=== PATIENT | female | born 1970 | race Caucasian/White ===

== ENCOUNTER 2017-02-26 02:21 | Inpatient (IN) | payer OTHER ==
[~2017-02-26] VITALS: Ht 152.4 cm; Wt 74.1 kg
[2017-02-26] VITALS (9 sets, daily range): BP systolic 117–164; BP diastolic 68–80; PULSE 64–96; RESP 18–20; TEMP 97.8; Ht 152.4 cm; Wt 74.1 kg
[2017-02-26] MEDS: HYDROmorphONE 1 MG/ML SYG IV PRN ×3 (03:37→19:27)
[2017-02-26] MEDS: ONDANSETRON 4 MG INJ IV PRN ×2 (03:37→08:51)
[2017-02-26] MEDS: GUAIFENESIN/DM 5ML CUP PO PRN ×2 (03:50→08:53)
--- NOTE | 2017-02-26 05:25 | ERA ---
ER Documentation Chief Complaint Date/Time DATE: 02/26/17 TIME: 05:24 Chief Complaint Direct admit to tele from Mehul Hernandez, boarding in ED,SOB,Hx lung CA w/ mets HPI This is a very pleasant 38-year-old female that is capitated to [facility]. She comes in with shortness of breath. No fevers or chills. No nausea no vomiting. No other current complaints ROS All systems reviewed and are negative except as per history of present illness. Allergies Allergies: Coded Allergies: No Known Allergy (Unverified , 02/26/17) PMhx/Soc History of Surgery: Yes (C SECTION, HYSTERECTOMY) Anesthesia Reaction: No Hx Neurological Disorder: Yes (MIGRAINE) Hx Respiratory Disorders: Yes (ASTHMA, LUNG CA) Hx Cardiac Disorders: Yes (HTN ) Hx Psychiatric Problems: Yes (ANXIETY, BIPOLAR, SCHIZOPHRENIA) Hx Miscellaneous Medical Probl: Yes (RA, UTERINE CA, DM, FIBROMYALGIA) Hx Alcohol Use: No Hx Substance Use: No Hx Tobacco Use: No Smoking Status: Former smoker Physical Exam Vitals Vital Signs Date Time Temp Pulse Resp B/P Pulse Ox O2 Delivery O2 Flow Rate FiO2 02/26/17 05:01 81 21 128/75 95 Nasal Cannula 2.0 02/26/17 03:30 96 Nasal Cannula 2.0 02/26/17 03:30 Nasal Cannula 2.0 02/26/17 03:25 98.8 95 29 151/81 90 Room Air 02/26/17 02:26 98.3 96 18 122/70 95 Physical Exam Const: [] Head: Atraumatic Eyes: Normal Conjunctiva ENT: Normal External Ears, Nose and Mouth. Neck: Full range of motion..~ No meningismus. Resp: Clear to auscultation bilaterally Cardio: Regular rate and rhythm, no murmurs Abd: Soft, non tender, non distended. Normal bowel sounds Skin: No petechiae or rashes Back: No midline or flank tenderness Ext: No cyanosis, or edema Neur: Awake and alert Psych: Normal Mood and Affect Results 24 hrs Current Medications Medications (Trade) Dose Ordered Sig/Hernan Route PRN Reason Start Time Stop Time Status Last Admin Dose Admin Guaifenesin/ Dextromethorphan (Robitussin Dm Liquid Cup) 10 ml Q4H PRN PO COUGH 02/26/17 03:30 02/26/17 03:50 Hydromorphone HCl (Dilaudid) 1 mg Q4H PRN IV PAIN 02/26/17 03:30 02/26/17 03:37 Albuterol/ Ipratropium (Duoneb) 3 ml Q4H RESP THERAPY PRN HHN SHORTNESS OF BREATH 02/26/17 03:30 Ondansetron HCl (Zofran Inj) 4 mg Q4H PRN IV NAUSEA AND/OR VOMITING 02/26/17 03:30 02/26/17 03:37 Procedures/MDM Medical decision-makin-year-old female shortness of breath likely secondary to metastatic lung cancer. At this point clinically stable. Patient will be admitted to hospitalist. Departure Diagnosis: Primary Impression: Shortness of breath Condition: Stable VARSHA SERRANO Feb 26, 2017 05:25
[2017-02-26] MEDS ORDERED: NACL 0.9% 3 ML SYG IV SCH (06:00)
[2017-02-26] MEDS ORDERED: LEVOFLOXACIN 750MG/D5W (PMX) 150 ML IVPB SCH (06:00)
[2017-02-26] MEDS ORDERED: ONDANSETRON 4 MG INJ IV PRN (06:00)
[2017-02-26 06:25] LABS: ADD SCAN DIFF NO
[2017-02-26 06:31] LABS: BASOPHILS % 0.4 % (0.0-2.0); EOSINOPHILS # 0.4 10^3/ul (0.0-0.5); EOSINOPHILS % 4.2 % (0.0-7.0); HEMATOCRIT 39.8 % (37.0-47.0); HEMOGLOBIN 12.9 g/dl (12.0-16.0); LYMPHOCYTES # 1.9 10^3/ul (0.8-2.9); LYMPHOCYTES % 19.1 % (15.0-51.0); MEAN CORPUSCULAR HEMOGLOBIN 29.5 pg (29.0-33.0); MEAN CORPUSCULAR HGB CONC 32.4 g/dl (32.0-37.0); MEAN CORPUSCULAR VOLUME 90.9 fl (82.0-101.0); MEAN PLATELET VOLUME 10.3 fl (7.4-10.4); MONOCYTE # 0.8 10^3/ul (0.3-0.9); MONOCYTES % 7.5 % (0.0-11.0); NEUTROPHIL # 6.8 10^3/ul (1.6-7.5); NEUTROPHILS % 68.4 % (39.0-77.0); PLATELET COUNT 299 10^3/UL (140-415); RED BLOOD COUNT 4.38 10^6/ul (4.20-5.40)
[2017-02-26 07:05] LABS: ALBUMIN 4.1 g/dl (3.3-4.9); ALBUMIN/GLOBULIN RATIO 1.41; BILIRUBIN,INDIRECT 0.3 mg/dl (0-1.1); BILIRUBIN,TOTAL 0.3 mg/dl (0.2-1.3); CALCIUM 9.3 mg/dl (8.4-10.2); CREATININE 0.67 mg/dl (0.44-1.00); POTASSIUM 4.1 mmol/L (3.5-5.1)
[2017-02-26] MEDS: PANTOPRAZOLE (EC) 40 MG TAB PO SCH (07:32)
--- NOTE | 2017-02-26 07:32 | HP ---
Date/Time of Note Date/Time of Note DATE: 02/26/17 TIME: 07:13 Assessment/Plan VTE Prophylaxis VTE Prophylaxis Intervention: LMWH Assessment/Plan Chief Complaint/Hosp Course This is a 38-year-old female being admitted to the telemetry floor for: #1 respiratory distress: Infectious versus neoplastic. Patient's chest x-ray does show likely neoplastic process. However patient also has been coughing and producing productive sputum and had an elevated white blood cell count today of 12.5 which also could possibly suggest an underlying pneumonia. Patient was 88% on room air as well as tachycardic at [facility]. At the current time will order a CT of the chest to evaluate for any pulmonary embolism as well as to get a better picture of the pulmonary masses. Will put continue patient on Levaquin 750 mg every 24 hours. Patient apparently had studies done at [facility]. We will try to obtain imaging studies of possible. DuoNeb's every 4 hours as needed. #2 lung mass: Likely neoplastic in etiology. Please see #1 #3 abnormal mammogram: Patient states that she had an abnormal mammogram. Will try to obtain outpatient records #4 Mental health: Patient has history of anxiety and schizophrenia as well as bipolar. Currently she is not on any medications, consult telemetry psych if indicated. #5 history of uterine cancer: Patient is status post total abdominal hysterectomy. Patient was having a difficult time scheduling the patient with a conveyor maintenance mechanic/onc she is requesting if she can see him during this visit. Will consult conveyor maintenance mechanic/onc #6 hypertension: Continue to monitor patient currently not on any medications. #7 rheumatoid arthritis: Continue to monitor currently not on medications #8 DVT and GI prophylaxis: Lovenox, Protonix Further treatment strategy will be implemented as per the clinical course Of note we do need to obtain outpatient records as well as imaging study records Patient did not have all her information at this time, we will need to confirm with her where he can obtain her records. Problems: HPI/ROS Admit Date/Time Admit Date/Time Hx of Present Illness This is a 38-year-old female who presented to the [facility] for evaluation of cough productive of green sputum for the past several weeks associated with subjective fever and diffuse pain. She was subsequently transferred from [facility]. She also is complaining of shortness of breath. She was told that she may have metastatic disease to her lung. She was not receiving any chemotherapy. She had a history of uterine cancer in the past and did have a total abdominal hysterectomy. She has not received any radiation therapy. On my examination patient did appear in mild distress from pain. She also stated that she was short of breath. She was satting 88% on room air. Allergies: NKDA Medications: See SUNNY GARCIA Const: As per HPI Eyes : No pain discharge or redness or change in visual acuity ENT: No pain, sore throat, congestion, congestion, dysphagia or discharge Respiratory: As patient Cardiovascular: No chest pain, palpitation, PND, or edema GI : no change in appetite, abdominal pain, nausea, vomiting, diarrhea, constipation, or change in the color his stool Genitourinary: No dysuria, hematuria, flank pain , discharge or CVA tenderness Musculoskeletal: No joint pain, back pain, neck pain, restricted range of motion in neck or joints Skin: No rash, bruising or hives Neuro: No headache, dizziness, syncope, seizure, focal weakness Endocrine: No polyuria, polydipsia, temperature intolerance Psych: No hallucination, depression, anxiety or suicidal ideation PMH/Family/Social Past Medical History Anxiety, arthritis, rheumatoid, asthma, bipolar disorder, history of uterine cancer with possible metastases, diabetes mellitus, fibromyalgia, hypertension, migraine, schizophrenia Past Surgical History section 1, total abdominal hysterectomy with bilateral salpingo- oophorectomy Family History Significant Family History: no pertinent family hx Social History Alcohol Use: none Smoking Status: Former smoker (Quarter pack a day 20 years) Drug Use: none Exam/Review of Systems Vital Signs Vitals Vital Signs Date Time Temp Pulse Resp B/P Pulse Ox O2 Delivery O2 Flow Rate FiO2 02/26/17 05:01 81 21 128/75 95 Nasal Cannula 2.0 02/26/17 03:25 98.8 Exam Exam General: Patient appears tachypneic, in mild distress from pain. HEENT: Atraumatic, normocephalic. The pupils are equal, round and reactive. Extraocular motor are intact Neck: Supple with full range of motion. No rigidity or meningismus Chest: Nontender Lungs: Clear to auscultation bilaterally, patient is tachypneic, mild respiratory distress Heart: Normal S1-S2, Regular rhythm and rate. No murmur, S3, or S4 Abdomen: Soft , nontender, nondistended , bowel sounds are present. No guarding no rebound tenderness , No masses or organomegaly. Extremities: Normal to inspection, no edema no cyanosis Neurologic: Normal mental status, speech normal, cranial nerves II through XII are intact, motor and sensory are intact, no focal weakness Additional Comments Abnormal lab results from [facility]: White blood cells count of 12.5 EKG: Sinus tachycardia at a rate of [address] or T-wave abnormalities. Chest x-ray: Progression of diffuse pulmonary metastasis with the largest mass in the right low lobe measuring 7 cm please refer to transfer documentation for further reports. Labs Result Diagram: 02/26/17 0600 Medications Medications Current Medications Guaifenesin/ Dextromethorphan (Robitussin Dm Liquid Cup) 10 ml Q4H PRN PO COUGH Last administered on 02/26/17 03:50; Admin Dose 10 ML; Start 02/26/17 at 03:30 Hydromorphone HCl (Dilaudid) 1 mg Q4H PRN IV PAIN Last administered on 03:37; Admin Dose 1 MG; Start 02/26/17 at 03:30 Ondansetron HCl (Zofran Inj) 4 mg Q4H PRN IV NAUSEA AND/OR VOMITING Last administered on 02/26/17 03:37; Admin Dose 4 MG; Start 02/26/17 at 03:30 Ondansetron HCl (Zofran Inj) 4 mg Q6H PRN IV NAUSEA AND/OR VOMITING; Start at 06:00 Pantoprazole (Protonix Tab) 40 mg DAILY@06 PO ; Start 02/26/17 at 06:00 Enoxaparin Sodium 40 mg 40 mg DAILY SC ; Start 02/26/17 at 09:00 Levofloxacin/ Dextrose (Levaquin 750 Mg/ D5W 150 ml (Pmx)) 150 ml @ 100 mls/hr Q24H IVPB ; Start 02/26/17 at 06:00 FRANCISCO MUHAMMAD Feb 26, 2017 07:23
[2017-02-26] MEDS: LEVOFLOXACIN 750MG/D5W (PMX) 150 ML IVPB SCH (07:33)
[2017-02-26] MEDS ORDERED: IODIXANOL LOCM 100 ML BTL ONE (08:07)
[2017-02-26] MEDS ORDERED: SOD CHLORIDE 0.9% 100 ML ONE (08:07)
--- NOTE | 2017-02-26 08:47 | RADRPT ---
PROCEDURE: CTA Chest CLINICAL INDICATION: Dyspnea, history of cancer TECHNIQUE: CTA of the chest was performed following the uncomplicated IV administration of 95 cc V isipaque 320. Coronal and sagittal images were reconstructed from the axial data set. 3-D volumetr ic rendered post processing was performed as well. One or more of the following dose reduction tech niques were used: automated exposure control, adjustment of the mA and/or kV according to patient si ze, use of iterative reconstruction technique. CTDI = 16.9 mGy. DLP = 617.45 mGy-cm. COMPARISON: None available. FINDINGS: No filling defect is present to suggest pulmonary embolism. There is no evidence for pulmonary skye rial hypertension. Innumerable bilateral pulmonary nodules/masses are identified, consistent with diffuse metastatic di sease. There are mild bilateral pleural effusions. Focal consolidation is identified in the tablet making machine operator olateral left lower lobe, possibly atelectasis and/or pneumonia. No pneumothorax or pulmonary edema is identified. The central tracheobronchial tree is clear. The heart size is normal without significant pericardial fluid. There is no thoracic aortic aneurys m or dissection. There is nonspecific prominence of mediastinal and hilar lymph nodes, concerning f or additional metastatic disease. No axillary or supraclavicular lymphadenopathy is identified. Visualized portions of the upper abdomen demonstrate no acute abnormality. The osseous structures a re unremarkable. No osteolytic or osteoblastic lesion is seen. IMPRESSION: 1. Diffuse bilateral pulmonary metastatic disease is identified, as above. Prominent mediastinal an d hilar lymph nodes are seen as well, further concerning for metastatic disease. 2. Focal pulmonary consolidation is seen in the left lower lobe, possibly atelectasis and/or pneumo yaneth. There are mild bilateral pleural effusions. 3. No pulmonary embolism is identified. RPTAT: HH .Omega Gaytan MD, Date Time Electronically viewed and signed by .Omega Gaytan MD, MD on 02/26/2017 08:46 .R/
[2017-02-26] MEDS: ENOXAPARIN 40 MG/0.4 ML SYG SC SCH (08:57)
[2017-02-26] MEDS: ALPRAZOLAM 0.25 MG TAB PO SCH (20:06)
[2017-02-27] VITALS (11 sets, daily range): BP systolic 117–145; BP diastolic 68–81; PULSE 60–97; RESP 18–20
[2017-02-27] MEDS: PANTOPRAZOLE (EC) 40 MG TAB PO SCH (06:41)
[2017-02-27 07:09] LABS: ADD SCAN DIFF NO
[2017-02-27 07:17] LABS: BASOPHIL # 0.1 10^3/ul (0.0-0.1); BASOPHILS % 0.5 % (0.0-2.0); EOSINOPHILS # 0.5 10^3/ul (0.0-0.5); EOSINOPHILS % 4.3 % (0.0-7.0); HEMATOCRIT 42.6 % (37.0-47.0); HEMOGLOBIN 13.9 g/dl (12.0-16.0); LYMPHOCYTES # 1.8 10^3/ul (0.8-2.9); LYMPHOCYTES % 16.7 % (15.0-51.0); MEAN CORPUSCULAR HEMOGLOBIN 29.6 pg (29.0-33.0); MEAN CORPUSCULAR HGB CONC 32.6 g/dl (32.0-37.0); MEAN CORPUSCULAR VOLUME 90.6 fl (82.0-101.0); MEAN PLATELET VOLUME 10.5 fl (7.4-10.4); MONOCYTE # 0.7 10^3/ul (0.3-0.9); NEUTROPHIL # 7.5 10^3/ul (1.6-7.5); NEUTROPHILS % 71.2 % (39.0-77.0); PLATELET COUNT 317 10^3/UL (140-415); RED CELL DISTRIBUTION WIDTH 13.9 % (11.5-14.5); WHITE BLOOD COUNT 10.6 10^3/ul (4.8-10.8)
[2017-02-27 07:56] LABS: CALCIUM 9.5 mg/dl (8.4-10.2); CREATININE 0.65 mg/dl (0.44-1.00); POTASSIUM 4.3 mmol/L (3.5-5.1)
[2017-02-27] MEDS: ALPRAZOLAM 0.25 MG TAB PO SCH ×2 (09:32→21:30)
[2017-02-27] MEDS: ENOXAPARIN 40 MG/0.4 ML SYG SC SCH (09:33)
[2017-02-27] MEDS: LEVOFLOXACIN 750MG/D5W (PMX) 150 ML IVPB SCH (10:37)
--- NOTE | 2017-02-27 16:05 | PN ---
Date/Time of Note Date/Time of Note DATE: 02/27/17 TIME: 16:02 Assessment/Plan Lines/Catheters IV [facility]from [facility] Saline Lock Urinary Cath still in place: No Assessment/Plan Chief Complaint/Hosp Course Assessment and plan 1. Respiratory distress suspect secondary to neoplastic process versus infectious process. Portfolio Management Marketing was consulted. Await recommendations. Bronchodilators as needed. Continue on antibiotics for now. CT of the chest negative for any kind of pulmonary embolism. Suspect possible pneumonia. Continue on antibiotics. 2. Lung mass. Patient did have CT scan of the chest that showed diffuse bilateral pulmonary metastatic disease process. Await pulmonology recommendations. 3. History of uterine cancer. Patient was seen by obgyn specialist/onc 4. History of bipolar/schizophrenia. No active issue noted at this time. Continue to monitor for now. Disposition plan: Continue with antibiotic. With intelligence support officer and obgyn specialist/onc input. Discussed plan of care with Problems: Subjective 24 Hr Interval Summary Free Text/Dictation reports better breathing at this time Exam/Review of Systems Vital Signs Vitals Vital Signs Date Time Temp Pulse Resp B/P Pulse Ox O2 Delivery O2 Flow Rate FiO2 02/27/17 12:41 80 02/27/17 11:48 98.0 19 118/75 93 02/26/17 10:00 Nasal Cannula 2.0 Exam Constitutional: alert, oriented Psych: nl mood/affect Neck: supple Respiratory: normal air movement Cardiovascular: regular rate and rhythm Gastrointestinal: non-tender, soft Musculoskeletal: nl extremities to inspection Extremities: normal pulses Neurological: FORKLIFT PICKER II-XII intact, nl mental status, nl speech Results Result Diagram: 02/27/17 0633 02/27/17 0633 Results 24 hrs Laboratory Tests Test 02/27/17 06:33 White Blood Count 10.6 Red Blood Count 4.70 Hemoglobin 13.9 Hematocrit 42.6 Mean Corpuscular Volume 90.6 Mean Corpuscular Hemoglobin 29.6 Mean Corpuscular Hemoglobin Concent 32.6 Red Cell Distribution Width 13.9 Platelet Count 317 Mean Platelet Volume 10.5 H Neutrophils % 71.2 Lymphocytes % 16.7 Monocytes % 7.0 Eosinophils % 4.3 Basophils % 0.5 Nucleated Red Blood Cells % 0.0 Neutrophils # 7.5 Lymphocytes # 1.8 Monocytes # 0.7 Eosinophils # 0.5 Basophils # 0.1 Nucleated Red Blood Cells # 0.0 Sodium Level 141 Potassium Level 4.3 Chloride Level 103 Carbon Dioxide Level 30 Anion Gap 12 Blood Urea Nitrogen 8 Creatinine 0.65 Glucose Level 92 Calcium Level 9.5 Medications Medications Current Medications Guaifenesin/ Dextromethorphan (Robitussin Dm Liquid Cup) 10 ml Q4H PRN PO COUGH Last administered on 02/26/17 08:53; Admin Dose 10 ML; Start 02/26/17 at 03:30 Hydromorphone HCl (Dilaudid) 1 mg Q4H PRN IV PAIN Last administered on 19:27; Admin Dose 1 MG; Start 02/26/17 at 03:30 Ondansetron HCl (Zofran Inj) 4 mg Q4H PRN IV NAUSEA AND/OR VOMITING Last administered on 02/26/17 08:51; Admin Dose 4 MG; Start 02/26/17 at 03:30 Ondansetron HCl (Zofran Inj) 4 mg Q6H PRN IV NAUSEA AND/OR VOMITING; Start at 06:00 Pantoprazole (Protonix Tab) 40 mg DAILY@06 PO Last administered on 02/27/17 06 :41; Admin Dose 40 MG; Start 02/26/17 at 06:00 Enoxaparin Sodium 40 mg 40 mg DAILY SC Last administered on 02/27/17 09:33; Admin Dose 40 MG; Start 02/26/17 at 09:00 Levofloxacin/ Dextrose (Levaquin 750 Mg/ D5W 150 ml (Pmx)) 150 ml @ 100 mls/hr Q24H IVPB Last administered on 02/27/17 10:37; Admin Dose 100 MLS/HR; Start at 07:30 Alprazolam (Xanax) 0.25 mg BID PO Last administered on 02/27/17 09:32; Admin Dose 0.25 MG; Start 02/26/17 at 20:00 ANGELA MCNEIL Feb 27, 2017 16:05
[2017-02-27] MEDS: HYDROmorphONE 1 MG/ML SYG IV PRN (18:10)
[2017-02-28] VITALS (13 sets, daily range): BP systolic 115–162; BP diastolic 59–92; PULSE 65–120; RESP 18–20
[2017-02-28] MEDS: PANTOPRAZOLE (EC) 40 MG TAB PO SCH (05:29)
[2017-02-28] MEDS: HYDROmorphONE 1 MG/ML SYG IV PRN ×3 (05:29→20:09)
[2017-02-28 07:28] LABS: ADD SCAN DIFF NO
[2017-02-28 07:43] LABS: BASOPHIL # 0.1 10^3/ul (0.0-0.1); BASOPHILS % 0.6 % (0.0-2.0); EOSINOPHILS # 0.3 10^3/ul (0.0-0.5); EOSINOPHILS % 3.6 % (0.0-7.0); HEMATOCRIT 38.6 % (37.0-47.0); HEMOGLOBIN 12.6 g/dl (12.0-16.0); LYMPHOCYTES # 1.8 10^3/ul (0.8-2.9); MEAN CORPUSCULAR HEMOGLOBIN 29.4 pg (29.0-33.0); MEAN CORPUSCULAR HGB CONC 32.6 g/dl (32.0-37.0); MEAN PLATELET VOLUME 10.5 fl (7.4-10.4); MONOCYTE # 0.6 10^3/ul (0.3-0.9); MONOCYTES % 6.7 % (0.0-11.0); NEUTROPHIL # 6.7 10^3/ul (1.6-7.5); NEUTROPHILS % 69.7 % (39.0-77.0); PLATELET COUNT 315 10^3/UL (140-415); RED BLOOD COUNT 4.29 10^6/ul (4.20-5.40); WHITE BLOOD COUNT 9.6 10^3/ul (4.8-10.8)
[2017-02-28 08:04] LABS: CALCIUM 9.3 mg/dl (8.4-10.2); CREATININE 0.58 mg/dl (0.44-1.00); POTASSIUM 3.9 mmol/L (3.5-5.1)
[2017-02-28] MEDS: ALPRAZOLAM 0.25 MG TAB PO SCH ×2 (08:35→20:09)
[2017-02-28] MEDS: LEVOFLOXACIN 750MG/D5W (PMX) 150 ML IVPB SCH (08:35)
[2017-02-28] MEDS: ENOXAPARIN 40 MG/0.4 ML SYG SC SCH (08:37)
--- NOTE | 2017-02-28 13:16 | CONS ---
Date/Time of Note Date/Time of Note DATE: 02/28/17 TIME: 13:12 Assessment/Plan Assessment/Plan Additional Assessment/Plan CT chest was reviewed from yesterday which is showing bilateral multiple masses/ nodules. Findings are almost pathognomonic of widely metastatic malignancy. Possibly uterine in etiology. Assessment recommendations; 1. P patient admitted with shortness of breath with multiple nodules/lung masses likely metastatic cancer. We will schedule CT-guided biopsy. Continue current supportive measures. Consultation Date/Type/Reason Admit Date/Time Date of Consultation: Feb 28, 2017 Type of Consultation: Pulmonary Reason for Consultation Pulmonary consultation requested for evaluation of multiple bilateral pulmonary nodules/masses. History of presenting any; patient is a pleasant 46-year-old lady who came into the emergency room sent over from [facility] after she presented there with complaint of shortness of breath. Patient had a chest x- ray done which showed multiple lung nodules patient subsequently was transferred to this hospital for possible biopsy. Patient has been complaining of shortness of breath for the last several months also complain of scant cough without any sputum production. Denies any chest pain wheezing. Denies any hemoptysis. Patient has lost 30 pounds over the last couple months. According to her she was diagnosed with uterine cancer in May of last year underwent hysterectomy at that time she had a PET scan done which showed one spot in the lung patient however could not have any follow-up done. According to her she has been to various hospitals and an x-ray done in either November or December showed multiple lung nodules however no further workup was done at that time either. Past medical history; next 1. Patient with history of uterine cancer in May last year status post hysterectomy. No other medical history. Medications; reviewed. Allergies; none. Social history; patient just recently quit smoking. No swelling or drug abuse. Family history; patient has 3 children. No show any malignancy in the family. 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 Review of systems; denies any headache, seizures. Any chest pain, angina, wheezing. Any vomitus. Complains of shortness of breath. Denies any abdominal pain, nausea vomiting. Any edema. Any abdominal distention. Complains of mild orthopnea. Has lost 30 pounds in the last few months. Denies any skin changes. Lesia; middle-aged woman, awake alert currently in no distress. Psychological: nl mood/affect Social History Alcohol Use: none Smoking Status: Former smoker Drug Use: none Exam/Review of Systems Vital Signs Vitals Vital Signs Date Time Temp Pulse Resp B/P Pulse Ox O2 Delivery O2 Flow Rate FiO2 02/28/17 12:31 120 02/28/17 12:10 98.0 20 120/73 96 02/27/17 08:20 Nasal Cannula 2.0 Intake and Output 02/27/17 02/27/17 02/28/17 15:00 23:00 07:00 Intake Total 550 ml 720 ml Balance 550 ml 720 ml Exam HEENT exam is; supple neck, no JVD. No lymphadenopathy. Midline trachea. No thyromegaly. Pharynx clear. Patient has fair dentition. Pupils are midsize and reactive to light. Chest examined; diminished but clear vessel. S1-S2 audible, no murmurs. Regular rhythm. Abdomen examination; soft, no organomegaly. Bowel sounds audible. Nontender. Extremity examination; no peripheral edema. Pulses 1+ bilaterally. No clubbing. MAILING SPECIALIST examination; no focal deficit. Results Result Diagram: 02/28/17 0640 02/28/17 0620 Results 24 hrs Laboratory Tests Test 02/28/17 06:20 02/28/17 06:40 Sodium Level 141 Potassium Level 3.9 Chloride Level 106 Carbon Dioxide Level 28 Anion Gap 11 Blood Urea Nitrogen 10 Creatinine 0.58 Glucose Level 100 Calcium Level 9.3 White Blood Count 9.6 Red Blood Count 4.29 Hemoglobin 12.6 Hematocrit 38.6 Mean Corpuscular Volume 90.0 Mean Corpuscular Hemoglobin 29.4 Mean Corpuscular Hemoglobin Concent 32.6 Red Cell Distribution Width 14.0 Platelet Count 315 Mean Platelet Volume 10.5 H Neutrophils % 69.7 Lymphocytes % 19.0 Monocytes % 6.7 Eosinophils % 3.6 Basophils % 0.6 Nucleated Red Blood Cells % 0.0 Neutrophils # 6.7 Lymphocytes # 1.8 Monocytes # 0.6 Eosinophils # 0.3 Basophils # 0.1 Nucleated Red Blood Cells # 0.0 Medications Medications Current Medications Guaifenesin/ Dextromethorphan (Robitussin Dm Liquid Cup) 10 ml Q4H PRN PO COUGH Last administered on 02/26/17t 08:53; Admin Dose 10 ML; Start 02/26/17 at 03:30 Hydromorphone HCl (Dilaudid) 1 mg Q4H PRN IV PAIN Last administered on 05:29; Admin Dose 1 MG; Start 02/26/17 at 03:30 Ondansetron HCl (Zofran Inj) 4 mg Q4H PRN IV NAUSEA AND/OR VOMITING Last administered on 02/26/17 08:51; Admin Dose 4 MG; Start 02/26/17 at 03:30 Ondansetron HCl (Zofran Inj) 4 mg Q6H PRN IV NAUSEA AND/OR VOMITING; Start at 06:00 Pantoprazole (Protonix Tab) 40 mg DAILY@06 PO Last administered on 02/28/17 05 :29; Admin Dose 40 MG; Start 02/26/17 at 06:00 Enoxaparin Sodium 40 mg 40 mg DAILY SC Last administered on 02/28/17 08:37; Admin Dose 40 MG; Start 02/26/17 at 09:00 Levofloxacin/ Dextrose (Levaquin 750 Mg/ D5W 150 ml (Pmx)) 150 ml @ 100 mls/hr Q24H IVPB Last administered on 02/28/17 08:35; Admin Dose 100 MLS/HR; Start at 07:30 Alprazolam (Xanax) 0.25 mg BID PO Last administered on 02/28/17 08:35; Admin Dose 0.25 MG; Start 02/26/17 at 20:00 SANGITA CAMPOS 21, 2017 13:16
--- NOTE | 2017-02-28 16:18 | PN ---
Date/Time of Note Date/Time of Note DATE: 02/28/17 TIME: 16:16 Assessment/Plan VTE Prophylaxis VTE Prophylaxis Intervention: LMWH Lines/Catheters IV [facility] Saline Lock Urinary Cath still in place: No Assessment/Plan Chief Complaint/Hosp Course Assessment and plan 1. Respiratory distress suspect secondary to neoplastic process versus infectious process. Banking Attorney was consulted. Plan for CT-guided lung biopsy Continue on antibiotics for now. CT of the chest negative for any kind of pulmonary embolism. Empirically on antibiotic for possible pneumonia 2. Lung mass. Patient did have CT scan of the chest that showed diffuse bilateral pulmonary metastatic disease process. Plan for CT guided biopsy of lung 3. History of uterine cancer. Patient to be seen by manager alliance/onc 4. History of bipolar/schizophrenia. No active issue noted at this time. Continue to monitor for now. Disposition plan: Plan for CT lung guided biopsy. Medical oncologist consulted Discussed plan of care with Problems: Subjective 24 Hr Interval Summary Free Text/Dictation Resting at this time. Reports having shortness of breath Exam/Review of Systems Vital Signs Vitals Vital Signs Date Time Temp Pulse Resp B/P Pulse Ox O2 Delivery O2 Flow Rate FiO2 02/28/17 15:53 97.8 86 20 115/59 98 02/27/17 08:20 Nasal Cannula 2.0 Intake and Output 02/27/17 02/27/17 02/28/17 15:00 23:00 07:00 Intake Total 550 ml 720 ml Balance 550 ml 720 ml Exam Constitutional: alert Head: normocephalic Eyes: nl conjunctiva Neck: supple Respiratory: clear to auscultation, normal air movement Cardiovascular: regular rate and rhythm Gastrointestinal: non-tender, soft Extremities: normal pulses Neurological: CHILD AND ADOLESCENT PSYCHIATRIST II-XII intact, nl mental status, nl speech Results Result Diagram: 02/28/17 0640 02/28/17 0620 Results 24 hrs Laboratory Tests Test 02/28/17 06:20 02/28/17 06:40 Sodium Level 141 Potassium Level 3.9 Chloride Level 106 Carbon Dioxide Level 28 Anion Gap 11 Blood Urea Nitrogen 10 Creatinine 0.58 Glucose Level 100 Calcium Level 9.3 White Blood Count 9.6 Red Blood Count 4.29 Hemoglobin 12.6 Hematocrit 38.6 Mean Corpuscular Volume 90.0 Mean Corpuscular Hemoglobin 29.4 Mean Corpuscular Hemoglobin Concent 32.6 Red Cell Distribution Width 14.0 Platelet Count 315 Mean Platelet Volume 10.5 H Neutrophils % 69.7 Lymphocytes % 19.0 Monocytes % 6.7 Eosinophils % 3.6 Basophils % 0.6 Nucleated Red Blood Cells % 0.0 Neutrophils # 6.7 Lymphocytes # 1.8 Monocytes # 0.6 Eosinophils # 0.3 Basophils # 0.1 Nucleated Red Blood Cells # 0.0 Medications Medications Current Medications Guaifenesin/ Dextromethorphan (Robitussin Dm Liquid Cup) 10 ml Q4H PRN PO COUGH Last administered on 02/26/17 08:53; Admin Dose 10 ML; Start 02/26/17 at 03:30 Hydromorphone HCl (Dilaudid) 1 mg Q4H PRN IV PAIN Last administered on 14:01; Admin Dose 1 MG; Start 02/26/17 at 03:30 Ondansetron HCl (Zofran Inj) 4 mg Q4H PRN IV NAUSEA AND/OR VOMITING Last administered on 02/26/17 08:51; Admin Dose 4 MG; Start 02/26/17 at 03:30 Ondansetron HCl (Zofran Inj) 4 mg Q6H PRN IV NAUSEA AND/OR VOMITING; Start at 06:00 Pantoprazole (Protonix Tab) 40 mg DAILY@06 PO Last administered on 02/28/17 05 :29; Admin Dose 40 MG; Start 02/26/17 at 06:00 Enoxaparin Sodium (Lovenox) 40 mg DAILY SC Last administered on 02/28/17 08:37 ; Admin Dose 40 MG; Start 02/26/17 at 09:00 Alprazolam (Xanax) 0.25 mg BID PO Last administered on 02/28/17 08:35; Admin Dose 0.25 MG; Start 02/26/17 at 20:00 Levofloxacin (Levaquin) 750 mg DAILY@06 PO ; Start 03/01/17 at 06:00 ANGELA MCNEIL Feb 28, 2017 16:18
--- NOTE | 2017-02-28 19:34 | CONS ---
Date/Time of Note Date/Time of Note DATE: 02/27/17 TIME: 19:16 VK LE Assessment/Plan Assessment/Plan Chief Complaint/Hosp Course History of uterine cancer. Patient to be seen by electrician supervisor airplane/onc PT UNDERWENT KIERAN FOR UTERINE LEIOMYOSARCOMA IN MAY 2016 AT [facility] SHE SAW DR LOZA 3 TIMES OUTPT PT SAW DR VILLAREAL , WITH PLAN FOR CHEMOTHERAPY, BUT NO AUTH HAS BEEN OBTAINED Diffuse bilateral pulmonary metastatic disease , WITH Prominent mediastinal and hilar lymph nodes are seen as well, further concerning for metastatic disease. Respiratory distress suspect secondary to neoplastic process Socket Puller EVAL CT-guided lung biopsy History of bipolar/schizophrenia. No active issue noted at this time. Continue to monitor for now. Problems: Consultation Date/Type/Reason Admit Date/Time Date of Consultation: Feb 27, 2017 Type of Consultation: HEMEONC Reason for Consultation LUNG METS UTERINE MASS Referring Provider: ANGELA MCNEIL of Present Illness patient is a pleasant 46-year-old lady who came into the emergency room sent over from [facility] after she presented there with complaint of shortness of breath. Patient had a chest x-ray done which showed multiple lung nodules patient subsequently was transferred to this hospital for possible biopsy. Patient has been complaining of shortness of breath for the last several months also complain of scant cough without any sputum production. Denies any chest pain wheezing. Denies any hemoptysis. Patient has lost 30 pounds over the last couple months. According to her she was diagnosed with uterine cancer in May of last year underwent hysterectomy at that time she had a PET scan done which showed one spot in the lung patient however could not have any follow-up done. According to her she has been to various hospitals and an x-ray done in either November or December showed multiple lung nodules however no further workup was done at that time either. PER DAUGHTER- PT UNDERWENT KIERAN FOR UTERINE LEIOMYOSARCOMA IN MAY 2016 AT [facility] SHE SAW DR LOZA 3 TIMES OUTPT PT SAW DR VILLAREAL , WITH PLAN FOR CHEMOTHERAPY, BUT NO AUTH HAS BEEN OBTAINED Past medical history 1. Patient with history of uterine cancer in May last year status post hysterectomy. No other medical history. Medications; reviewed. Allergies; none. Social history; patient just recently quit smoking. No swelling or drug abuse. Family history; patient has 3 children. No show any malignancy in the family. 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 Review of systems; denies any headache, seizures. Any chest pain, angina, wheezing. Any vomitus. Complains of shortness of breath. Denies any abdominal pain, nausea vomiting. Any edema. Any abdominal distention. Complains of mild orthopnea. Has lost 30 pounds in the last few months. Denies any skin changes. Lesia; middle-aged woman, awake alert currently in no distress. Psychological: nl mood/affect Social History Alcohol Use: none Smoking Status: Former smoker Drug Use: none Psychological: nl mood/affect Social History Alcohol Use: none Smoking Status: Former smoker Drug Use: none Exam/Review of Systems Vital Signs Vitals Vital Signs Date Time Temp Pulse Resp B/P Pulse Ox O2 Delivery O2 Flow Rate FiO2 02/27/17 12:41 80 02/27/17 11:48 98.0 19 118/75 93 02/26/17 10:00 Nasal Cannula 2.0 Exam Constitutional: alert Head: normocephalic Eyes: nl conjunctiva Neck: supple Respiratory: clear to auscultation, normal air movement Cardiovascular: regular rate and rhythm Gastrointestinal: tender, soft Extremities: normal pulses Neurological: CHANGE MANAGEMENT SPECIALIST II-XII intact, nl mental status, nl speech Results Result Diagram: 02/28/17 0640 02/28/17 0620 Results 24 hrs Laboratory Tests Test 02/28/17 06:20 02/28/17 06:40 Sodium Level 141 Potassium Level 3.9 Chloride Level 106 Carbon Dioxide Level 28 Anion Gap 11 Blood Urea Nitrogen 10 Creatinine 0.58 Glucose Level 100 Calcium Level 9.3 White Blood Count 9.6 Red Blood Count 4.29 Hemoglobin 12.6 Hematocrit 38.6 Mean Corpuscular Volume 90.0 Mean Corpuscular Hemoglobin 29.4 Mean Corpuscular Hemoglobin Concent 32.6 Red Cell Distribution Width 14.0 Platelet Count 315 Mean Platelet Volume 10.5 H Neutrophils % 69.7 Lymphocytes % 19.0 Monocytes % 6.7 Eosinophils % 3.6 Basophils % 0.6 Nucleated Red Blood Cells % 0.0 Neutrophils # 6.7 Lymphocytes # 1.8 Monocytes # 0.6 Eosinophils # 0.3 Basophils # 0.1 Nucleated Red Blood Cells # 0.0 Medications Medications Current Medications Guaifenesin/ Dextromethorphan (Robitussin Dm Liquid Cup) 10 ml Q4H PRN PO COUGH Last administered on 02/26/17 08:53; Admin Dose 10 ML; Start 02/26/17 at 03:30 Hydromorphone HCl (Dilaudid) 1 mg Q4H PRN IV PAIN Last administered on 14:01; Admin Dose 1 MG; Start 02/26/17 at 03:30 Ondansetron HCl (Zofran Inj) 4 mg Q4H PRN IV NAUSEA AND/OR VOMITING Last administered on 02/26/17 08:51; Admin Dose 4 MG; Start 02/26/17 at 03:30 Ondansetron HCl (Zofran Inj) 4 mg Q6H PRN IV NAUSEA AND/OR VOMITING; Start at 06:00 Pantoprazole (Protonix Tab) 40 mg DAILY@06 PO Last administered on 02/28/17 05 :29; Admin Dose 40 MG; Start 02/26/17 at 06:00 Enoxaparin Sodium (Lovenox) 40 mg DAILY SC Last administered on 02/28/17 08:37 ; Admin Dose 40 MG; Start 02/26/17 at 09:00 Alprazolam (Xanax) 0.25 mg BID PO Last administered on 02/28/17 08:35; Admin Dose 0.25 MG; Start 02/26/17 at 20:00 Levofloxacin (Levaquin) 750 mg DAILY@06 PO ; Start 03/01/17 at 06:00 Procedures Procedures [place] [id number] Radiology Main Line: [phone] DIAGNOSTIC IMAGING REPORT Patient: SANJEEV BROWN : 1970 Age: 46 Sex: F MR #: [id number] DOS: 02/26/17 0000 Ordering MD: FRANCISCO MUHAMMAD MD Location: [facility] Room/Bed: PROCEDURE: CTA Chest CLINICAL INDICATION: Dyspnea, history of cancer TECHNIQUE: CTA of the chest was performed following the uncomplicated IV administration of 95 cc Visipaque 320. Coronal and sagittal images were reconstructed from the axial data set. 3-D volumetric rendered post processing was performed as well. One or more of the following dose reduction techniques were used: automated exposure control, adjustment of the mA and/or kV according to patient size, use of iterative reconstruction technique. CTDI = 16.9 mGy. DLP = 617.45 mGy-cm. COMPARISON: None available. FINDINGS: No filling defect is present to suggest pulmonary embolism. There is no evidence for pulmonary arterial hypertension. Innumerable bilateral pulmonary nodules/masses are identified, consistent with diffuse metastatic disease. There are mild bilateral pleural effusions. Focal consolidation is identified in the posterolateral left lower lobe, possibly atelectasis and/or pneumonia. No pneumothorax or pulmonary edema is identified. The central tracheobronchial tree is clear. The heart size is normal without significant pericardial fluid. There is no thoracic aortic aneurysm or dissection. There is nonspecific prominence of mediastinal and hilar lymph nodes, concerning for additional metastatic disease. No axillary or supraclavicular lymphadenopathy is identified. Visualized portions of the upper abdomen demonstrate no acute abnormality. The osseous structures are unremarkable. No osteolytic or osteoblastic lesion is seen. IMPRESSION: 1. Diffuse bilateral pulmonary metastatic disease is identified, as above. Prominent mediastinal and hilar lymph nodes are seen as well, further concerning for metastatic disease. 2. Focal pulmonary consolidation is seen in the left lower lobe, possibly atelectasis and/or pneumonia. There are mild bilateral pleural effusions. 3. No pulmonary embolism is identified. RPTAT: HH .Omega Gaytan MD, MD Date Time Electronically viewed and signed by .Omega Gaytan MD, on 02/26/2017 08: 46 .R/ CC: FRANCISCO MUHAMMAD VERA M MD Feb 28, 2017 19:29
--- NOTE | 2017-02-28 19:36 | CONS ---
Date/Time of Note Date/Time of Note DATE: 02/28/17 TIME: 19:35 Assessment/Plan Assessment/Plan Chief Complaint/Hosp Course History of uterine cancer. Patient to be seen by corner cutter/onc PT UNDERWENT KIERAN FOR UTERINE LEIOMYOSARCOMA IN MAY 2016 AT [facility] SHE SAW DR LOZA 3 TIMES OUTPT PT SAW DR VILLAREAL , WITH PLAN FOR CHEMOTHERAPY, BUT NO AUTH HAS BEEN OBTAINED CT ABD TUMOR MARKERS OBTAIN RECORD Diffuse bilateral pulmonary metastatic disease , WITH Prominent mediastinal and hilar lymph nodes are seen as well, further concerning for metastatic disease. Respiratory distress suspect secondary to neoplastic process Ergonomist F-UP CT-guided lung biopsy History of bipolar/schizophrenia. No active issue noted at this time. Continue to monitor for now. Problems: Consultation Date/Type/Reason Admit Date/Time Feb 26, 2017 at 03:22 Initial Consult Date 02/27/17 Type of Consultation: HEMEON Referring Provider: ANGELA MCNEIL 24 HR Interval Summary Free Text/Dictation + ABD PAIN DR LOZA CALLED Exam/Review of Systems Vital Signs Vitals Vital Signs Date Time Temp Pulse Resp B/P Pulse Ox O2 Delivery O2 Flow Rate FiO2 02/28/17 16:22 85 02/28/17 15:53 97.8 20 115/59 98 02/27/17 08:20 Nasal Cannula 2.0 Intake and Output 02/27/17 02/27/17 02/28/17 15:00 23:00 07:00 Intake Total 550 ml 720 ml Balance 550 ml 720 ml Exam Constitutional: alert Head: normocephalic Eyes: nl conjunctiva Neck: supple Respiratory: clear to auscultation, normal air movement Cardiovascular: regular rate and rhythm Gastrointestinal: tender, soft Extremities: normal pulses Neurological: BUILDING SURVEYOR II-XII intact, nl mental status, nl speech Results Result Diagram: 02/28/17 0640 02/28/17 0620 Results 24 hrs Laboratory Tests Test 02/28/17 06:20 02/28/17 06:40 Sodium Level 141 Potassium Level 3.9 Chloride Level 106 Carbon Dioxide Level 28 Anion Gap 11 Blood Urea Nitrogen 10 Creatinine 0.58 Glucose Level 100 Calcium Level 9.3 White Blood Count 9.6 Red Blood Count 4.29 Hemoglobin 12.6 Hematocrit 38.6 Mean Corpuscular Volume 90.0 Mean Corpuscular Hemoglobin 29.4 Mean Corpuscular Hemoglobin Concent 32.6 Red Cell Distribution Width 14.0 Platelet Count 315 Mean Platelet Volume 10.5 H Neutrophils % 69.7 Lymphocytes % 19.0 Monocytes % 6.7 Eosinophils % 3.6 Basophils % 0.6 Nucleated Red Blood Cells % 0.0 Neutrophils # 6.7 Lymphocytes # 1.8 Monocytes # 0.6 Eosinophils # 0.3 Basophils # 0.1 Nucleated Red Blood Cells # 0.0 Medications Medications Current Medications Guaifenesin/ Dextromethorphan (Robitussin Dm Liquid Cup) 10 ml Q4H PRN PO COUGH Last administered on 02/26/17 08:53; Admin Dose 10 ML; Start 02/26/17 at 03:30 Hydromorphone HCl (Dilaudid) 1 mg Q4H PRN IV PAIN Last administered on 14:01; Admin Dose 1 MG; Start 02/26/17 at 03:30 Ondansetron HCl (Zofran Inj) 4 mg Q4H PRN IV NAUSEA AND/OR VOMITING Last administered on 02/26/17 08:51; Admin Dose 4 MG; Start 02/26/17 at 03:30 Ondansetron HCl (Zofran Inj) 4 mg Q6H PRN IV NAUSEA AND/OR VOMITING; Start at 06:00 Pantoprazole (Protonix Tab) 40 mg DAILY@06 PO Last administered on 02/28/17 05 :29; Admin Dose 40 MG; Start 02/26/17 at 06:00 Enoxaparin Sodium (Lovenox) 40 mg DAILY SC Last administered on 02/28/17 08:37 ; Admin Dose 40 MG; Start 02/26/17 at 09:00 Alprazolam (Xanax) 0.25 mg BID PO Last administered on 02/28/17 08:35; Admin Dose 0.25 MG; Start 02/26/17 at 20:00 Levofloxacin (Levaquin) 750 mg DAILY@06 PO ; Start 03/01/17 at 06:00 JUSTINA AGUIRRE MD Feb 28, 2017 19:36
[2017-02-28] MEDS ORDERED: BARIUM SULF 2% 450 ML BTL (BERRY SMOOTHIE) PO ONE (20:00)
[2017-02-28 20:32] LABS: CARCINOEMBRYONIC ANTIGEN 0.7 ng/ml (0.0-5.0)
[2017-02-28] MEDS ORDERED: IOHEXOL 300MG/ML 150 ML BTL ONE (20:35)
[2017-03-01] VITALS (12 sets, daily range): BP systolic 126–152; BP diastolic 71–94; PULSE 86–155; RESP 16–18
--- NOTE | 2017-03-01 01:13 | RADRPT ---
PROCEDURE: CT abdomen and pelvis with and without contrast. CLINICAL INDICATION: Abdominal pain. TECHNIQUE: Pre and postcontrast CT examination of the abdomen and pelvis, with axial, sagittal and c oronal reformatted images. 100 cc Omnipaque-300 nonionic IV contrast were employed. CTDI: 38.52 mGy and DLP: 1592.64 mGy-cm. COMPARISON: CT angiography of the chest dated 02/26/2017. FINDINGS: CT abdomen: No significant change in diffuse metastatic deposits in bilateral lung bases, with substantially sta ble small bilateral pleural effusions. Heart size is within normal limits. The liver is normal in size and density without focal mass or intrahepatic biliary dilatation. The spleen is normal in size and homogeneous in density. The stomach is partially collapsed, but is vernon ssly unremarkable. The pancreas as visualized is normal. The gallbladder and biliary tree are unre markable and there is no evidence for biliary dilatation. The adrenal glands are symmetric and norm al. 13 mm right renal cyst. Otherwise, the kidneys are symmetrically unremarkable as well. No venice l calculus or obstructive uropathy or mass lesion is seen. The aorta is of normal caliber. Aortic vascular calcifications are mild. There is no retroperitone al lymphadenopathy. The russell hepatis region is clear. The bowel and mesentery, as visualized, are equally unremarkable. CT pelvis: Complex mass in the right purvi pelvis measures 62 x 61 x 58 mm and represents metastatic neoplasm un til proven otherwise. The small bowel loops situated within the pelvis are unremarkable. The pelvic organs are normal. T he pelvic sidewalls and inguinal regions are clear. The sigmoid colon and rectum are all unremarkab le. No mass, lymphadenopathy, or free fluid is seen. No acute inflammation is seen. The appendix is unremarkable. The surrounding osseous structures are remarkable for mild degenerative spondylosis of the spine. N o osteolytic or osteoblastic lesion is detected. IMPRESSION: 1. 62 mm mass in the right purvi pelvis represents metastatic neoplasm until proven otherwise. 2. Otherwise, no acute process in the abdomen or pelvis. 3. Numerous large metastatic deposits again seen bilateral lung bases, with small pleural effusions . RPTAT: [facility] Earlene Hinson, Physician Date Time Electronically viewed and signed by Earlene Hinson Physician on 03/01/2017 01:13 RS/
[2017-03-01] MEDS: LEVOFLOXACIN 750 MG TABLET PO SCH (05:47)
[2017-03-01] MEDS: PANTOPRAZOLE (EC) 40 MG TAB PO SCH (05:47)
[2017-03-01] MEDS: ONDANSETRON 4 MG INJ IV PRN ×2 (07:51→16:35)
[2017-03-01] MEDS: HYDROmorphONE 1 MG/ML SYG IV PRN ×3 (07:51→23:20)
[2017-03-01 08:00] LABS: ADD SCAN DIFF NO
[2017-03-01 08:22] LABS: BASOPHIL # 0.1 10^3/ul (0.0-0.1); BASOPHILS % 0.5 % (0.0-2.0); EOSINOPHILS # 0.3 10^3/ul (0.0-0.5); EOSINOPHILS % 2.7 % (0.0-7.0); HEMATOCRIT 40.9 % (37.0-47.0); HEMOGLOBIN 13.5 g/dl (12.0-16.0); LYMPHOCYTES # 1.7 10^3/ul (0.8-2.9); LYMPHOCYTES % 18.7 % (15.0-51.0); MEAN CORPUSCULAR HEMOGLOBIN 29.6 pg (29.0-33.0); MEAN CORPUSCULAR VOLUME 89.7 fl (82.0-101.0); MEAN PLATELET VOLUME 10.7 fl (7.4-10.4); MONOCYTE # 0.6 10^3/ul (0.3-0.9); MONOCYTES % 6.8 % (0.0-11.0); NEUTROPHIL # 6.5 10^3/ul (1.6-7.5); PLATELET COUNT 333 10^3/UL (140-415); RED BLOOD COUNT 4.56 10^6/ul (4.20-5.40); RED CELL DISTRIBUTION WIDTH 13.9 % (11.5-14.5); WHITE BLOOD COUNT 9.2 10^3/ul (4.8-10.8)
[2017-03-01 08:29] LABS: CALCIUM 9.5 mg/dl (8.4-10.2); CREATININE 0.58 mg/dl (0.44-1.00)
[2017-03-01] MEDS: ALPRAZOLAM 0.25 MG TAB PO SCH ×2 (09:53→20:42)
[2017-03-01] MEDS: ENOXAPARIN 40 MG/0.4 ML SYG SC SCH (10:07)
--- NOTE | 2017-03-01 13:30 | CONS ---
Date/Time of Note Date/Time of Note DATE: 03/01/17 TIME: 13:26 Assessment/Plan Assessment/Plan Additional Assessment/Plan Assessment recommendations; 1. Patient admitted with multiple bilateral pulmonary nodules/masses with a history of uterine cancer, the findings are consistent with widely metastatic uterine cancer to the lungs. Continue current treatment. Awaiting records from [facility]. Apparently patient has not had any biopsy done of these masses. And may require a CT biopsy of the lung. Consultation Date/Type/Reason Admit Date/Time Feb 26, 2017 at 03:22 Initial Consult Date 02/27/17 Type of Consultation: Pulmonary Referring Provider: ANGELA MCNEIL 24 HR Interval Summary Free Text/Dictation Patient condition stable. Denies any shortness of breath. Chest pain. Coughing or wheezing. Denies any abdominal pain or distention. General exam; young female, awake alert currently in no distress. Exam/Review of Systems Vital Signs Vitals Vital Signs Date Time Temp Pulse Resp B/P Pulse Ox O2 Delivery O2 Flow Rate FiO2 03/01/17 12:10 95 03/01/17 11:34 98.1 16 130/73 95 02/27/17 08:20 Nasal Cannula 2.0 Intake and Output 02/28/17 02/28/17 03/01/17 15:00 23:00 07:00 Intake Total 720 ml 500 ml Balance 720 ml 500 ml Exam HEENT examination; supple neck, no JVD. No lymphadenopathy. Midline trachea. No thyromegaly. Patient has fair dentition. Chest examination; diminished but clear breath sound. S1-S2 audible, no murmurs. Regular rhythm. Abdomen examination; soft, no distention, nontender. No organomegaly. Bowel sounds audible. Extremity examination; no peripheral edema. No clubbing. CAMPUS DEAN examination; no focal deficit. Results Result Diagram: 03/01/17 0635 03/01/17 0635 Results 24 hrs Laboratory Tests Test 03/01/17 06:35 White Blood Count 9.2 Red Blood Count 4.56 Hemoglobin 13.5 Hematocrit 40.9 Mean Corpuscular Volume 89.7 Mean Corpuscular Hemoglobin 29.6 Mean Corpuscular Hemoglobin Concent 33.0 Red Cell Distribution Width 13.9 Platelet Count 333 Mean Platelet Volume 10.7 H Neutrophils % 71.0 Lymphocytes % 18.7 Monocytes % 6.8 Eosinophils % 2.7 Basophils % 0.5 Nucleated Red Blood Cells % 0.0 Neutrophils # 6.5 Lymphocytes # 1.7 Monocytes # 0.6 Eosinophils # 0.3 Basophils # 0.1 Nucleated Red Blood Cells # 0.0 Sodium Level 139 Potassium Level 4.0 Chloride Level 103 Carbon Dioxide Level 27 Anion Gap 13 Blood Urea Nitrogen 10 Creatinine 0.58 Glucose Level 89 Calcium Level 9.5 Medications Medications Current Medications Guaifenesin/ Dextromethorphan (Robitussin Dm Liquid Cup) 10 ml Q4H PRN PO COUGH Last administered on 02/26/17 08:53; Admin Dose 10 ML; Start 02/26/17 at 03:30 Hydromorphone HCl (Dilaudid) 1 mg Q4H PRN IV PAIN Last administered on 07:51; Admin Dose 1 MG; Start 02/26/17 at 03:30 Ondansetron HCl (Zofran Inj) 4 mg Q4H PRN IV NAUSEA AND/OR VOMITING Last administered on 03/01/17 07:51; Admin Dose 4 MG; Start 02/26/17 at 03:30 Ondansetron HCl (Zofran Inj) 4 mg Q6H PRN IV NAUSEA AND/OR VOMITING; Start at 06:00 Pantoprazole (Protonix Tab) 40 mg DAILY@06 PO Last administered on 03/01/17 05 :47; Admin Dose 40 MG; Start 02/26/17 at 06:00 Enoxaparin Sodium (Lovenox) 40 mg DAILY SC Last administered on 03/01/17 10:07 ; Admin Dose 40 MG; Start 02/26/17 at 09:00 Alprazolam (Xanax) 0.25 mg BID PO Last administered on 03/01/17 09:53; Admin Dose 0.25 MG; Start 02/26/17 at 20:00 Levofloxacin (Levaquin) 750 mg DAILY@06 PO Last administered on 03/01/17 05:47 ; Admin Dose 750 MG; Start 03/01/17 at 06:00 SANGITA CAMPOS Mar 01, 2017 13:30
--- NOTE | 2017-03-01 15:38 | PN ---
Date/Time of Note Date/Time of Note DATE: 03/01/17 TIME: 15:36 Assessment/Plan VTE Prophylaxis VTE Prophylaxis Intervention: SCD's Lines/Catheters IV [facility]from [facility] Urinary Cath still in place: No Assessment/Plan Chief Complaint/Hosp Course Assessment and plan 1. Respiratory distress suspect secondary to neoplastic process versus infectious process. Small Parts Assembler was consulted. Plan for CT-guided lung biopsy Continue on antibiotics for now. 2. Lung mass. Patient did have CT scan of the chest that showed diffuse bilateral pulmonary metastatic disease process. Plan for CT guided biopsy of lung. Follow-up on outpatient records 3. History of uterine cancer. Await catcher helper/onc input . Of note CT scan of the abdomen and pelvis that showed a 62 mm mass in the right hemipelvis likely healthcare sales representative of metastatic neoplasm. There is also seen numerous large metastatic deposits in the bilateral lung bases. 4. History of bipolar/schizophrenia. No active issue noted at this time. Continue to monitor for now. Disposition plan: Plan for CT lung guided biopsy. Awaiting records from outpatient. Follow-up with oncologist recommendations. Continue inpatient monitoring. Awaiting catcher helper/onc input Discussed plan of care with Problems: Subjective 24 Hr Interval Summary Free Text/Dictation Still with reported some shortness of breath. Exam/Review of Systems Vital Signs Vitals Vital Signs Date Time Temp Pulse Resp B/P Pulse Ox O2 Delivery O2 Flow Rate FiO2 03/01/17 15:25 98.2 70 16 126/71 92 02/27/17 08:20 Nasal Cannula 2.0 Intake and Output 02/28/17 02/28/17 03/01/17 15:00 23:00 07:00 Intake Total 720 ml 500 ml Balance 720 ml 500 ml Exam Constitutional: alert, oriented Psych: nl mood/affect Head: normocephalic Eyes: nl conjunctiva Neck: non-tender, supple Respiratory: clear to auscultation, normal air movement Cardiovascular: regular rate and rhythm Musculoskeletal: nl extremities to inspection Extremities: normal pulses Neurological: BATCH DUMPER II-XII intact, nl mental status, nl speech Skin: nl turgor Results Result Diagram: 03/01/17 0635 03/01/17 0635 Results 24 hrs Laboratory Tests Test 03/01/17 06:35 White Blood Count 9.2 Red Blood Count 4.56 Hemoglobin 13.5 Hematocrit 40.9 Mean Corpuscular Volume 89.7 Mean Corpuscular Hemoglobin 29.6 Mean Corpuscular Hemoglobin Concent 33.0 Red Cell Distribution Width 13.9 Platelet Count 333 Mean Platelet Volume 10.7 H Neutrophils % 71.0 Lymphocytes % 18.7 Monocytes % 6.8 Eosinophils % 2.7 Basophils % 0.5 Nucleated Red Blood Cells % 0.0 Neutrophils # 6.5 Lymphocytes # 1.7 Monocytes # 0.6 Eosinophils # 0.3 Basophils # 0.1 Nucleated Red Blood Cells # 0.0 Sodium Level 139 Potassium Level 4.0 Chloride Level 103 Carbon Dioxide Level 27 Anion Gap 13 Blood Urea Nitrogen 10 Creatinine 0.58 Glucose Level 89 Calcium Level 9.5 Medications Medications Current Medications Guaifenesin/ Dextromethorphan (Robitussin Dm Liquid Cup) 10 ml Q4H PRN PO COUGH Last administered on 02/26/17 08:53; Admin Dose 10 ML; Start 02/26/17 at 03:30 Hydromorphone HCl (Dilaudid) 1 mg Q4H PRN IV PAIN Last administered on 07:51; Admin Dose 1 MG; Start 02/26/17 at 03:30 Ondansetron HCl (Zofran Inj) 4 mg Q4H PRN IV NAUSEA AND/OR VOMITING Last administered on 03/01/17 07:51; Admin Dose 4 MG; Start 02/26/17 at 03:30 Ondansetron HCl (Zofran Inj) 4 mg Q6H PRN IV NAUSEA AND/OR VOMITING; Start at 06:00 Pantoprazole (Protonix Tab) 40 mg DAILY@06 PO Last administered on 03/01/17 05 :47; Admin Dose 40 MG; Start 02/26/17 at 06:00 Enoxaparin Sodium (Lovenox) 40 mg DAILY SC Last administered on 03/01/17 10:07 ; Admin Dose 40 MG; Start 02/26/17 at 09:00 Alprazolam (Xanax) 0.25 mg BID PO Last administered on 03/01/17 09:53; Admin Dose 0.25 MG; Start 02/26/17 at 20:00 Levofloxacin (Levaquin) 750 mg DAILY@06 PO Last administered on 03/01/17 05:47 ; Admin Dose 750 MG; Start 03/01/17 at 06:00 ANGELA MCNEIL Mar 01, 2017 15:38
--- NOTE | 2017-03-01 23:20 | CONS ---
Date/Time of Note Date/Time of Note DATE: 03/01/17 TIME: 23:16 Assessment/Plan Assessment/Plan Chief Complaint/Hosp Course History of uterine cancer. 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 Numerous large metastatic deposits again seen bilateral lung bases, with small pleural effusions. TUMOR MARKERS- CA 125 - 170, ELEVATED RECORD- P LUNG BX - ORDERED PLAN CHEMO AFTER PATH REVIEWED Diffuse bilateral pulmonary metastatic disease , WITH Prominent mediastinal and hilar lymph nodes are seen as well, further concerning for metastatic disease. Respiratory distress suspect secondary to neoplastic process Wellness Guide F-UP CT-guided lung biopsy History of bipolar/schizophrenia. No active issue noted at this time. Continue to monitor for now. Problems: Consultation Date/Type/Reason Admit Date/Time Feb 26, 2017 at 03:22 Initial Consult Date 02/27/17 Type of Consultation: [facility] Referring Provider: ANGELA MCNEIL 24 HR Interval Summary Free Text/Dictation ALL NOTED FOR CT guided biopsy of lung. Follow-up on outpatient records NO NEW EVENTS Exam/Review of Systems Vital Signs Vitals Vital Signs Date Time Temp Pulse Resp B/P Pulse Ox O2 Delivery O2 Flow Rate FiO2 03/01/17 20:51 98.6 94 18 132/78 95 02/27/17 08:20 Nasal Cannula 2.0 Intake and Output 02/28/17 02/28/17 03/01/17 15:00 23:00 07:00 Intake Total 720 ml 500 ml Balance 720 ml 500 ml Exam Constitutional: alert Head: normocephalic Eyes: nl conjunctiva Neck: supple Respiratory: clear to auscultation, normal air movement Cardiovascular: regular rate and rhythm Gastrointestinal: tender, soft Extremities: normal pulses Neurological: TYRE BUILDER II-XII intact, nl mental status, nl speech Results Result Diagram: 03/01/17 0635 03/01/17 0635 Results 24 hrs Laboratory Tests Test 03/01/17 06:35 White Blood Count 9.2 Red Blood Count 4.56 Hemoglobin 13.5 Hematocrit 40.9 Mean Corpuscular Volume 89.7 Mean Corpuscular Hemoglobin 29.6 Mean Corpuscular Hemoglobin Concent 33.0 Red Cell Distribution Width 13.9 Platelet Count 333 Mean Platelet Volume 10.7 H Neutrophils % 71.0 Lymphocytes % 18.7 Monocytes % 6.8 Eosinophils % 2.7 Basophils % 0.5 Nucleated Red Blood Cells % 0.0 Neutrophils # 6.5 Lymphocytes # 1.7 Monocytes # 0.6 Eosinophils # 0.3 Basophils # 0.1 Nucleated Red Blood Cells # 0.0 Sodium Level 139 Potassium Level 4.0 Chloride Level 103 Carbon Dioxide Level 27 Anion Gap 13 Blood Urea Nitrogen 10 Creatinine 0.58 Glucose Level 89 Calcium Level 9.5 Medications Medications Current Medications Guaifenesin/ Dextromethorphan (Robitussin Dm Liquid Cup) 10 ml Q4H PRN PO COUGH Last administered on 02/26/17 08:53; Admin Dose 10 ML; Start 02/26/17 at 03:30 Hydromorphone HCl (Dilaudid) 1 mg Q4H PRN IV PAIN Last administered on 16:35; Admin Dose 1 MG; Start 02/26/17 at 03:30 Ondansetron HCl (Zofran Inj) 4 mg Q4H PRN IV NAUSEA AND/OR VOMITING Last administered on 03/01/17 16:35; Admin Dose 4 MG; Start 02/26/17 at 03:30 Ondansetron HCl (Zofran Inj) 4 mg Q6H PRN IV NAUSEA AND/OR VOMITING; Start at 06:00 Pantoprazole (Protonix Tab) 40 mg DAILY@06 PO Last administered on 03/01/17 05 :47; Admin Dose 40 MG; Start 02/26/17 at 06:00 Enoxaparin Sodium (Lovenox) 40 mg DAILY SC Last administered on 03/01/17 10:07 ; Admin Dose 40 MG; Start 02/26/17 at 09:00 Alprazolam (Xanax) 0.25 mg BID PO Last administered on 03/01/17 20:42; Admin Dose 0.25 MG; Start 02/26/17 at 20:00 Levofloxacin (Levaquin) 750 mg DAILY@06 PO Last administered on 03/01/17 05:47 ; Admin Dose 750 MG; Start 03/01/17 at 06:00 Procedures Procedures [place] [address] Radiology Main Line: [phone] DIAGNOSTIC IMAGING REPORT Patient: SANJEEV BROWN : 1970 Age: 46 Sex: F MR #: [id number] [facility] #: [id number] DOS: 02/28/17 193 Ordering MD: JUSTINA AGUIRRE [place] [facility] [place] [facility] PROCEDURE: CT abdomen and pelvis with and without contrast. CLINICAL INDICATION: Abdominal pain. TECHNIQUE: Pre and postcontrast CT examination of the abdomen and pelvis, with axial, sagittal and coronal reformatted images. 100 cc Omnipaque-300 nonionic IV contrast were employed. CTDI: 38.52 mGy and DLP: 1592.64 mGy-cm. COMPARISON: CT angiography of the chest dated 02/26/2017. FINDINGS: CT abdomen: No significant change in diffuse metastatic deposits in bilateral lung bases, with substantially stable small bilateral pleural effusions. Heart size is within normal limits. The liver is normal in size and density without focal mass or intrahepatic biliary dilatation. The spleen is normal in size and homogeneous in density. The stomach is partially collapsed, but is grossly unremarkable. The pancreas as visualized is normal. The gallbladder and biliary tree are unremarkable and there is no evidence for biliary dilatation. The adrenal glands are symmetric and normal. 13 mm right renal cyst. Otherwise, the kidneys are symmetrically unremarkable as well. No renal calculus or obstructive uropathy or mass lesion is seen. The aorta is of normal caliber. Aortic vascular calcifications are mild. There is no retroperitoneal lymphadenopathy. The russell hepatis region is clear. The bowel and mesentery, as visualized, are equally unremarkable. CT pelvis: Complex mass in the right purvi pelvis measures 62 x 61 x 58 mm and represents metastatic neoplasm until proven otherwise. The small bowel loops situated within the pelvis are unremarkable. The pelvic organs are normal. The pelvic sidewalls and inguinal regions are clear. The sigmoid colon and rectum are all unremarkable. No mass, lymphadenopathy, or free fluid is seen. No acute inflammation is seen. The appendix is unremarkable. The surrounding osseous structures are remarkable for mild degenerative spondylosis of the spine. No osteolytic or osteoblastic lesion is detected. IMPRESSION: 1. 62 mm mass in the right purvi pelvis represents metastatic neoplasm until proven otherwise. 2. Otherwise, no acute process in the abdomen or pelvis. 3. Numerous large metastatic deposits again seen bilateral lung bases, with small pleural effusions. RPTAT: UU Physician Arley Date Time Electronically viewed and signed by Earlene Hinson Physician on 03/01/2017 01:13 RS/ CC: JUSTINA AGUIRRE MD, VERA M MD Mar 01, 2017 23:20
[2017-03-02] VITALS (11 sets, daily range): BP systolic 112–137; BP diastolic 58–86; PULSE 72–102; RESP 14–18
[2017-03-02] MEDS: LEVOFLOXACIN 750 MG TABLET PO SCH (05:46)
[2017-03-02] MEDS: PANTOPRAZOLE (EC) 40 MG TAB PO SCH (05:46)
[2017-03-02] MEDS: HYDROmorphONE 1 MG/ML SYG IV PRN ×3 (06:48→21:02)
[2017-03-02 06:52] LABS: ADD SCAN DIFF NO
[2017-03-02 07:05] LABS: BASOPHIL # 0.1 10^3/ul (0.0-0.1); BASOPHILS % 0.5 % (0.0-2.0); EOSINOPHILS # 0.3 10^3/ul (0.0-0.5); EOSINOPHILS % 3.2 % (0.0-7.0); HEMATOCRIT 39.3 % (37.0-47.0); HEMOGLOBIN 12.7 g/dl (12.0-16.0); LYMPHOCYTES # 1.9 10^3/ul (0.8-2.9); LYMPHOCYTES % 20.9 % (15.0-51.0); MEAN CORPUSCULAR HEMOGLOBIN 29.3 pg (29.0-33.0); MEAN CORPUSCULAR HGB CONC 32.3 g/dl (32.0-37.0); MEAN CORPUSCULAR VOLUME 90.6 fl (82.0-101.0); MEAN PLATELET VOLUME 10.3 fl (7.4-10.4); MONOCYTE # 0.6 10^3/ul (0.3-0.9); MONOCYTES % 6.9 % (0.0-11.0); NEUTROPHIL # 6.3 10^3/ul (1.6-7.5); NEUTROPHILS % 68.2 % (39.0-77.0); PLATELET COUNT 324 10^3/UL (140-415); RED BLOOD COUNT 4.34 10^6/ul (4.20-5.40); WHITE BLOOD COUNT 9.3 10^3/ul (4.8-10.8)
[2017-03-02 07:49] LABS: CALCIUM 9.3 mg/dl (8.4-10.2); CREATININE 0.66 mg/dl (0.44-1.00); POTASSIUM 3.8 mmol/L (3.5-5.1)
[2017-03-02] MEDS: ENOXAPARIN 40 MG/0.4 ML SYG SC SCH (08:48)
[2017-03-02] MEDS: ALPRAZOLAM 0.25 MG TAB PO SCH ×2 (08:50→21:01)
--- NOTE | 2017-03-02 11:20 | CONS ---
Date/Time of Note Date/Time of Note DATE: 03/02/17 TIME: 11:16 Assessment/Plan Assessment/Plan Additional Assessment/Plan Assessment recommendations; next 1. P patient admitted with shortness of her discovered to have multiple pulmonary nodules/masses which are highly suggestive of widely metastatic uterine cancer. 2. History of uterine cancer several months ago status post hysterectomy. Patient however has not had any follow-up done or any chemotherapy given. Continue current treatment. Patient scheduled for CT lung biopsy today. Prognosis appears poor. Consultation Date/Type/Reason Admit Date/Time Feb 26, 2017 at 03:22 Initial Consult Date 02/27/17 Type of Consultation: Pulmonary Referring Provider: ANGELA MCNEIL 24 HR Interval Summary Free Text/Dictation Patient condition is slightly improved. She reports decreased shortness of breath. Denies any coughing wheezing chest pain. Denies any abdominal pain nausea vomiting. General exam; middle-aged woman, awake alert currently in no distress. Exam/Review of Systems Vital Signs Vitals Vital Signs Date Time Temp Pulse Resp B/P Pulse Ox O2 Delivery O2 Flow Rate FiO2 03/02/17 08:40 84 03/02/17 07:44 97.9 14 120/72 91 02/27/17 08:20 Nasal Cannula 2.0 Intake and Output 03/01/17 03/01/17 03/02/17 15:00 23:00 07:00 Intake Total 880 ml 480 ml Balance 880 ml 480 ml Exam HEENT examination; supple neck, no JVD. No lymphadenopathy. Midline trachea. No thyromegaly. Patient has fair dentition. Chest examination; diminished but clear vessel. S1-S2 audible, no murmurs. Regular rhythm. Abdomen examination; soft, nontender. No organomegaly. Nondistended. Bowel sounds audible. Extremity examination; no peripheral edema. No clubbing. Pulses 1+ bilaterally. TEASEL SETTER examination; no focal deficit. Results Result Diagram: 03/02/17 0625 03/02/17 0625 Results 24 hrs Laboratory Tests Test 03/02/17 06:25 White Blood Count 9.3 Red Blood Count 4.34 Hemoglobin 12.7 Hematocrit 39.3 Mean Corpuscular Volume 90.6 Mean Corpuscular Hemoglobin 29.3 Mean Corpuscular Hemoglobin Concent 32.3 Red Cell Distribution Width 14.0 Platelet Count 324 Mean Platelet Volume 10.3 Neutrophils % 68.2 Lymphocytes % 20.9 Monocytes % 6.9 Eosinophils % 3.2 Basophils % 0.5 Nucleated Red Blood Cells % 0.0 Neutrophils # 6.3 Lymphocytes # 1.9 Monocytes # 0.6 Eosinophils # 0.3 Basophils # 0.1 Nucleated Red Blood Cells # 0.0 Sodium Level 137 Potassium Level 3.8 Chloride Level 102 Carbon Dioxide Level 27 Anion Gap 12 Blood Urea Nitrogen 11 Creatinine 0.66 Glucose Level 110 Calcium Level 9.3 Medications Medications Current Medications Guaifenesin/ Dextromethorphan (Robitussin Dm Liquid Cup) 10 ml Q4H PRN PO COUGH Last administered on 02/26/17 08:53; Admin Dose 10 ML; Start 02/26/17 at 03:30 Hydromorphone HCl (Dilaudid) 1 mg Q4H PRN IV PAIN Last administered on 10:14; Admin Dose 1 MG; Start 02/26/17 at 03:30 Ondansetron HCl (Zofran Inj) 4 mg Q4H PRN IV NAUSEA AND/OR VOMITING Last administered on 03/01/17 16:35; Admin Dose 4 MG; Start 02/26/17 at 03:30 Ondansetron HCl (Zofran Inj) 4 mg Q6H PRN IV NAUSEA AND/OR VOMITING; Start at 06:00 Pantoprazole (Protonix Tab) 40 mg DAILY@06 PO Last administered on 03/02/17 05 :46; Admin Dose 40 MG; Start 02/26/17 at 06:00 Enoxaparin Sodium (Lovenox) 40 mg DAILY SC Last administered on 03/01/17 10:07 ; Admin Dose 40 MG; Start 02/26/17 at 09:00 Alprazolam (Xanax) 0.25 mg BID PO Last administered on 03/02/17 08:50; Admin Dose 0.25 MG; Start 02/26/17 at 20:00 Levofloxacin (Levaquin) 750 mg DAILY@06 PO Last administered on 03/02/17 05:46 ; Admin Dose 750 MG; Start 03/01/17 at 06:00 SANGITA CAMPOS Mar 02, 2017 11:20
[2017-03-02 12:23] LABS: INR 0.96; PROTIME 12.8 Sec (12.2-14.2)
[2017-03-02 12:24] LABS: PARTIAL THROMBOPLASTIN TIME 22.5 Sec (25.0-35.0)
--- NOTE | 2017-03-02 15:11 | PN ---
Date/Time of Note Date/Time of Note DATE: 03/02/17 TIME: 15:08 Assessment/Plan VTE Prophylaxis VTE Prophylaxis Intervention: LMWH Lines/Catheters IV [facility]ter [facility]from [facility] Saline Lock Urinary Cath still in place: No Assessment/Plan Chief Complaint/Hosp Course Assessment and plan 1. Respiratory distress suspect secondary to neoplastic process versus infectious process. Professional Golf Tournament Player was consulted. Plan for CT-guided lung biopsy. follow up result Continue on antibiotics for now. 2. Lung mass. Patient did have CT scan of the chest that showed diffuse bilateral pulmonary metastatic disease process. Plan for CT guided biopsy of lung. Follow-up on outpatient records 3. History of uterine cancer. . Of note CT scan of the abdomen and pelvis that showed a 62 mm mass in the right hemipelvis likely hostess party sales representative of metastatic neoplasm. There is also seen numerous large metastatic deposits in the bilateral lung bases.continue with oncologist recs 4. History of bipolar/schizophrenia. No active issue noted at this time. Continue to monitor for now. Disposition plan: Plan for CT lung guided biopsy. follow up result. d/c when medically stable and cleared by consultants Discussed plan of care with Problems: Subjective 24 Hr Interval Summary Free Text/Dictation no dyspnea. stable at present Exam/Review of Systems Vital Signs Vitals Vital Signs Date Time Temp Pulse Resp B/P Pulse Ox O2 Delivery O2 Flow Rate FiO2 03/02/17 12:27 78 03/02/17 11:53 98.3 16 137/86 95 02/27/17 08:20 Nasal Cannula 2.0 Intake and Output 03/01/17 03/01/17 03/02/17 15:00 23:00 07:00 Intake Total 880 ml 480 ml Balance 880 ml 480 ml Exam Constitutional: alert, oriented Psych: no complaints Head: normocephalic Eyes: nl conjunctiva Neck: supple, No jvd Respiratory: clear to auscultation Cardiovascular: regular rate and rhythm Gastrointestinal: non-tender, soft Musculoskeletal: nl extremities to inspection Extremities: normal pulses Neurological: DESULFURIZER OPERATOR II-XII intact, nl mental status, nl speech Results Result Diagram: 03/02/17 0625 03/02/17 0625 Results 24 hrs Laboratory Tests Test 03/02/17 06:25 03/02/17 11:36 White Blood Count 9.3 Red Blood Count 4.34 Hemoglobin 12.7 Hematocrit 39.3 Mean Corpuscular Volume 90.6 Mean Corpuscular Hemoglobin 29.3 Mean Corpuscular Hemoglobin Concent 32.3 Red Cell Distribution Width 14.0 Platelet Count 324 Mean Platelet Volume 10.3 Neutrophils % 68.2 Lymphocytes % 20.9 Monocytes % 6.9 Eosinophils % 3.2 Basophils % 0.5 Nucleated Red Blood Cells % 0.0 Neutrophils # 6.3 Lymphocytes # 1.9 Monocytes # 0.6 Eosinophils # 0.3 Basophils # 0.1 Nucleated Red Blood Cells # 0.0 Sodium Level 137 Potassium Level 3.8 Chloride Level 102 Carbon Dioxide Level 27 Anion Gap 12 Blood Urea Nitrogen 11 Creatinine 0.66 Glucose Level 110 Calcium Level 9.3 Prothrombin Time 12.8 Prothrombin Time Ratio 1.0 INR International Normalized Ratio 0.96 Activated Partial Thromboplast Time 22.5 L Medications Medications Current Medications Guaifenesin/ Dextromethorphan (Robitussin Dm Liquid Cup) 10 ml Q4H PRN PO COUGH Last administered on 02/26/17 08:53; Admin Dose 10 ML; Start 02/26/17 at 03:30 Hydromorphone HCl (Dilaudid) 1 mg Q4H PRN IV PAIN Last administered on 10:14; Admin Dose 1 MG; Start 02/26/17 at 03:30 Ondansetron HCl (Zofran Inj) 4 mg Q4H PRN IV NAUSEA AND/OR VOMITING Last administered on 03/01/17 16:35; Admin Dose 4 MG; Start 02/26/17 at 03:30 Ondansetron HCl (Zofran Inj) 4 mg Q6H PRN IV NAUSEA AND/OR VOMITING; Start at 06:00 Pantoprazole (Protonix Tab) 40 mg DAILY@06 PO Last administered on 03/02/17 05 :46; Admin Dose 40 MG; Start 02/26/17 at 06:00 Enoxaparin Sodium (Lovenox) 40 mg DAILY SC Last administered on 03/01/17 10:07 ; Admin Dose 40 MG; Start 02/26/17 at 09:00 Alprazolam (Xanax) 0.25 mg BID PO Last administered on 03/02/17 08:50; Admin Dose 0.25 MG; Start 02/26/17 at 20:00 Levofloxacin (Levaquin) 750 mg DAILY@06 PO Last administered on 03/02/17t 05:46 ; Admin Dose 750 MG; Start 03/01/17 at 06:00 ANGELA MCNEIL Mar 02, 2017 15:11
[2017-03-02] MEDS ORDERED: LIDOCAINE 1% (MDV) 20 ML INJ ONE (16:45)
[2017-03-02] MEDS ORDERED: FENTAnyl 50 MCG/ML VIAL ONE (16:46)
[2017-03-02] MEDS ORDERED: DIPHENHYDRAMINE 50 MG INJ ONE (16:46)
[2017-03-02] MEDS ORDERED: MIDAZOLAM 1 MG/ML 2 ML INJ ONE (16:46)
--- NOTE | 2017-03-02 18:02 | RADRPT ---
PROCEDURE: CT guided biopsy of left lung mass. CLINICAL INDICATION: History of leiomyosarcoma of the uterus. Multiple lung masses. TECHNIQUE: Prior to the procedure, informed consent was obtained. Risks including bleeding, infec tion, and pneumothorax were explained to the patient. The patient understood was willing to proceed . A procedural pause was performed. The patient's name, date of , and procedure to be perform ed were verified. Using local anesthetic, sterile technique, and CT guidance, a 20-gauge automated core biopsy needle was used to biopsy the mass in the left upper lobe. Multiple passes were made. Adequate tissue was obtained according to the pathologist present during the procedure. The needle was removed. A pos t biopsy scan was performed. The patient tolerated the procedure well. One or more of the followin g dose reduction techniques were used: Automated exposure control, adjustment of the mA and/or kV ac cording to patient size, use of iterative reconstruction technique. COMPARISON: No prior study is available for comparison. FINDINGS: Images with the needle in place demonstrate the needle at the anterior margin of the mass in the lef t upper lobe anteriorly. Post biopsy images demonstrate no immediate complication. IMPRESSION: 1. Satisfactory CT guided biopsy of the left lung mass. RPTAT: QQ .Maurisio Gutierrez MD, MD Date Time Electronically viewed and signed by .Maurisio Gutierrez MD, on 03/02/2017 17:56 .R/
--- NOTE | 2017-03-02 23:54 | CONS ---
Date/Time of Note Date/Time of Note DATE: 03/02/17 TIME: 23:53 Consultation Date/Type/Reason Admit Date/Time Feb 26, 2017 at 03:22 Hx of Present Illness Dennis Sher M.D.46- [facility] History and Physical Examination Yvette Esquivel Feb 28, 2017 Age: 46 : 1970 Physicians: Public Relations Specialist Account Liaison: Oncologist: Referring MD History of the Present Illness: This is a 46- year old female with a history of stage 1 uterine sarcoma treated primarily 10- months ago, but not staged and who did not receive needed chemotherapy due to insurance issues per patient who now has recurrent disease manifested by multiple lung met and symptoms. Past Medical History: Surgical: as above Medical: multiple inclding bipolar schitzophrenia Medications: rviewed Allergies: No active allergies recorded Family History: Noncontributory Social History: Noncontributory Review of Systems: Negative except for above noted Physical Examination General: Alert. HEENT: Pupils are equal, round, reactive to light and accommodation. Neck: Supple with no masses of lymphadenopathy. Breast: Deferred due to recent examination and responsibility of primary care physician. Chest: Clear to auscultation and percussion with no rales, ronchi, or wheeze. Heart: Normal rhythm with no murmur. Abdomen:RMQ and RUQ tender. No masses, ascites, or organomegaly. Pelvic exam: Right sidewall mass with tenderness and cul-de-sac nodularity noted ; exam limited due to partly intact hymen and narrow vagin Rectal: deferred. Neurological: Grossly intact but emotional Assessment: Endometrial cance/sarcomar, recurrent disease. Plan: CT confirmed pelvic mass. Secondary cytoreduction of pelvic mass only if Dr. Vila thought it were beneficial in terms of diagnosis and to adress symptoms. Dennis Sher M.D. Psychological: no complaints Social History Alcohol Use: none Smoking Status: Former smoker Drug Use: none Exam/Review of Systems Vital Signs Vitals Vital Signs Date Time Temp Pulse Resp B/P Pulse Ox O2 Delivery O2 Flow Rate FiO2 03/02/17 20:48 102 03/02/17 18:35 98.6 16 117/65 91 02/27/17 08:20 Nasal Cannula 2.0 Intake and Output 03/01/17 03/01/17 03/02/17 15:00 23:00 07:00 Intake Total 880 ml 480 ml Balance 880 ml 480 ml Results Result Diagram: 03/02/17 0625 03/02/17 0625 Results 24 hrs Laboratory Tests Test 03/02/17 06:25 03/02/17 11:36 White Blood Count 9.3 Red Blood Count 4.34 Hemoglobin 12.7 Hematocrit 39.3 Mean Corpuscular Volume 90.6 Mean Corpuscular Hemoglobin 29.3 Mean Corpuscular Hemoglobin Concent 32.3 Red Cell Distribution Width 14.0 Platelet Count 324 Mean Platelet Volume 10.3 Neutrophils % 68.2 Lymphocytes % 20.9 Monocytes % 6.9 Eosinophils % 3.2 Basophils % 0.5 Nucleated Red Blood Cells % 0.0 Neutrophils # 6.3 Lymphocytes # 1.9 Monocytes # 0.6 Eosinophils # 0.3 Basophils # 0.1 Nucleated Red Blood Cells # 0.0 Sodium Level 137 Potassium Level 3.8 Chloride Level 102 Carbon Dioxide Level 27 Anion Gap 12 Blood Urea Nitrogen 11 Creatinine 0.66 Glucose Level 110 Calcium Level 9.3 Prothrombin Time 12.8 Prothrombin Time Ratio 1.0 INR International Normalized Ratio 0.96 Activated Partial Thromboplast Time 22.5 L Medications Medications Current Medications Guaifenesin/ Dextromethorphan (Robitussin Dm Liquid Cup) 10 ml Q4H PRN PO COUGH Last administered on 02/26/17 08:53; Admin Dose 10 ML; Start 02/26/17 at 03:30 Hydromorphone HCl (Dilaudid) 1 mg Q4H PRN IV PAIN Last administered on 21:02; Admin Dose 1 MG; Start 02/26/17 at 03:30 Ondansetron HCl (Zofran Inj) 4 mg Q4H PRN IV NAUSEA AND/OR VOMITING Last administered on 03/01/17 16:35; Admin Dose 4 MG; Start 02/26/17 at 03:30 Ondansetron HCl (Zofran Inj) 4 mg Q6H PRN IV NAUSEA AND/OR VOMITING; Start at 06:00 Pantoprazole (Protonix Tab) 40 mg DAILY@06 PO Last administered on 03/02/17 05 :46; Admin Dose 40 MG; Start 02/26/17 at 06:00 Enoxaparin Sodium (Lovenox) 40 mg DAILY SC Last administered on 03/01/17 10:07 ; Admin Dose 40 MG; Start 02/26/17 at 09:00 Alprazolam (Xanax) 0.25 mg BID PO Last administered on 03/02/17 21:01; Admin Dose 0.25 MG; Start 02/26/17 at 20:00 Levofloxacin (Levaquin) 750 mg DAILY@06 PO Last administered on 03/02/17 05:46 ; Admin Dose 750 MG; Start 03/01/17 at 06:00 DENNIS SHER MD Mar 02, 2017 23:54
[2017-03-03] VITALS (13 sets, daily range): BP systolic 111–126; BP diastolic 62–73; PULSE 91–155; RESP 15–19
--- NOTE | 2017-03-03 00:27 | CONS ---
Date/Time of Note Date/Time of Note DATE: 03/02/17 TIME: 20:27 vk le Assessment/Plan Assessment/Plan Chief Complaint/Hosp Course History of uterine cancer. Patient seen by cement gun operator/onc PT UNDERWENT KIERAN FOR UTERINE LEIOMYOSARCOMA IN MAY 2016 AT [facility] SHE SAW DR LOZA 3 TIMES OUTPT PT SAW DR VILLAREAL , WITH PLAN FOR CHEMOTHERAPY, BUT NO AUTH HAS BEEN OBTAINED CT ABD - 62 mm mass in the right purvi pelvis represents metastatic neoplasm until proven otherwise. Numerous large metastatic deposits again seen bilateral lung bases, with small pleural effusions. TUMOR MARKERS- CA 125 - 170, ELEVATED RECORD- P POST LUNG BX PLAN CHEMO AFTER PATH REVIEWED Diffuse bilateral pulmonary metastatic disease , WITH Prominent mediastinal and hilar lymph nodes are seen as well, further concerning for metastatic disease. Respiratory distress suspect secondary to neoplastic process Educational Adviser F-UP POST CT-guided lung biopsy AWAIT PATH PLAN CHEMO History of bipolar/schizophrenia. No active issue noted at this time. Continue to monitor for now. Problems: Consultation Date/Type/Reason Admit Date/Time Feb 26, 2017 at 03:22 Initial Consult Date 02/27/17 Type of Consultation: [facility] Referring Provider: ANGELA MCNEIL 24 HR Interval Summary Free Text/Dictation ALL NOTED D/W PT POST LUNG BX Exam/Review of Systems Vital Signs Vitals Vital Signs Date Time Temp Pulse Resp B/P Pulse Ox O2 Delivery O2 Flow Rate FiO2 03/03/17 00:19 91 03/02/17 18:35 98.6 16 117/65 91 02/27/17 08:20 Nasal Cannula 2.0 Exam Constitutional: alert Head: normocephalic Eyes: nl conjunctiva Neck: supple Respiratory: clear to auscultation, normal air movement Cardiovascular: regular rate and rhythm Gastrointestinal: tender, soft Extremities: normal pulses Neurological: ETL LEAD II-XII intact, nl mental status, nl speech Results Result Diagram: 03/02/17 0625 03/02/17 0625 Results 24 hrs Laboratory Tests Test 03/02/17 06:25 03/02/17 11:36 White Blood Count 9.3 Red Blood Count 4.34 Hemoglobin 12.7 Hematocrit 39.3 Mean Corpuscular Volume 90.6 Mean Corpuscular Hemoglobin 29.3 Mean Corpuscular Hemoglobin Concent 32.3 Red Cell Distribution Width 14.0 Platelet Count 324 Mean Platelet Volume 10.3 Neutrophils % 68.2 Lymphocytes % 20.9 Monocytes % 6.9 Eosinophils % 3.2 Basophils % 0.5 Nucleated Red Blood Cells % 0.0 Neutrophils # 6.3 Lymphocytes # 1.9 Monocytes # 0.6 Eosinophils # 0.3 Basophils # 0.1 Nucleated Red Blood Cells # 0.0 Sodium Level 137 Potassium Level 3.8 Chloride Level 102 Carbon Dioxide Level 27 Anion Gap 12 Blood Urea Nitrogen 11 Creatinine 0.66 Glucose Level 110 Calcium Level 9.3 Prothrombin Time 12.8 Prothrombin Time Ratio 1.0 INR International Normalized Ratio 0.96 Activated Partial Thromboplast Time 22.5 L Medications Medications Current Medications Guaifenesin/ Dextromethorphan (Robitussin Dm Liquid Cup) 10 ml Q4H PRN PO COUGH Last administered on 02/26/17 08:53; Admin Dose 10 ML; Start 02/26/17 at 03:30 Hydromorphone HCl (Dilaudid) 1 mg Q4H PRN IV PAIN Last administered on 21:02; Admin Dose 1 MG; Start 02/26/17 at 03:30 Ondansetron HCl (Zofran Inj) 4 mg Q4H PRN IV NAUSEA AND/OR VOMITING Last administered on 03/01/17 16:35; Admin Dose 4 MG; Start 02/26/17 at 03:30 Ondansetron HCl (Zofran Inj) 4 mg Q6H PRN IV NAUSEA AND/OR VOMITING; Start at 06:00 Pantoprazole (Protonix Tab) 40 mg DAILY@06 PO Last administered on 03/02/17 05 :46; Admin Dose 40 MG; Start 02/26/17 at 06:00 Enoxaparin Sodium (Lovenox) 40 mg DAILY SC Last administered on 03/01/17 10:07 ; Admin Dose 40 MG; Start 02/26/17 at 09:00 Alprazolam (Xanax) 0.25 mg BID PO Last administered on 03/02/17 21:01; Admin Dose 0.25 MG; Start 02/26/17 at 20:00 Levofloxacin (Levaquin) 750 mg DAILY@06 PO Last administered on 03/02/17 05:46 ; Admin Dose 750 MG; Start 03/01/17 at 06:00 JUSTINA AGUIRRE MD Mar 03, 2017 00:27
[2017-03-03] MEDS: HYDROmorphONE 1 MG/ML SYG IV PRN ×5 (02:36→22:13)
[2017-03-03] MEDS: PANTOPRAZOLE (EC) 40 MG TAB PO SCH (05:24)
[2017-03-03] MEDS: LEVOFLOXACIN 750 MG TABLET PO SCH (05:24)
[2017-03-03] MEDS: GUAIFENESIN/DM 5ML CUP PO PRN (07:45)
[2017-03-03 08:47] LABS: ADD SCAN DIFF NO
[2017-03-03 08:54] LABS: BASOPHILS % 0.3 % (0.0-2.0); EOSINOPHILS # 0.2 10^3/ul (0.0-0.5); EOSINOPHILS % 1.9 % (0.0-7.0); HEMOGLOBIN 13.5 g/dl (12.0-16.0); LYMPHOCYTES # 1.8 10^3/ul (0.8-2.9); LYMPHOCYTES % 15.2 % (15.0-51.0); MEAN CORPUSCULAR HEMOGLOBIN 29.3 pg (29.0-33.0); MEAN CORPUSCULAR HGB CONC 32.1 g/dl (32.0-37.0); MEAN CORPUSCULAR VOLUME 91.1 fl (82.0-101.0); MEAN PLATELET VOLUME 10.5 fl (7.4-10.4); MONOCYTE # 0.8 10^3/ul (0.3-0.9); MONOCYTES % 7.2 % (0.0-11.0); NEUTROPHIL # 8.7 10^3/ul (1.6-7.5); NEUTROPHILS % 75.1 % (39.0-77.0); PLATELET COUNT 318 10^3/UL (140-415); RED BLOOD COUNT 4.61 10^6/ul (4.20-5.40); RED CELL DISTRIBUTION WIDTH 14.2 % (11.5-14.5); WHITE BLOOD COUNT 11.6 10^3/ul (4.8-10.8)
[2017-03-03 09:17] LABS: CALCIUM 9.4 mg/dl (8.4-10.2); CREATININE 0.66 mg/dl (0.44-1.00); POTASSIUM 4.1 mmol/L (3.5-5.1)
[2017-03-03] MEDS: ALPRAZOLAM 0.25 MG TAB PO SCH ×2 (09:50→22:13)
[2017-03-03] MEDS: ENOXAPARIN 40 MG/0.4 ML SYG SC SCH (09:51)
--- NOTE | 2017-03-03 12:13 | PN ---
DATE: 03/03/2017 PULMONARY FOLLOWUP SUBJECTIVE: Chart reviewed. The patient underwent a CT-guided biopsy of left lung mass yesterday. Currently saturating 94%. PHYSICAL EXAMINATION: VITAL SIGNS: Blood pressure 126/66, pulse 112, respirations 19, temperature 98.5. HEENT: Pupils are equal and reactive to light. NECK: Supple. No JVD noted, no cervical adenopathy noted, no carotid bruits heard. LUNGS: Fair breath sounds bilaterally. CARDIOVASCULAR: S1, S2 normal. ABDOMEN: Soft, nontender. No organomegaly or masses noted. EXTREMITIES: No clubbing or cyanosis noted. NEUROLOGICAL: Awake. LABORATORY: WBC 11.6, hemoglobin 13.5, hematocrit 42, platelets 318. Sodium 138, potassium 4.1, ch loride 102, CO2 28, BUN 15, creatinine 0.66, glucose 110. CA-125 179. IMPRESSION: 1. Multiple pulmonary nodules, suggestive of widely metastatic disease from her recent uterine canc er. 2. Status post CT-guided biopsy of left lung mass. 3. History of uterine cancer, status post hysterectomy. RECOMMENDATIONS: 1. Continue the current treatment. 2. Check pathology. 3. . Dictated By: KARL KEEN MD, MA/ELIZABETH Conf#: [id number] DID#: [id number]
--- NOTE | 2017-03-03 12:42 | CONS ---
Date/Time of Note Date/Time of Note DATE: 03/03/17 TIME: 12:41 Assessment/Plan Assessment/Plan Chief Complaint/Hosp Course History of uterine cancer. Patient seen by security strategist/onc PT UNDERWENT KIERAN FOR UTERINE LEIOMYOSARCOMA IN MAY 2016 AT [facility] SHE SAW DR LOZA 3 TIMES OUTPT PT SAW DR VILLAREAL , WITH PLAN FOR CHEMOTHERAPY, BUT NO AUTH HAS BEEN OBTAINED CT ABD - 62 mm mass in the right purvi pelvis represents metastatic neoplasm until proven otherwise. Numerous large metastatic deposits again seen bilateral lung bases, with small pleural effusions. TUMOR MARKERS- CA 125 - 170, ELEVATED RECORD- P POST LUNG BX PLAN CHEMO AFTER PATH REVIEWED Diffuse bilateral pulmonary metastatic disease , WITH Prominent mediastinal and hilar lymph nodes are seen as well, further concerning for metastatic disease. Respiratory distress suspect secondary to neoplastic process Scaler Packer F-UP POST CT-guided lung biopsy AWAIT PATH PLAN CHEMO History of bipolar/schizophrenia. No active issue noted at this time. Continue to monitor for now. Problems: Consultation Date/Type/Reason Admit Date/Time Feb 26, 2017 at 03:22 Initial Consult Date 02/27/17 [facility] Referring Provider: ANGELA MCNEIL 24 HR Interval Summary Free Text/Dictation ALL NOTED PATH -P Exam/Review of Systems Vital Signs Vitals Vital Signs Date Time Temp Pulse Resp B/P Pulse Ox O2 Delivery O2 Flow Rate FiO2 03/03/17 12:14 105 03/03/17 11:49 97.9 19 111/66 100 02/27/17 08:20 Nasal Cannula 2.0 Intake and Output 03/02/17 03/02/17 03/03/17 15:00 23:00 07:00 Intake Total 480 ml Balance 480 ml Exam Constitutional: alert Head: normocephalic Eyes: nl conjunctiva Neck: supple Respiratory: clear to auscultation, normal air movement Cardiovascular: regular rate and rhythm Gastrointestinal: tender, soft Extremities: normal pulses Neurological: SOLAR ELECTRIC PRACTITIONER II-XII intact, nl mental status, nl speech Results Result Diagram: 03/03/1782303/03/1724 Results 24 hrs Laboratory Tests Test 03/03/17 08:24 White Blood Count 11.6 #H Red Blood Count 4.61 Hemoglobin 13.5 Hematocrit 42.0 Mean Corpuscular Volume 91.1 Mean Corpuscular Hemoglobin 29.3 Mean Corpuscular Hemoglobin Concent 32.1 Red Cell Distribution Width 14.2 Platelet Count 318 Mean Platelet Volume 10.5 H Neutrophils % 75.1 Lymphocytes % 15.2 Monocytes % 7.2 Eosinophils % 1.9 Basophils % 0.3 Nucleated Red Blood Cells % 0.0 Neutrophils # 8.7 H Lymphocytes # 1.8 Monocytes # 0.8 Eosinophils # 0.2 Basophils # 0.0 Nucleated Red Blood Cells # 0.0 Sodium Level 138 Potassium Level 4.1 Chloride Level 102 Carbon Dioxide Level 28 Anion Gap 12 Blood Urea Nitrogen 15 Creatinine 0.66 Glucose Level 110 Calcium Level 9.4 Medications Medications Current Medications Guaifenesin/ Dextromethorphan (Robitussin Dm Liquid Cup) 10 ml Q4H PRN PO COUGH Last administered on 03/03/17 07:45; Admin Dose 10 ML; Start 02/26/17 at 03:30 Hydromorphone HCl (Dilaudid) 1 mg Q4H PRN IV PAIN Last administered on 07:45; Admin Dose 1 MG; Start 02/26/17 at 03:30 Ondansetron HCl (Zofran Inj) 4 mg Q4H PRN IV NAUSEA AND/OR VOMITING Last administered on 03/01/17 16:35; Admin Dose 4 MG; Start 02/26/17 at 03:30 Ondansetron HCl (Zofran Inj) 4 mg Q6H PRN IV NAUSEA AND/OR VOMITING; Start at 06:00 Pantoprazole (Protonix Tab) 40 mg DAILY@06 PO Last administered on 03/03/17 05 :24; Admin Dose 40 MG; Start 02/26/17 at 06:00 Enoxaparin Sodium (Lovenox) 40 mg DAILY SC Last administered on 03/03/17 09:51 ; Admin Dose 40 MG; Start 02/26/17 at 09:00 Alprazolam (Xanax) 0.25 mg BID PO Last administered on 03/03/17 09:50; Admin Dose 0.25 MG; Start 02/26/17 at 20:00 Levofloxacin (Levaquin) 750 mg DAILY@06 PO Last administered on 03/03/17 05:24 ; Admin Dose 750 MG; Start 03/01/17 at 06:00 JUSTINA AGUIRRE MD Mar 03, 2017 12:42
--- NOTE | 2017-03-03 15:26 | PN ---
Date/Time of Note Date/Time of Note DATE: 03/03/17 TIME: 15:25 Assessment/Plan VTE Prophylaxis VTE Prophylaxis Intervention: SCD's Lines/Catheters IV [facility]from [facility] Urinary Cath still in place: No Assessment/Plan Chief Complaint/Hosp Course Assessment and plan 1. Respiratory distress suspect secondary to neoplastic process versus infectious process. Document Design Specialist was consulted. Status post CT-guided lung biopsy. follow up result Continue on antibiotics for now. 2. Lung mass. Patient did have CT scan of the chest that showed diffuse bilateral pulmonary metastatic disease process. Status post CT guided biopsy of lung. Follow-up results. 3. History of uterine cancer. . Of note CT scan of the abdomen and pelvis that showed a 62 mm mass in the right hemipelvis likely human resources hr representative of metastatic neoplasm. There is also seen numerous large metastatic deposits in the bilateral lung bases.continue with oncologist recs 4. History of bipolar/schizophrenia. No active issue noted at this time. Continue to monitor for now. Disposition plan: Status post CT lung guided biopsy. Follow-up on pathology. Discharge when medically stable and cleared by valuation consultant Discussed plan of care with Problems: Subjective 24 Hr Interval Summary Free Text/Dictation Still reports having some back pain difficulty with breathing Exam/Review of Systems Vital Signs Vitals Vital Signs Date Time Temp Pulse Resp B/P Pulse Ox O2 Delivery O2 Flow Rate FiO2 03/03/17 12:14 105 03/03/17 11:49 97.9 19 111/66 100 02/27/17 08:20 Nasal Cannula 2.0 Intake and Output 03/02/17 03/02/17 03/03/17 15:00 23:00 07:00 Intake Total 480 ml Balance 480 ml Exam Constitutional: alert, oriented Psych: no complaints Head: normocephalic Eyes: nl conjunctiva Neck: supple, No jvd Respiratory: clear to auscultation, normal air movement Cardiovascular: regular rate and rhythm Gastrointestinal: non-tender, soft Musculoskeletal: nl extremities to inspection Extremities: normal pulses Neurological: SAND POLISHER II-XII intact, nl mental status, nl speech Skin: nl turgor Results Result Diagram: 03/03/17 0824 03/03/17 0824 Results 24 hrs Laboratory Tests Test 03/03/17 08:24 White Blood Count 11.6 #H Red Blood Count 4.61 Hemoglobin 13.5 Hematocrit 42.0 Mean Corpuscular Volume 91.1 Mean Corpuscular Hemoglobin 29.3 Mean Corpuscular Hemoglobin Concent 32.1 Red Cell Distribution Width 14.2 Platelet Count 318 Mean Platelet Volume 10.5 H Neutrophils % 75.1 Lymphocytes % 15.2 Monocytes % 7.2 Eosinophils % 1.9 Basophils % 0.3 Nucleated Red Blood Cells % 0.0 Neutrophils # 8.7 H Lymphocytes # 1.8 Monocytes # 0.8 Eosinophils # 0.2 Basophils # 0.0 Nucleated Red Blood Cells # 0.0 Sodium Level 138 Potassium Level 4.1 Chloride Level 102 Carbon Dioxide Level 28 Anion Gap 12 Blood Urea Nitrogen 15 Creatinine 0.66 Glucose Level 110 Calcium Level 9.4 Medications Medications Current Medications Guaifenesin/ Dextromethorphan (Robitussin Dm Liquid Cup) 10 ml Q4H PRN PO COUGH Last administered on 03/03/17 07:45; Admin Dose 10 ML; Start 02/26/17 at 03:30 Hydromorphone HCl (Dilaudid) 1 mg Q4H PRN IV PAIN Last administered on 13:17; Admin Dose 1 MG; Start 02/26/17 at 03:30 Ondansetron HCl (Zofran Inj) 4 mg Q4H PRN IV NAUSEA AND/OR VOMITING Last administered on 03/01/17 16:35; Admin Dose 4 MG; Start 02/26/17 at 03:30 Ondansetron HCl (Zofran Inj) 4 mg Q6H PRN IV NAUSEA AND/OR VOMITING; Start at 06:00 Pantoprazole (Protonix Tab) 40 mg DAILY@06 PO Last administered on 03/03/17 05 :24; Admin Dose 40 MG; Start 02/26/17 at 06:00 Enoxaparin Sodium (Lovenox) 40 mg DAILY SC Last administered on 03/03/17 09:51 ; Admin Dose 40 MG; Start 02/26/17 at 09:00 Alprazolam (Xanax) 0.25 mg BID PO Last administered on 03/03/17 09:50; Admin Dose 0.25 MG; Start 02/26/17 at 20:00 Levofloxacin (Levaquin) 750 mg DAILY@06 PO Last administered on 03/03/17 05:24 ; Admin Dose 750 MG; Start 03/01/17 at 06:00 ANGELA MCNEIL Mar 03, 2017 15:26
[2017-03-04] VITALS (13 sets, daily range): BP systolic 109–123; BP diastolic 55–70; PULSE 83–170; RESP 16–20
[2017-03-04] MEDS: HYDROmorphONE 1 MG/ML SYG IV PRN ×5 (02:09→19:53)
[2017-03-04] MEDS: PANTOPRAZOLE (EC) 40 MG TAB PO SCH (05:53)
[2017-03-04] MEDS: LEVOFLOXACIN 750 MG TABLET PO SCH (05:53)
[2017-03-04] MEDS: ALPRAZOLAM 0.25 MG TAB PO SCH ×2 (09:10→19:53)
[2017-03-04] MEDS: ENOXAPARIN 40 MG/0.4 ML SYG SC SCH (09:12)
--- NOTE | 2017-03-04 12:33 | CONS ---
Date/Time of Note Date/Time of Note DATE: 03/04/17 TIME: 12:32 Assessment/Plan Assessment/Plan Chief Complaint/Hosp Course History of uterine cancer. Patient seen by aviation program manager/onc PT UNDERWENT KIERAN FOR UTERINE LEIOMYOSARCOMA IN MAY 2016 AT [facility] SHE SAW DR LOZA 3 TIMES OUTPT PT SAW DR VILLAREAL , WITH PLAN FOR CHEMOTHERAPY, BUT NO AUTH HAS BEEN OBTAINED CT ABD - 62 mm mass in the right purvi pelvis represents metastatic neoplasm until proven otherwise. Numerous large metastatic deposits again seen bilateral lung bases, with small pleural effusions. TUMOR MARKERS- CA 125 - 170, ELEVATED RECORD- P POST LUNG BX PLAN CHEMO AFTER PATH REVIEWED Diffuse bilateral pulmonary metastatic disease , WITH Prominent mediastinal and hilar lymph nodes are seen as well, further concerning for metastatic disease. Respiratory distress suspect secondary to neoplastic process Videotape Sales Representative F-UP POST CT-guided lung biopsy AWAIT PATH PLAN CHEMO History of bipolar/schizophrenia. No active issue noted at this time. Continue to monitor for now. Problems: Consultation Date/Type/Reason Admit Date/Time Feb 26, 2017 at 03:22 Initial Consult Date 02/27/17 Type of Consultation: [facility] Referring Provider: ANGELA MCNEIL 24 HR Interval Summary Free Text/Dictation ALL NOTED Exam/Review of Systems Vital Signs Vitals Vital Signs Date Time Temp Pulse Resp B/P Pulse Ox O2 Delivery O2 Flow Rate FiO2 03/04/17 11:20 97.9 107 18 119/65 94 Intake and Output 03/03/17 03/03/17 03/04/17 15:00 23:00 07:00 Intake Total 900 ml 650 ml Balance 900 ml 650 ml Exam Constitutional: alert Head: normocephalic Eyes: nl conjunctiva Neck: supple Respiratory: clear to auscultation, normal air movement Cardiovascular: regular rate and rhythm Gastrointestinal: tender, soft Extremities: normal pulses Neurological: ADMINISTRATIVE SERVICES OFFICER II-XII intact, nl mental status, nl speech Results Result Diagram: 03/03/1782303/03/17823 Medications Medications Current Medications Guaifenesin/ Dextromethorphan (Robitussin Dm Liquid Cup) 10 ml Q4H PRN PO COUGH Last administered on 03/03/17t 07:45; Admin Dose 10 ML; Start 02/26/17 at 03:30 Hydromorphone HCl (Dilaudid) 1 mg Q4H PRN IV PAIN Last administered on 09:42; Admin Dose 1 MG; Start 02/26/17 at 03:30 Ondansetron HCl (Zofran Inj) 4 mg Q4H PRN IV NAUSEA AND/OR VOMITING Last administered on 03/01/17 16:35; Admin Dose 4 MG; Start 02/26/17 at 03:30 Ondansetron HCl (Zofran Inj) 4 mg Q6H PRN IV NAUSEA AND/OR VOMITING; Start at 06:00 Pantoprazole (Protonix Tab) 40 mg DAILY@06 PO Last administered on 03/04/17 05 :53; Admin Dose 40 MG; Start 02/26/17 at 06:00 Enoxaparin Sodium (Lovenox) 40 mg DAILY SC Last administered on 03/04/17 09:12 ; Admin Dose 40 MG; Start 02/26/17 at 09:00 Alprazolam (Xanax) 0.25 mg BID PO Last administered on 03/04/17 09:10; Admin Dose 0.25 MG; Start 02/26/17 at 20:00 Levofloxacin (Levaquin) 750 mg DAILY@06 PO Last administered on 03/04/17 05:53 ; Admin Dose 750 MG; Start 03/01/17 at 06:00 JUSTINA AGUIRRE MD Mar 04, 2017 12:33
--- NOTE | 2017-03-04 14:40 | PN ---
DATE: 03/04/2017 HOSPITALIST PROGRESS NOTE TIME OF EVALUATION: 1:40 p.m. SUBJECTIVE DATA: Complains of generalized body ache. Complains of dyspnea. OBJECTIVE DATA: VITAL SIGNS: Temperature 97.9, pulse rate 109, respiratory rate 18, blood pressure 119/64, oxygen saturation 94% on low flow O2. GENERAL: This is an obese female lying in bed in no apparent distress. HEENT: Head normocephalic and atraumatic. Eyes: Anicteric sclerae. Conjunctivae clear. ENT: Nasal septum is midline. Oral mucosa is dry. NECK: Supple. JVD noticed. RESPIRATORY: Bilaterally diminished breath sounds. Minimal use of accessory muscles of respiration. CARDIAC: Regular rate and rhythm. S1 and S2 heard. ABDOMEN: Soft, nontender and nondistended. Bowel sounds positive in all 4 quadrants. GENITOURINARY: Deferred. EXTREMITIES: No cyanosis, no clubbing, no edema. Peripheral pulses palpable. NEUROLOGIC: The patient is awake, alert and oriented. Cranial nerves are grossly intact. LABORATORY AND DIAGNOSTIC DATA: No labs for today. ASSESSMENT AND PLAN: 1. Acute respiratory failure, hypoxic. Secondary to neoplastic process versus infectious process. CT angiogram of the chest showing focal pulmonary consolidation in the left lower lobe, possibly atelectasis and pneumonia. Continue antibiotics. 2. Diffuse bilateral pulmonary metastatic disease. Status post needle biopsy of lung mass. The patient being followed by oncology. The plan is to start the patient on chemotherapy. 3. Uterine cancer. CT scan of the abdomen and pelvis showing a 62 mm mass in the right hemipelvis, likely tax compliance representative metastatic neoplasm, status post evaluation by GOVERNMENT PROPERTY INSPECTOR/ONC. As per GOVERNMENT PROPERTY INSPECTOR/ONC, secondary cytoreduction of pelvic mass if the primary oncologist thought if it were beneficial in terms of diagnosis and to address symptoms. Continue pain control. 4. Fluid, electrolytes and nutrition. Regular diet as tolerated. 5. Deep venous thrombosis prophylaxis with subcutaneous Lovenox. 6. Gastrointestinal prophylaxis. Proton pump inhibitors. PLAN: Continue pain control. Continue antibiotics. Continue inhaled bronchodilators. Await further recommendations from consultants. Case discussed with Dr. Carvajal. TARAS CARVAJAL MD, AM/ELIZABETH Conf#: [id number] DID#: [id number] MTDD
--- NOTE | 2017-03-04 16:25 | PN ---
DATE: 03/04/2017 SUBJECTIVE: Chart reviewed. No significant changes. PHYSICAL EXAMINATION: VITAL SIGNS: Blood pressure 119/65, pulse 107, respiration 18, temperature 97.9. HEENT: Pupils are equal and reactive to light. NECK: Supple, no JVD noted, no cervical adenopathy noted, no carotid bruits heard. LUNGS: Fair breath sounds bilaterally. CARDIOVASCULAR: S1, S2 normal. ABDOMEN: Soft, nontender. No organomegaly or masses noted. EXTREMITIES: No clubbing or cyanosis noted. NEUROLOGICAL: Awake. IMPRESSION: 1. Multiple pulmonary nodules suggestive of metastatic disease status post CT-guided biopsy of left lung mass. Pathology pending. 2. History of uterine cancer status post hysterectomy PLAN: 1. Continue current treatment. 2. Check pathology. Dictated By: KARL KEEN MD, MA/ELIZABETH Conf#: [id number] DID#: [id number]
[2017-03-05] VITALS (12 sets, daily range): BP systolic 104–134; BP diastolic 55–72; PULSE 67–98; RESP 17–19
[2017-03-05] MEDS: GUAIFENESIN/DM 5ML CUP PO PRN (00:22)
[2017-03-05] MEDS: HYDROmorphONE 1 MG/ML SYG IV PRN ×6 (00:23→23:01)
[2017-03-05] MEDS: PANTOPRAZOLE (EC) 40 MG TAB PO SCH (05:23)
[2017-03-05] MEDS: LEVOFLOXACIN 750 MG TABLET PO SCH (05:24)
[2017-03-05 08:04] LABS: ADD SCAN DIFF NO
[2017-03-05 08:08] LABS: BASOPHIL # 0.1 10^3/ul (0.0-0.1); BASOPHILS % 0.5 % (0.0-2.0); EOSINOPHILS # 0.5 10^3/ul (0.0-0.5); EOSINOPHILS % 4.7 % (0.0-7.0); HEMATOCRIT 39.7 % (37.0-47.0); HEMOGLOBIN 13.1 g/dl (12.0-16.0); LYMPHOCYTES # 1.9 10^3/ul (0.8-2.9); LYMPHOCYTES % 18.9 % (15.0-51.0); MEAN CORPUSCULAR HEMOGLOBIN 29.5 pg (29.0-33.0); MEAN CORPUSCULAR VOLUME 89.4 fl (82.0-101.0); MEAN PLATELET VOLUME 10.6 fl (7.4-10.4); MONOCYTE # 0.7 10^3/ul (0.3-0.9); MONOCYTES % 7.4 % (0.0-11.0); NEUTROPHIL # 6.8 10^3/ul (1.6-7.5); NEUTROPHILS % 68.1 % (39.0-77.0); PLATELET COUNT 313 10^3/UL (140-415); RED BLOOD COUNT 4.44 10^6/ul (4.20-5.40); RED CELL DISTRIBUTION WIDTH 13.6 % (11.5-14.5)
[2017-03-05 08:37] LABS: CHOL/HDL RATIO 2.5 RATIO; MAGNESIUM 1.7 mg/dl (1.7-2.5); PHOSPHORUS 3.9 mg/dl (2.5-4.9)
[2017-03-05 08:43] LABS: ALBUMIN/GLOBULIN RATIO 1.25; BILIRUBIN,INDIRECT 0.3 mg/dl (0-1.1); BILIRUBIN,TOTAL 0.3 mg/dl (0.2-1.3); CALCIUM 9.7 mg/dl (8.4-10.2); CREATININE 0.58 mg/dl (0.44-1.00); POTASSIUM 3.7 mmol/L (3.5-5.1); TOTAL PROTEIN 7.2 g/dl (6.1-8.1)
[2017-03-05] MEDS: ALPRAZOLAM 0.25 MG TAB PO SCH ×2 (09:05→20:20)
[2017-03-05] MEDS: ONDANSETRON 4 MG INJ IV PRN (09:05)
[2017-03-05 09:09] LABS: THYROID STIMULATING HORMONE 5.03 MIU/L (0.465-4.680)
[2017-03-05] MEDS: ENOXAPARIN 40 MG/0.4 ML SYG SC SCH (09:29)
--- NOTE | 2017-03-05 13:28 | CONS ---
Date/Time of Note Date/Time of Note DATE: 03/05/17 TIME: 13:26 Assessment/Plan Assessment/Plan Additional Assessment/Plan Assessment recommendations; next 1. Patient admitted for shortness of breath discovered to have multiple pulmonary nodules status post CT biopsy. Results are pending. 2. Recent history of uterine cancer with likely widespread metastasis. Continue current treatment. Further workup to be done once pathology results are obtained. Consultation Date/Type/Reason Admit Date/Time Feb 26, 2017 at 03:22 Initial Consult Date 02/27/17 Type of Consultation: Coronary/critical care Referring Provider: ANGELA MCNEIL 24 HR Interval Summary Free Text/Dictation Patient condition stable. According to him shortness of breath is improving. Denies any chest pain, hemoptysis. General exam; middle-aged woman, awake alert currently in no distress. Exam/Review of Systems Vital Signs Vitals Vital Signs Date Time Temp Pulse Resp B/P Pulse Ox O2 Delivery O2 Flow Rate FiO2 03/05/17 12:24 98 03/05/17 11:43 98.1 19 104/55 93 Intake and Output 03/04/17 03/04/17 03/05/17 15:00 23:00 07:00 Intake Total 740 ml 700 ml Balance 740 ml 700 ml Exam HEENT exam is; supple neck, no JVD. No lymphadenopathy. Midline trachea. No thyromegaly. Pharynx is clear. Fair dentition. Chest examination; clear to auscultation. S1-S2 audible, no murmurs. Regular rhythm. Abdomen examination; soft, nontender. No organomegaly. Bowel sounds. Extremity exam; no peripheral edema. No clubbing. Pulses 1+ bilaterally. STAMPING DIE MAKER BENCH examination; no focal deficit. Results Result Diagram: 03/05/17 0615 03/05/17 0645 Results 24 hrs Laboratory Tests Test 03/05/17 06:15 03/05/17 06:45 White Blood Count 10.0 Red Blood Count 4.44 Hemoglobin 13.1 Hematocrit 39.7 Mean Corpuscular Volume 89.4 Mean Corpuscular Hemoglobin 29.5 Mean Corpuscular Hemoglobin Concent 33.0 Red Cell Distribution Width 13.6 Platelet Count 313 Mean Platelet Volume 10.6 H Neutrophils % 68.1 Lymphocytes % 18.9 Monocytes % 7.4 Eosinophils % 4.7 Basophils % 0.5 Nucleated Red Blood Cells % 0.0 Neutrophils # 6.8 Lymphocytes # 1.9 Monocytes # 0.7 Eosinophils # 0.5 Basophils # 0.1 Nucleated Red Blood Cells # 0.0 Sodium Level 140 Potassium Level 3.7 Chloride Level 102 Carbon Dioxide Level 31 Anion Gap 11 Blood Urea Nitrogen 11 Creatinine 0.58 Glucose Level 95 Hemoglobin A1c 5.8 Calcium Level 9.7 Phosphorus Level 3.9 Magnesium Level 1.7 Total Bilirubin 0.3 Direct Bilirubin 0.00 Indirect Bilirubin 0.3 Aspartate Amino Transf (AST/SGOT) 42 Alanine Aminotransferase (ALT/SGPT) 43 Alkaline Phosphatase 82 Total Protein 7.2 Albumin 4.0 Globulin 3.20 Albumin/Globulin Ratio 1.25 Triglycerides Level 79 Cholesterol Level 118 LDL Cholesterol, Calculated 56 HDL Cholesterol 46 Cholesterol/HDL Ratio 2.5 Thyroid Stimulating Hormone (TSH) 5.030 H Free Thyroxine 1.18 Medications Medications Current Medications Guaifenesin/ Dextromethorphan (Robitussin Dm Liquid Cup) 10 ml Q4H PRN PO COUGH Last administered on 03/05/17 00:22; Admin Dose 10 ML; Start 02/26/17 at 03:30 Hydromorphone HCl (Dilaudid) 1 mg Q4H PRN IV PAIN Last administered on 10:10; Admin Dose 1 MG; Start 02/26/17 at 03:30 Ondansetron HCl (Zofran Inj) 4 mg Q4H PRN IV NAUSEA AND/OR VOMITING Last administered on 03/05/17 09:05; Admin Dose 4 MG; Start 02/26/17 at 03:30 Ondansetron HCl (Zofran Inj) 4 mg Q6H PRN IV NAUSEA AND/OR VOMITING; Start at 06:00 Pantoprazole (Protonix Tab) 40 mg DAILY@06 PO Last administered on 03/05/17 05 :23; Admin Dose 40 MG; Start 02/26/17 at 06:00 Enoxaparin Sodium (Lovenox) 40 mg DAILY SC Last administered on 03/05/17 09:29 ; Admin Dose 40 MG; Start 02/26/17 at 09:00 Alprazolam (Xanax) 0.25 mg BID PO Last administered on 03/05/17 09:05; Admin Dose 0.25 MG; Start 02/26/17 at 20:00 Levofloxacin (Levaquin) 750 mg DAILY@06 PO Last administered on 03/05/17t 05:24 ; Admin Dose 750 MG; Start 03/01/17 at 06:00 SANGITA CAMPOS Mar 05, 2017 13:28
--- NOTE | 2017-03-05 18:19 | PN ---
Date/Time of Note Date/Time of Note DATE: 03/05/17 TIME: 18:16 Assessment/Plan VTE Prophylaxis VTE Prophylaxis Intervention: LMWH Lines/Catheters [facility]from [facility] Saline Lock Urinary Cath still in place: No Assessment/Plan Assessment/Plan 1. Acute respiratory failure, hypoxic. Secondary to neoplastic process versus infectious process. CT angiogram of the chest showing focal pulmonary consolidation in the left lower lobe, possibly atelectasis and pneumonia. Continue antibiotics. 2. Diffuse bilateral pulmonary metastatic disease. Status post needle biopsy of lung mass. The patient being followed by oncology. The plan is to start the patient on chemotherapy. 3. Uterine cancer. CT scan of the abdomen and pelvis showing a 62 mm mass in the right hemipelvis, likely containers sales representative metastatic neoplasm, status post evaluation by DIETARY SERVICES DIRECTOR/ONC. As per DIETARY SERVICES DIRECTOR/ONC, secondary cytoreduction of pelvic mass if the primary oncologist thought if it were beneficial in terms of diagnosis and to address symptoms. Continue pain control. 4. Fluid, electrolytes and nutrition. Regular diet as tolerated. 5. Deep venous thrombosis prophylaxis with subcutaneous Lovenox. 6. Gastrointestinal prophylaxis. Proton pump inhibitors. Subjective 24 Hr Interval Summary Free Text/Dictation no acute events, BP stable, Exam/Review of Systems Vital Signs Vitals Vital Signs Date Time Temp Pulse Resp B/P Pulse Ox O2 Delivery O2 Flow Rate FiO2 03/05/17 16:12 88 03/05/17 15:48 98.0 18 116/56 96 Intake and Output 03/04/17 03/04/17 03/05/17 15:00 23:00 07:00 Intake Total 740 ml 700 ml Balance 740 ml 700 ml Exam GENERAL: This is an obese female lying in bed in no apparent distress. HEENT: Head normocephalic and atraumatic. Eyes: Anicteric sclerae. Conjunctivae clear. ENT: Nasal septum is midline. Oral mucosa is dry. NECK: Supple. JVD noticed. RESPIRATORY: Bilaterally diminished breath sounds. Minimal use of accessory muscles of respiration. CARDIAC: Regular rate and rhythm. S1 and S2 heard. ABDOMEN: Soft, nontender and nondistended. Bowel sounds positive in all 4 quadrants. GENITOURINARY: Deferred. EXTREMITIES: No cyanosis, no clubbing, no edema. Peripheral pulses palpable. NEUROLOGIC: The patient is awake, alert and oriented. Cranial nerves are grossly intact. Results Result Diagram: 03/05/17 0615 03/05/17 0645 Results 24 hrs Laboratory Tests Test 03/05/17 06:15 03/05/17 06:45 White Blood Count 10.0 Red Blood Count 4.44 Hemoglobin 13.1 Hematocrit 39.7 Mean Corpuscular Volume 89.4 Mean Corpuscular Hemoglobin 29.5 Mean Corpuscular Hemoglobin Concent 33.0 Red Cell Distribution Width 13.6 Platelet Count 313 Mean Platelet Volume 10.6 H Neutrophils % 68.1 Lymphocytes % 18.9 Monocytes % 7.4 Eosinophils % 4.7 Basophils % 0.5 Nucleated Red Blood Cells % 0.0 Neutrophils # 6.8 Lymphocytes # 1.9 Monocytes # 0.7 Eosinophils # 0.5 Basophils # 0.1 Nucleated Red Blood Cells # 0.0 Sodium Level 140 Potassium Level 3.7 Chloride Level 102 Carbon Dioxide Level 31 Anion Gap 11 Blood Urea Nitrogen 11 Creatinine 0.58 Glucose Level 95 Hemoglobin A1c 5.8 Calcium Level 9.7 Phosphorus Level 3.9 Magnesium Level 1.7 Total Bilirubin 0.3 Direct Bilirubin 0.00 Indirect Bilirubin 0.3 Aspartate Amino Transf (AST/SGOT) 42 Alanine Aminotransferase (ALT/SGPT) 43 Alkaline Phosphatase 82 Total Protein 7.2 Albumin 4.0 Globulin 3.20 Albumin/Globulin Ratio 1.25 Triglycerides Level 79 Cholesterol Level 118 LDL Cholesterol, Calculated 56 HDL Cholesterol 46 Cholesterol/HDL Ratio 2.5 Thyroid Stimulating Hormone (TSH) 5.030 H Free Thyroxine 1.18 Medications Medications Current Medications Guaifenesin/ Dextromethorphan (Robitussin Dm Liquid Cup) 10 ml Q4H PRN PO COUGH Last administered on 03/05/17 00:22; Admin Dose 10 ML; Start 02/26/17 at 03:30 Hydromorphone HCl (Dilaudid) 1 mg Q4H PRN IV PAIN Last administered on 14:34; Admin Dose 1 MG; Start 02/26/17 at 03:30 Ondansetron HCl (Zofran Inj) 4 mg Q4H PRN IV NAUSEA AND/OR VOMITING Last administered on 03/05/17 09:05; Admin Dose 4 MG; Start 02/26/17 at 03:30 Ondansetron HCl (Zofran Inj) 4 mg Q6H PRN IV NAUSEA AND/OR VOMITING; Start at 06:00 Pantoprazole (Protonix Tab) 40 mg DAILY@06 PO Last administered on 03/05/17 05 :23; Admin Dose 40 MG; Start 02/26/17 at 06:00 Enoxaparin Sodium (Lovenox) 40 mg DAILY SC Last administered on 03/05/17 09:29 ; Admin Dose 40 MG; Start 02/26/17 at 09:00 Alprazolam (Xanax) 0.25 mg BID PO Last administered on 03/05/17 09:05; Admin Dose 0.25 MG; Start 02/26/17 at 20:00 Levofloxacin (Levaquin) 750 mg DAILY@06 PO Last administered on 03/05/17 05:24 ; Admin Dose 750 MG; Start 03/01/17 at 06:00 PHILLY ALEMAN MD Mar 05, 2017 18:19
--- NOTE | 2017-03-05 19:05 | CONS ---
Date/Time of Note Date/Time of Note DATE: 03/05/17 TIME: 19:04 Assessment/Plan Assessment/Plan Chief Complaint/Hosp Course History of uterine cancer. Patient seen by telegraph office manager/onc PT UNDERWENT KIERAN FOR UTERINE LEIOMYOSARCOMA IN MAY 2016 AT [facility] SHE SAW DR LOZA 3 TIMES OUTPT PT SAW DR VILLAREAL , WITH PLAN FOR CHEMOTHERAPY, BUT NO AUTH HAS BEEN OBTAINED CT ABD - 62 mm mass in the right purvi pelvis represents metastatic neoplasm until proven otherwise. Numerous large metastatic deposits again seen bilateral lung bases, with small pleural effusions. TUMOR MARKERS- CA 125 - 170, ELEVATED RECORD- P POST LUNG BX PLAN CHEMO AFTER PATH REVIEWED Diffuse bilateral pulmonary metastatic disease , WITH Prominent mediastinal and hilar lymph nodes are seen as well, further concerning for metastatic disease. Respiratory distress suspect secondary to neoplastic process Nuisance Wildlife Specialist F-UP POST CT-guided lung biopsy AWAIT PATH PLAN CHEMO History of bipolar/schizophrenia. No active issue noted at this time. Continue to monitor for now. Problems: Consultation Date/Type/Reason Admit Date/Time Feb 26, 2017 at 03:22 Initial Consult Date 02/27/17 Type of Consultation: [facility] Referring Provider: ANGELA MCNEIL 24 HR Interval Summary Free Text/Dictation ALL NOTED D/W PT Exam/Review of Systems Vital Signs Vitals Vital Signs Date Time Temp Pulse Resp B/P Pulse Ox O2 Delivery O2 Flow Rate FiO2 03/05/17 16:12 88 03/05/17 15:48 98.0 18 116/56 96 Intake and Output 03/04/17 03/04/17 03/05/17 15:00 23:00 07:00 Intake Total 740 ml 700 ml Balance 740 ml 700 ml Exam Constitutional: alert Head: normocephalic Eyes: nl conjunctiva Neck: supple Respiratory: clear to auscultation, normal air movement Cardiovascular: regular rate and rhythm Gastrointestinal: tender, soft Extremities: normal pulses Neurological: LOOM DOFFER II-XII intact, nl mental status, nl speech Results Result Diagram: 03/05/17 0615 03/05/17 0645 Results 24 hrs Laboratory Tests Test 03/05/17 06:15 03/05/17 06:45 White Blood Count 10.0 Red Blood Count 4.44 Hemoglobin 13.1 Hematocrit 39.7 Mean Corpuscular Volume 89.4 Mean Corpuscular Hemoglobin 29.5 Mean Corpuscular Hemoglobin Concent 33.0 Red Cell Distribution Width 13.6 Platelet Count 313 Mean Platelet Volume 10.6 H Neutrophils % 68.1 Lymphocytes % 18.9 Monocytes % 7.4 Eosinophils % 4.7 Basophils % 0.5 Nucleated Red Blood Cells % 0.0 Neutrophils # 6.8 Lymphocytes # 1.9 Monocytes # 0.7 Eosinophils # 0.5 Basophils # 0.1 Nucleated Red Blood Cells # 0.0 Sodium Level 140 Potassium Level 3.7 Chloride Level 102 Carbon Dioxide Level 31 Anion Gap 11 Blood Urea Nitrogen 11 Creatinine 0.58 Glucose Level 95 Hemoglobin A1c 5.8 Calcium Level 9.7 Phosphorus Level 3.9 Magnesium Level 1.7 Total Bilirubin 0.3 Direct Bilirubin 0.00 Indirect Bilirubin 0.3 Aspartate Amino Transf (AST/SGOT) 42 Alanine Aminotransferase (ALT/SGPT) 43 Alkaline Phosphatase 82 Total Protein 7.2 Albumin 4.0 Globulin 3.20 Albumin/Globulin Ratio 1.25 Triglycerides Level 79 Cholesterol Level 118 LDL Cholesterol, Calculated 56 HDL Cholesterol 46 Cholesterol/HDL Ratio 2.5 Thyroid Stimulating Hormone (TSH) 5.030 H Free Thyroxine 1.18 Medications Medications Current Medications Guaifenesin/ Dextromethorphan (Robitussin Dm Liquid Cup) 10 ml Q4H PRN PO COUGH Last administered on 03/05/17 00:22; Admin Dose 10 ML; Start 02/26/17 at 03:30 Hydromorphone HCl (Dilaudid) 1 mg Q4H PRN IV PAIN Last administered on 18:38; Admin Dose 1 MG; Start 02/26/17 at 03:30 Ondansetron HCl (Zofran Inj) 4 mg Q4H PRN IV NAUSEA AND/OR VOMITING Last administered on 03/05/17 09:05; Admin Dose 4 MG; Start 02/26/17 at 03:30 Ondansetron HCl (Zofran Inj) 4 mg Q6H PRN IV NAUSEA AND/OR VOMITING; Start at 06:00 Pantoprazole (Protonix Tab) 40 mg DAILY@06 PO Last administered on 03/05/17 05 :23; Admin Dose 40 MG; Start 02/26/17 at 06:00 Enoxaparin Sodium (Lovenox) 40 mg DAILY SC Last administered on 03/05/17 09:29 ; Admin Dose 40 MG; Start 02/26/17 at 09:00 Alprazolam (Xanax) 0.25 mg BID PO Last administered on 03/05/17 09:05; Admin Dose 0.25 MG; Start 02/26/17 at 20:00 Levofloxacin (Levaquin) 750 mg DAILY@06 PO Last administered on 03/05/17 05:24 ; Admin Dose 750 MG; Start 03/01/17 at 06:00 JUSTINA AGUIRRE MD Mar 05, 2017 19:05
[2017-03-06] VITALS (12 sets, daily range): BP systolic 108–121; BP diastolic 55–62; PULSE 77–106; RESP 17–21
[2017-03-06] MEDS: HYDROmorphONE 1 MG/ML SYG IV PRN ×5 (03:40→21:18)
[2017-03-06] MEDS: PANTOPRAZOLE (EC) 40 MG TAB PO SCH (05:47)
[2017-03-06] MEDS: LEVOFLOXACIN 750 MG TABLET PO SCH (05:47)
[2017-03-06 07:29] LABS: ADD SCAN DIFF NO
[2017-03-06] MEDS: ONDANSETRON 4 MG INJ IV PRN (07:31)
[2017-03-06 07:37] LABS: BASOPHILS % 0.4 % (0.0-2.0); EOSINOPHILS # 0.5 10^3/ul (0.0-0.5); EOSINOPHILS % 5.4 % (0.0-7.0); HEMATOCRIT 38.5 % (37.0-47.0); HEMOGLOBIN 12.4 g/dl (12.0-16.0); LYMPHOCYTES # 1.7 10^3/ul (0.8-2.9); LYMPHOCYTES % 17.3 % (15.0-51.0); MEAN CORPUSCULAR HEMOGLOBIN 29.2 pg (29.0-33.0); MEAN CORPUSCULAR HGB CONC 32.2 g/dl (32.0-37.0); MEAN CORPUSCULAR VOLUME 90.8 fl (82.0-101.0); MEAN PLATELET VOLUME 10.5 fl (7.4-10.4); MONOCYTE # 0.7 10^3/ul (0.3-0.9); MONOCYTES % 6.9 % (0.0-11.0); NEUTROPHIL # 6.7 10^3/ul (1.6-7.5); NEUTROPHILS % 69.7 % (39.0-77.0); PLATELET COUNT 315 10^3/UL (140-415); RED BLOOD COUNT 4.24 10^6/ul (4.20-5.40); RED CELL DISTRIBUTION WIDTH 13.8 % (11.5-14.5); WHITE BLOOD COUNT 9.6 10^3/ul (4.8-10.8)
[2017-03-06 07:58] LABS: INR 0.95; PROTIME 12.7 Sec (12.2-14.2)
[2017-03-06 07:59] LABS: PARTIAL THROMBOPLASTIN TIME 28.1 Sec (25.0-35.0)
[2017-03-06 08:06] LABS: CALCIUM 9.2 mg/dl (8.4-10.2); CREATININE 0.64 mg/dl (0.44-1.00)
[2017-03-06] MEDS: ALPRAZOLAM 0.25 MG TAB PO SCH ×2 (08:52→21:18)
[2017-03-06] MEDS: ENOXAPARIN 40 MG/0.4 ML SYG SC SCH (08:55)
--- NOTE | 2017-03-06 12:16 | PN ---
Date/Time of Note Date/Time of Note DATE: 03/06/17 TIME: 12:15 Assessment/Plan VTE Prophylaxis VTE Prophylaxis Intervention: LMWH Lines/Catheters IV [facility] (from [facility] Saline Lock Urinary Cath still in place: No Assessment/Plan Assessment/Plan 1. Acute respiratory failure, hypoxic. Secondary to neoplastic process versus infectious process. CT angiogram of the chest showing focal pulmonary consolidation in the left lower lobe, possibly atelectasis and pneumonia. Continue antibiotics. 2. Diffuse bilateral pulmonary metastatic disease. Status post needle biopsy of lung mass. The patient being followed by oncology. The plan is to start the patient on chemotherapy. 3. Uterine cancer. Staging in progress, H & O to decide for chemo after that available 4. Fluid, electrolytes and nutrition. Regular diet as tolerated. 5. Deep venous thrombosis prophylaxis with subcutaneous Lovenox. 6. Gastrointestinal prophylaxis. Proton pump inhibitors. downgrade to med/surge floor Subjective 24 Hr Interval Summary Free Text/Dictation no acute distress Exam/Review of Systems Vital Signs Vitals Vital Signs Date Time Temp Pulse Resp B/P Pulse Ox O2 Delivery O2 Flow Rate FiO2 03/06/17 11:53 98.1 80 18 121/62 93 03/06/17 01:00 Room Air Intake and Output 03/05/17 03/05/17 03/06/17 15:00 23:00 07:00 Intake Total 600 ml Balance 600 ml Exam GENERAL: This is an obese female lying in bed in no apparent distress. HEENT: Head normocephalic and atraumatic. Eyes: Anicteric sclerae. Conjunctivae clear. ENT: Nasal septum is midline. Oral mucosa is dry. NECK: Supple. JVD noticed. RESPIRATORY: Bilaterally diminished breath sounds. Minimal use of accessory muscles of respiration. CARDIAC: Regular rate and rhythm. S1 and S2 heard. ABDOMEN: Soft, nontender and nondistended. Bowel sounds positive in all 4 quadrants. GENITOURINARY: Deferred. EXTREMITIES: No cyanosis, no clubbing, no edema. Peripheral pulses palpable. NEUROLOGIC: The patient is awake, alert and oriented. Cranial nerves are grossly intact. Results Result Diagram: 03/06/17 0707 03/06/17 0707 Results 24 hrs Laboratory Tests Test 03/06/17 07:07 White Blood Count 9.6 Red Blood Count 4.24 Hemoglobin 12.4 Hematocrit 38.5 Mean Corpuscular Volume 90.8 Mean Corpuscular Hemoglobin 29.2 Mean Corpuscular Hemoglobin Concent 32.2 Red Cell Distribution Width 13.8 Platelet Count 315 Mean Platelet Volume 10.5 H Neutrophils % 69.7 Lymphocytes % 17.3 Monocytes % 6.9 Eosinophils % 5.4 Basophils % 0.4 Nucleated Red Blood Cells % 0.0 Neutrophils # 6.7 Lymphocytes # 1.7 Monocytes # 0.7 Eosinophils # 0.5 Basophils # 0.0 Nucleated Red Blood Cells # 0.0 Prothrombin Time 12.7 Prothrombin Time Ratio 1.0 INR International Normalized Ratio 0.95 Activated Partial Thromboplast Time 28.1 Sodium Level 138 Potassium Level 4.0 Chloride Level 101 Carbon Dioxide Level 29 Anion Gap 12 Blood Urea Nitrogen 11 Creatinine 0.64 Glucose Level 120 Calcium Level 9.2 Medications Medications Current Medications Guaifenesin/ Dextromethorphan (Robitussin Dm Liquid Cup) 10 ml Q4H PRN PO COUGH Last administered on 03/05/17 00:22; Admin Dose 10 ML; Start 02/26/17 at 03:30 Hydromorphone HCl (Dilaudid) 1 mg Q4H PRN IV PAIN Last administered on 11:36; Admin Dose 1 MG; Start 02/26/17 at 03:30 Ondansetron HCl (Zofran Inj) 4 mg Q4H PRN IV NAUSEA AND/OR VOMITING Last administered on 03/06/17 07:31; Admin Dose 4 MG; Start 02/26/17 at 03:30 Ondansetron HCl (Zofran Inj) 4 mg Q6H PRN IV NAUSEA AND/OR VOMITING; Start at 06:00 Pantoprazole (Protonix Tab) 40 mg DAILY@06 PO Last administered on 03/06/17 05 :47; Admin Dose 40 MG; Start 02/26/17 at 06:00 Enoxaparin Sodium (Lovenox) 40 mg DAILY SC Last administered on 03/06/17 08:55 ; Admin Dose 40 MG; Start 02/26/17 at 09:00 Alprazolam (Xanax) 0.25 mg BID PO Last administered on 03/06/17 08:52; Admin Dose 0.25 MG; Start 02/26/17 at 20:00 Levofloxacin (Levaquin) 750 mg DAILY@06 PO Last administered on 03/06/17t 05:47 ; Admin Dose 750 MG; Start 03/01/17 at 06:00 PHILLY ALEMAN MD Mar 06, 2017 12:16
--- NOTE | 2017-03-06 21:19 | CONS ---
Date/Time of Note Date/Time of Note DATE: 03/06/17 TIME: 21:19 Assessment/Plan Assessment/Plan Chief Complaint/Hosp Course History of uterine cancer. Patient seen by video news editor/onc PT UNDERWENT KIERAN FOR UTERINE LEIOMYOSARCOMA IN MAY 2016 AT [facility] SHE SAW DR LOZA 3 TIMES OUTPT PT SAW DR VILLAREAL , WITH PLAN FOR CHEMOTHERAPY, BUT NO AUTH HAS BEEN OBTAINED CT ABD - 62 mm mass in the right purvi pelvis represents metastatic neoplasm until proven otherwise. Numerous large metastatic deposits again seen bilateral lung bases, with small pleural effusions. TUMOR MARKERS- CA 125 - 170, ELEVATED RECORD- P POST LUNG BX PLAN CHEMO AFTER PATH REVIEWED Diffuse bilateral pulmonary metastatic disease , WITH Prominent mediastinal and hilar lymph nodes are seen as well, further concerning for metastatic disease. Respiratory distress suspect secondary to neoplastic process English Professor F-UP POST CT-guided lung biopsy AWAIT PATH PLAN CHEMO History of bipolar/schizophrenia. No active issue noted at this time. Continue to monitor for now. Problems: Consultation Date/Type/Reason Admit Date/Time Feb 26, 2017 at 03:22 Initial Consult Date 02/27/17 [facility] Referring Provider: ANGELA MCNEIL 24 HR Interval Summary Free Text/Dictation ALL NOTED PATH - P Exam/Review of Systems Vital Signs Vitals Vital Signs Date Time Temp Pulse Resp B/P Pulse Ox O2 Delivery O2 Flow Rate FiO2 03/06/17 20:00 91 03/06/17 19:51 97.3 21 108/60 90 03/06/17 01:00 Room Air Intake and Output 03/05/17 03/05/17 03/06/17 15:00 23:00 07:00 Intake Total 600 ml Balance 600 ml Exam Constitutional: alert Head: normocephalic Eyes: nl conjunctiva Neck: supple Respiratory: clear to auscultation, normal air movement Cardiovascular: regular rate and rhythm Gastrointestinal: tender, soft Extremities: normal pulses Neurological: LOCKET MAKER II-XII intact, nl mental status, nl speech Results Result Diagram: 03/06/17 0707 03/06/17 0707 Results 24 hrs Laboratory Tests Test 03/06/17 07:07 White Blood Count 9.6 Red Blood Count 4.24 Hemoglobin 12.4 Hematocrit 38.5 Mean Corpuscular Volume 90.8 Mean Corpuscular Hemoglobin 29.2 Mean Corpuscular Hemoglobin Concent 32.2 Red Cell Distribution Width 13.8 Platelet Count 315 Mean Platelet Volume 10.5 H Neutrophils % 69.7 Lymphocytes % 17.3 Monocytes % 6.9 Eosinophils % 5.4 Basophils % 0.4 Nucleated Red Blood Cells % 0.0 Neutrophils # 6.7 Lymphocytes # 1.7 Monocytes # 0.7 Eosinophils # 0.5 Basophils # 0.0 Nucleated Red Blood Cells # 0.0 Prothrombin Time 12.7 Prothrombin Time Ratio 1.0 INR International Normalized Ratio 0.95 Activated Partial Thromboplast Time 28.1 Sodium Level 138 Potassium Level 4.0 Chloride Level 101 Carbon Dioxide Level 29 Anion Gap 12 Blood Urea Nitrogen 11 Creatinine 0.64 Glucose Level 120 Calcium Level 9.2 Medications Medications Current Medications Guaifenesin/ Dextromethorphan (Robitussin Dm Liquid Cup) 10 ml Q4H PRN PO COUGH Last administered on 03/05/17 00:22; Admin Dose 10 ML; Start 02/26/17 at 03:30 Hydromorphone HCl (Dilaudid) 1 mg Q4H PRN IV PAIN Last administered on 16:15; Admin Dose 1 MG; Start 02/26/17 at 03:30 Ondansetron HCl (Zofran Inj) 4 mg Q4H PRN IV NAUSEA AND/OR VOMITING Last administered on 03/06/17 07:31; Admin Dose 4 MG; Start 02/26/17 at 03:30 Ondansetron HCl (Zofran Inj) 4 mg Q6H PRN IV NAUSEA AND/OR VOMITING; Start at 06:00 Pantoprazole (Protonix Tab) 40 mg DAILY@06 PO Last administered on 03/06/17 05 :47; Admin Dose 40 MG; Start 02/26/17 at 06:00 Enoxaparin Sodium (Lovenox) 40 mg DAILY SC Last administered on 03/06/17 08:55 ; Admin Dose 40 MG; Start 02/26/17 at 09:00 Alprazolam (Xanax) 0.25 mg BID PO Last administered on 03/06/17 08:52; Admin Dose 0.25 MG; Start 02/26/17 at 20:00 Levofloxacin (Levaquin) 750 mg DAILY@06 PO Last administered on 03/06/17 05:47 ; Admin Dose 750 MG; Start 03/01/17 at 06:00 JUSTINA AGUIRRE MD Mar 06, 2017 21:19
[2017-03-07 00:20] VITALS: BP 123/63; RESP 19
[2017-03-07] MEDS: HYDROmorphONE 1 MG/ML SYG IV PRN ×5 (03:08→21:03)
[2017-03-07 03:35] VITALS: BP 124/64; RESP 19
[2017-03-07] MEDS: LEVOFLOXACIN 750 MG TABLET PO SCH (06:21)
[2017-03-07] MEDS: PANTOPRAZOLE (EC) 40 MG TAB PO SCH (06:21)
[2017-03-07 08:28] VITALS: BP 115/71; RESP 19
[2017-03-07] MEDS: ALPRAZOLAM 0.25 MG TAB PO SCH ×2 (08:31→21:49)
[2017-03-07] MEDS: ENOXAPARIN 40 MG/0.4 ML SYG SC SCH (08:33)
--- NOTE | 2017-03-07 14:42 | PN ---
Date/Time of Note Date/Time of Note DATE: 03/07/17 TIME: 14:39 Assessment/Plan VTE Prophylaxis VTE Prophylaxis Intervention: LMWH Lines/Catheters IV Catheter Type (from [facility]): Saline Lock Urinary Cath still in place: No Assessment/Plan Assessment/Plan 1. Acute respiratory failure, hypoxic. 2/2 LLL PNA 2. LLL PNA- on PO levaquin 750mg po daily 2. 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, Uterine Cancer- H &O following, [place] to decide for chemotherapy Lovenox for DVT prophylaxis pt is transferred to onoclogy floor ok to take shower Subjective 24 Hr Interval Summary Free Text/Dictation no acute events, pt wants to take shower , BP stable,afebrile Exam/Review of Systems Vital Signs Vitals Vital Signs Date Time Temp Pulse Resp B/P Pulse Ox O2 Delivery O2 Flow Rate FiO2 03/07/17 08:28 98.0 93 19 115/71 97 03/06/17 01:00 Room Air Intake and Output 03/06/17 03/06/17 03/07/17 15:00 23:00 07:00 Intake Total 500 ml Balance 500 ml Exam GENERAL: This is an obese female lying in bed in no apparent distress. HEENT: Head normocephalic and atraumatic. Eyes: Anicteric sclerae. Conjunctivae clear. ENT: Nasal septum is midline. Oral mucosa is dry. NECK: Supple. JVD noticed. RESPIRATORY: Bilaterally diminished breath sounds. Minimal use of accessory muscles of respiration. CARDIAC: Regular rate and rhythm. S1 and S2 heard. ABDOMEN: Soft, nontender and nondistended. Bowel sounds positive in all 4 quadrants. GENITOURINARY: Deferred. EXTREMITIES: No cyanosis, no clubbing, no edema. Peripheral pulses palpable. NEUROLOGIC: The patient is awake, alert and oriented. Cranial nerves are grossly intact. Results Result Diagram: 03/06/17 0707 03/06/17 0707 Medications Medications Current Medications Guaifenesin/ Dextromethorphan (Robitussin Dm Liquid Cup) 10 ml Q4H PRN PO COUGH Last administered on 03/05/17t 00:22; Admin Dose 10 ML; Start 02/26/17 at 03:30 Hydromorphone HCl (Dilaudid) 1 mg Q4H PRN IV PAIN Last administered on 12:34; Admin Dose 1 MG; Start 02/26/17 at 03:30 Ondansetron HCl (Zofran Inj) 4 mg Q4H PRN IV NAUSEA AND/OR VOMITING Last administered on 03/06/17 07:31; Admin Dose 4 MG; Start 02/26/17 at 03:30 Ondansetron HCl (Zofran Inj) 4 mg Q6H PRN IV NAUSEA AND/OR VOMITING; Start at 06:00 Pantoprazole (Protonix Tab) 40 mg DAILY@06 PO Last administered on 03/07/17 06 :21; Admin Dose 40 MG; Start 02/26/17 at 06:00 Enoxaparin Sodium (Lovenox) 40 mg DAILY SC Last administered on 03/07/17 08:33 ; Admin Dose 40 MG; Start 02/26/17 at 09:00 Alprazolam (Xanax) 0.25 mg BID PO Last administered on 03/07/17 08:31; Admin Dose 0.25 MG; Start 02/26/17 at 20:00 Levofloxacin (Levaquin) 750 mg DAILY@06 PO Last administered on 03/07/17 06:21 ; Admin Dose 750 MG; Start 03/01/17 at 06:00 PHILLY ALEMAN MD Mar 07, 2017 14:42
--- NOTE | 2017-03-07 14:53 | CONS ---
Date/Time of Note Date/Time of Note DATE: 03/07/17 TIME: 14:50 Assessment/Plan Assessment/Plan Chief Complaint/Hosp Course metastatic UTERINE LEIOMYOSARCOMA History of uterine cancer. PT UNDERWENT KIERAN FOR UTERINE LEIOMYOSARCOMA IN MAY 2016 AT [facility] SHE SAW DR LOZA 3 TIMES OUTPT PT SAW DR VILLAREAL , WITH PLAN FOR CHEMOTHERAPY, BUT NO AUTH HAS BEEN OBTAINED Diffuse bilateral pulmonary metastatic disease , WITH Prominent mediastinal and hilar lymph nodes Respiratory distress suspect secondary to neoplastic process CT ABD - 62 mm mass in the right purvi pelvis represents metastatic neoplasm until proven otherwise. Numerous large metastatic deposits again seen bilateral lung bases, with small pleural effusions. TUMOR MARKERS- CA 125 - 170, ELEVATED RECORD- reviewed POST LUNG BX- path c/w metastatic leiomyosarcoma PLAN CHEMO - TAXOTERE / GEMZAR History of bipolar/schizophrenia. No active issue noted at this time. Continue to monitor for now. Problems: Consultation Date/Type/Reason Admit Date/Time Feb 26, 2017 at 03:22 Initial Consult Date 02/27/17 [facility] Referring Provider: ANGELA MCNEIL 24 HR Interval Summary Free Text/Dictation ALL NOTED D/W PT Exam/Review of Systems Vital Signs Vitals Vital Signs Date Time Temp Pulse Resp B/P Pulse Ox O2 Delivery O2 Flow Rate FiO2 03/07/17 08:28 98.0 93 19 115/71 97 03/06/17 01:00 Room Air Intake and Output 03/06/17 03/06/17 03/07/17 15:00 23:00 07:00 Intake Total 500 ml Balance 500 ml Exam Constitutional: alert Head: normocephalic Eyes: nl conjunctiva Neck: supple Respiratory: clear to auscultation, normal air movement Cardiovascular: regular rate and rhythm Gastrointestinal: tender, soft Extremities: normal pulses Neurological: PEANUT SHELLER II-XII intact, nl mental status, nl speech Results Result Diagram: 03/06/17 0707 03/06/17 0707 Medications Medications Current Medications Guaifenesin/ Dextromethorphan (Robitussin Dm Liquid Cup) 10 ml Q4H PRN PO COUGH Last administered on 03/05/17 00:22; Admin Dose 10 ML; Start 02/26/17 at 03:30 Hydromorphone HCl (Dilaudid) 1 mg Q4H PRN IV PAIN Last administered on 12:34; Admin Dose 1 MG; Start 02/26/17 at 03:30 Ondansetron HCl (Zofran Inj) 4 mg Q4H PRN IV NAUSEA AND/OR VOMITING Last administered on 03/06/17 07:31; Admin Dose 4 MG; Start 02/26/17 at 03:30 Ondansetron HCl (Zofran Inj) 4 mg Q6H PRN IV NAUSEA AND/OR VOMITING; Start at 06:00 Pantoprazole (Protonix Tab) 40 mg DAILY@06 PO Last administered on 03/07/17 06 :21; Admin Dose 40 MG; Start 02/26/17 at 06:00 Enoxaparin Sodium (Lovenox) 40 mg DAILY SC Last administered on 03/07/17 08:33 ; Admin Dose 40 MG; Start 02/26/17 at 09:00 Alprazolam (Xanax) 0.25 mg BID PO Last administered on 03/07/17 08:31; Admin Dose 0.25 MG; Start 02/26/17 at 20:00 Levofloxacin (Levaquin) 750 mg DAILY@06 PO Last administered on 03/07/17 06:21 ; Admin Dose 750 MG; Start 03/01/17 at 06:00 JUSTINA AGUIRRE MD Mar 07, 2017 14:53
[2017-03-07 21:17] VITALS: BP 122/73; RESP 18
[2017-03-08] MEDS: HYDROmorphONE 1 MG/ML SYG IV PRN ×6 (01:06→23:31)
[2017-03-08] MEDS: PANTOPRAZOLE (EC) 40 MG TAB PO SCH (05:16)
[2017-03-08] MEDS: LEVOFLOXACIN 750 MG TABLET PO SCH (05:17)
[2017-03-08 08:00] VITALS: BP 112/59; RESP 18
[2017-03-08] MEDS: ALPRAZOLAM 0.25 MG TAB PO SCH ×2 (09:17→20:53)
[2017-03-08] MEDS: ENOXAPARIN 40 MG/0.4 ML SYG SC SCH (09:23)
--- NOTE | 2017-03-08 19:06 | PN ---
Date/Time of Note Date/Time of Note DATE: 03/08/17 TIME: 19:04 Assessment/Plan VTE Prophylaxis VTE Prophylaxis Intervention: LMWH Lines/Catheters IV Catheter Type (from Nrs): Saline Lock Urinary Cath still in place: No Assessment/Plan Assessment/Plan 1. Acute respiratory failure, hypoxic. 2/2 LLL PNA 2. LLL PNA- on PO levaquin 750mg po daily 2. 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, Uterine Cancer- H &O following, Lovenox for DVT prophylaxis Plan for chemotherapy today Subjective 24 Hr Interval Summary Free Text/Dictation remains stable, pain controlled, plan is to start chemo today Exam/Review of Systems Vital Signs Vitals Vital Signs Date Time Temp Pulse Resp B/P Pulse Ox O2 Delivery O2 Flow Rate FiO2 03/08/17 08:45 Nasal Cannula 1.0 03/08/17 08:00 98.1 100 18 112/59 94 Intake and Output 03/07/17 03/07/17 03/08/17 15:00 23:00 07:00 Intake Total 900 ml 960 ml Balance 900 ml 960 ml Exam Constitutional: alert Psych: no complaints Head: normocephalic ENMT: nl external ears & nose Neck: supple Respiratory: clear to auscultation, diminished breath sounds, normal air movement Cardiovascular: regular rate and rhythm Gastrointestinal: non-tender, soft Extremities: normal pulses Neurological: HEALTH ASSOCIATE II-XII intact, nl mental status, nl speech, nl strength Skin: nl turgor Lymph: nl lymph nodes Results Result Diagram: 03/06/17 0707 03/06/17 0707 Medications Medications Current Medications Guaifenesin/ Dextromethorphan (Robitussin Dm Liquid Cup) 10 ml Q4H PRN PO COUGH Last administered on 03/05/17 00:22; Admin Dose 10 ML; Start 02/26/17 at 03:30 Hydromorphone HCl (Dilaudid) 1 mg Q4H PRN IV PAIN Last administered on 18:00; Admin Dose 1 MG; Start 02/26/17 at 03:30 Ondansetron HCl (Zofran Inj) 4 mg Q4H PRN IV NAUSEA AND/OR VOMITING Last administered on 03/06/17 07:31; Admin Dose 4 MG; Start 02/26/17 at 03:30 Ondansetron HCl (Zofran Inj) 4 mg Q6H PRN IV NAUSEA AND/OR VOMITING; Start at 06:00 Pantoprazole (Protonix Tab) 40 mg DAILY@06 PO Last administered on 03/08/17 05 :16; Admin Dose 40 MG; Start 02/26/17 at 06:00 Enoxaparin Sodium (Lovenox) 40 mg DAILY SC Last administered on 03/08/17 09:23 ; Admin Dose 40 MG; Start 02/26/17 at 09:00 Alprazolam (Xanax) 0.25 mg BID PO Last administered on 03/08/17 09:17; Admin Dose 0.25 MG; Start 02/26/17 at 20:00 Levofloxacin (Levaquin) 750 mg DAILY@06 PO Last administered on 03/08/17 05:17 ; Admin Dose 750 MG; Start 03/01/17 at 06:00 PHILLY ALEMAN MD Mar 08, 2017 19:06
[2017-03-08 19:20] VITALS: BP 114/58; RESP 18
--- NOTE | 2017-03-08 23:20 | CONS ---
Date/Time of Note Date/Time of Note DATE: 03/08/17 TIME: 23:19 Assessment/Plan Assessment/Plan Chief Complaint/Hosp Course metastatic UTERINE LEIOMYOSARCOMA History of uterine cancer. PT UNDERWENT KIERAN FOR UTERINE LEIOMYOSARCOMA IN MAY 2016 AT [facility] SHE SAW DR LOZA 3 TIMES OUTPT PT SAW DR VILLAREAL , WITH PLAN FOR CHEMOTHERAPY, BUT NO AUTH HAS BEEN OBTAINED Diffuse bilateral pulmonary metastatic disease , WITH Prominent mediastinal and hilar lymph nodes Respiratory distress suspect secondary to neoplastic process CT ABD - 62 mm mass in the right purvi pelvis represents metastatic neoplasm until proven otherwise. Numerous large metastatic deposits again seen bilateral lung bases, with small pleural effusions. TUMOR MARKERS- CA 125 - 170, ELEVATED RECORD- reviewed POST LUNG BX- path c/w metastatic leiomyosarcoma PICC LINE PLAN CHEMO - TAXOTERE / GEMZAR History of bipolar/schizophrenia. No active issue noted at this time. Continue to monitor for now. Problems: Consultation Date/Type/Reason Admit Date/Time Feb 26, 2017 at 03:22 Initial Consult Date 02/27/17 Type of Consultation: [facility] Referring Provider: ANGELA MCNEIL 24 HR Interval Summary Free Text/Dictation ALL NOTED FAMILY CONFERENCE TODAY Exam/Review of Systems Vital Signs Vitals Vital Signs Date Time Temp Pulse Resp B/P Pulse Ox O2 Delivery O2 Flow Rate FiO2 03/08/17 19:20 98.4 104 18 114/58 93 03/08/17 08:45 Nasal Cannula 1.0 Intake and Output 03/07/17 03/07/17 03/08/17 15:00 23:00 07:00 Intake Total 900 ml 960 ml Balance 900 ml 960 ml Exam Constitutional: alert Head: normocephalic Eyes: nl conjunctiva Neck: supple Respiratory: clear to auscultation, normal air movement Cardiovascular: regular rate and rhythm Gastrointestinal: tender, soft Extremities: normal pulses Neurological: RATTLE LEAK AND SQUEAK REPAIRER II-XII intact, nl mental status, nl speech Results Result Diagram: 03/06/17 0707 03/06/17 0707 Medications Medications Current Medications Guaifenesin/ Dextromethorphan (Robitussin Dm Liquid Cup) 10 ml Q4H PRN PO COUGH Last administered on 03/05/17t 00:22; Admin Dose 10 ML; Start 02/26/17 at 03:30 Hydromorphone HCl (Dilaudid) 1 mg Q4H PRN IV PAIN Last administered on 18:00; Admin Dose 1 MG; Start 02/26/17 at 03:30 Ondansetron HCl (Zofran Inj) 4 mg Q4H PRN IV NAUSEA AND/OR VOMITING Last administered on 03/06/17 07:31; Admin Dose 4 MG; Start 02/26/17 at 03:30 Ondansetron HCl (Zofran Inj) 4 mg Q6H PRN IV NAUSEA AND/OR VOMITING; Start at 06:00 Pantoprazole (Protonix Tab) 40 mg DAILY@06 PO Last administered on 03/08/17 05 :16; Admin Dose 40 MG; Start 02/26/17 at 06:00 Enoxaparin Sodium (Lovenox) 40 mg DAILY SC Last administered on 03/08/17 09:23 ; Admin Dose 40 MG; Start 02/26/17 at 09:00 Alprazolam (Xanax) 0.25 mg BID PO Last administered on 03/08/17 20:53; Admin Dose 0.25 MG; Start 02/26/17 at 20:00 Levofloxacin (Levaquin) 750 mg DAILY@06 PO Last administered on 03/08/17 05:17 ; Admin Dose 750 MG; Start 03/01/17 at 06:00 JUSTINA AGUIRRE MD Mar 08, 2017 23:19
[2017-03-08] MEDS: ONDANSETRON 4 MG INJ IV PRN (23:31)
[2017-03-09] MEDS: ONDANSETRON 4 MG INJ IV PRN ×4 (05:00→17:24)
[2017-03-09] MEDS: HYDROmorphONE 1 MG/ML SYG IV PRN ×5 (05:00→22:04)
[2017-03-09] MEDS: LEVOFLOXACIN 750 MG TABLET PO SCH (05:01)
[2017-03-09] MEDS: PANTOPRAZOLE (EC) 40 MG TAB PO SCH (05:01)
[2017-03-09 05:27] LABS: BASOPHIL # 0.1 10^3/ul (0.0-0.1); BASOPHILS % 0.7 % (0.0-2.0); EOSINOPHILS # 0.5 10^3/ul (0.0-0.5); EOSINOPHILS % 5.9 % (0.0-7.0); HEMATOCRIT 39.7 % (37.0-47.0); LYMPHOCYTES # 2.1 10^3/ul (0.8-2.9); LYMPHOCYTES % 22.5 % (15.0-51.0); MEAN CORPUSCULAR HEMOGLOBIN 29.1 pg (29.0-33.0); MEAN CORPUSCULAR HGB CONC 32.7 g/dl (32.0-37.0); MEAN CORPUSCULAR VOLUME 88.8 fl (82.0-101.0); MEAN PLATELET VOLUME 10.4 fl (7.4-10.4); MONOCYTE # 0.8 10^3/ul (0.3-0.9); MONOCYTES % 9.2 % (0.0-11.0); NEUTROPHIL # 5.6 10^3/ul (1.6-7.5); NEUTROPHILS % 61.3 % (39.0-77.0); PLATELET COUNT 349 10^3/UL (140-415); RED BLOOD COUNT 4.47 10^6/ul (4.20-5.40); RED CELL DISTRIBUTION WIDTH 13.6 % (11.5-14.5); WHITE BLOOD COUNT 9.2 10^3/ul (4.8-10.8)
[2017-03-09 06:04] LABS: ALBUMIN 4.2 g/dl (3.3-4.9); ALBUMIN/GLOBULIN RATIO 1.44; BILIRUBIN,INDIRECT 0.2 mg/dl (0-1.1); BILIRUBIN,TOTAL 0.2 mg/dl (0.2-1.3); CALCIUM 9.5 mg/dl (8.4-10.2); CREATININE 0.61 mg/dl (0.44-1.00); POTASSIUM 4.3 mmol/L (3.5-5.1); TOTAL PROTEIN 7.1 g/dl (6.1-8.1)
[2017-03-09 06:11] LABS: INR 0.93; PARTIAL THROMBOPLASTIN TIME 29.1 Sec (25.0-35.0); PROTIME 12.5 Sec (12.2-14.2)
[2017-03-09 07:14] LABS: ADD SCAN DIFF NO
[2017-03-09 08:00] VITALS: BP 106/58; RESP 18
[2017-03-09] MEDS: ENOXAPARIN 40 MG/0.4 ML SYG SC SCH (08:32)
[2017-03-09] MEDS: ALPRAZOLAM 0.25 MG TAB PO SCH ×2 (08:33→20:19)
[2017-03-09] MEDS ORDERED: LIDOCAINE 1% (MPF) 5 ML VIAL SC ONE (09:00)
--- NOTE | 2017-03-09 11:39 | PN ---
Date/Time of Note Date/Time of Note DATE: 03/09/17 TIME: 11:37 Assessment/Plan VTE Prophylaxis VTE Prophylaxis Intervention: LMWH Lines/Catheters [facility]from [facility] Saline Lock Urinary Cath still in place: No Assessment/Plan Assessment/Plan 1. Acute respiratory failure, hypoxic. 2/2 LLL PNA 2. LLL PNA- on PO levaquin 750mg po daily 2. 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, Uterine Cancer- H &O following, Lovenox for DVT prophylaxis Plan for chemotherapy today after PICC line placement Subjective 24 Hr Interval Summary Free Text/Dictation plan for PICC line , pt signed a consent Exam/Review of Systems Vital Signs Vitals Vital Signs Date Time Temp Pulse Resp B/P Pulse Ox O2 Delivery O2 Flow Rate FiO2 03/09/17 08:00 98.0 108 18 106/58 91 03/09/17 08:00 Nasal Cannula 1.0 Intake and Output 03/08/17 03/08/17 03/09/17 15:00 23:00 07:00 Intake Total 1100 ml 700 ml Output Total 1400 ml Balance -300 ml 700 ml Exam Constitutional: alert Psych: no complaints Head: normocephalic ENMT: nl external ears & nose Neck: supple Respiratory: clear to auscultation, diminished breath sounds, normal air movement Cardiovascular: regular rate and rhythm Gastrointestinal: non-tender, soft Extremities: normal pulses Neurological: PROSPECTING DRILLER HELPER II-XII intact, nl mental status, nl speech, nl strength Skin: nl turgor Lymph: nl lymph nodes Results Result Diagram: 03/09/17 0435 03/09/17 0449 Results 24 hrs Laboratory Tests Test 03/09/17 04:35 03/09/17 04:49 03/09/17 05:00 White Blood Count 9.2 Red Blood Count 4.47 Hemoglobin 13.0 Hematocrit 39.7 Mean Corpuscular Volume 88.8 Mean Corpuscular Hemoglobin 29.1 Mean Corpuscular Hemoglobin Concent 32.7 Red Cell Distribution Width 13.6 Platelet Count 349 Mean Platelet Volume 10.4 Neutrophils % 61.3 Lymphocytes % 22.5 Monocytes % 9.2 Eosinophils % 5.9 Basophils % 0.7 Nucleated Red Blood Cells % 0.0 Neutrophils # 5.6 Lymphocytes # 2.1 Monocytes # 0.8 Eosinophils # 0.5 Basophils # 0.1 Nucleated Red Blood Cells # 0.0 Sodium Level 138 Potassium Level 4.3 Chloride Level 99 Carbon Dioxide Level 31 Anion Gap 12 Blood Urea Nitrogen 10 Creatinine 0.61 Glucose Level 95 Calcium Level 9.5 Total Bilirubin 0.2 Direct Bilirubin 0.00 Indirect Bilirubin 0.2 Aspartate Amino Transf (AST/SGOT) 42 Alanine Aminotransferase (ALT/SGPT) 45 Alkaline Phosphatase 77 Total Protein 7.1 Albumin 4.2 Globulin 2.90 Albumin/Globulin Ratio 1.44 Prothrombin Time 12.5 Prothrombin Time Ratio 1.0 INR International Normalized Ratio 0.93 Activated Partial Thromboplast Time 29.1 Medications Medications Current Medications Guaifenesin/ Dextromethorphan (Robitussin Dm Liquid Cup) 10 ml Q4H PRN PO COUGH Last administered on 03/05/17 00:22; Admin Dose 10 ML; Start 02/26/17 at 03:30 Hydromorphone HCl (Dilaudid) 1 mg Q4H PRN IV PAIN Last administered on 09:08; Admin Dose 1 MG; Start 02/26/17 at 03:30 Ondansetron HCl (Zofran Inj) 4 mg Q4H PRN IV NAUSEA AND/OR VOMITING Last administered on 03/09/17 09:07; Admin Dose 4 MG; Start 02/26/17 at 03:30 Ondansetron HCl (Zofran Inj) 4 mg Q6H PRN IV NAUSEA AND/OR VOMITING; Start at 06:00 Pantoprazole (Protonix Tab) 40 mg DAILY@06 PO Last administered on 03/09/17 05 :01; Admin Dose 40 MG; Start 02/26/17 at 06:00 Enoxaparin Sodium (Lovenox) 40 mg DAILY SC Last administered on 03/08/17 09:23 ; Admin Dose 40 MG; Start 02/26/17 at 09:00 Alprazolam (Xanax) 0.25 mg BID PO Last administered on 03/09/17 08:33; Admin Dose 0.25 MG; Start 02/26/17 at 20:00 Levofloxacin (Levaquin) 750 mg DAILY@06 PO Last administered on 03/09/17 05:01 ; Admin Dose 750 MG; Start 03/01/17 at 06:00 PHILLY ALEMAN MD Mar 09, 2017 11:39
--- NOTE | 2017-03-09 12:33 | RADRPT ---
PROCEDURE: Ultrasound guidance for placement of needle in right upper extremity vein. CLINICAL INDICATION: Venous access. TECHNIQUE: Limited sonography of the right upper extremity was performed. Ultrasound images were recorded and stored in the patient's medical record. COMPARISON: None. FINDINGS: The ultrasound images demonstrate a patent right upper extremity vein. The PICC line was inserted b y the PICC line nurse. IMPRESSION: 1. Ultrasound guidance for a needle placement in a right upper extremity vein. 2. The visualized right upper extremity vein is patent. RPTAT: QQ .Maurisio Gutierrez MD, MD Date Time Electronically viewed and signed by .Maurisio Gutierrez MD, MD on 03/09/2017 12:33 .R/
[2017-03-09] MEDS ORDERED: SOD CHLORIDE 0.9% 100 ML ONE (13:07)
--- NOTE | 2017-03-09 14:24 | RADRPT ---
PROCEDURE: XR Chest. CLINICAL INDICATION: Assess PICC line catheter placement. TECHNIQUE: Single frontal view of the chest was obtained. COMPARISON: Chest x-ray 03/02/2017 04:57 p.m. FINDINGS: A PICC line catheter was then mass of the right arm with its tip in the right atrium. There are deg enerative osteophytes in the thoracic spine. The soft tissues are generous. The heart, cardiomedia stinal silhouette and hilar structures are normal. The pulmonary vasculature is normal. There is a left-sided aorta. There are multiple pulmonary nodules suspicious for metastases. These are unchang ed. There is a consolidative infiltrate in the left lower lobe obscuring the medial half of the lef t diaphragm. Bilateral pleural effusions are present. IMPRESSION: 1. Extensive bilateral pulmonary metastases with a small right pleural effusion and small moderate-s ized left pleural effusion. 2. The PICC line catheter rests with its tip in the right atrium. RPTAT:AAJJ Physician Fortunato Date Time Electronically viewed and signed by Physician Fortunato on 03/09/2017 14:24 VERO/
--- NOTE | 2017-03-09 14:25 | RADRPT ---
PROCEDURE: XR Chest. CLINICAL INDICATION: 46-year-old female to check PICC line catheter placement. TECHNIQUE: Single frontal view of the chest was obtained. COMPARISON: Chest x-ray 03/09/2017 12:24 p.m.. FINDINGS: The soft tissues are generous. The PICC line catheter was repositioned with its tip at the right at rial superior vena cava junction. There are degenerative osteophytes in the thoracic and upper lumb ar spine. The heart, cardiomediastinal silhouette and hilar structures are normal. The pulmonary va sculature is normal. S calcifications may be present in the aortic arch. There are multiple pulmona ry metastases. There are bilateral see pleural effusions which are stable. IMPRESSION: 1. The PICC line was repositioned with its tip at the right atrial superior vena cava junction. 2. Pulmonary metastases with bilateral pleural effusions. RPTAT:AAJJ Physician Fortunato Date Time Electronically viewed and signed by Physician Fortunato on 03/09/2017 14:25 VERO/
[2017-03-09 19:05] VITALS: BP 119/64; RESP 18
[2017-03-09] MEDS: SOD CHLORIDE 0.9% 1,000 ML IV SCH (20:08)
--- NOTE | 2017-03-09 20:36 | CONS ---
Date/Time of Note Date/Time of Note DATE: 03/09/17 TIME: 20:35 Assessment/Plan Assessment/Plan Chief Complaint/Hosp Course metastatic UTERINE LEIOMYOSARCOMA History of uterine cancer. PT UNDERWENT KIERAN FOR UTERINE LEIOMYOSARCOMA IN MAY 2016 AT [facility] SHE SAW DR LOZA 3 TIMES OUTPT PT SAW DR VILLAREAL , WITH PLAN FOR CHEMOTHERAPY, BUT NO AUTH HAS BEEN OBTAINED Diffuse bilateral pulmonary metastatic disease , WITH Prominent mediastinal and hilar lymph nodes Respiratory distress suspect secondary to neoplastic process CT ABD - 62 mm mass in the right purvi pelvis represents metastatic neoplasm until proven otherwise. Numerous large metastatic deposits again seen bilateral lung bases, with small pleural effusions. TUMOR MARKERS- CA 125 - 170, ELEVATED RECORD- reviewed POST LUNG BX- path c/w metastatic leiomyosarcoma PICC LINE PLAN CHEMO - TAXOTERE / GEMZAR History of bipolar/schizophrenia. No active issue noted at this time. Continue to monitor for now. Problems: Consultation Date/Type/Reason Admit Date/Time Feb 26, 2017 at 03:22 Initial Consult Date 02/27/17 Type of Consultation: [facility] Referring Provider: ANGELA MCNEIL 24 HR Interval Summary Free Text/Dictation FAMILY CONFERENCE RE DX, PROGNOSIS AND TREATMENT Exam/Review of Systems Vital Signs Vitals Vital Signs Date Time Temp Pulse Resp B/P Pulse Ox O2 Delivery O2 Flow Rate FiO2 03/09/17 19:05 98.0 114 18 119/64 90 03/09/17 08:00 Nasal Cannula 1.0 Intake and Output 03/08/17 03/08/17 03/09/17 15:00 23:00 07:00 Intake Total 1100 ml 700 ml Output Total 1400 ml Balance -300 ml 700 ml Exam Constitutional: alert Psych: no complaints Head: normocephalic ENMT: nl external ears & nose Neck: supple Respiratory: clear to auscultation, diminished breath sounds, normal air movement Cardiovascular: regular rate and rhythm Gastrointestinal: non-tender, soft Extremities: normal pulses Neurological: PROGRAM COUNSELOR II-XII intact, nl mental status, nl speech, nl strength Skin: nl turgor Lymph: nl lymph nodes Results Result Diagram: 03/09/17 0435 03/09/17 0449 Results 24 hrs Laboratory Tests Test 03/09/17 04:35 03/09/17 04:49 03/09/17 05:00 White Blood Count 9.2 Red Blood Count 4.47 Hemoglobin 13.0 Hematocrit 39.7 Mean Corpuscular Volume 88.8 Mean Corpuscular Hemoglobin 29.1 Mean Corpuscular Hemoglobin Concent 32.7 Red Cell Distribution Width 13.6 Platelet Count 349 Mean Platelet Volume 10.4 Neutrophils % 61.3 Lymphocytes % 22.5 Monocytes % 9.2 Eosinophils % 5.9 Basophils % 0.7 Nucleated Red Blood Cells % 0.0 Neutrophils # 5.6 Lymphocytes # 2.1 Monocytes # 0.8 Eosinophils # 0.5 Basophils # 0.1 Nucleated Red Blood Cells # 0.0 Sodium Level 138 Potassium Level 4.3 Chloride Level 99 Carbon Dioxide Level 31 Anion Gap 12 Blood Urea Nitrogen 10 Creatinine 0.61 Glucose Level 95 Calcium Level 9.5 Total Bilirubin 0.2 Direct Bilirubin 0.00 Indirect Bilirubin 0.2 Aspartate Amino Transf (AST/SGOT) 42 Alanine Aminotransferase (ALT/SGPT) 45 Alkaline Phosphatase 77 Total Protein 7.1 Albumin 4.2 Globulin 2.90 Albumin/Globulin Ratio 1.44 Prothrombin Time 12.5 Prothrombin Time Ratio 1.0 INR International Normalized Ratio 0.93 Activated Partial Thromboplast Time 29.1 Medications Medications Current Medications Guaifenesin/ Dextromethorphan (Robitussin Dm Liquid Cup) 10 ml Q4H PRN PO COUGH Last administered on 03/05/17 00:22; Admin Dose 10 ML; Start 02/26/17 at 03:30 Hydromorphone HCl (Dilaudid) 1 mg Q4H PRN IV PAIN Last administered on 17:25; Admin Dose 1 MG; Start 02/26/17 at 03:30 Ondansetron HCl (Zofran Inj) 4 mg Q4H PRN IV NAUSEA AND/OR VOMITING Last administered on 03/09/17 17:24; Admin Dose 4 MG; Start 02/26/17 at 03:30 Ondansetron HCl (Zofran Inj) 4 mg Q6H PRN IV NAUSEA AND/OR VOMITING; Start at 06:00 Pantoprazole (Protonix Tab) 40 mg DAILY@06 PO Last administered on 03/09/17 05 :01; Admin Dose 40 MG; Start 02/26/17 at 06:00 Enoxaparin Sodium (Lovenox) 40 mg DAILY SC Last administered on 03/08/17 09:23 ; Admin Dose 40 MG; Start 02/26/17 at 09:00 Alprazolam (Xanax) 0.25 mg BID PO Last administered on 03/09/17 20:19; Admin Dose 0.25 MG; Start 02/26/17 at 20:00 Levofloxacin (Levaquin) 750 mg DAILY@06 PO Last administered on 03/09/17 05:01 ; Admin Dose 750 MG; Start 03/01/17 at 06:00 IV Flush 10 ml 10 ml PRN PRN IV IV PROTOCOL; Start 03/09/17 at 13:00 Sodium Chloride 1,000 ml @ 125 mls/hr Q8H IV Last administered on 03/09/17 20 :08; Admin Dose 125 MLS/HR; Start 03/09/17 at 20:30 Dexamethasone/ Ondansetron HCl/ Sodium Chloride (Decadron/Zofran Inj/NS) 59 ml @ 120 mls/hr Q7D IV ; Start 03/09/17 at 22:30; Stop 03/16/17 at 23:00 Diphenhydramine HCl (Benadryl) 25 mg Q7D IV ; Start 03/09/17 at 22:30; Stop 03/16 at 22:31 JUSTINA AGUIRRE MD Mar 09, 2017 20:36
[2017-03-09] MEDS: DIPHENHYDRAMINE 50 MG INJ IV SCH (22:32)
[2017-03-09] MEDS: DEXAMETHASONE 10 MG/ML 10 MG, ONDANSETRON INJ 16 MG in SOD CHLORIDE 0.9% 50 ML IV SCH (22:32)
[2017-03-09] MEDS: GEMCITABINE IV SCH (23:08)
[2017-03-09] MEDS: SOD CHLORIDE 0.9% IV SCH (23:08)
[2017-03-10] MEDS: HYDROmorphONE 1 MG/ML SYG IV PRN ×5 (02:40→19:55)
[2017-03-10 04:15] VITALS: BP 126/74; PULSE 93; RESP 16
[2017-03-10] MEDS: SOD CHLORIDE 0.9% 1,000 ML IV SCH (04:30)
[2017-03-10 05:11] LABS: BASOPHILS % 0.2 % (0.0-2.0); EOSINOPHILS % 0.2 % (0.0-7.0); HEMATOCRIT 38.3 % (37.0-47.0); HEMOGLOBIN 12.1 g/dl (12.0-16.0); LYMPHOCYTES # 0.7 10^3/ul (0.8-2.9); LYMPHOCYTES % 6.7 % (15.0-51.0); MEAN CORPUSCULAR HEMOGLOBIN 28.8 pg (29.0-33.0); MEAN CORPUSCULAR HGB CONC 31.6 g/dl (32.0-37.0); MEAN CORPUSCULAR VOLUME 91.2 fl (82.0-101.0); MEAN PLATELET VOLUME 10.7 fl (7.4-10.4); MONOCYTE # 0.1 10^3/ul (0.3-0.9); NEUTROPHIL # 9.4 10^3/ul (1.6-7.5); NEUTROPHILS % 91.3 % (39.0-77.0); PLATELET COUNT 319 10^3/UL (140-415); RED CELL DISTRIBUTION WIDTH 13.6 % (11.5-14.5); WHITE BLOOD COUNT 10.3 10^3/ul (4.8-10.8)
[2017-03-10 05:19] LABS: ADD SCAN DIFF NO
[2017-03-10 05:42] LABS: INR 0.93; PROTIME 12.5 Sec (12.2-14.2)
[2017-03-10 05:43] LABS: PARTIAL THROMBOPLASTIN TIME 27.7 Sec (25.0-35.0)
[2017-03-10 05:47] LABS: ALBUMIN/GLOBULIN RATIO 1.33; CALCIUM 9.3 mg/dl (8.4-10.2); CREATININE 0.68 mg/dl (0.44-1.00); POTASSIUM 4.3 mmol/L (3.5-5.1)
[2017-03-10] MEDS: PANTOPRAZOLE (EC) 40 MG TAB PO SCH (05:51)
[2017-03-10] MEDS: LEVOFLOXACIN 750 MG TABLET PO SCH (05:51)
[2017-03-10 08:11] VITALS: BP 123/63; RESP 20
[2017-03-10] MEDS: ALPRAZOLAM 0.25 MG TAB PO SCH ×2 (09:21→21:01)
[2017-03-10] MEDS: ENOXAPARIN 40 MG/0.4 ML SYG SC SCH (09:23)
--- NOTE | 2017-03-10 15:25 | RADRPT ---
PROCEDURE: XR Chest. CLINICAL INDICATION: Respiratory distress. TECHNIQUE: AP view of the chest was performed. COMPARISON: March 09, 2017 FINDINGS: The right PICC line remains in good positioning. There is stable diffuse pulmonary metastasis with trace bilateral pleural effusions. The heart size is stable. Overall, there is no interval change. IMPRESSION: Right PICC line in good positioning. Stable diffuse pulmonary metastasis, and trace bilateral pleur al effusions. Overall, no interval change. RPTAT: QQ. .Beckie Bae MD, MD Date Time Electronically viewed and signed by .Beckie Bae MD, on 03/10/2017 15:25 .F/
--- NOTE | 2017-03-10 17:07 | CONS ---
Date/Time of Note Date/Time of Note DATE: 03/10/17 TIME: 17:04 Assessment/Plan Assessment/Plan Chief Complaint/Hosp Course metastatic UTERINE LEIOMYOSARCOMA History of uterine cancer. PT UNDERWENT KIERAN FOR UTERINE LEIOMYOSARCOMA IN MAY 2016 AT [facility] SHE SAW DR LOZA 3 TIMES OUTPT PT SAW DR VILLAREAL , WITH PLAN FOR CHEMOTHERAPY, BUT NO AUTH HAS BEEN OBTAINED Diffuse bilateral pulmonary metastatic disease , WITH Prominent mediastinal and hilar lymph nodes Respiratory distress suspect secondary to neoplastic process CT ABD - 62 mm mass in the right purvi pelvis represents metastatic neoplasm until proven otherwise. Numerous large metastatic deposits again seen bilateral lung bases, with small pleural effusions. TUMOR MARKERS- CA 125 - 170, ELEVATED RECORD- reviewed POST LUNG BX- path c/w metastatic leiomyosarcoma PICC LINE PLAN CHEMO - TAXOTERE / GEMZAR History of bipolar/schizophrenia. No active issue noted at this time. Continue to monitor for now. Problems: Consultation Date/Type/Reason Admit Date/Time Feb 26, 2017 at 03:22 Initial Consult Date 02/27/17 [facility] of Consultation: [facility] Referring Provider: ANGELA MCNEIL 24 HR Interval Summary Free Text/Dictation POST GEMZAR TOLERATED WELL D 10/31 Exam/Review of Systems Vital Signs Vitals Vital Signs Date Time Temp Pulse Resp B/P Pulse Ox O2 Delivery O2 Flow Rate FiO2 03/10/17 09:30 Nasal Cannula 2.0 03/10/17 08:11 98.0 113 20 123/63 92 Intake and Output 03/09/17 03/09/17 03/10/17 14:59 22:59 06:59 Intake Total 1300 ml 1484 ml Output Total 1100 ml 900 ml Balance 200 ml 584 ml Exam Constitutional: alert Psych: no complaints Head: normocephalic ENMT: nl external ears & nose Neck: supple Respiratory: clear to auscultation, diminished breath sounds, normal air movement Cardiovascular: regular rate and rhythm Gastrointestinal: non-tender, soft Extremities: normal pulses Neurological: MEMBER SERVICE SPECIALIST II-XII intact, nl mental status, nl speech, nl strength Skin: nl turgor Lymph: nl lymph nodes Results Result Diagram: 03/10/17 0435 03/10/17 0435 Results 24 hrs Laboratory Tests Test 03/10/17 04:35 White Blood Count 10.3 Red Blood Count 4.20 Hemoglobin 12.1 Hematocrit 38.3 Mean Corpuscular Volume 91.2 Mean Corpuscular Hemoglobin 28.8 L Mean Corpuscular Hemoglobin Concent 31.6 L Red Cell Distribution Width 13.6 Platelet Count 319 Mean Platelet Volume 10.7 H Neutrophils % 91.3 H Lymphocytes % 6.7 L Monocytes % 1.0 Eosinophils % 0.2 Basophils % 0.2 Nucleated Red Blood Cells % 0.0 Neutrophils # 9.4 H Lymphocytes # 0.7 L Monocytes # 0.1 L Eosinophils # 0.0 Basophils # 0.0 Nucleated Red Blood Cells # 0.0 Prothrombin Time 12.5 Prothrombin Time Ratio 1.0 INR International Normalized Ratio 0.93 Activated Partial Thromboplast Time 27.7 Sodium Level 138 Potassium Level 4.3 Chloride Level 102 Carbon Dioxide Level 29 Anion Gap 11 Blood Urea Nitrogen 12 Creatinine 0.68 Glucose Level 167 Calcium Level 9.3 Total Bilirubin 0.0 L Direct Bilirubin 0.00 Indirect Bilirubin 0.0 Aspartate Amino Transf (AST/SGOT) 33 Alanine Aminotransferase (ALT/SGPT) 40 Alkaline Phosphatase 75 Total Protein 7.0 Albumin 4.0 Globulin 3.00 Albumin/Globulin Ratio 1.33 Medications Medications Current Medications Guaifenesin/ Dextromethorphan (Robitussin Dm Liquid Cup) 10 ml Q4H PRN PO COUGH Last administered on 03/05/17 00:22; Admin Dose 10 ML; Start 02/26/17 at 03:30 Hydromorphone HCl (Dilaudid) 1 mg Q4H PRN IV PAIN Last administered on 15:29; Admin Dose 1 MG; Start 02/26/17 at 03:30 Ondansetron HCl (Zofran Inj) 4 mg Q4H PRN IV NAUSEA AND/OR VOMITING Last administered on 03/09/17 17:24; Admin Dose 4 MG; Start 02/26/17 at 03:30 Ondansetron HCl (Zofran Inj) 4 mg Q6H PRN IV NAUSEA AND/OR VOMITING; Start at 06:00 Pantoprazole (Protonix Tab) 40 mg DAILY@06 PO Last administered on 03/10/17 05: 51; Admin Dose 40 MG; Start 02/26/17 at 06:00 Enoxaparin Sodium (Lovenox) 40 mg DAILY SC Last administered on 03/10/17 09:23 ; Admin Dose 40 MG; Start 02/26/17 at 09:00 Alprazolam (Xanax) 0.25 mg BID PO Last administered on 03/10/17 09:21; Admin Dose 0.25 MG; Start 02/26/17 at 20:00 Levofloxacin (Levaquin) 750 mg DAILY@06 PO Last administered on 03/10/17 05:51 ; Admin Dose 750 MG; Start 03/01/17 at 06:00 IV Flush 10 ml 10 ml PRN PRN IV IV PROTOCOL; Start 03/09/17 at 13:00 Dexamethasone/ Ondansetron HCl/ Sodium Chloride (Decadron/Zofran Inj/NS) 59 ml @ 120 mls/hr Q7D IV Last administered on 03/09/17 22:32; Admin Dose 120 MLS/ HR; Start 03/09/17 at 22:30; Stop 03/16/17 at 23:00 Diphenhydramine HCl 25 mg 25 mg Q7D IV Last administered on 03/09/17 22:32; Admin Dose 25 MG; Start 03/09/17 at 22:30; Stop 03/16/17 at 22:31 Gemcitabine HCl 1.6 gm/Sodium Chloride 250 ml @ 167 mls/hr Q7D IV Last administered on 03/09/17 23:08; Admin Dose 167 MLS/HR; Start 03/09/17 at 23:00 ; Stop 03/17/17 at 00:30 Docetaxel 160 mg/ Docetaxel 20 mg/ Sodium Chloride 250 ml @ 250 mls/hr 01 IV ; Start 03/17/17 at 01:00; Stop 03/17/17 at 01:59 Sodium Chloride (NS) 1,000 ml @ 125 mls/hr Q8H IV ; Start 03/16/17 at 20:00 JUSTINA AGUIRRE MD Mar 10, 2017 17:07
[2017-03-10 19:20] VITALS: BP 129/60; RESP 18
--- NOTE | 2017-03-10 19:37 | PN ---
Date/Time of Note Date/Time of Note DATE: 03/10/17 TIME: 19:34 Assessment/Plan VTE Prophylaxis VTE Prophylaxis Intervention: LMWH Lines/Catheters IV Catheter Type (from Nrsg): PICC Line Central line still needed: Yes (For chemotherapy access ) Urinary Cath still in place: No Assessment/Plan Assessment/Plan 1. Acute respiratory failure, hypoxic. 2/2 LLL PNA 2. LLL PNA- on PO levaquin 750mg po daily 2. 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, Uterine Cancer- H &O following, Lovenox for DVT prophylaxis PICC line for Access CXR showed pulmonary metastasis, no change Pain management consult Subjective 24 Hr Interval Summary Free Text/Dictation c/o SOB, CXR showed pulmonary metastasis no change, BP stable, s/p chemo yesterday Exam/Review of Systems Vital Signs Vitals Vital Signs Date Time Temp Pulse Resp B/P Pulse Ox O2 Delivery O2 Flow Rate FiO2 03/10/17 09:30 Nasal Cannula 2.0 03/10/17 08:11 98.0 113 20 123/63 92 Intake and Output 03/09/17 03/09/17 03/10/17 15:00 23:00 07:00 Intake Total 1359 ml 1425 ml Output Total 1100 ml 900 ml Balance 259 ml 525 ml Exam Constitutional: alert Psych: no complaints Head: normocephalic ENMT: nl external ears & nose Neck: supple Respiratory: clear to auscultation, diminished breath sounds, normal air movement Cardiovascular: regular rate and rhythm Gastrointestinal: non-tender, soft Extremities: normal pulses Neurological: [employer] SPECIALIST II-XII intact, nl mental status, nl speech, nl strength Skin: nl turgor Lymph: nl lymph nodes Results Result Diagram: 03/10/17 0435 03/10/17 0435 Results 24 hrs Laboratory Tests Test 03/10/17 04:35 White Blood Count 10.3 Red Blood Count 4.20 Hemoglobin 12.1 Hematocrit 38.3 Mean Corpuscular Volume 91.2 Mean Corpuscular Hemoglobin 28.8 L Mean Corpuscular Hemoglobin Concent 31.6 L Red Cell Distribution Width 13.6 Platelet Count 319 Mean Platelet Volume 10.7 H Neutrophils % 91.3 H Lymphocytes % 6.7 L Monocytes % 1.0 Eosinophils % 0.2 Basophils % 0.2 Nucleated Red Blood Cells % 0.0 Neutrophils # 9.4 H Lymphocytes # 0.7 L Monocytes # 0.1 L Eosinophils # 0.0 Basophils # 0.0 Nucleated Red Blood Cells # 0.0 Prothrombin Time 12.5 Prothrombin Time Ratio 1.0 INR International Normalized Ratio 0.93 Activated Partial Thromboplast Time 27.7 Sodium Level 138 Potassium Level 4.3 Chloride Level 102 Carbon Dioxide Level 29 Anion Gap 11 Blood Urea Nitrogen 12 Creatinine 0.68 Glucose Level 167 Calcium Level 9.3 Total Bilirubin 0.0 L Direct Bilirubin 0.00 Indirect Bilirubin 0.0 Aspartate Amino Transf (AST/SGOT) 33 Alanine Aminotransferase (ALT/SGPT) 40 Alkaline Phosphatase 75 Total Protein 7.0 Albumin 4.0 Globulin 3.00 Albumin/Globulin Ratio 1.33 Medications Medications Current Medications Guaifenesin/ Dextromethorphan (Robitussin Dm Liquid Cup) 10 ml Q4H PRN PO COUGH Last administered on 03/05/17 00:22; Admin Dose 10 ML; Start 02/26/17 at 03:30 Hydromorphone HCl (Dilaudid) 1 mg Q4H PRN IV PAIN Last administered on 15:29; Admin Dose 1 MG; Start 02/26/17 at 03:30 Ondansetron HCl (Zofran Inj) 4 mg Q4H PRN IV NAUSEA AND/OR VOMITING Last administered on 03/09/17 17:24; Admin Dose 4 MG; Start 02/26/17 at 03:30 Ondansetron HCl (Zofran Inj) 4 mg Q6H PRN IV NAUSEA AND/OR VOMITING; Start at 06:00 Pantoprazole (Protonix Tab) 40 mg DAILY@06 PO Last administered on 03/10/17 05: 51; Admin Dose 40 MG; Start 02/26/17 at 06:00 Enoxaparin Sodium (Lovenox) 40 mg DAILY SC Last administered on 03/10/17 09:23 ; Admin Dose 40 MG; Start 02/26/17 at 09:00 Alprazolam (Xanax) 0.25 mg BID PO Last administered on 03/10/17 09:21; Admin Dose 0.25 MG; Start 02/26/17 at 20:00 Levofloxacin (Levaquin) 750 mg DAILY@06 PO Last administered on 03/10/17 05:51 ; Admin Dose 750 MG; Start 03/01/17 at 06:00 IV Flush 10 ml 10 ml PRN PRN IV IV PROTOCOL; Start 03/09/17 at 13:00 Dexamethasone/ Ondansetron HCl/ Sodium Chloride (Decadron/Zofran Inj/NS) 59 ml @ 120 mls/hr Q7D IV Last administered on 03/09/17 22:32; Admin Dose 120 MLS/ HR; Start 03/09/17 at 22:30; Stop 03/16/17 at 23:00 Diphenhydramine HCl 25 mg 25 mg Q7D IV Last administered on 03/09/17 22:32; Admin Dose 25 MG; Start 03/09/17 at 22:30; Stop 03/16/17 at 22:31 Gemcitabine HCl 1.6 gm/Sodium Chloride 250 ml @ 167 mls/hr Q7D IV Last administered on 03/09/17 23:08; Admin Dose 167 MLS/HR; Start 03/09/17 at 23:00 ; Stop 03/17/17 at 00:30 Docetaxel 160 mg/ Docetaxel 20 mg/ Sodium Chloride 250 ml @ 250 mls/hr 01 IV ; Start 03/17/17 at 01:00; Stop 03/17/17 at 01:59 Sodium Chloride (NS) 1,000 ml @ 125 mls/hr Q8H IV ; Start 03/16/17 at 20:00 PHILLY ALEMAN MD Mar 10, 2017 19:37
[2017-03-10] MEDS: ONDANSETRON 4 MG INJ IV PRN (19:55)
[2017-03-11] MEDS: HYDROmorphONE 1 MG/ML SYG IV PRN ×5 (03:09→23:13)
[2017-03-11 05:10] LABS: BASOPHILS % 0.2 % (0.0-2.0); EOSINOPHILS # 0.1 10^3/ul (0.0-0.5); EOSINOPHILS % 0.8 % (0.0-7.0); HEMATOCRIT 34.9 % (37.0-47.0); HEMOGLOBIN 11.2 g/dl (12.0-16.0); LYMPHOCYTES # 1.5 10^3/ul (0.8-2.9); LYMPHOCYTES % 13.7 % (15.0-51.0); MEAN CORPUSCULAR HEMOGLOBIN 29.2 pg (29.0-33.0); MEAN CORPUSCULAR HGB CONC 32.1 g/dl (32.0-37.0); MEAN CORPUSCULAR VOLUME 90.9 fl (82.0-101.0); MEAN PLATELET VOLUME 10.4 fl (7.4-10.4); MONOCYTE # 0.6 10^3/ul (0.3-0.9); MONOCYTES % 5.8 % (0.0-11.0); NEUTROPHIL # 8.4 10^3/ul (1.6-7.5); PLATELET COUNT 296 10^3/UL (140-415); RED BLOOD COUNT 3.84 10^6/ul (4.20-5.40); RED CELL DISTRIBUTION WIDTH 13.8 % (11.5-14.5); WHITE BLOOD COUNT 10.6 10^3/ul (4.8-10.8)
[2017-03-11 05:29] LABS: CALCIUM 9.2 mg/dl (8.4-10.2); CREATININE 0.49 mg/dl (0.44-1.00)
[2017-03-11] MEDS: PANTOPRAZOLE (EC) 40 MG TAB PO SCH (05:41)
[2017-03-11] MEDS: LEVOFLOXACIN 750 MG TABLET PO SCH (05:41)
[2017-03-11 07:05] LABS: ADD SCAN DIFF NO
[2017-03-11 07:15] VITALS: BP 123/73; RESP 18
[2017-03-11 07:56] VITALS: BP 121/60; RESP 18
[2017-03-11] MEDS: ALPRAZOLAM 0.25 MG TAB PO SCH ×2 (08:34→20:10)
[2017-03-11] MEDS: ENOXAPARIN 40 MG/0.4 ML SYG SC SCH (09:04)
--- NOTE | 2017-03-11 13:51 | PN ---
Date/Time of Note Date/Time of Note DATE: 03/11/17 TIME: 13:48 Assessment/Plan VTE Prophylaxis VTE Prophylaxis Intervention: LMWH Lines/Catheters IV Catheter Type (from Nrsg): PICC Line Central line still needed: Yes (Chemotherapy access ) Urinary Cath still in place: No Assessment/Plan Assessment/Plan 1. Acute respiratory failure, hypoxic. 2/2 LLL PNA 2. LLL PNA- on PO levaquin 750mg po daily 2. 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, Uterine Cancer- H &O following, Lovenox for DVT prophylaxis PICC line for Access CXR showed pulmonary metastasis no change Pain management consult Subjective 24 Hr Interval Summary Free Text/Dictation pain controlled, getting chemotherapy Exam/Review of Systems Vital Signs Vitals Vital Signs Date Time Temp Pulse Resp B/P Pulse Ox O2 Delivery O2 Flow Rate FiO2 03/11/17 07:56 97.7 67 18 121/60 96 03/11/17 07:46 Nasal Cannula 2.0 Intake and Output 03/10/17 03/10/17 03/11/17 15:00 23:00 07:00 Intake Total 1625 ml 1200 ml Balance 1625 ml 1200 ml Exam Constitutional: alert Psych: no complaints Head: normocephalic ENMT: nl external ears & nose Neck: supple Respiratory: clear to auscultation, diminished breath sounds, normal air movement Cardiovascular: regular rate and rhythm Gastrointestinal: non-tender, soft Extremities: normal pulses Neurological: DIRECTOR OF BROADCAST II-XII intact, nl mental status, nl speech, nl strength Skin: nl turgor Lymph: nl lymph nodes Results Result Diagram: 03/11/17 0425 03/11/17 0425 Results 24 hrs Laboratory Tests Test 03/11/17 04:25 White Blood Count 10.6 Red Blood Count 3.84 L Hemoglobin 11.2 L Hematocrit 34.9 L Mean Corpuscular Volume 90.9 Mean Corpuscular Hemoglobin 29.2 Mean Corpuscular Hemoglobin Concent 32.1 Red Cell Distribution Width 13.8 Platelet Count 296 Mean Platelet Volume 10.4 Neutrophils % 79.0 H Lymphocytes % 13.7 L Monocytes % 5.8 Eosinophils % 0.8 Basophils % 0.2 Nucleated Red Blood Cells % 0.0 Neutrophils # 8.4 H Lymphocytes # 1.5 Monocytes # 0.6 Eosinophils # 0.1 Basophils # 0.0 Nucleated Red Blood Cells # 0.0 Sodium Level 141 Potassium Level 4.0 Chloride Level 101 Carbon Dioxide Level 29 Anion Gap 15 Blood Urea Nitrogen 15 Creatinine 0.49 Glucose Level 107 # Calcium Level 9.2 Medications Medications Current Medications Guaifenesin/ Dextromethorphan (Robitussin Dm Liquid Cup) 10 ml Q4H PRN PO COUGH Last administered on 03/05/17 00:22; Admin Dose 10 ML; Start 02/26/17 at 03:30 Hydromorphone HCl (Dilaudid) 1 mg Q4H PRN IV PAIN Last administered on 08:35; Admin Dose 1 MG; Start 02/26/17 at 03:30 Ondansetron HCl (Zofran Inj) 4 mg Q4H PRN IV NAUSEA AND/OR VOMITING Last administered on 03/10/17 19:55; Admin Dose 4 MG; Start 02/26/17 at 03:30 Ondansetron HCl (Zofran Inj) 4 mg Q6H PRN IV NAUSEA AND/OR VOMITING; Start at 06:00 Pantoprazole (Protonix Tab) 40 mg DAILY@06 PO Last administered on 03/11/17 05: 41; Admin Dose 40 MG; Start 02/26/17 at 06:00 Enoxaparin Sodium (Lovenox) 40 mg DAILY SC Last administered on 03/11/17 09:04 ; Admin Dose 40 MG; Start 02/26/17 at 09:00 Alprazolam (Xanax) 0.25 mg BID PO Last administered on 03/11/17 08:34; Admin Dose 0.25 MG; Start 02/26/17 at 20:00 Levofloxacin (Levaquin) 750 mg DAILY@06 PO Last administered on 03/11/17 05:41 ; Admin Dose 750 MG; Start 03/01/17 at 06:00 IV Flush 10 ml 10 ml PRN PRN IV IV PROTOCOL; Start 03/09/17 at 13:00 Dexamethasone/ Ondansetron HCl/ Sodium Chloride (Decadron/Zofran Inj/NS) 59 ml @ 120 mls/hr Q7D IV Last administered on 03/09/17 22:32; Admin Dose 120 MLS/ HR; Start 03/09/17 at 22:30; Stop 03/16/17 at 23:00 Diphenhydramine HCl 25 mg 25 mg Q7D IV Last administered on 03/09/17 22:32; Admin Dose 25 MG; Start 03/09/17 at 22:30; Stop 03/16/17 at 22:31 Gemcitabine HCl 1.6 gm/Sodium Chloride 250 ml @ 167 mls/hr Q7D IV Last administered on 03/09/17 23:08; Admin Dose 167 MLS/HR; Start 03/09/17 at 23:00 ; Stop 03/17/17 at 00:30 Docetaxel 160 mg/ Docetaxel 20 mg/ Sodium Chloride 250 ml @ 250 mls/hr 01 IV ; Start 03/17/17 at 01:00; Stop 03/17/17 at 01:59 Sodium Chloride (NS) 1,000 ml @ 125 mls/hr Q8H IV ; Start 03/16/17 at 20:00 PHILLY ALEMAN MD Mar 11, 2017 13:50
[2017-03-11] MEDS: ONDANSETRON 4 MG INJ IV PRN (18:31)
[2017-03-11 20:17] VITALS: BP 119/62; RESP 18
[2017-03-11] MEDS ORDERED: ALTEPLASE (CATHFLO) 2 MG INJ CATHETER PRN (21:00)
--- NOTE | 2017-03-12 00:09 | CONS ---
Date/Time of Note Date/Time of Note DATE: 03/11/17 TIME: 18:08 Assessment/Plan Assessment/Plan Chief Complaint/Hosp Course metastatic UTERINE LEIOMYOSARCOMA History of uterine cancer. PT UNDERWENT KIERAN FOR UTERINE LEIOMYOSARCOMA IN MAY 2016 AT [facility] SHE SAW DR LOZA 3 TIMES OUTPT PT SAW DR VILLAREAL , WITH PLAN FOR CHEMOTHERAPY, BUT NO AUTH HAS BEEN OBTAINED Diffuse bilateral pulmonary metastatic disease , WITH Prominent mediastinal and hilar lymph nodes Respiratory distress suspect secondary to neoplastic process CT ABD - 62 mm mass in the right purvi pelvis represents metastatic neoplasm until proven otherwise. Numerous large metastatic deposits again seen bilateral lung bases, with small pleural effusions. TUMOR MARKERS- CA 125 - 170, ELEVATED RECORD- reviewed POST LUNG BX- path c/w metastatic leiomyosarcoma PICC LINE PLAN CHEMO - TAXOTERE / GEMZAR-- DAY 11/28 History of bipolar/schizophrenia. No active issue noted at this time. Continue to monitor for now. Problems: Consultation Date/Type/Reason Admit Date/Time Feb 26, 2017 at 03:22 Initial Consult Date 02/27/17 Type of Consultation: [facility] Referring Provider: ANGELA MCNEIL 24 HR Interval Summary Free Text/Dictation all noted d 11/28 Exam/Review of Systems Vital Signs Vitals Vital Signs Date Time Temp Pulse Resp B/P Pulse Ox O2 Delivery O2 Flow Rate FiO2 03/11/17 21:30 Nasal Cannula 2.0 03/11/17 20:17 97.9 99 18 119/62 96 Intake and Output 03/11/17 03/11/17 03/12/17 15:00 23:00 07:00 Intake Total 1300 ml Balance 1300 ml Exam Constitutional: alert Psych: no complaints Head: normocephalic ENMT: nl external ears & nose Neck: supple Respiratory: clear to auscultation, diminished breath sounds, normal air movement Cardiovascular: regular rate and rhythm Gastrointestinal: non-tender, soft Extremities: normal pulses Neurological: ACTING MANAGER II-XII intact, nl mental status, nl speech, nl strength Skin: nl turgor Lymph: nl lymph nodes Results Result Diagram: 03/11/175 03/11/175 Results 24 hrs Laboratory Tests Test 03/11/17 04:25 White Blood Count 10.6 Red Blood Count 3.84 L Hemoglobin 11.2 L Hematocrit 34.9 L Mean Corpuscular Volume 90.9 Mean Corpuscular Hemoglobin 29.2 Mean Corpuscular Hemoglobin Concent 32.1 Red Cell Distribution Width 13.8 Platelet Count 296 Mean Platelet Volume 10.4 Neutrophils % 79.0 H Lymphocytes % 13.7 L Monocytes % 5.8 Eosinophils % 0.8 Basophils % 0.2 Nucleated Red Blood Cells % 0.0 Neutrophils # 8.4 H Lymphocytes # 1.5 Monocytes # 0.6 Eosinophils # 0.1 Basophils # 0.0 Nucleated Red Blood Cells # 0.0 Sodium Level 141 Potassium Level 4.0 Chloride Level 101 Carbon Dioxide Level 29 Anion Gap 15 Blood Urea Nitrogen 15 Creatinine 0.49 Glucose Level 107 # Calcium Level 9.2 Medications Medications Current Medications Guaifenesin/ Dextromethorphan (Robitussin Dm Liquid Cup) 10 ml Q4H PRN PO COUGH Last administered on 03/05/17 00:22; Admin Dose 10 ML; Start 02/26/17 at 03:30 Hydromorphone HCl (Dilaudid) 1 mg Q4H PRN IV PAIN Last administered on 23:13; Admin Dose 1 MG; Start 02/26/17 at 03:30 Ondansetron HCl (Zofran Inj) 4 mg Q4H PRN IV NAUSEA AND/OR VOMITING Last administered on 03/11/17 18:31; Admin Dose 4 MG; Start 02/26/17 at 03:30 Ondansetron HCl (Zofran Inj) 4 mg Q6H PRN IV NAUSEA AND/OR VOMITING; Start at 06:00 Pantoprazole (Protonix Tab) 40 mg DAILY@06 PO Last administered on 03/11/17 05: 41; Admin Dose 40 MG; Start 02/26/17 at 06:00 Enoxaparin Sodium (Lovenox) 40 mg DAILY SC Last administered on 03/11/17 09:04 ; Admin Dose 40 MG; Start 02/26/17 at 09:00 Alprazolam (Xanax) 0.25 mg BID PO Last administered on 03/11/17 20:10; Admin Dose 0.25 MG; Start 02/26/17 at 20:00 Levofloxacin (Levaquin) 750 mg DAILY@06 PO Last administered on 03/11/17 05:41 ; Admin Dose 750 MG; Start 03/01/17 at 06:00 IV Flush 10 ml 10 ml PRN PRN IV IV PROTOCOL; Start 03/09/17 at 13:00 Dexamethasone/ Ondansetron HCl/ Sodium Chloride (Decadron/Zofran Inj/NS) 59 ml @ 120 mls/hr Q7D IV Last administered on 03/09/17 22:32; Admin Dose 120 MLS/ HR; Start 03/09/17 at 22:30; Stop 03/16/17 at 23:00 Diphenhydramine HCl 25 mg 25 mg Q7D IV Last administered on 03/09/17 22:32; Admin Dose 25 MG; Start 03/09/17 at 22:30; Stop 03/16/17 at 22:31 Gemcitabine HCl 1.6 gm/Sodium Chloride 250 ml @ 167 mls/hr Q7D IV Last administered on 03/09/17 23:08; Admin Dose 167 MLS/HR; Start 03/09/17 at 23:00 ; Stop 03/17/17 at 00:30 Docetaxel 160 mg/ Docetaxel 20 mg/ Sodium Chloride 250 ml @ 250 mls/hr 01 IV ; Start 03/17/17 at 01:00; Stop 03/17/17 at 01:59 Sodium Chloride (NS) 1,000 ml @ 125 mls/hr Q8H IV ; Start 03/16/17 at 20:00 JUSTINA AGUIRRE MD Mar 12, 2017 00:08
[2017-03-12] MEDS: PANTOPRAZOLE (EC) 40 MG TAB PO SCH (04:59)
[2017-03-12] MEDS: ONDANSETRON 4 MG INJ IV PRN ×3 (04:59→21:16)
[2017-03-12] MEDS: LEVOFLOXACIN 750 MG TABLET PO SCH (04:59)
[2017-03-12] MEDS: HYDROmorphONE 1 MG/ML SYG IV PRN ×5 (04:59→21:16)
[2017-03-12 07:00] VITALS: BP 141/75; RESP 18
--- NOTE | 2017-03-12 08:02 | CONS ---
Date/Time of Note Date/Time of Note DATE: 03/12/17 TIME: 08:01 Assessment/Plan Assessment/Plan Chief Complaint/Hosp Course metastatic UTERINE LEIOMYOSARCOMA History of uterine cancer. PT UNDERWENT KIERAN FOR UTERINE LEIOMYOSARCOMA IN MAY 2016 AT [facility] SHE SAW DR LOZA 3 TIMES OUTPT PT SAW DR VILLAREAL , WITH PLAN FOR CHEMOTHERAPY, BUT NO AUTH HAS BEEN OBTAINED Diffuse bilateral pulmonary metastatic disease , WITH Prominent mediastinal and hilar lymph nodes Respiratory distress suspect secondary to neoplastic process CT ABD - 62 mm mass in the right purvi pelvis represents metastatic neoplasm until proven otherwise. Numerous large metastatic deposits again seen bilateral lung bases, with small pleural effusions. TUMOR MARKERS- CA 125 - 170, ELEVATED RECORD- reviewed POST LUNG BX- path c/w metastatic leiomyosarcoma PICC LINE PLAN CHEMO - TAXOTERE / GEMZAR-- DAY 12/29 History of bipolar/schizophrenia. No active issue noted at this time. Continue to monitor for now. Problems: Consultation Date/Type/Reason Admit Date/Time Feb 26, 2017 at 03:22 Initial Consult Date 02/27/17 Type of Consultation: [facility] Referring Provider: ANGELA MCNEIL 24 HR Interval Summary Free Text/Dictation ALL NOTED 12/29 Exam/Review of Systems Vital Signs Vitals Vital Signs Date Time Temp Pulse Resp B/P Pulse Ox O2 Delivery O2 Flow Rate FiO2 03/12/17 07:00 98.8 126 18 141/75 97 03/11/17 21:30 Nasal Cannula 2.0 Intake and Output 03/11/17 03/11/17 03/12/17 15:00 23:00 07:00 Intake Total 1300 ml 900 ml Output Total 1000 ml Balance 1300 ml -100 ml Exam Constitutional: alert Psych: no complaints Head: normocephalic ENMT: nl external ears & nose Neck: supple Respiratory: clear to auscultation, diminished breath sounds, normal air movement Cardiovascular: regular rate and rhythm Gastrointestinal: non-tender, soft Extremities: normal pulses Neurological: BOBBIN HANDLER II-XII intact, nl mental status, nl speech, nl strength Skin: nl turgor Lymph: nl lymph nodes Results Result Diagram: 03/11/17 0425 03/11/17424 Medications Medications Current Medications Guaifenesin/ Dextromethorphan (Robitussin Dm Liquid Cup) 10 ml Q4H PRN PO COUGH Last administered on 03/05/17 00:22; Admin Dose 10 ML; Start 02/26/17 at 03:30 Hydromorphone HCl (Dilaudid) 1 mg Q4H PRN IV PAIN Last administered on 04:59; Admin Dose 1 MG; Start 02/26/17 at 03:30 Ondansetron HCl (Zofran Inj) 4 mg Q4H PRN IV NAUSEA AND/OR VOMITING Last administered on 03/12/17 04:59; Admin Dose 4 MG; Start 02/26/17 at 03:30 Ondansetron HCl (Zofran Inj) 4 mg Q6H PRN IV NAUSEA AND/OR VOMITING; Start at 06:00 Pantoprazole (Protonix Tab) 40 mg DAILY@06 PO Last administered on 03/12/17 04: 59; Admin Dose 40 MG; Start 02/26/17 at 06:00 Enoxaparin Sodium (Lovenox) 40 mg DAILY SC Last administered on 03/11/17 09:04 ; Admin Dose 40 MG; Start 02/26/17 at 09:00 Alprazolam (Xanax) 0.25 mg BID PO Last administered on 03/11/17 20:10; Admin Dose 0.25 MG; Start 02/26/17 at 20:00 Levofloxacin (Levaquin) 750 mg DAILY@06 PO Last administered on 03/12/17 04:59 ; Admin Dose 750 MG; Start 03/01/17 at 06:00 IV Flush 10 ml 10 ml PRN PRN IV IV PROTOCOL; Start 03/09/17 at 13:00 Dexamethasone/ Ondansetron HCl/ Sodium Chloride (Decadron/Zofran Inj/NS) 59 ml @ 120 mls/hr Q7D IV Last administered on 03/09/17 22:32; Admin Dose 120 MLS/ HR; Start 03/09/17 at 22:30; Stop 03/16/17 at 23:00 Diphenhydramine HCl 25 mg 25 mg Q7D IV Last administered on 03/09/17 22:32; Admin Dose 25 MG; Start 03/09/17 at 22:30; Stop 03/16/17 at 22:31 Gemcitabine HCl 1.6 gm/Sodium Chloride 250 ml @ 167 mls/hr Q7D IV Last administered on 03/09/17t 23:08; Admin Dose 167 MLS/HR; Start 03/09/17 at 23:00 ; Stop 03/17/17 at 00:30 Docetaxel 160 mg/ Docetaxel 20 mg/ Sodium Chloride 250 ml @ 250 mls/hr 01 IV ; Start 03/17/17 at 01:00; Stop 03/17/17 at 01:59 Sodium Chloride (NS) 1,000 ml @ 125 mls/hr Q8H IV ; Start 03/16/17 at 20:00 JUSTINA AGUIRRE MD Mar 12, 2017 08:02
[2017-03-12] MEDS: ALPRAZOLAM 0.25 MG TAB PO SCH ×2 (08:16→21:11)
[2017-03-12] MEDS: ENOXAPARIN 40 MG/0.4 ML SYG SC SCH (08:32)
--- NOTE | 2017-03-12 19:15 | PN ---
Date/Time of Note Date/Time of Note DATE: 03/12/17 TIME: 19:12 Assessment/Plan VTE Prophylaxis VTE Prophylaxis Intervention: LMWH Lines/Catheters IV Catheter Type (from Nrs): PICC Line Central line still needed: Yes (iv access) Urinary Cath still in place: No Assessment/Plan Chief Complaint/Hosp Course Subjective: Events noted. Tolerating chemo. No dyspnea. Possible cough. Objective: Vital signs stable Physical exam No pallor adenopathy Regular Diminished but no tachypnea Bs + nt nd, no R/R/G. No edema; PICC line C/D/I Assessment and plan 1. Metastatic leiomyosarcoma. Stable cont chemo/GI DVT prophylaxis. Prognosis ? 2. Left lower lobe pneumonia, stable finish antibiotics. Possible postobstructive in nature 3. History of KIERAN/BSO May 2016 at [place] 4. Chronic asthma 5. Past tobacco 6. Chronic bipolar 7. Chronic fibromyalgia 8. Chronic diabetes/metabolic syndrome 9. Chronic rheumatoid arthritis? 10. Abnormal mammogram? 11. Anemia Problems: Exam/Review of Systems Vital Signs Vitals Vital Signs Date Time Temp Pulse Resp B/P Pulse Ox O2 Delivery O2 Flow Rate FiO2 03/12/17 08:00 Nasal Cannula 2.0 03/12/17 07:00 98.8 126 18 141/75 97 Intake and Output 03/11/17 03/11/17 03/12/17 15:00 23:00 07:00 Intake Total 1300 ml 900 ml Output Total 1000 ml Balance 1300 ml -100 ml Results Result Diagram: 03/11/17 0425 03/11/17 0425 Medications Medications Current Medications Guaifenesin/ Dextromethorphan (Robitussin Dm Liquid Cup) 10 ml Q4H PRN PO COUGH Last administered on 03/05/17 00:22; Admin Dose 10 ML; Start 02/26/17 at 03:30 Hydromorphone HCl (Dilaudid) 1 mg Q4H PRN IV PAIN Last administered on 17:53; Admin Dose 1 MG; Start 02/26/17 at 03:30 Ondansetron HCl (Zofran Inj) 4 mg Q4H PRN IV NAUSEA AND/OR VOMITING Last administered on 03/12/17 13:05; Admin Dose 4 MG; Start 02/26/17 at 03:30 Ondansetron HCl (Zofran Inj) 4 mg Q6H PRN IV NAUSEA AND/OR VOMITING; Start at 06:00 Pantoprazole (Protonix Tab) 40 mg DAILY@06 PO Last administered on 03/12/17 04: 59; Admin Dose 40 MG; Start 02/26/17 at 06:00 Enoxaparin Sodium (Lovenox) 40 mg DAILY SC Last administered on 03/12/17 08:32 ; Admin Dose 40 MG; Start 02/26/17 at 09:00 Alprazolam (Xanax) 0.25 mg BID PO Last administered on 03/12/17 08:16; Admin Dose 0.25 MG; Start 02/26/17 at 20:00 Levofloxacin (Levaquin) 750 mg DAILY@06 PO Last administered on 03/12/17 04:59 ; Admin Dose 750 MG; Start 03/01/17 at 06:00 IV Flush 10 ml 10 ml PRN PRN IV IV PROTOCOL; Start 03/09/17 at 13:00 Dexamethasone/ Ondansetron HCl/ Sodium Chloride (Decadron/Zofran Inj/NS) 59 ml @ 120 mls/hr Q7D IV Last administered on 03/09/17 22:32; Admin Dose 120 MLS/ HR; Start 03/09/17 at 22:30; Stop 03/16/17 at 23:00 Diphenhydramine HCl 25 mg 25 mg Q7D IV Last administered on 03/09/17 22:32; Admin Dose 25 MG; Start 03/09/17 at 22:30; Stop 03/16/17 at 22:31 Gemcitabine HCl 1.6 gm/Sodium Chloride 250 ml @ 167 mls/hr Q7D IV Last administered on 03/09/17 23:08; Admin Dose 167 MLS/HR; Start 03/09/17 at 23:00 ; Stop 03/17/17 at 00:30 Docetaxel 160 mg/ Docetaxel 20 mg/ Sodium Chloride 250 ml @ 250 mls/hr 01 IV ; Start 03/17/17 at 01:00; Stop 03/17/17 at 01:59 Sodium Chloride (NS) 1,000 ml @ 125 mls/hr Q8H IV ; Start 03/16/17 at 20:00 CASSIE HILARIO MD Mar 12, 2017:15
[2017-03-12 19:48] VITALS: BP 125/68; RESP 20
[2017-03-12] MEDS: LACTOBACILLUS RHAMNOSUS CAP PO SCH (21:15)
[2017-03-12] MEDS: SENNA/DOCUSATE NA (8.6MG/50MG) TAB PO SCH (21:15)
[2017-03-13] MEDS: ONDANSETRON 4 MG INJ IV PRN (04:41)
[2017-03-13] MEDS: LEVOFLOXACIN 750 MG TABLET PO SCH (04:41)
[2017-03-13] MEDS: HYDROmorphONE 1 MG/ML SYG IV PRN ×5 (04:41→22:56)
[2017-03-13 05:00] LABS: ADD SCAN DIFF NO
[2017-03-13 05:15] LABS: BASOPHILS % 0.5 % (0.0-2.0); EOSINOPHILS # 0.2 10^3/ul (0.0-0.5); EOSINOPHILS % 2.1 % (0.0-7.0); HEMATOCRIT 36.5 % (37.0-47.0); HEMOGLOBIN 11.7 g/dl (12.0-16.0); LYMPHOCYTES # 1.6 10^3/ul (0.8-2.9); LYMPHOCYTES % 18.1 % (15.0-51.0); MEAN CORPUSCULAR HGB CONC 32.1 g/dl (32.0-37.0); MEAN CORPUSCULAR VOLUME 90.3 fl (82.0-101.0); MEAN PLATELET VOLUME 10.4 fl (7.4-10.4); MONOCYTE # 0.1 10^3/ul (0.3-0.9); MONOCYTES % 0.9 % (0.0-11.0); NEUTROPHIL # 6.7 10^3/ul (1.6-7.5); NEUTROPHILS % 77.8 % (39.0-77.0); PLATELET COUNT 301 10^3/UL (140-415); RED BLOOD COUNT 4.04 10^6/ul (4.20-5.40); RED CELL DISTRIBUTION WIDTH 13.4 % (11.5-14.5); WHITE BLOOD COUNT 8.6 10^3/ul (4.8-10.8)
[2017-03-13 07:36] LABS: CALCIUM 9.2 mg/dl (8.4-10.2); CREATININE 0.55 mg/dl (0.44-1.00); MAGNESIUM 1.8 mg/dl (1.7-2.5); PHOSPHORUS 3.5 mg/dl (2.5-4.9); POTASSIUM 4.4 mmol/L (3.5-5.1)
[2017-03-13] MEDS: LACTOBACILLUS RHAMNOSUS CAP PO SCH ×2 (09:28→20:17)
[2017-03-13] MEDS: FAMOTIDINE 20 MG TAB PO SCH (09:28)
[2017-03-13] MEDS: ENOXAPARIN 40 MG/0.4 ML SYG SC SCH (09:31)
[2017-03-13] MEDS: ALPRAZOLAM 0.25 MG TAB PO SCH ×2 (09:32→20:17)
[2017-03-13 11:56] VITALS: BP 107/56; RESP 18
--- NOTE | 2017-03-13 14:36 | PN ---
Date/Time of Note Date/Time of Note DATE: 03/13/17 TIME: 14:34 Assessment/Plan VTE Prophylaxis VTE Prophylaxis Intervention: LMWH Lines/Catheters IV Catheter Type (from Nrs): PICC Line Central line still needed: Yes (IV access) Urinary Cath still in place: No Assessment/Plan Chief Complaint/Hosp Course Subjective: 03/12 events noted. Tolerating chemo. No dyspnea. Possible cough. 03/13 no events. O: Vss; some sinus tachycardia pain. PE No pallor Reg Dimin but no tachypnea Bs + nt nd, no R/R/G. No edema; PICC line C/D/I Assessment and plan 1. Metastatic leiomyosarcoma. Stable finish chemo. Prognosis? -Dc home if ok w oncology. 2. Left lwr lobe pneumonia, stable finish antibiotics. Possible postobstructive in nature 3. History of KIERAN/BSO May 2016 at [place] 4. Chronic asthma 5. Past tobacco 6. Chronic bipolar 7. Chronic fibromyalgia 8. Chronic diabetes/metabolic syndrome 9. Chronic rheumatoid arthritis? 10. Abnormal mammogram? 11. Anemia Problems: Exam/Review of Systems Vital Signs Vitals Vital Signs Date Time Temp Pulse Resp B/P Pulse Ox O2 Delivery O2 Flow Rate FiO2 03/13/17 11:56 98.4 105 18 107/56 96 03/13/17 08:15 Nasal Cannula 2.0 Intake and Output 03/12/17 03/12/17 03/13/17 15:00 23:00 07:00 Intake Total 1200 ml 850 ml Output Total 900 ml 740 ml Balance 300 ml 110 ml Results Result Diagram: 03/13/17 0430 03/13/17 0430 Results 24 hrs Laboratory Tests Test 03/13/17 04:30 White Blood Count 8.6 Red Blood Count 4.04 L Hemoglobin 11.7 L Hematocrit 36.5 L Mean Corpuscular Volume 90.3 Mean Corpuscular Hemoglobin 29.0 Mean Corpuscular Hemoglobin Concent 32.1 Red Cell Distribution Width 13.4 Platelet Count 301 Mean Platelet Volume 10.4 Neutrophils % 77.8 H Lymphocytes % 18.1 Monocytes % 0.9 Eosinophils % 2.1 Basophils % 0.5 Nucleated Red Blood Cells % 0.0 Neutrophils # 6.7 Lymphocytes # 1.6 Monocytes # 0.1 L Eosinophils # 0.2 Basophils # 0.0 Nucleated Red Blood Cells # 0.0 Sodium Level 137 Potassium Level 4.4 Chloride Level 100 Carbon Dioxide Level 30 Anion Gap 11 Blood Urea Nitrogen 12 Creatinine 0.55 Glucose Level 100 Calcium Level 9.2 Phosphorus Level 3.5 Magnesium Level 1.8 Free Thyroxine 1.37 Medications Medications Current Medications Guaifenesin/ Dextromethorphan (Robitussin Dm Liquid Cup) 10 ml Q4H PRN PO COUGH Last administered on 03/05/17 00:22; Admin Dose 10 ML; Start 02/26/17 at 03:30 Hydromorphone HCl (Dilaudid) 1 mg Q4H PRN IV PAIN Last administered on 10:31; Admin Dose 1 MG; Start 02/26/17 at 03:30 Ondansetron HCl (Zofran Inj) 4 mg Q4H PRN IV NAUSEA AND/OR VOMITING Last administered on 03/13/17 04:41; Admin Dose 4 MG; Start 02/26/17 at 03:30 Ondansetron HCl (Zofran Inj) 4 mg Q6H PRN IV NAUSEA AND/OR VOMITING; Start at 06:00 Enoxaparin Sodium (Lovenox) 40 mg DAILY SC Last administered on 03/13/17 09:31 ; Admin Dose 40 MG; Start 02/26/17 at 09:00 Alprazolam (Xanax) 0.25 mg BID PO Last administered on 03/13/17 09:32; Admin Dose 0.25 MG; Start 02/26/17 at 20:00 Levofloxacin (Levaquin) 750 mg DAILY@06 PO Last administered on 03/13/17 04:41 ; Admin Dose 750 MG; Start 03/01/17 at 06:00 IV Flush 10 ml 10 ml PRN PRN IV IV PROTOCOL; Start 03/09/17 at 13:00 Dexamethasone/ Ondansetron HCl/ Sodium Chloride (Decadron/Zofran Inj/NS) 59 ml @ 120 mls/hr Q7D IV Last administered on 03/09/17 22:32; Admin Dose 120 MLS/ HR; Start 03/09/17 at 22:30; Stop 03/16/17 at 23:00 Diphenhydramine HCl 25 mg 25 mg Q7D IV Last administered on 03/09/17 22:32; Admin Dose 25 MG; Start 03/09/17 at 22:30; Stop 03/16/17 at 22:31 Gemcitabine HCl 1.6 gm/Sodium Chloride 250 ml @ 167 mls/hr Q7D IV Last administered on 03/09/17 23:08; Admin Dose 167 MLS/HR; Start 03/09/17 at 23:00 ; Stop 03/17/17 at 00:30 Docetaxel 160 mg/ Docetaxel 20 mg/ Sodium Chloride 250 ml @ 250 mls/hr 01 IV ; Start 03/17/17 at 01:00; Stop 03/17/17 at 01:59 Sodium Chloride (NS) 1,000 ml @ 125 mls/hr Q8H IV ; Start 03/16/17 at 20:00 Senna/Docusate Sodium (Senokot-S) 2 tab HS PO Last administered on 03/12/17 21: 15; Admin Dose 2 TAB; Start 03/12/17 at 21:00 Lactobacillus Acidophilus/ Rhamnosus (Culturelle) 1 cap BID PO Last administered on 03/13/17 09:28; Admin Dose 1 CAP; Start 03/12/17 at 21:00 Famotidine (Pepcid) 20 mg DAILY PO Last administered on 03/13/17 09:28; Admin Dose 20 MG; Start 03/13/17 at 09:00 Acetaminophen/ Hydrocodone Bitart ([place] (10/325)) 1 tab Q4H PRN PO PAIN; Start 03/12/17 at 19:30 CASSIE HILARIO MD Mar 13, 2017 14:36
--- NOTE | 2017-03-13 14:37 | PDOCDIS ---
Discharge Instructions DIAGNOSIS Discharge Diagnosis Abdominal pain CONDITION Patient Condition: Stable HOME CARE INSTRUCTIONS: Special Diet: REGULAR ACTIVITY: Activity Restrictions: Slowly Increase Activity Do not Drive FOLLOW UP/APPOINTMENTS Follow-up Plan Appointment primary [address] Samir Vila 1 week CASSIE HILARIO MD Mar 13, 2017 14:37
[2017-03-13] MEDS ORDERED: SENN-88 PO (14:39)
[2017-03-13] MEDS ORDERED: LEVO750T25 PO (14:39)
[2017-03-13] MEDS ORDERED: UDROBDM PO (14:39)
--- NOTE | 2017-03-13 14:43 | DS ---
Date/Time of Note Date/Time of Note DATE: 03/13/17 TIME: 14:40 Discharge Summary Admission/Discharge Info Admit Date/Time Feb 26, 2017 at 03:22 Discharge Date/Time 03/13/17 Discharge Diagnosis Abdominal pain Hx of Present Illness This is a 38-year-old female who presented to the [facility] for evaluation of cough productive of green sputum for the past several weeks associated with subjective fever and diffuse pain. She was subsequently transferred from [place] to [facility]. She also is complaining of shortness of breath. She was told that she may have metastatic disease to her lung. She was not receiving any chemotherapy. She had a history of uterine cancer in the past and did have a total abdominal hysterectomy. She has not received any radiation therapy. On my examination patient did appear in mild distress from pain. She also stated that she was short of breath. She was satting 88% on room air. Allergies: NKDA Medications: See [facility] Hospital Course 38-year-old female admitted with dyspnea found to have abnormal imaging consistent with lung metastases and pelvic mass. Started chemotherapy. Presently stable and fit for discharge. Additionally treated for community acquired or postobstructive lobar likely streptococcal pneumonia. 7/ events noted. Tolerating chemo. No dyspnea. Possible cough. 03/13 no events. A/P 1. Metastatic leiomyosarcoma. Stable finished first course chemo. Prognosis? -Dc home if ok w oncology. 2. Left lwr lobe pneumonia, stable finish antibiotics. Possible postobstructive in nature 3. History of KIERAN/BSO May 2016 at [place] 4. Chronic asthma 5. Past tobacco 6. Chronic bipolar 7. Chronic fibromyalgia 8. Chronic diabetes/metabolic syndrome 9. Chronic rheumatoid arthritis? 10. Abnormal mammogram? 11. Anemia Discharge plan Appointment primary [address] Lala Gerard 1 week 1800 ADA diet Activity no driving No known drug allergies DME none Condition stable CODE STATUS full Barriers to discharge none Pending tests none Functional status patient awake alert agrees to care plan/ options Reason for admission dyspnea New medications Robitussin as needed Levaquin 750 daily Senna as needed Home Meds Active Scripts Sennosides/Docusate Sodium (Senna Plus Tablet) 1 Each Tablet, 2 TAB PO HS for 3 Days, #10 TAB 1 Refill Prov:CASSIE HILARIO MD 03/13/17 Levofloxacin* (Levaquin*) 750 Mg Tablet, 750 MG PO DAILY@06 for 5 Days, #5 TAB Prov:CASSIE HILARIO MD 03/13/17 Primary Care Provider Maximiliano Schneider MD Pending Labs Laboratory Tests Test 03/13/17 04:30 White Blood Count 8.610^3/ul (4.8-10.8) Red Blood Count 4.0410^6/ul (4.20-5.40) Hemoglobin 11.7g/dl (12.0-16.0) Hematocrit 36.5% (37.0-47.0) Mean Corpuscular Volume 90.3fl (82.0-101.0) Mean Corpuscular Hemoglobin 29.0pg (29.0-33.0) Mean Corpuscular Hemoglobin Concent 32.1g/dl (32.0-37.0) Red Cell Distribution Width 13.4% (11.5-14.5) Platelet Count 87681^3/UL (140-415) Mean Platelet Volume 10.4fl (7.4-10.4) Neutrophils % 77.8% (39.0-77.0) Lymphocytes % 18.1% (15.0-51.0) Monocytes % 0.9% (0.0-11.0) Eosinophils % 2.1% (0.0-7.0) Basophils % 0.5% (0.0-2.0) Nucleated Red Blood Cells % 0.0/100WBC (0.0-0.0) Neutrophils # 6.710^3/ul (1.6-7.5) Lymphocytes # 1.610^3/ul (0.8-2.9) Monocytes # 0.110^3/ul (0.3-0.9) Eosinophils # 0.210^3/ul (0.0-0.5) Basophils # 0.010^3/ul (0.0-0.1) Nucleated Red Blood Cells # 0.010^3/ul (0.0-0.0) Sodium Level 137mmol/L (135-144) Potassium Level 4.4mmol/L (3.5-5.1) Chloride Level 100mmol/L (97-110) Carbon Dioxide Level 30mmol/L (21-31) Anion Gap 11 (8-16) Blood Urea Nitrogen 12mg/dl (7-20) Creatinine 0.55mg/dl (0.44-1.00) Glucose Level 100mg/dl (70-220) Calcium Level 9.2mg/dl (8.4-10.2) Phosphorus Level 3.5mg/dl (2.5-4.9) Magnesium Level 1.8mg/dl (1.7-2.5) Free Thyroxine 1.37ng/dl (0.64-1.79) CASSIE HILARIO MD Mar 13, 2017 14:43
[2017-03-13 20:00] VITALS: BP 111/63; RESP 18
[2017-03-13] MEDS: SENNA/DOCUSATE NA (8.6MG/50MG) TAB PO SCH (20:17)
--- NOTE | 2017-03-14 00:21 | CONS ---
Date/Time of Note Date/Time of Note DATE: 03/13/17 TIME: 19:13 vk le Assessment/Plan Assessment/Plan Chief Complaint/Hosp Course metastatic UTERINE LEIOMYOSARCOMA History of uterine cancer. PT UNDERWENT KIERAN FOR UTERINE LEIOMYOSARCOMA IN MAY 2016 AT [facility] SHE SAW DR LOZA 3 TIMES OUTPT PT SAW DR VILLAREAL , WITH PLAN FOR CHEMOTHERAPY, BUT NO AUTH HAS BEEN OBTAINED Diffuse bilateral pulmonary metastatic disease , WITH Prominent mediastinal and hilar lymph nodes Respiratory distress suspect secondary to neoplastic process CT ABD - 62 mm mass in the right purvi pelvis represents metastatic neoplasm until proven otherwise. Numerous large metastatic deposits again seen bilateral lung bases, with small pleural effusions. TUMOR MARKERS- CA 125 - 170, ELEVATED RECORD- reviewed POST LUNG BX- path c/w metastatic leiomyosarcoma PICC LINE PLAN CHEMO - TAXOTERE / GEMZAR-- DAY 01/28 History of bipolar/schizophrenia. No active issue noted at this time. Continue to monitor for now. Problems: Consultation Date/Type/Reason Admit Date/Time Feb 26, 2017 at 03:22 Initial Consult Date 02/27/17 Type of Consultation: HEMEON Referring Provider: ANGELA MCNEIL 24 HR Interval Summary Free Text/Dictation all noted no new events Exam/Review of Systems Vital Signs Vitals Vital Signs Date Time Temp Pulse Resp B/P Pulse Ox O2 Delivery O2 Flow Rate FiO2 03/13/17 20:20 Nasal Cannula 2.0 03/13/17 20:00 97.8 89 18 111/63 97 Intake and Output 03/13/17 03/13/17 03/14/17 15:00 23:00 07:00 Intake Total 1120 ml Balance 1120 ml Exam Constitutional: alert Psych: no complaints Head: normocephalic ENMT: nl external ears & nose Neck: supple Respiratory: clear to auscultation, diminished breath sounds, normal air movement Cardiovascular: regular rate and rhythm Gastrointestinal: non-tender, soft Extremities: normal pulses 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6 Monocytes # 0.1 L Eosinophils # 0.2 Basophils # 0.0 Nucleated Red Blood Cells # 0.0 Sodium Level 137 Potassium Level 4.4 Chloride Level 100 Carbon Dioxide Level 30 Anion Gap 11 Blood Urea Nitrogen 12 Creatinine 0.55 Glucose Level 100 Calcium Level 9.2 Phosphorus Level 3.5 Magnesium Level 1.8 Free Thyroxine 1.37 Medications Medications Current Medications Guaifenesin/ Dextromethorphan (Robitussin Dm Liquid Cup) 10 ml Q4H PRN PO COUGH Last administered on 03/05/17 00:22; Admin Dose 10 ML; Start 02/26/17 at 03:30 Hydromorphone HCl (Dilaudid) 1 mg Q4H PRN IV PAIN Last administered on 22:56; Admin Dose 1 MG; Start 02/26/17 at 03:30 Ondansetron HCl (Zofran Inj) 4 mg Q4H PRN IV NAUSEA AND/OR VOMITING Last administered on 03/13/17 04:41; Admin Dose 4 MG; Start 02/26/17 at 03:30 Ondansetron HCl (Zofran Inj) 4 mg Q6H PRN IV NAUSEA AND/OR VOMITING; Start at 06:00 Enoxaparin Sodium (Lovenox) 40 mg DAILY SC Last administered on 03/13/17 09:31 ; Admin Dose 40 MG; Start 02/26/17 at 09:00 Alprazolam (Xanax) 0.25 mg BID PO Last administered on 03/13/17 20:17; Admin Dose 0.25 MG; Start 02/26/17 at 20:00 Levofloxacin (Levaquin) 750 mg DAILY@06 PO Last administered on 03/13/17 04:41 ; Admin Dose 750 MG; Start 03/01/17 at 06:00 IV Flush 10 ml 10 ml PRN PRN IV IV PROTOCOL; Start 03/09/17 at 13:00 Dexamethasone/ Ondansetron HCl/ Sodium Chloride (Decadron/Zofran Inj/NS) 59 ml @ 120 mls/hr Q7D IV Last administered on 03/09/17 22:32; Admin Dose 120 MLS/ HR; Start 03/09/17 at 22:30; Stop 03/16/17 at 23:00 Diphenhydramine HCl 25 mg 25 mg Q7D IV Last administered on 03/09/17 22:32; Admin Dose 25 MG; Start 03/09/17 at 22:30; Stop 03/16/17 at 22:31 Gemcitabine HCl 1.6 gm/Sodium Chloride 250 ml @ 167 mls/hr Q7D IV Last administered on 03/09/17 23:08; Admin Dose 167 MLS/HR; Start 03/09/17 at 23:00 ; Stop 03/17/17 at 00:30 Docetaxel 160 mg/ Docetaxel 20 mg/ Sodium Chloride 250 ml @ 250 mls/hr 01 IV ; Start 03/17/17 at 01:00; Stop 03/17/17 at 01:59 Sodium Chloride (NS) 1,000 ml @ 75 mls/hr [id number] IV ; Start 03/16/17 at 20:00 Senna/Docusate Sodium (Senokot-S) 2 tab HS PO Last administered on 03/13/17 20: 17; Admin Dose 2 TAB; Start 03/12/17 at 21:00 Lactobacillus Acidophilus/ Rhamnosus (Culturelle) 1 cap BID PO Last administered on 03/13/17 20:17; Admin Dose 1 CAP; Start 03/12/17 at 21:00 Famotidine (Pepcid) 20 mg DAILY PO Last administered on 03/13/17 09:28; Admin Dose 20 MG; Start 03/13/17 at 09:00 Acetaminophen/ Hydrocodone Bitart ([place] (10/325)) 1 tab Q4H PRN PO PAIN; Start 03/12/17 at 19:30 JUSTINA AGUIRRE MD Mar 14, 2017 00:21
[2017-03-14] MEDS: LEVOFLOXACIN 750 MG TABLET PO SCH (05:10)
[2017-03-14] MEDS: HYDROmorphONE 1 MG/ML SYG IV PRN ×4 (05:50→20:19)
[2017-03-14 07:00] VITALS: BP 128/66; RESP 18
[2017-03-14] MEDS: ALPRAZOLAM 0.25 MG TAB PO SCH ×2 (09:14→20:19)
[2017-03-14] MEDS: FAMOTIDINE 20 MG TAB PO SCH (09:14)
[2017-03-14] MEDS: LACTOBACILLUS RHAMNOSUS CAP PO SCH ×2 (09:14→20:19)
[2017-03-14] MEDS: ENOXAPARIN 40 MG/0.4 ML SYG SC SCH (09:16)
--- NOTE | 2017-03-14 10:44 | CONS ---
Date/Time of Note Date/Time of Note DATE: 03/14/17 TIME: 10:43 Assessment/Plan Assessment/Plan Chief Complaint/Hosp Course metastatic UTERINE LEIOMYOSARCOMA History of uterine cancer. PT UNDERWENT KIERAN FOR UTERINE LEIOMYOSARCOMA IN MAY 2016 AT [facility] SHE SAW DR LOZA 3 TIMES OUTPT PT SAW DR VILLAREAL , WITH PLAN FOR CHEMOTHERAPY, BUT NO AUTH HAS BEEN OBTAINED Diffuse bilateral pulmonary metastatic disease , WITH Prominent mediastinal and hilar lymph nodes Respiratory distress suspect secondary to neoplastic process CT ABD - 62 mm mass in the right purvi pelvis represents metastatic neoplasm until proven otherwise. Numerous large metastatic deposits again seen bilateral lung bases, with small pleural effusions. TUMOR MARKERS- CA 125 - 170, ELEVATED RECORD- reviewed POST LUNG BX- path c/w metastatic leiomyosarcoma PICC LINE PLAN CHEMO - TAXOTERE / GEMZAR-- DAY 02/28 History of bipolar/schizophrenia. No active issue noted at this time. Continue to monitor for now. Problems: Consultation Date/Type/Reason Admit Date/Time Feb 26, 2017 at 03:22 Initial Consult Date 02/27/17 Type of Consultation: [facility] Referring Provider: ANGELA MCNEIL 24 HR Interval Summary Free Text/Dictation all noted stable Exam/Review of Systems Vital Signs Vitals Vital Signs Date Time Temp Pulse Resp B/P Pulse Ox O2 Delivery O2 Flow Rate FiO2 03/14/17 07:00 98.8 100 18 128/66 97 03/13/17 20:20 Nasal Cannula 2.0 Intake and Output 03/13/17 03/13/17 03/14/17 15:00 23:00 07:00 Intake Total 1120 ml 1000 ml Balance 1120 ml 1000 ml Exam Constitutional: alert Psych: no complaints Head: normocephalic ENMT: nl external ears & nose Neck: supple Respiratory: clear to auscultation, diminished breath sounds, normal air movement Cardiovascular: regular rate and rhythm Gastrointestinal: non-tender, soft Extremities: normal pulses Neurological: DIRECTOR OF RESPIRATORY THERAPY II-XII intact, nl mental status, nl speech, nl strength Skin: nl turgor Lymph: nl lymph nodes Results Result Diagram: 03/13/17 04303/13/17 043 Medications Medications Current Medications Guaifenesin/ Dextromethorphan (Robitussin Dm Liquid Cup) 10 ml Q4H PRN PO COUGH Last administered on 03/05/17 00:22; Admin Dose 10 ML; Start 02/26/17 at 03:30 Hydromorphone HCl (Dilaudid) 1 mg Q4H PRN IV PAIN Last administered on 09:56; Admin Dose 1 MG; Start 02/26/17 at 03:30 Ondansetron HCl (Zofran Inj) 4 mg Q4H PRN IV NAUSEA AND/OR VOMITING Last administered on 03/13/17 04:41; Admin Dose 4 MG; Start 02/26/17 at 03:30 Ondansetron HCl (Zofran Inj) 4 mg Q6H PRN IV NAUSEA AND/OR VOMITING; Start at 06:00 Enoxaparin Sodium (Lovenox) 40 mg DAILY SC Last administered on 03/14/17 09:16 ; Admin Dose 40 MG; Start 02/26/17 at 09:00 Alprazolam (Xanax) 0.25 mg BID PO Last administered on 03/14/17 09:14; Admin Dose 0.25 MG; Start 02/26/17 at 20:00 Levofloxacin (Levaquin) 750 mg DAILY@06 PO Last administered on 03/14/17 05:10 ; Admin Dose 750 MG; Start 03/01/17 at 06:00 IV Flush 10 ml 10 ml PRN PRN IV IV PROTOCOL; Start 03/09/17 at 13:00 Dexamethasone/ Ondansetron HCl/ Sodium Chloride (Decadron/Zofran Inj/NS) 59 ml @ 120 mls/hr Q7D IV Last administered on 03/09/17 22:32; Admin Dose 120 MLS/ HR; Start 03/09/17 at 22:30; Stop 03/16/17 at 23:00 Diphenhydramine HCl 25 mg 25 mg Q7D IV Last administered on 03/09/17 22:32; Admin Dose 25 MG; Start 03/09/17 at 22:30; Stop 03/16/17 at 22:31 Gemcitabine HCl 1.6 gm/Sodium Chloride 250 ml @ 167 mls/hr Q7D IV Last administered on 03/09/17 23:08; Admin Dose 167 MLS/HR; Start 03/09/17 at 23:00 ; Stop 03/17/17 at 00:30 Docetaxel 160 mg/ Docetaxel 20 mg/ Sodium Chloride 250 ml @ 250 mls/hr 01 IV ; Start 03/17/17 at 01:00; Stop 03/17/17 at 01:59 Sodium Chloride (NS) 1,000 ml @ 75 mls/hr [id number] IV ; Start 03/16/17 at 20:00 Senna/Docusate Sodium (Senokot-S) 2 tab HS PO Last administered on 03/13/17 20: 17; Admin Dose 2 TAB; Start 03/12/17 at 21:00 Lactobacillus Acidophilus/ Rhamnosus (Culturelle) 1 cap BID PO Last administered on 03/14/17 09:14; Admin Dose 1 CAP; Start 03/12/17 at 21:00 Famotidine (Pepcid) 20 mg DAILY PO Last administered on 03/14/17 09:14; Admin Dose 20 MG; Start 03/13/17 at 09:00 Acetaminophen/ Hydrocodone Bitart ([place] (10/325)) 1 tab Q4H PRN PO PAIN; Start 03/12/17 at 19:30 JUSTINA AGUIRRE MD Mar 14, 2017 10:43
[2017-03-14] MEDS ORDERED: BISACODYL (EC) 5 MG TAB PO PRN (14:30)
[2017-03-14] MEDS: ONDANSETRON 4 MG INJ IV PRN (15:11)
[2017-03-14] MEDS: POLYETHYLENE GLYCOL 17 GM PACKET PO SCH (15:11)
--- NOTE | 2017-03-14 16:47 | PN ---
Date/Time of Note Date/Time of Note DATE: 03/14/17 TIME: 16:45 Assessment/Plan VTE Prophylaxis VTE Prophylaxis Intervention: LMWH Lines/Catheters IV Catheter Type (from Nrs): PICC Line Central line still needed: Yes (IV access) Urinary Cath still in place: No Assessment/Plan Chief Complaint/Hosp Course 03/12 events noted. Tolerating chemo. No dyspnea. Possible cough. 03/13 no events. 03/14: Exertional dyspnea weak. Still hypoxic. Objective: Vital signs stable except requiring supplemental O2 Physical exam No pallor Reg CTAB; no tachypnea Bs+ nontender, nondistended, no R/R/G No edema A/P 1. Metastatic leiomyosarcoma. Stable on chemo. Prognosis? 2. Left lwr lobe pneumonia, stable finish antibiotics. Possible postobstructive in nature 3. History of KIERAN/BSO May 2016 at [place] 4. Chronic asthma 5. Past tobacco 6. Chronic bipolar 7. Chronic fibromyalgia 8. Chronic diabetes/metabolic syndrome 9. Chronic rheumatoid arthritis? 10. Abnormal mammogram? 11. Anemia Problems: Exam/Review of Systems Vital Signs Vitals Vital Signs Date Time Temp Pulse Resp B/P Pulse Ox O2 Delivery O2 Flow Rate FiO2 03/14/17 08:00 Nasal Cannula 2.0 03/14/17 07:00 98.8 100 18 128/66 97 Intake and Output 03/13/17 03/13/17 03/14/17 15:00 23:00 07:00 Intake Total 1120 ml 1000 ml Balance 1120 ml 1000 ml Results Result Diagram: 03/13/17 0430 03/13/17 0430 Medications Medications Current Medications Guaifenesin/ Dextromethorphan (Robitussin Dm Liquid Cup) 10 ml Q4H PRN PO COUGH Last administered on 03/05/17 00:22; Admin Dose 10 ML; Start 02/26/17 at 03:30 Hydromorphone HCl (Dilaudid) 1 mg Q4H PRN IV PAIN Last administered on 15:11; Admin Dose 1 MG; Start 02/26/17 at 03:30 Ondansetron HCl (Zofran Inj) 4 mg Q4H PRN IV NAUSEA AND/OR VOMITING Last administered on 03/14/17 15:11; Admin Dose 4 MG; Start 02/26/17 at 03:30 Ondansetron HCl (Zofran Inj) 4 mg Q6H PRN IV NAUSEA AND/OR VOMITING; Start at 06:00 Enoxaparin Sodium (Lovenox) 40 mg DAILY SC Last administered on 03/14/17 09:16 ; Admin Dose 40 MG; Start 02/26/17 at 09:00 Alprazolam (Xanax) 0.25 mg BID PO Last administered on 03/14/17 09:14; Admin Dose 0.25 MG; Start 02/26/17 at 20:00 Levofloxacin (Levaquin) 750 mg DAILY@06 PO Last administered on 03/14/17 05:10 ; Admin Dose 750 MG; Start 03/01/17 at 06:00 IV Flush 10 ml 10 ml PRN PRN IV IV PROTOCOL; Start 03/09/17 at 13:00 Dexamethasone/ Ondansetron HCl/ Sodium Chloride (Decadron/Zofran Inj/NS) 59 ml @ 120 mls/hr Q7D IV Last administered on 03/09/17 22:32; Admin Dose 120 MLS/ HR; Start 03/09/17 at 22:30; Stop 03/16/17 at 23:00 Diphenhydramine HCl 25 mg 25 mg Q7D IV Last administered on 03/09/17 22:32; Admin Dose 25 MG; Start 03/09/17 at 22:30; Stop 03/16/17 at 22:31 Gemcitabine HCl 1.6 gm/Sodium Chloride 250 ml @ 167 mls/hr Q7D IV Last administered on 03/09/17 23:08; Admin Dose 167 MLS/HR; Start 03/09/17 at 23:00 ; Stop 03/17/17 at 00:30 Docetaxel 160 mg/ Docetaxel 20 mg/ Sodium Chloride 250 ml @ 250 mls/hr 01 IV ; Start 03/17/17 at 01:00; Stop 03/17/17 at 01:59 Sodium Chloride (NS) 1,000 ml @ 75 mls/hr [id number] IV ; Start 03/16/17 at 20:00 Senna/Docusate Sodium (Senokot-S) 2 tab HS PO Last administered on 03/13/17 20: 17; Admin Dose 2 TAB; Start 03/12/17 at 21:00 Lactobacillus Acidophilus/ Rhamnosus (Culturelle) 1 cap BID PO Last administered on 03/14/17 09:14; Admin Dose 1 CAP; Start 03/12/17 at 21:00 Famotidine (Pepcid) 20 mg DAILY PO Last administered on 03/14/17 09:14; Admin Dose 20 MG; Start 03/13/17 at 09:00 Acetaminophen/ Hydrocodone Bitart ([place] (10/325)) 1 tab Q4H PRN PO PAIN; Start 03/12/17 at 19:30 Bisacodyl (Dulcolax) 10 mg DAILY PRN PO CONSTIPATION; Start 03/14/17 at 14:30 Polyethylene Glycol (Miralax) 17 gm DAILY PO Last administered on 03/14/17 15: 11; Admin Dose 17 GM; Start 03/14/17 at 14:30 CASSIE HILARIO MD Mar 14, 2017 16:47
[2017-03-14 19:22] VITALS: BP 137/64; RESP 22
[2017-03-14] MEDS: SENNA/DOCUSATE NA (8.6MG/50MG) TAB PO SCH (20:19)
[2017-03-15] MEDS: HYDROmorphONE 1 MG/ML SYG IV PRN ×5 (04:40→23:10)
[2017-03-15 05:05] LABS: ADD SCAN DIFF NO
[2017-03-15 05:19] LABS: BASOPHIL # 0.1 10^3/ul (0.0-0.1); BASOPHILS % 0.6 % (0.0-2.0); EOSINOPHILS # 0.3 10^3/ul (0.0-0.5); EOSINOPHILS % 3.6 % (0.0-7.0); HEMOGLOBIN 11.6 g/dl (12.0-16.0); LYMPHOCYTES # 1.7 10^3/ul (0.8-2.9); LYMPHOCYTES % 22.2 % (15.0-51.0); MEAN CORPUSCULAR HEMOGLOBIN 28.5 pg (29.0-33.0); MEAN CORPUSCULAR HGB CONC 31.4 g/dl (32.0-37.0); MEAN CORPUSCULAR VOLUME 90.9 fl (82.0-101.0); MONOCYTE # 0.2 10^3/ul (0.3-0.9); MONOCYTES % 1.9 % (0.0-11.0); NEUTROPHIL # 5.6 10^3/ul (1.6-7.5); NEUTROPHILS % 71.4 % (39.0-77.0); PLATELET COUNT 309 10^3/UL (140-415); RED BLOOD COUNT 4.07 10^6/ul (4.20-5.40); RED CELL DISTRIBUTION WIDTH 13.2 % (11.5-14.5); WHITE BLOOD COUNT 7.8 10^3/ul (4.8-10.8)
[2017-03-15 05:49] LABS: ALBUMIN 3.9 g/dl (3.3-4.9); ALBUMIN/GLOBULIN RATIO 1.25; BILIRUBIN,INDIRECT 0.1 mg/dl (0-1.1); BILIRUBIN,TOTAL 0.1 mg/dl (0.2-1.3); CALCIUM 9.9 mg/dl (8.4-10.2); CREATININE 0.55 mg/dl (0.44-1.00); MAGNESIUM 1.8 mg/dl (1.7-2.5); PHOSPHORUS 4.3 mg/dl (2.5-4.9); POTASSIUM 4.4 mmol/L (3.5-5.1)
[2017-03-15] MEDS: LEVOFLOXACIN 750 MG TABLET PO SCH (05:50)
[2017-03-15] MEDS: LACTOBACILLUS RHAMNOSUS CAP PO SCH ×2 (08:38→20:51)
[2017-03-15] MEDS: ALPRAZOLAM 0.25 MG TAB PO SCH ×2 (08:38→20:51)
[2017-03-15] MEDS: FAMOTIDINE 20 MG TAB PO SCH (08:38)
[2017-03-15] MEDS: ENOXAPARIN 40 MG/0.4 ML SYG SC SCH (08:39)
[2017-03-15] MEDS: POLYETHYLENE GLYCOL 17 GM PACKET PO SCH (08:39)
[2017-03-15] MEDS: ONDANSETRON 4 MG INJ IV PRN ×2 (08:44→13:25)
[2017-03-15 08:58] VITALS: BP 118/68; RESP 20
--- NOTE | 2017-03-15 13:26 | PN ---
Date/Time of Note Date/Time of Note DATE: 03/15/17 TIME: 13:23 Assessment/Plan VTE Prophylaxis VTE Prophylaxis Intervention: LMWH Lines/Catheters IV Catheter Type (from Nrs): PICC Line Central line still needed: Yes (IV access) Urinary Cath still in place: No Assessment/Plan Chief Complaint/Hosp Course 03/12 events noted. Tolerating chemo. No dyspnea. Possible cough. 03/13 no events. 03/14: Exertional dyspnea weak. Still hypoxic. 03/15: No events. O: Vss stable; except requiring supplemental O2 Physical exam No pallor Reg CTAB; no tachypnea Bs+ nontender, nondistended, no R/R/G No edema A/P 1. Metastatic leiomyosarcoma. Stable on chemo. Prognosis? 2. Left lwr lobe pneumonia, stable finishing antibiotics. Possible postobstructive in nature 3. Ho KIERAN/BSO May 2016 at [place] 4. Chr asthma 5. Past tobacco 6. Chr bipolar 7. Chr fibromyalgia 8. Chr diabetes/metabolic syndrome 9. Chr rheumatoid arthritis? 10. Anemia 11. Adjustment disorder. May need placement. Problems: Exam/Review of Systems Vital Signs Vitals Vital Signs Date Time Temp Pulse Resp B/P Pulse Ox O2 Delivery O2 Flow Rate FiO2 03/15/17 08:58 97.6 97 20 118/68 96 03/15/17 08:00 Nasal Cannula 2.0 Intake and Output 03/14/17 03/14/17 03/15/17 15:00 23:00 07:00 Intake Total 1000 ml 800 ml Output Total 1050 ml Balance 1000 ml -250 ml Results Result Diagram: 03/15/17 0436 03/15/17 0436 Results 24 hrs Laboratory Tests Test 03/15/17 04:36 White Blood Count 7.8 Red Blood Count 4.07 L Hemoglobin 11.6 L Hematocrit 37.0 Mean Corpuscular Volume 90.9 Mean Corpuscular Hemoglobin 28.5 L Mean Corpuscular Hemoglobin Concent 31.4 L Red Cell Distribution Width 13.2 Platelet Count 309 Mean Platelet Volume 10.0 Neutrophils % 71.4 Lymphocytes % 22.2 Monocytes % 1.9 Eosinophils % 3.6 Basophils % 0.6 Nucleated Red Blood Cells % 0.0 Neutrophils # 5.6 Lymphocytes # 1.7 Monocytes # 0.2 L Eosinophils # 0.3 Basophils # 0.1 Nucleated Red Blood Cells # 0.0 Sodium Level 143 Potassium Level 4.4 Chloride Level 99 Carbon Dioxide Level 33 H Anion Gap 15 Blood Urea Nitrogen 13 Creatinine 0.55 Glucose Level 91 Calcium Level 9.9 Phosphorus Level 4.3 Magnesium Level 1.8 Total Bilirubin 0.1 L Direct Bilirubin 0.00 Indirect Bilirubin 0.1 Aspartate Amino Transf (AST/SGOT) 48 H Alanine Aminotransferase (ALT/SGPT) 52 Alkaline Phosphatase 76 Total Protein 7.0 Albumin 3.9 Globulin 3.10 Albumin/Globulin Ratio 1.25 Medications Medications Current Medications Guaifenesin/ Dextromethorphan (Robitussin Dm Liquid Cup) 10 ml Q4H PRN PO COUGH Last administered on 03/05/17 00:22; Admin Dose 10 ML; Start 02/26/17 at 03:30 Hydromorphone HCl (Dilaudid) 1 mg Q4H PRN IV PAIN Last administered on 08:44; Admin Dose 1 MG; Start 02/26/17 at 03:30 Ondansetron HCl (Zofran Inj) 4 mg Q4H PRN IV NAUSEA AND/OR VOMITING Last administered on 03/15/17 08:44; Admin Dose 4 MG; Start 02/26/17 at 03:30 Ondansetron HCl (Zofran Inj) 4 mg Q6H PRN IV NAUSEA AND/OR VOMITING; Start at 06:00 Enoxaparin Sodium (Lovenox) 40 mg DAILY SC Last administered on 03/15/17 08:39 ; Admin Dose 40 MG; Start 02/26/17 at 09:00 Alprazolam (Xanax) 0.25 mg BID PO Last administered on 03/15/17 08:38; Admin Dose 0.25 MG; Start 02/26/17 at 20:00 Levofloxacin (Levaquin) 750 mg DAILY@06 PO Last administered on 03/15/17 05:50 ; Admin Dose 750 MG; Start 03/01/17 at 06:00 IV Flush 10 ml 10 ml PRN PRN IV IV PROTOCOL; Start 03/09/17 at 13:00 Dexamethasone/ Ondansetron HCl/ Sodium Chloride (Decadron/Zofran Inj/NS) 59 ml @ 120 mls/hr Q7D IV Last administered on 03/09/17 22:32; Admin Dose 120 MLS/ HR; Start 03/09/17 at 22:30; Stop 03/16/17 at 23:00 Diphenhydramine HCl 25 mg 25 mg Q7D IV Last administered on 03/09/17 22:32; Admin Dose 25 MG; Start 03/09/17 at 22:30; Stop 03/16/17 at 22:31 Gemcitabine HCl 1.6 gm/Sodium Chloride 250 ml @ 167 mls/hr Q7D IV Last administered on 03/09/17 23:08; Admin Dose 167 MLS/HR; Start 03/09/17 at 23:00 ; Stop 03/17/17 at 00:30 Docetaxel 160 mg/ Docetaxel 20 mg/ Sodium Chloride 250 ml @ 250 mls/hr 01 IV ; Start 03/17/17 at 01:00; Stop 03/17/17 at 01:59 Sodium Chloride (NS) 1,000 ml @ 75 mls/hr [id number] IV ; Start 03/16/17 at 20:00 Senna/Docusate Sodium (Senokot-S) 2 tab HS PO Last administered on 03/14/17 20: 19; Admin Dose 2 TAB; Start 03/12/17 at 21:00 Lactobacillus Acidophilus/ Rhamnosus (Culturelle) 1 cap BID PO Last administered on 03/15/17 08:38; Admin Dose 1 CAP; Start 03/12/17 at 21:00 Famotidine (Pepcid) 20 mg DAILY PO Last administered on 03/15/17 08:38; Admin Dose 20 MG; Start 03/13/17 at 09:00 Acetaminophen/ Hydrocodone Bitart ([place] (10/325)) 1 tab Q4H PRN PO PAIN; Start 03/12/17 at 19:30 Bisacodyl (Dulcolax) 10 mg DAILY PRN PO CONSTIPATION Last administered on 08:44; Admin Dose 10 MG; Start 03/14/17 at 14:30 Polyethylene Glycol (Miralax) 17 gm DAILY PO Last administered on 03/15/17 08: 39; Admin Dose 17 GM; Start 03/14/17 at 14:30 CASSIE HILARIO MD Mar 15, 2017 13:25
[2017-03-15 19:40] VITALS: BP 128/62; RESP 18
[2017-03-15] MEDS: SENNA/DOCUSATE NA (8.6MG/50MG) TAB PO SCH (20:51)
[2017-03-15] MEDS ORDERED: MIRTAZAPINE 15 MG TAB PO SCH (21:00)
--- NOTE | 2017-03-15 23:06 | CONS ---
Date/Time of Note Date/Time of Note DATE: 03/15/17 TIME: 23:05 Assessment/Plan Assessment/Plan Chief Complaint/Hosp Course metastatic UTERINE LEIOMYOSARCOMA History of uterine cancer. PT UNDERWENT KIERAN FOR UTERINE LEIOMYOSARCOMA IN MAY 2016 AT [facility] SHE SAW DR LOZA 3 TIMES OUTPT PT SAW DR VILLAREAL , WITH PLAN FOR CHEMOTHERAPY, BUT NO AUTH HAS BEEN OBTAINED Diffuse bilateral pulmonary metastatic disease , WITH Prominent mediastinal and hilar lymph nodes Respiratory distress suspect secondary to neoplastic process CT ABD - 62 mm mass in the right purvi pelvis represents metastatic neoplasm until proven otherwise. Numerous large metastatic deposits again seen bilateral lung bases, with small pleural effusions. TUMOR MARKERS- CA 125 - 170, ELEVATED RECORD- reviewed POST LUNG BX- path c/w metastatic leiomyosarcoma PICC LINE PLAN CHEMO - TAXOTERE / GEMZAR-- DAY 03/30 History of bipolar/schizophrenia. No active issue noted at this time. Continue to monitor for now. Problems: Consultation Date/Type/Reason Admit Date/Time Feb 26, 2017 at 03:22 Initial Consult Date 02/27/17 Type of Consultation: [facility] Referring Provider: ANGELA MCNEIL 24 HR Interval Summary Free Text/Dictation ALL NOTED DOING OK Exam/Review of Systems Vital Signs Vitals Vital Signs Date Time Temp Pulse Resp B/P Pulse Ox O2 Delivery O2 Flow Rate FiO2 03/15/17 19:40 97.8 92 18 128/62 97 03/15/17 08:00 Nasal Cannula 2.0 Intake and Output 03/14/17 03/14/17 03/15/17 15:00 23:00 07:00 Intake Total 1000 ml 800 ml Output Total 1050 ml Balance 1000 ml -250 ml Exam Constitutional: alert Psych: no complaints Head: normocephalic ENMT: nl external ears & nose Neck: supple Respiratory: clear to auscultation, diminished breath sounds, normal air movement Cardiovascular: regular rate and rhythm Gastrointestinal: non-tender, soft Extremities: normal pulses Neurological: CUSHION PADDER II-XII intact, nl mental status, nl speech, nl strength Skin: nl turgor Lymph: nl lymph nodes Results Result Diagram: 03/15/17 0436 03/15/17 0436 Results 24 hrs Laboratory Tests Test 03/15/17 04:36 White Blood Count 7.8 Red Blood Count 4.07 L Hemoglobin 11.6 L Hematocrit 37.0 Mean Corpuscular Volume 90.9 Mean Corpuscular Hemoglobin 28.5 L Mean Corpuscular Hemoglobin Concent 31.4 L Red Cell Distribution Width 13.2 Platelet Count 309 Mean Platelet Volume 10.0 Neutrophils % 71.4 Lymphocytes % 22.2 Monocytes % 1.9 Eosinophils % 3.6 Basophils % 0.6 Nucleated Red Blood Cells % 0.0 Neutrophils # 5.6 Lymphocytes # 1.7 Monocytes # 0.2 L Eosinophils # 0.3 Basophils # 0.1 Nucleated Red Blood Cells # 0.0 Sodium Level 143 Potassium Level 4.4 Chloride Level 99 Carbon Dioxide Level 33 H Anion Gap 15 Blood Urea Nitrogen 13 Creatinine 0.55 Glucose Level 91 Calcium Level 9.9 Phosphorus Level 4.3 Magnesium Level 1.8 Total Bilirubin 0.1 L Direct Bilirubin 0.00 Indirect Bilirubin 0.1 Aspartate Amino Transf (AST/SGOT) 48 H Alanine Aminotransferase (ALT/SGPT) 52 Alkaline Phosphatase 76 Total Protein 7.0 Albumin 3.9 Globulin 3.10 Albumin/Globulin Ratio 1.25 Medications Medications Current Medications Guaifenesin/ Dextromethorphan (Robitussin Dm Liquid Cup) 10 ml Q4H PRN PO COUGH Last administered on 03/05/17 00:22; Admin Dose 10 ML; Start 02/26/17 at 03:30 Hydromorphone HCl (Dilaudid) 1 mg Q4H PRN IV PAIN Last administered on 18:25; Admin Dose 1 MG; Start 02/26/17 at 03:30 Ondansetron HCl (Zofran Inj) 4 mg Q4H PRN IV NAUSEA AND/OR VOMITING Last administered on 03/15/17 13:25; Admin Dose 4 MG; Start 02/26/17 at 03:30 Ondansetron HCl (Zofran Inj) 4 mg Q6H PRN IV NAUSEA AND/OR VOMITING; Start at 06:00 Enoxaparin Sodium (Lovenox) 40 mg DAILY SC Last administered on 03/15/17 08:39 ; Admin Dose 40 MG; Start 02/26/17 at 09:00 Alprazolam (Xanax) 0.25 mg BID PO Last administered on 03/15/17 20:51; Admin Dose 0.25 MG; Start 02/26/17 at 20:00 Levofloxacin (Levaquin) 750 mg DAILY@06 PO Last administered on 03/15/17 05:50 ; Admin Dose 750 MG; Start 03/01/17 at 06:00 IV Flush 10 ml 10 ml PRN PRN IV IV PROTOCOL; Start 03/09/17 at 13:00 Dexamethasone/ Ondansetron HCl/ Sodium Chloride (Decadron/Zofran Inj/NS) 59 ml @ 120 mls/hr Q7D IV Last administered on 03/09/17 22:32; Admin Dose 120 MLS/ HR; Start 03/09/17 at 22:30; Stop 03/16/17 at 23:00 Diphenhydramine HCl 25 mg 25 mg Q7D IV Last administered on 03/09/17 22:32; Admin Dose 25 MG; Start 03/09/17 at 22:30; Stop 03/16/17 at 22:31 Gemcitabine HCl 1.6 gm/Sodium Chloride 250 ml @ 167 mls/hr Q7D IV Last administered on 03/09/17 23:08; Admin Dose 167 MLS/HR; Start 03/09/17 at 23:00 ; Stop 03/17/17 at 00:30 Docetaxel 160 mg/ Docetaxel 20 mg/ Sodium Chloride 250 ml @ 250 mls/hr 01 IV ; Start 03/17/17 at 01:00; Stop 03/17/17 at 01:59 Sodium Chloride (NS) 1,000 ml @ 75 mls/hr [id number] IV ; Start 03/16/17 at 20:00 Senna/Docusate Sodium (Senokot-S) 2 tab HS PO Last administered on 03/15/17 20: 51; Admin Dose 2 TAB; Start 03/12/17 at 21:00 Lactobacillus Acidophilus/ Rhamnosus (Culturelle) 1 cap BID PO Last administered on 03/15/17 20:51; Admin Dose 1 CAP; Start 03/12/17 at 21:00 Famotidine (Pepcid) 20 mg DAILY PO Last administered on 03/15/17 08:38; Admin Dose 20 MG; Start 03/13/17 at 09:00 Acetaminophen/ Hydrocodone Bitart ([place] (10/325)) 1 tab Q4H PRN PO PAIN; Start 03/12/17 at 19:30 Bisacodyl (Dulcolax) 10 mg DAILY PRN PO CONSTIPATION Last administered on 08:44; Admin Dose 10 MG; Start 03/14/17 at 14:30 Polyethylene Glycol (Miralax) 17 gm DAILY PO Last administered on 03/15/17 08: 39; Admin Dose 17 GM; Start 03/14/17 at 14:30 JUSTINA AGUIRRE MD Mar 15, 2017 23:05
[2017-03-16] MEDS: LEVOFLOXACIN 750 MG TABLET PO SCH (05:44)
[2017-03-16] MEDS: HYDROmorphONE 1 MG/ML SYG IV PRN ×4 (06:11→22:09)
[2017-03-16 09:19] VITALS: BP 119/63; RESP 18
[2017-03-16] MEDS: POLYETHYLENE GLYCOL 17 GM PACKET PO SCH (09:50)
[2017-03-16] MEDS: LACTOBACILLUS RHAMNOSUS CAP PO SCH ×2 (09:51→20:51)
[2017-03-16] MEDS: FAMOTIDINE 20 MG TAB PO SCH (09:51)
[2017-03-16] MEDS: ALPRAZOLAM 0.25 MG TAB PO SCH ×2 (09:51→20:50)
[2017-03-16] MEDS: ENOXAPARIN 40 MG/0.4 ML SYG SC SCH (10:00)
[2017-03-16] MEDS: ONDANSETRON 4 MG INJ IV PRN ×2 (11:12→16:06)
--- NOTE | 2017-03-16 14:42 | PN ---
Date/Time of Note Date/Time of Note DATE: 03/16/17 TIME: 14:41 Assessment/Plan VTE Prophylaxis VTE Prophylaxis Intervention: LMWH Lines/Catheters IV Catheter Type (from Nrsg): PICC Line Central line still needed: Yes (IV access) Urinary Cath still in place: No Assessment/Plan Chief Complaint/Hosp Course 03/12 events noted. Tolerating chemo. No dyspnea. Possible cough. 03/13 no events. 03/14: Exertional dyspnea weak. Still hypoxic. 03/15: No events. 03/16: Nauseated but no vomiting. Denies abd pain constipation dyspnea. O: Vss stable; except requiring supplemental O2 PE No pallor Reg CTAB; no tachypnea Bs+ nt nd, no R/R/G No edema A/P 1. Metastatic leiomyosarcoma. Stable on chemo. Prognosis? 2. Left lwr lobe pneumonia, stable finishing antibiotics. Possible postobstructive in nature 3. Ho KIERAN/BSO May 2016 at [place] 4. Chr asthma 5. Past tobacco 6. Chr bipolar 7. Chr fibromyalgia 8. Chr diabetes/metabolic syndrome 9. Chr rheumatoid arthritis? 10. Anemia 11. Adjustment disorder 12. Failure to thrive/homelessness. May need placement. Problems: Exam/Review of Systems Vital Signs Vitals Vital Signs Date Time Temp Pulse Resp B/P Pulse Ox O2 Delivery O2 Flow Rate FiO2 03/16/17 09:19 98.3 86 18 119/63 97 03/15/17 20:10 Nasal Cannula 2.0 Intake and Output 03/15/17 03/15/17 03/16/17 15:00 23:00 07:00 Intake Total 960 ml 480 ml Balance 960 ml 480 ml Results Result Diagram: 03/15/17 0436 03/15/17 0436 Medications Medications Current Medications Guaifenesin/ Dextromethorphan (Robitussin Dm Liquid Cup) 10 ml Q4H PRN PO COUGH Last administered on 03/05/17 00:22; Admin Dose 10 ML; Start 02/26/17 at 03:30 Hydromorphone HCl (Dilaudid) 1 mg Q4H PRN IV PAIN Last administered on 11:12; Admin Dose 1 MG; Start 02/26/17 at 03:30 Ondansetron HCl (Zofran Inj) 4 mg Q4H PRN IV NAUSEA AND/OR VOMITING Last administered on 03/16/17 11:12; Admin Dose 4 MG; Start 02/26/17 at 03:30 Enoxaparin Sodium (Lovenox) 40 mg DAILY SC Last administered on 03/16/17 10:00 ; Admin Dose 40 MG; Start 02/26/17 at 09:00 Alprazolam (Xanax) 0.25 mg BID PO Last administered on 03/16/17 09:51; Admin Dose 0.25 MG; Start 02/26/17 at 20:00 Levofloxacin (Levaquin) 750 mg DAILY@06 PO Last administered on 03/16/17 05:44 ; Admin Dose 750 MG; Start 03/01/17 at 06:00 IV Flush 10 ml 10 ml PRN PRN IV IV PROTOCOL; Start 03/09/17 at 13:00 Dexamethasone/ Ondansetron HCl/ Sodium Chloride (Decadron/Zofran Inj/NS) 59 ml @ 120 mls/hr Q7D IV Last administered on 03/09/17 22:32; Admin Dose 120 MLS/ HR; Start 03/09/17 at 22:30; Stop 03/16/17 at 23:00 Diphenhydramine HCl 25 mg 25 mg Q7D IV Last administered on 03/09/17 22:32; Admin Dose 25 MG; Start 03/09/17 at 22:30; Stop 03/16/17 at 22:31 Gemcitabine HCl 1.6 gm/Sodium Chloride 250 ml @ 167 mls/hr Q7D IV Last administered on 03/09/17 23:08; Admin Dose 167 MLS/HR; Start 03/09/17 at 23:00 ; Stop 03/17/17 at 00:30 Docetaxel 160 mg/ Docetaxel 20 mg/ Sodium Chloride 250 ml @ 250 mls/hr 01 IV ; Start 03/17/17 at 01:00; Stop 03/17/17 at 01:59 Sodium Chloride (NS) 1,000 ml @ 75 mls/hr [id number] IV ; Start 03/16/17 at 20:00 Senna/Docusate Sodium (Senokot-S) 2 tab HS PO Last administered on 03/15/17 20: 51; Admin Dose 2 TAB; Start 03/12/17 at 21:00 Lactobacillus Acidophilus/ Rhamnosus (Culturelle) 1 cap BID PO Last administered on 03/16/17 09:51; Admin Dose 1 CAP; Start 03/12/17 at 21:00 Famotidine (Pepcid) 20 mg DAILY PO Last administered on 03/16/17 09:51; Admin Dose 20 MG; Start 03/13/17 at 09:00 Acetaminophen/ Hydrocodone Bitart ([place] (10/325)) 1 tab Q4H PRN PO PAIN; Start 03/12/17 at 19:30 Bisacodyl (Dulcolax) 10 mg DAILY PRN PO CONSTIPATION Last administered on 08:44; Admin Dose 10 MG; Start 03/14/17 at 14:30 Polyethylene Glycol (Miralax) 17 gm DAILY PO Last administered on 03/16/17 09: 50; Admin Dose 17 GM; Start 03/14/17 at 14:30 Ondansetron HCl (Zofran Tab) 4 mg Q4H PRN PO NAUSEA AND/OR VOMITING; Start 03/16 at 08:00 CASSIE HILARIO MD Mar 16, 2017 14:42
[2017-03-16 19:35] VITALS: BP 134/68; RESP 18
[2017-03-16] MEDS: SOD CHLORIDE 0.9% 1,000 ML IV SCH (20:17)
[2017-03-16] MEDS: SENNA/DOCUSATE NA (8.6MG/50MG) TAB PO SCH (20:51)
[2017-03-16] MEDS: DIPHENHYDRAMINE 50 MG INJ IV SCH (22:39)
[2017-03-16] MEDS: DEXAMETHASONE 10 MG/ML 10 MG, ONDANSETRON INJ 16 MG in SOD CHLORIDE 0.9% 50 ML IV SCH (22:39)
[2017-03-16 23:00] VITALS: BP 134/81; PULSE 79; RESP 17
--- NOTE | 2017-03-16 23:54 | CONS ---
Date/Time of Note Date/Time of Note DATE: 03/16/17 TIME: 23:53 Assessment/Plan Assessment/Plan Chief Complaint/Hosp Course metastatic UTERINE LEIOMYOSARCOMA History of uterine cancer. PT UNDERWENT KIERAN FOR UTERINE LEIOMYOSARCOMA IN MAY 2016 AT [facility] SHE SAW DR LOZA 3 TIMES OUTPT PT SAW DR VILLAREAL , WITH PLAN FOR CHEMOTHERAPY, BUT NO AUTH HAS BEEN OBTAINED Diffuse bilateral pulmonary metastatic disease , WITH Prominent mediastinal and hilar lymph nodes Respiratory distress suspect secondary to neoplastic process CT ABD - 62 mm mass in the right purvi pelvis represents metastatic neoplasm until proven otherwise. Numerous large metastatic deposits again seen bilateral lung bases, with small pleural effusions. TUMOR MARKERS- CA 125 - 170, ELEVATED RECORD- reviewed POST LUNG BX- path c/w metastatic leiomyosarcoma PICC LINE PLAN CHEMO - TAXOTERE / GEMZAR-- DAY 04/30 SUPPORT WITH NEUPOGEN POST CHEMO History of bipolar/schizophrenia. No active issue noted at this time. Continue to monitor for now. Problems: Consultation Date/Type/Reason Admit Date/Time Feb 26, 2017 at 03:22 Initial Consult Date 02/27/17 [facility] Consult[facility]: [facility] Referring Provider: ANGELA MCNEIL 24 HR Interval Summary Free Text/Dictation ALL NOTED Exam/Review of Systems Vital Signs Vitals Vital Signs Date Time Temp Pulse Resp B/P Pulse Ox O2 Delivery O2 Flow Rate FiO2 03/16/17 19:35 98.0 82 18 134/68 97 03/15/17 20:10 Nasal Cannula 2.0 Intake and Output 03/15/17 03/15/17 03/16/17 15:00 23:00 07:00 Intake Total 960 ml 480 ml Balance 960 ml 480 ml Exam Constitutional: alert Psych: no complaints Head: normocephalic ENMT: nl external ears & nose Neck: supple Respiratory: clear to auscultation, diminished breath sounds, normal air movement Cardiovascular: regular rate and rhythm Gastrointestinal: non-tender, soft Extremities: normal pulses Neurological: WARD MAID II-XII intact, nl mental status, nl speech, nl strength Skin: nl turgor Lymph: nl lymph nodes Results Result Diagram: 03/15/17 0436 03/15/17 0436 Medications Medications Current Medications Guaifenesin/ Dextromethorphan (Robitussin Dm Liquid Cup) 10 ml Q4H PRN PO COUGH Last administered on 03/05/17 00:22; Admin Dose 10 ML; Start 02/26/17 at 03:30 Hydromorphone HCl (Dilaudid) 1 mg Q4H PRN IV PAIN Last administered on 22:09; Admin Dose 1 MG; Start 02/26/17 at 03:30 Ondansetron HCl (Zofran Inj) 4 mg Q4H PRN IV NAUSEA AND/OR VOMITING Last administered on 03/16/17 16:06; Admin Dose 4 MG; Start 02/26/17 at 03:30 Enoxaparin Sodium (Lovenox) 40 mg DAILY SC Last administered on 03/16/17 10:00 ; Admin Dose 40 MG; Start 02/26/17 at 09:00 Alprazolam (Xanax) 0.25 mg BID PO Last administered on 03/16/17 20:50; Admin Dose 0.25 MG; Start 02/26/17 at 20:00 Levofloxacin (Levaquin) 750 mg DAILY@06 PO Last administered on 03/16/17 05:44 ; Admin Dose 750 MG; Start 03/01/17 at 06:00 IV Flush 10 ml 10 ml PRN PRN IV IV PROTOCOL; Start 03/09/17 at 13:00 Gemcitabine HCl 1.6 gm/Sodium Chloride 250 ml @ 167 mls/hr Q7D IV Last administered on 03/09/17 23:08; Admin Dose 167 MLS/HR; Start 03/09/17 at 23:00 ; Stop 03/17/17 at 00:30 Docetaxel 160 mg/ Docetaxel 20 mg/ Sodium Chloride 250 ml @ 250 mls/hr 01 IV ; Start 03/17/17 at 01:00; Stop 03/17/17 at 01:59 Sodium Chloride (NS) 1,000 ml @ 75 mls/hr [id number] IV Last administered on 20:17; Admin Dose 75 MLS/HR; Start 03/16/17 at 20:00 Senna/Docusate Sodium (Senokot-S) 2 tab HS PO Last administered on 03/16/17 20: 51; Admin Dose 2 TAB; Start 03/12/17 at 21:00 Lactobacillus Acidophilus/ Rhamnosus (Culturelle) 1 cap BID PO Last administered on 03/16/17 20:51; Admin Dose 1 CAP; Start 03/12/17 at 21:00 Famotidine (Pepcid) 20 mg DAILY PO Last administered on 03/16/17 09:51; Admin Dose 20 MG; Start 03/13/17 at 09:00 Acetaminophen/ Hydrocodone Bitart ([place] (10/325)) 1 tab Q4H PRN PO PAIN; Start 03/12/17 at 19:30 Bisacodyl (Dulcolax) 10 mg DAILY PRN PO CONSTIPATION Last administered on 08:44; Admin Dose 10 MG; Start 03/14/17 at 14:30 Polyethylene Glycol (Miralax) 17 gm DAILY PO Last administered on 03/16/17 09: 50; Admin Dose 17 GM; Start 03/14/17 at 14:30 Ondansetron HCl (Zofran Tab) 4 mg Q4H PRN PO NAUSEA AND/OR VOMITING; Start 03/16 at 08:00 JUSTINA AGUIRRE MD Mar 16, 2017 23:54
[2017-03-17] VITALS (10 sets, daily range): BP systolic 122–144; BP diastolic 65–76; PULSE 69–97; RESP 17–18
[2017-03-17] MEDS: SOD CHLORIDE 0.9% IV SCH (00:19)
[2017-03-17] MEDS: GEMCITABINE IV SCH (00:19)
[2017-03-17] MEDS ORDERED: SOD CHLORIDE 0.9% IV SCH (01:00)
[2017-03-17] MEDS ORDERED: DOCETAXEL IV SCH (01:00)
[2017-03-17] MEDS: HYDROmorphONE 1 MG/ML SYG IV PRN ×5 (05:05→23:20)
[2017-03-17] MEDS: LEVOFLOXACIN 750 MG TABLET PO SCH (06:27)
[2017-03-17] MEDS: ONDANSETRON 4 MG INJ IV PRN ×4 (09:13→23:19)
[2017-03-17] MEDS: FAMOTIDINE 20 MG TAB PO SCH (09:15)
[2017-03-17] MEDS: LACTOBACILLUS RHAMNOSUS CAP PO SCH ×2 (09:15→21:21)
[2017-03-17] MEDS: ALPRAZOLAM 0.25 MG TAB PO SCH ×2 (09:16→21:21)
[2017-03-17] MEDS: POLYETHYLENE GLYCOL 17 GM PACKET PO SCH (09:16)
[2017-03-17] MEDS: SOD CHLORIDE 0.9% 1,000 ML IV SCH ×2 (09:20→22:40)
[2017-03-17 09:25] LABS: ADD SCAN DIFF NO
[2017-03-17 09:35] LABS: ABNORMAL IP MESSAGE 1; HEMATOCRIT 37.1 % (37.0-47.0); HEMOGLOBIN 12.2 g/dl (12.0-16.0); LYMPHOCYTES # 0.5 10^3/ul (0.8-2.9); LYMPHOCYTES % 8.5 % (15.0-51.0); MEAN CORPUSCULAR HGB CONC 32.9 g/dl (32.0-37.0); MEAN CORPUSCULAR VOLUME 88.3 fl (82.0-101.0); MEAN PLATELET VOLUME 9.8 fl (7.4-10.4); MONOCYTE # 0.2 10^3/ul (0.3-0.9); MONOCYTES % 3.3 % (0.0-11.0); NEUTROPHIL # 5.6 10^3/ul (1.6-7.5); NEUTROPHILS % 87.6 % (39.0-77.0); PLATELET COUNT 210 10^3/UL (140-415); RED CELL DISTRIBUTION WIDTH 12.9 % (11.5-14.5); WHITE BLOOD COUNT 6.4 10^3/ul (4.8-10.8)
[2017-03-17] MEDS: ENOXAPARIN 40 MG/0.4 ML SYG SC SCH (09:38)
[2017-03-17 09:48] LABS: CALCIUM 9.3 mg/dl (8.4-10.2); CREATININE 0.56 mg/dl (0.44-1.00); POTASSIUM 4.3 mmol/L (3.5-5.1)
--- NOTE | 2017-03-17 17:00 | PN ---
Date/Time of Note Date/Time of Note DATE: 03/17/17 TIME: 16:59 Assessment/Plan VTE Prophylaxis VTE Prophylaxis Intervention: LMWH Lines/Catheters IV Catheter Type (from Nrs): PICC Line Central line still needed: Yes (IV access) Urinary Cath still in place: No Assessment/Plan Chief Complaint/Hosp Course 7 events noted. Tolerating chemo. No dyspnea. Possible cough. 03/13 no events. 03/14: Exertional dyspnea weak. Still hypoxic. 03/15: No events. 03/16: Nauseated but no vomiting. Denies abd pain constipation dyspnea. 03/17: No events. Finished chemo? O: Vss stable; except requiring supplemental O2 PE No pallor Reg CTAB; no tachypnea Bs+ nt nd, no R/R/G No edema A/P 1. Metastatic leiomyosarcoma. Stable on chemo. Prognosis? 2. Left lwr lobe pneumonia, stable finishing antibiotics. Possible postobstructive in nature 3. Ho KIERAN/BSO May 2016 at [place] 4. Chr asthma 5. Past tobacco 6. Chr bipolar 7. Chr fibromyalgia 8. Chr diabetes/metabolic syndrome 9. Chr rheumatoid arthritis? 10. Anemia 11. Adjustment disorder 12. Failure to thrive/homelessness. May need placement. Problems: Exam/Review of Systems Vital Signs Vitals Vital Signs Date Time Temp Pulse Resp B/P Pulse Ox O2 Delivery O2 Flow Rate FiO2 03/17/17 10:01 Nasal Cannula 2.0 03/17/17 08:06 98.2 72 18 138/73 100 Intake and Output 03/16/17 03/16/17 03/17/17 15:00 23:00 07:00 Intake Total 1019 ml 1750 ml Output Total 800 ml Balance 1019 ml 950 ml Results Result Diagram: 03/17/1715 03/17/17 0915 Results 24 hrs Laboratory Tests Test 03/17/17 09:15 White Blood Count 6.4 Red Blood Count 4.20 Hemoglobin 12.2 Hematocrit 37.1 Mean Corpuscular Volume 88.3 Mean Corpuscular Hemoglobin 29.0 Mean Corpuscular Hemoglobin Concent 32.9 Red Cell Distribution Width 12.9 Platelet Count 210 # Mean Platelet Volume 9.8 Neutrophils % 87.6 H Lymphocytes % 8.5 L Monocytes % 3.3 Eosinophils % 0.0 Basophils % 0.0 Nucleated Red Blood Cells % 0.0 Neutrophils # 5.6 Lymphocytes # 0.5 L Monocytes # 0.2 L Eosinophils # 0.0 Basophils # 0.0 Nucleated Red Blood Cells # 0.0 Sodium Level 137 Potassium Level 4.3 Chloride Level 99 Carbon Dioxide Level 29 Anion Gap 13 Blood Urea Nitrogen 11 Creatinine 0.56 Glucose Level 139 Calcium Level 9.3 Medications Medications Current Medications Guaifenesin/ Dextromethorphan (Robitussin Dm Liquid Cup) 10 ml Q4H PRN PO COUGH Last administered on 03/05/17 00:22; Admin Dose 10 ML; Start 02/26/17 at 03:30 Hydromorphone HCl (Dilaudid) 1 mg Q4H PRN IV PAIN Last administered on 13:38; Admin Dose 1 MG; Start 02/26/17 at 03:30 Ondansetron HCl (Zofran Inj) 4 mg Q4H PRN IV NAUSEA AND/OR VOMITING Last administered on 03/17/17 13:38; Admin Dose 4 MG; Start 02/26/17 at 03:30 Enoxaparin Sodium (Lovenox) 40 mg DAILY SC Last administered on 03/17/17 09:38 ; Admin Dose 40 MG; Start 02/26/17 at 09:00 Alprazolam (Xanax) 0.25 mg BID PO Last administered on 03/17/17 09:16; Admin Dose 0.25 MG; Start 02/26/17 at 20:00 Levofloxacin (Levaquin) 750 mg DAILY@06 PO Last administered on 03/17/17 06:27 ; Admin Dose 750 MG; Start 03/01/17 at 06:00 IV Flush 10 ml 10 ml PRN PRN IV IV PROTOCOL; Start 03/09/17 at 13:00 Sodium Chloride (NS) 1,000 ml @ 75 mls/hr [id number] IV Last administered on 20:17; Admin Dose 75 MLS/HR; Start 03/16/17 at 20:00 Senna/Docusate Sodium (Senokot-S) 2 tab HS PO Last administered on 03/16/17 20: 51; Admin Dose 2 TAB; Start 03/12/17 at 21:00 Lactobacillus Acidophilus/ Rhamnosus (Culturelle) 1 cap BID PO Last administered on 03/17/17 09:15; Admin Dose 1 CAP; Start 03/12/17 at 21:00 Famotidine (Pepcid) 20 mg DAILY PO Last administered on 03/17/17 09:15; Admin Dose 20 MG; Start 03/13/17 at 09:00 Acetaminophen/ Hydrocodone Bitart ([place] (10/325)) 1 tab Q4H PRN PO PAIN; Start 03/12/17 at 19:30 Bisacodyl (Dulcolax) 10 mg DAILY PRN PO CONSTIPATION Last administered on 08:44; Admin Dose 10 MG; Start 03/14/17 at 14:30 Polyethylene Glycol (Miralax) 17 gm DAILY PO Last administered on 03/17/17 09: 16; Admin Dose 17 GM; Start 03/14/17 at 14:30 Ondansetron HCl (Zofran Tab) 4 mg Q4H PRN PO NAUSEA AND/OR VOMITING; Start 03/16 at 08:00 Filgrastim (Neupogen) 300 mcg DAILY@17 SC ; Start 03/18/17 at 17:00 CASSIE HILARIO MD Mar 17, 2017 16:59
--- NOTE | 2017-03-17 18:38 | CONS ---
Date/Time of Note Date/Time of Note DATE: 03/17/17 TIME: 18:36 Assessment/Plan Assessment/Plan Chief Complaint/Hosp Course metastatic UTERINE LEIOMYOSARCOMA History of uterine cancer. PT UNDERWENT KIERAN FOR UTERINE LEIOMYOSARCOMA IN MAY 2016 AT [facility] SHE SAW DR LOZA 3 TIMES OUTPT PT SAW DR VILLAREAL , WITH PLAN FOR CHEMOTHERAPY, BUT NO AUTH HAS BEEN OBTAINED Diffuse bilateral pulmonary metastatic disease , WITH Prominent mediastinal and hilar lymph nodes Respiratory distress suspect secondary to neoplastic process CT ABD - 62 mm mass in the right purvi pelvis represents metastatic neoplasm until proven otherwise. Numerous large metastatic deposits again seen bilateral lung bases, with small pleural effusions. TUMOR MARKERS- CA 125 - 170, ELEVATED RECORD- reviewed POST LUNG BX- path c/w metastatic leiomyosarcoma PICC LINE PLAN CHEMO - TAXOTERE / GEMZAR-- DAY 05/31 SUPPORT WITH NEUPOGEN POST CHEMO History of bipolar/schizophrenia. No active issue noted at this time. Continue to monitor for now. Problems: Consultation Date/Type/Reason Admit Date/Time Feb 26, 2017 at 03:22 Initial Consult Date 02/27/17 [facility] Referring Provider: ANGELA MCNEIL 24 HR Interval Summary Free Text/Dictation ALL NOTED WEAK CHEMO- PER PROTOCOL NEUPOGEN ORDERED Exam/Review of Systems Vital Signs Vitals Vital Signs Date Time Temp Pulse Resp B/P Pulse Ox O2 Delivery O2 Flow Rate FiO2 03/17/17 10:01 Nasal Cannula 2.0 03/17/17 08:06 98.2 72 18 138/73 100 Intake and Output 03/16/17 03/16/17 03/17/17 15:00 23:00 07:00 Intake Total 1019 ml 1750 ml Output Total 800 ml Balance 1019 ml 950 ml Exam Constitutional: alert Psych: no complaints Head: normocephalic ENMT: nl external ears & nose Neck: supple Respiratory: clear to auscultation, diminished breath sounds, normal air movement Cardiovascular: regular rate and rhythm Gastrointestinal: non-tender, soft Extremities: normal pulses Neurological: RN CARE MANAGER II-XII intact, nl mental status, nl speech, nl strength Skin: nl turgor Lymph: nl lymph nodes Results Result Diagram: 03/17/17 0915 03/17/17 0915 Results 24 hrs Laboratory Tests Test 03/17/17 09:15 White Blood Count 6.4 Red Blood Count 4.20 Hemoglobin 12.2 Hematocrit 37.1 Mean Corpuscular Volume 88.3 Mean Corpuscular Hemoglobin 29.0 Mean Corpuscular Hemoglobin Concent 32.9 Red Cell Distribution Width 12.9 Platelet Count 210 # Mean Platelet Volume 9.8 Neutrophils % 87.6 H Lymphocytes % 8.5 L Monocytes % 3.3 Eosinophils % 0.0 Basophils % 0.0 Nucleated Red Blood Cells % 0.0 Neutrophils # 5.6 Lymphocytes # 0.5 L Monocytes # 0.2 L Eosinophils # 0.0 Basophils # 0.0 Nucleated Red Blood Cells # 0.0 Sodium Level 137 Potassium Level 4.3 Chloride Level 99 Carbon Dioxide Level 29 Anion Gap 13 Blood Urea Nitrogen 11 Creatinine 0.56 Glucose Level 139 Calcium Level 9.3 Medications Medications Current Medications Guaifenesin/ Dextromethorphan (Robitussin Dm Liquid Cup) 10 ml Q4H PRN PO COUGH Last administered on 03/05/17 00:22; Admin Dose 10 ML; Start 02/26/17 at 03:30 Hydromorphone HCl (Dilaudid) 1 mg Q4H PRN IV PAIN Last administered on 18:11; Admin Dose 1 MG; Start 02/26/17 at 03:30 Ondansetron HCl (Zofran Inj) 4 mg Q4H PRN IV NAUSEA AND/OR VOMITING Last administered on 03/17/17 18:08; Admin Dose 4 MG; Start 02/26/17 at 03:30 Enoxaparin Sodium (Lovenox) 40 mg DAILY SC Last administered on 03/17/17 09:38 ; Admin Dose 40 MG; Start 02/26/17 at 09:00 Alprazolam (Xanax) 0.25 mg BID PO Last administered on 03/17/17 09:16; Admin Dose 0.25 MG; Start 02/26/17 at 20:00 Levofloxacin (Levaquin) 750 mg DAILY@06 PO Last administered on 03/17/17 06:27 ; Admin Dose 750 MG; Start 03/01/17 at 06:00 IV Flush 10 ml 10 ml PRN PRN IV IV PROTOCOL; Start 03/09/17 at 13:00 Sodium Chloride (NS) 1,000 ml @ 75 mls/hr [id number] IV Last administered on 20:17; Admin Dose 75 MLS/HR; Start 03/16/17 at 20:00 Senna/Docusate Sodium (Senokot-S) 2 tab HS PO Last administered on 03/16/17 20: 51; Admin Dose 2 TAB; Start 03/12/17 at 21:00 Lactobacillus Acidophilus/ Rhamnosus (Culturelle) 1 cap BID PO Last administered on 03/17/17 09:15; Admin Dose 1 CAP; Start 03/12/17 at 21:00 Famotidine (Pepcid) 20 mg DAILY PO Last administered on 03/17/17 09:15; Admin Dose 20 MG; Start 03/13/17 at 09:00 Acetaminophen/ Hydrocodone Bitart ([place] (10/325)) 1 tab Q4H PRN PO PAIN; Start 03/12/17 at 19:30 Bisacodyl (Dulcolax) 10 mg DAILY PRN PO CONSTIPATION Last administered on 08:44; Admin Dose 10 MG; Start 03/14/17 at 14:30 Polyethylene Glycol (Miralax) 17 gm DAILY PO Last administered on 03/17/17 09: 16; Admin Dose 17 GM; Start 03/14/17 at 14:30 Ondansetron HCl (Zofran Tab) 4 mg Q4H PRN PO NAUSEA AND/OR VOMITING; Start 03/16 at 08:00 Filgrastim (Neupogen) 300 mcg DAILY@17 SC ; Start 03/18/17 at 17:00 UJSTINA AGUIRRE MD Mar 17, 2017 18:38
[2017-03-17] MEDS: SENNA/DOCUSATE NA (8.6MG/50MG) TAB PO SCH (21:21)
[2017-03-18] MEDS: ONDANSETRON 4 MG INJ IV PRN ×4 (04:38→23:55)
[2017-03-18] MEDS: HYDROmorphONE 1 MG/ML SYG IV PRN ×5 (04:38→23:55)
[2017-03-18 05:32] LABS: ADD SCAN DIFF NO
[2017-03-18 05:39] LABS: BASOPHILS % 0.2 % (0.0-2.0); EOSINOPHILS # 0.1 10^3/ul (0.0-0.5); EOSINOPHILS % 0.8 % (0.0-7.0); HEMATOCRIT 35.2 % (37.0-47.0); HEMOGLOBIN 11.8 g/dl (12.0-16.0); LYMPHOCYTES # 0.9 10^3/ul (0.8-2.9); LYMPHOCYTES % 14.1 % (15.0-51.0); MEAN CORPUSCULAR HEMOGLOBIN 29.5 pg (29.0-33.0); MEAN CORPUSCULAR HGB CONC 33.5 g/dl (32.0-37.0); MEAN PLATELET VOLUME 10.4 fl (7.4-10.4); MONOCYTE # 0.3 10^3/ul (0.3-0.9); MONOCYTES % 4.4 % (0.0-11.0); NEUTROPHIL # 5.3 10^3/ul (1.6-7.5); NEUTROPHILS % 79.9 % (39.0-77.0); PLATELET COUNT 156 10^3/UL (140-415); RED CELL DISTRIBUTION WIDTH 12.9 % (11.5-14.5); WHITE BLOOD COUNT 6.7 10^3/ul (4.8-10.8)
[2017-03-18 06:08] LABS: ALBUMIN 3.9 g/dl (3.3-4.9); ALBUMIN/GLOBULIN RATIO 1.56; BILIRUBIN,INDIRECT 0.3 mg/dl (0-1.1); BILIRUBIN,TOTAL 0.3 mg/dl (0.2-1.3); CREATININE 0.51 mg/dl (0.44-1.00); MAGNESIUM 1.8 mg/dl (1.7-2.5); PHOSPHORUS 3.2 mg/dl (2.5-4.9); POTASSIUM 3.7 mmol/L (3.5-5.1); TOTAL PROTEIN 6.4 g/dl (6.1-8.1)
[2017-03-18 08:45] VITALS: BP 132/73; RESP 18
[2017-03-18] MEDS: POLYETHYLENE GLYCOL 17 GM PACKET PO SCH (09:00)
[2017-03-18] MEDS: LEVOFLOXACIN 750 MG TABLET PO SCH (09:44)
[2017-03-18] MEDS: FAMOTIDINE 20 MG TAB PO SCH (09:44)
[2017-03-18] MEDS: LACTOBACILLUS RHAMNOSUS CAP PO SCH ×2 (09:45→21:00)
[2017-03-18] MEDS: ENOXAPARIN 40 MG/0.4 ML SYG SC SCH (09:51)
[2017-03-18] MEDS: ONDANSETRON 4 MG TAB PO PRN (09:51)
[2017-03-18] MEDS: ALPRAZOLAM 0.25 MG TAB PO SCH ×2 (09:51→20:57)
[2017-03-18] MEDS: SOD CHLORIDE 0.9% 1,000 ML IV SCH (12:00)
--- NOTE | 2017-03-18 12:39 | PN ---
Date/Time of Note Date/Time of Note DATE: 03/18/17 TIME: 12:34 Assessment/Plan VTE Prophylaxis VTE Prophylaxis Intervention: LMWH Lines/Catheters IV Catheter Type (from Nrsg): PICC Line Central line still needed: Yes (IV access) Urinary Cath still in place: No Assessment/Plan Chief Complaint/Hosp Course S: 7 events noted. Tolerating chemo. No dyspnea. Possible cough. 03/13 no events. 03/14: Exertional dyspnea weak. Still hypoxic. 03/15: No events. 03/16: Nauseated but no vomiting. Denies abd pain constipation dyspnea. 03/17: No events. Finished chemo. 03/18: Abd pain crampy burning midline to ruq. No known aggravating or relieving factors. Presently on Neupogen. O: Vss stable; except requiring supplemental O2. Mild fever noted. PE No pallor/icterus Reg CTAB; no tachypnea Bs+ mild diffuse tenderness, nd, no R/R/G No edema A/P 1. Metastatic leiomyosarcoma. Stable on chemo. Prognosis poor. Will need outpatient oncology follow-up/referral. ok to discharge from home standpoint. 2. Left lwr lobe pneumonia, stable finished antibiotics. Possible postobstructive in nature. 3. Ho KIERAN/BSO May 2016 at [facility] 4. Chr asthma 5. Past tobacco 6. Chr bipolar 7. Chr fibromyalgia 8. Chr diabetes/metabolic syndrome 9. Chr rheumatoid arthritis? 10. Anemia 11. Adjustment disorder 12. Ftt/homelessness. May need placement. [place] rehab? 13. Abd pain, abn LFTs, fever. Ultrasound lipase pending. Problems: Exam/Review of Systems Vital Signs Vitals Vital Signs Date Time Temp Pulse Resp B/P Pulse Ox O2 Delivery O2 Flow Rate FiO2 03/18/17 08:45 99.5 99 18 132/73 97 03/17/17 10:01 Nasal Cannula 2.0 Intake and Output 03/17/17 03/17/17 03/18/17 15:00 23:00 07:00 Intake Total 800 ml 960 ml Output Total 1200 ml 1000 ml Balance -400 ml -40 ml Results Result Diagram: 03/18/17 0430 03/18/17 0430 Results 24 hrs Laboratory Tests Test 03/18/17 04:30 White Blood Count 6.7 Red Blood Count 4.00 L Hemoglobin 11.8 L Hematocrit 35.2 L Mean Corpuscular Volume 88.0 Mean Corpuscular Hemoglobin 29.5 Mean Corpuscular Hemoglobin Concent 33.5 Red Cell Distribution Width 12.9 Platelet Count 156 # Mean Platelet Volume 10.4 Neutrophils % 79.9 H Lymphocytes % 14.1 L Monocytes % 4.4 Eosinophils % 0.8 Basophils % 0.2 Nucleated Red Blood Cells % 0.0 Neutrophils # 5.3 Lymphocytes # 0.9 Monocytes # 0.3 Eosinophils # 0.1 Basophils # 0.0 Nucleated Red Blood Cells # 0.0 Sodium Level 141 Potassium Level 3.7 Chloride Level 97 Carbon Dioxide Level 31 Anion Gap 17 H Blood Urea Nitrogen 10 Creatinine 0.51 Glucose Level 93 # Calcium Level 9.0 Phosphorus Level 3.2 Magnesium Level 1.8 Total Bilirubin 0.3 Direct Bilirubin 0.00 Indirect Bilirubin 0.3 Aspartate Amino Transf (AST/SGOT) 527 H Alanine Aminotransferase (ALT/SGPT) 284 H Alkaline Phosphatase 82 Total Protein 6.4 Albumin 3.9 Globulin 2.50 Albumin/Globulin Ratio 1.56 Medications Medications Current Medications Guaifenesin/ Dextromethorphan (Robitussin Dm Liquid Cup) 10 ml Q4H PRN PO COUGH Last administered on 03/05/17 00:22; Admin Dose 10 ML; Start 02/26/17 at 03:30 Hydromorphone HCl (Dilaudid) 1 mg Q4H PRN IV PAIN Last administered on 09:51; Admin Dose 1 MG; Start 02/26/17 at 03:30 Ondansetron HCl (Zofran Inj) 4 mg Q4H PRN IV NAUSEA AND/OR VOMITING Last administered on 03/18/17 04:38; Admin Dose 4 MG; Start 02/26/17 at 03:30 Enoxaparin Sodium (Lovenox) 40 mg DAILY SC Last administered on 03/18/17 09:51 ; Admin Dose 40 MG; Start 02/26/17 at 09:00 Alprazolam (Xanax) 0.25 mg BID PO Last administered on 03/18/17 09:51; Admin Dose 0.25 MG; Start 02/26/17 at 20:00 IV Flush 10 ml 10 ml PRN PRN IV IV PROTOCOL; Start 03/09/17 at 13:00 Sodium Chloride (NS) 1,000 ml @ 75 mls/hr [id number] IV Last administered on 20:17; Admin Dose 75 MLS/HR; Start 03/16/17 at 20:00 Senna/Docusate Sodium (Senokot-S) 2 tab HS PO Last administered on 03/17/17 21: 21; Admin Dose 2 TAB; Start 03/12/17 at 21:00 Lactobacillus Acidophilus/ Rhamnosus (Culturelle) 1 cap BID PO Last administered on 03/18/17 09:45; Admin Dose 1 CAP; Start 03/12/17 at 21:00 Famotidine (Pepcid) 20 mg DAILY PO Last administered on 03/18/17 09:44; Admin Dose 20 MG; Start 03/13/17 at 09:00 Acetaminophen/ Hydrocodone Bitart ([place] (10/325)) 1 tab Q4H PRN PO PAIN; Start 03/12/17 at 19:30 Bisacodyl (Dulcolax) 10 mg DAILY PRN PO CONSTIPATION Last administered on 08:44; Admin Dose 10 MG; Start 03/14/17 at 14:30 Polyethylene Glycol (Miralax) 17 gm DAILY PO Last administered on 03/17/17 09: 16; Admin Dose 17 GM; Start 03/14/17 at 14:30 Ondansetron HCl (Zofran Tab) 4 mg Q4H PRN PO NAUSEA AND/OR VOMITING Last administered on 03/18/17 09:51; Admin Dose 4 MG; Start 03/16/17 at 08:00 Filgrastim (Neupogen) 300 mcg DAILY@17 SC ; Start 03/18/17 at 17:00 CASSIE HILARIO MD Mar 18, 2017 12:39
--- NOTE | 2017-03-18 16:11 | RADRPT ---
PROCEDURE: US Abdomen (right upper quadrant). CLINICAL INDICATION: Elevated liver function tests. TECHNIQUE: Multiple real-time longitudinal and transverse images of the right upper quadrant of th e abdomen were acquired utilizing a curved array transducer. Images were reviewed on a high-resoluti on PACS workstation. COMPARISON: None FINDINGS: The liver is normal in size and normal in echogenicity. There is no focal hepatic lesion. The gallbladder is normal with no stones or wall thickening. There is no pericholecystic fluid gin ection. The bile ducts are normal with the common bile duct measuring 4.0 mm in diameter. The visualized portions of the pancreas are unremarkable with obscuration of the tail of the pancrea s. No free fluid is present. The right kidney measures 10.1 x 4.8 x 5.5 cm. There is normal echogenicity of the right kidney. There is no perinephric fluid collection. No hydronephrosis, mass, or calculus is seen. IMPRESSION: 1. Unremarkable right upper quadrant abdomen ultrasound. RPTAT: QQ .Maurisio Gutierrez MD, MD Date Time Electronically viewed and signed by .Maurisio Gutierrez MD, on 03/18/2017 16:11 .R/
[2017-03-18] MEDS: FILGRASTIM 300 MCG INJ SC SCH (17:56)
[2017-03-18 19:35] VITALS: BP 123/66; RESP 19
[2017-03-18] MEDS: SENNA/DOCUSATE NA (8.6MG/50MG) TAB PO SCH (21:00)
--- NOTE | 2017-03-19 00:02 | CONS ---
Date/Time of Note Date/Time of Note DATE: 03/19/17 TIME: 00:01 Assessment/Plan Assessment/Plan Chief Complaint/Hosp Course metastatic UTERINE LEIOMYOSARCOMA History of uterine cancer. PT UNDERWENT KIERAN FOR UTERINE LEIOMYOSARCOMA IN MAY 2016 AT [facility] SHE SAW DR LOZA 3 TIMES OUTPT PT SAW DR VILLAREAL , WITH PLAN FOR CHEMOTHERAPY, BUT NO AUTH HAS BEEN OBTAINED Diffuse bilateral pulmonary metastatic disease , WITH Prominent mediastinal and hilar lymph nodes Respiratory distress suspect secondary to neoplastic process CT ABD - 62 mm mass in the right purvi pelvis represents metastatic neoplasm until proven otherwise. Numerous large metastatic deposits again seen bilateral lung bases, with small pleural effusions. TUMOR MARKERS- CA 125 - 170, ELEVATED RECORD- reviewed POST LUNG BX- path c/w metastatic leiomyosarcoma PICC LINE PLAN CHEMO - TAXOTERE / GEMZAR-- DAY 05/31 SUPPORT WITH NEUPOGEN POST CHEMO History of bipolar/schizophrenia. No active issue noted at this time. Continue to monitor for now. Problems: Consultation Date/Type/Reason Admit Date/Time Feb 26, 2017 at 03:22 Initial Consult Date 02/27/17 Type of Consultation: [facility] Referring Provider: ANGELA MCNEIL 24 HR Interval Summary Free Text/Dictation ALL NOTED Exam/Review of Systems Vital Signs Vitals Vital Signs Date Time Temp Pulse Resp B/P Pulse Ox O2 Delivery O2 Flow Rate FiO2 03/18/17 19:35 98.1 85 19 123/66 98 03/17/17 10:01 Nasal Cannula 2.0 Exam Constitutional: alert Psych: no complaints Head: normocephalic ENMT: nl external ears & nose Neck: supple Respiratory: clear to auscultation, diminished breath sounds, normal air movement Cardiovascular: regular rate and rhythm Gastrointestinal: non-tender, soft Extremities: normal pulses 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, nl mental status, nl speech, nl strength Skin: nl turgor Lymph: nl lymph nodes Results Result Diagram: 03/18/1742903/18/17 043 Results 24 hrs Laboratory Tests Test 03/18/17 04:30 White Blood Count 6.7 Red Blood Count 4.00 L Hemoglobin 11.8 L Hematocrit 35.2 L Mean Corpuscular Volume 88.0 Mean Corpuscular Hemoglobin 29.5 Mean Corpuscular Hemoglobin Concent 33.5 Red Cell Distribution Width 12.9 Platelet Count 156 # Mean Platelet Volume 10.4 Neutrophils % 79.9 H Lymphocytes % 14.1 L Monocytes % 4.4 Eosinophils % 0.8 Basophils % 0.2 Nucleated Red Blood Cells % 0.0 Neutrophils # 5.3 Lymphocytes # 0.9 Monocytes # 0.3 Eosinophils # 0.1 Basophils # 0.0 Nucleated Red Blood Cells # 0.0 Sodium Level 141 Potassium Level 3.7 Chloride Level 97 Carbon Dioxide Level 31 Anion Gap 17 H Blood Urea Nitrogen 10 Creatinine 0.51 Glucose Level 93 # Calcium Level 9.0 Phosphorus Level 3.2 Magnesium Level 1.8 Total Bilirubin 0.3 Direct Bilirubin 0.00 Indirect Bilirubin 0.3 Aspartate Amino Transf (AST/SGOT) 527 H Alanine Aminotransferase (ALT/SGPT) 284 H Alkaline Phosphatase 82 Total Protein 6.4 Albumin 3.9 Globulin 2.50 Albumin/Globulin Ratio 1.56 Medications Medications Current Medications Guaifenesin/ Dextromethorphan (Robitussin Dm Liquid Cup) 10 ml Q4H PRN PO COUGH Last administered on 03/05/17 00:22; Admin Dose 10 ML; Start 02/26/17 at 03:30 Hydromorphone HCl (Dilaudid) 1 mg Q4H PRN IV PAIN Last administered on 18:48; Admin Dose 1 MG; Start 02/26/17 at 03:30 Ondansetron HCl (Zofran Inj) 4 mg Q4H PRN IV NAUSEA AND/OR VOMITING Last administered on 03/18/17 18:47; Admin Dose 4 MG; Start 02/26/17 at 03:30 Enoxaparin Sodium (Lovenox) 40 mg DAILY SC Last administered on 03/18/17 09:51 ; Admin Dose 40 MG; Start 02/26/17 at 09:00 Alprazolam (Xanax) 0.25 mg BID PO Last administered on 03/18/17 20:57; Admin Dose 0.25 MG; Start 02/26/17 at 20:00 IV Flush 10 ml 10 ml PRN PRN IV IV PROTOCOL; Start 03/09/17 at 13:00 Sodium Chloride (NS) 1,000 ml @ 75 mls/hr [id number] IV Last administered on 20:17; Admin Dose 75 MLS/HR; Start 03/16/17 at 20:00 Senna/Docusate Sodium (Senokot-S) 2 tab HS PO Last administered on 03/17/17 21: 21; Admin Dose 2 TAB; Start 03/12/17 at 21:00 Lactobacillus Acidophilus/ Rhamnosus (Culturelle) 1 cap BID PO Last administered on 03/18/17 09:45; Admin Dose 1 CAP; Start 03/12/17 at 21:00 Famotidine (Pepcid) 20 mg DAILY PO Last administered on 03/18/17 09:44; Admin Dose 20 MG; Start 03/13/17 at 09:00 Acetaminophen/ Hydrocodone Bitart ([place] (10/325)) 1 tab Q4H PRN PO PAIN; Start 03/12/17 at 19:30 Bisacodyl (Dulcolax) 10 mg DAILY PRN PO CONSTIPATION Last administered on 08:44; Admin Dose 10 MG; Start 03/14/17 at 14:30 Polyethylene Glycol (Miralax) 17 gm DAILY PO Last administered on 03/17/17 09: 16; Admin Dose 17 GM; Start 03/14/17 at 14:30 Ondansetron HCl (Zofran Tab) 4 mg Q4H PRN PO NAUSEA AND/OR VOMITING Last administered on 03/18/17 09:51; Admin Dose 4 MG; Start 03/16/17 at 08:00 Filgrastim (Neupogen) 300 mcg DAILY@17 SC Last administered on 03/18/17 17:56; Admin Dose 300 MCG; Start 03/18/17 at 17:00 JUSTINA AGUIRRE MD Mar 19, 2017 00:01
[2017-03-19] MEDS: SOD CHLORIDE 0.9% 1,000 ML IV SCH ×2 (01:20→14:40)
[2017-03-19] MEDS: ALBUTEROL/IPRATROPIUM (NEB) 3 ML AMP HHN PRN (01:27)
[2017-03-19] MEDS: HYDROmorphONE 1 MG/ML SYG IV PRN ×4 (03:59→17:58)
[2017-03-19] MEDS: ONDANSETRON 4 MG INJ IV PRN ×4 (03:59→17:58)
[2017-03-19 05:02] LABS: ADD SCAN DIFF NO
[2017-03-19 05:14] LABS: ABNORMAL IP MESSAGE 1; HEMATOCRIT 35.6 % (37.0-47.0); HEMOGLOBIN 11.8 g/dl (12.0-16.0); MEAN CORPUSCULAR HEMOGLOBIN 29.3 pg (29.0-33.0); MEAN CORPUSCULAR HGB CONC 33.1 g/dl (32.0-37.0); MEAN CORPUSCULAR VOLUME 88.3 fl (82.0-101.0); MEAN PLATELET VOLUME 10.5 fl (7.4-10.4); PLATELET COUNT 137 10^3/UL (140-415); RED BLOOD COUNT 4.03 10^6/ul (4.20-5.40); WHITE BLOOD COUNT 22.8 10^3/ul (4.8-10.8)
[2017-03-19 05:27] LABS: INR 1.02; PROTIME 13.4 Sec (12.2-14.2)
[2017-03-19 05:48] LABS: ALBUMIN 3.9 g/dl (3.3-4.9); ALBUMIN/GLOBULIN RATIO 1.5; BILIRUBIN,INDIRECT 0.4 mg/dl (0-1.1); BILIRUBIN,TOTAL 0.4 mg/dl (0.2-1.3); CREATININE 0.5 mg/dl (0.44-1.00); MAGNESIUM 1.6 mg/dl (1.7-2.5); PHOSPHORUS 3.1 mg/dl (2.5-4.9); POTASSIUM 3.4 mmol/L (3.5-5.1); TOTAL PROTEIN 6.5 g/dl (6.1-8.1)
[2017-03-19 08:34] LABS: LYMPHOCYTES # 0.7 10^3/ul (0.8-2.9); MONOCYTE # 0.2 10^3/ul (0.3-0.9); NEUTROPHIL # 20.7 10^3/ul (1.6-7.5)
[2017-03-19] MEDS: LACTOBACILLUS RHAMNOSUS CAP PO SCH ×2 (08:35→21:00)
[2017-03-19] MEDS: FAMOTIDINE 20 MG TAB PO SCH (08:35)
[2017-03-19] MEDS: ENOXAPARIN 40 MG/0.4 ML SYG SC SCH (08:36)
[2017-03-19] MEDS: POLYETHYLENE GLYCOL 17 GM PACKET PO SCH (08:40)
[2017-03-19] MEDS: ALPRAZOLAM 0.25 MG TAB PO SCH ×2 (08:43→21:00)
[2017-03-19 08:58] VITALS: BP 128/72; RESP 20
--- NOTE | 2017-03-19 13:09 | PN ---
Date/Time of Note Date/Time of Note DATE: 03/19/17 TIME: 13:07 Assessment/Plan VTE Prophylaxis VTE Prophylaxis Intervention: SCD's Lines/Catheters IV Catheter Type (from Nrs): PICC Line Central line still needed: Yes Urinary Cath still in place: No Assessment/Plan Chief Complaint/Hosp Course A/P 1. Metastatic leiomyosarcoma. Stable on chemo. Prognosis poor. Will need outpatient oncology follow-up/referral. ok to discharge from her standpoint. 2. Left lwr lobe pneumonia, stable finished antibiotics. Possible postobstructive in nature. 3. Ho KIERAN/BSO May 2016 at [place] 4. Chr asthma 5. Past tobacco 6. Chr bipolar 7. Chr fibromyalgia 8. Chr diabetes/metabolic syndrome 9. Chr rheumatoid arthritis? 10. Anemia 11. Adjustment disorder 12. Ftt/homelessness. May need placement. [place] [facility]? 13. Abd pain, abn LFTs, fever. Ultrasound lipase pending. Plan to discharge to care home facility Problems: Subjective 24 Hr Interval Summary Free Text/Dictation No acute event Positive bowel movement Denies of any chest pain or shortness of breath Minimal abdominal discomfort Status post Neupogen Exam/Review of Systems Vital Signs Vitals Vital Signs Date Time Temp Pulse Resp B/P Pulse Ox O2 Delivery O2 Flow Rate FiO2 03/19/17 08:58 98.5 122 20 128/72 96 03/19/17 08:20 Nasal Cannula 2.0 03/19/17 01:31 21 Intake and Output 03/18/17 03/18/17 03/19/17 15:00 23:00 07:00 Intake Total 400 ml Balance 400 ml Exam General: The patient is Not in acute distress. HEENT: Atraumatic, normocephalic. The pupils are equal and round . Neck: Supple Chest: Normal expansion of the thorax during inspiration Lungs: Clear to auscultation bilaterally Heart: Normal S1-S2, Regular rhythm and rate. Abdomen: Soft , nontender, minimal distended , bowel sounds are present. Extremities: Normal to inspection, no edema no cyanosis Neurologic: Normal mental status,The patient is awake, alert and oriented . Results Result Diagram: 03/19/17 0435 03/19/17 0435 Results 24 hrs Laboratory Tests Test 03/19/17 04:35 White Blood Count 22.8 #H Red Blood Count 4.03 L Hemoglobin 11.8 L Hematocrit 35.6 L Mean Corpuscular Volume 88.3 Mean Corpuscular Hemoglobin 29.3 Mean Corpuscular Hemoglobin Concent 33.1 Red Cell Distribution Width 13.0 Platelet Count 137 L Mean Platelet Volume 10.5 H Neutrophils % 91.0 H Band Neutrophils % 4.0 Lymphocytes % 3.0 L Monocytes % 1.0 Metamyelocytes % 1.0 H Neutrophils # 20.7 H Lymphocytes # 0.7 L Monocytes # 0.2 L Metamyelocytes # 0.2 Prothrombin Time 13.4 Prothrombin Time Ratio 1.0 INR International Normalized Ratio 1.02 Sodium Level 137 Potassium Level 3.4 L Chloride Level 95 L Carbon Dioxide Level 30 Anion Gap 15 Blood Urea Nitrogen 11 Creatinine 0.50 Glucose Level 129 Calcium Level 9.0 Phosphorus Level 3.1 Magnesium Level 1.6 L Total Bilirubin 0.4 Direct Bilirubin 0.00 Indirect Bilirubin 0.4 Aspartate Amino Transf (AST/SGOT) 208 H Alanine Aminotransferase (ALT/SGPT) 243 H Alkaline Phosphatase 96 Total Protein 6.5 Albumin 3.9 Globulin 2.60 Albumin/Globulin Ratio 1.50 Lipase 20 L Medications Medications Current Medications Guaifenesin/ Dextromethorphan (Robitussin Dm Liquid Cup) 10 ml Q4H PRN PO COUGH Last administered on 03/05/17 00:22; Admin Dose 10 ML; Start 02/26/17 at 03:30 Hydromorphone HCl (Dilaudid) 1 mg Q4H PRN IV PAIN Last administered on 13:03; Admin Dose 1 MG; Start 02/26/17 at 03:30 Ondansetron HCl (Zofran Inj) 4 mg Q4H PRN IV NAUSEA AND/OR VOMITING Last administered on 03/19/17 13:03; Admin Dose 4 MG; Start 02/26/17 at 03:30 Enoxaparin Sodium (Lovenox) 40 mg DAILY SC Last administered on 03/19/17 08:36 ; Admin Dose 40 MG; Start 02/26/17 at 09:00 Alprazolam (Xanax) 0.25 mg BID PO Last administered on 03/19/17 08:43; Admin Dose 0.25 MG; Start 02/26/17 at 20:00 IV Flush 10 ml 10 ml PRN PRN IV IV PROTOCOL Last administered on 03/19/17 04: 03; Admin Dose 10 ML; Start 03/09/17 at 13:00 Sodium Chloride (NS) 1,000 ml @ 75 mls/hr [id number] IV Last administered on 20:17; Admin Dose 75 MLS/HR; Start 03/16/17 at 20:00 Senna/Docusate Sodium (Senokot-S) 2 tab HS PO Last administered on 03/17/17 21: 21; Admin Dose 2 TAB; Start 03/12/17 at 21:00 Lactobacillus Acidophilus/ Rhamnosus (Culturelle) 1 cap BID PO Last administered on 03/19/17 08:35; Admin Dose 1 CAP; Start 03/12/17 at 21:00 Famotidine (Pepcid) 20 mg DAILY PO Last administered on 03/19/17 08:35; Admin Dose 20 MG; Start 03/13/17 at 09:00 Acetaminophen/ Hydrocodone Bitart ([place] (10/325)) 1 tab Q4H PRN PO PAIN; Start 03/12/17 at 19:30 Bisacodyl (Dulcolax) 10 mg DAILY PRN PO CONSTIPATION Last administered on 08:44; Admin Dose 10 MG; Start 03/14/17 at 14:30 Polyethylene Glycol (Miralax) 17 gm DAILY PO Last administered on 03/17/17 09: 16; Admin Dose 17 GM; Start 03/14/17 at 14:30 Ondansetron HCl (Zofran Tab) 4 mg Q4H PRN PO NAUSEA AND/OR VOMITING Last administered on 03/18/17 09:51; Admin Dose 4 MG; Start 03/16/17 at 08:00 Filgrastim (Neupogen) 300 mcg DAILY@17 SC Last administered on 03/18/17 17:56; Admin Dose 300 MCG; Start 03/18/17 at 17:00 RAMESH HOLT MD Mar 19, 2017 13:09
[2017-03-19] MEDS: FILGRASTIM 300 MCG INJ SC SCH (18:04)
[2017-03-19 20:02] VITALS: BP 125/64; RESP 18
[2017-03-19] MEDS: SENNA/DOCUSATE NA (8.6MG/50MG) TAB PO SCH (21:00)
--- NOTE | 2017-03-19 23:27 | CONS ---
Date/Time of Note Date/Time of Note DATE: 03/19/17 TIME: 23:26 Assessment/Plan Assessment/Plan Chief Complaint/Hosp Course metastatic UTERINE LEIOMYOSARCOMA History of uterine cancer. PT UNDERWENT KIERAN FOR UTERINE LEIOMYOSARCOMA IN MAY 2016 AT [facility] SHE SAW DR LOZA 3 TIMES OUTPT PT SAW DR VILLAREAL , WITH PLAN FOR CHEMOTHERAPY, BUT NO AUTH HAS BEEN OBTAINED Diffuse bilateral pulmonary metastatic disease , WITH Prominent mediastinal and hilar lymph nodes Respiratory distress suspect secondary to neoplastic process CT ABD - 62 mm mass in the right purvi pelvis represents metastatic neoplasm until proven otherwise. Numerous large metastatic deposits again seen bilateral lung bases, with small pleural effusions. TUMOR MARKERS- CA 125 - 170, ELEVATED RECORD- reviewed POST LUNG BX- path c/w metastatic leiomyosarcoma PICC LINE PLAN CHEMO - TAXOTERE / GEMZAR-- DAY 05/31 SUPPORT WITH NEUPOGEN POST CHEMO History of bipolar/schizophrenia. No active issue noted at this time. Continue to monitor for now. Problems: Consultation Date/Type/Reason Admit Date/Time Feb 26, 2017 at 03:22 Initial Consult Date 02/27/17 Type of Consultation: [facility] Referring Provider: ANGELA MCNEIL 24 HR Interval Summary Free Text/Dictation ALL NOTED Exam/Review of Systems Vital Signs Vitals Vital Signs Date Time Temp Pulse Resp B/P Pulse Ox O2 Delivery O2 Flow Rate FiO2 03/19/17 20:10 Nasal Cannula 2.0 03/19/17 20:02 98.3 105 18 125/64 99 03/19/17 01:31 21 Intake and Output 03/18/17 03/18/17 03/19/17 15:00 23:00 07:00 Intake Total 400 ml Balance 400 ml Exam Constitutional: alert Psych: no complaints Head: normocephalic ENMT: nl external ears & nose Neck: supple Respiratory: clear to auscultation, diminished breath sounds, normal air movement Cardiovascular: regular rate and rhythm Gastrointestinal: non-tender, soft Extremities: normal pulses 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, nl mental status, nl speech, nl strength Skin: nl turgor Lymph: nl lymph nodes Results Result Diagram: 03/19/17 0435 03/19/17 0435 Results 24 hrs Laboratory Tests Test 03/19/17 04:35 White Blood Count 22.8 #H Red Blood Count 4.03 L Hemoglobin 11.8 L Hematocrit 35.6 L Mean Corpuscular Volume 88.3 Mean Corpuscular Hemoglobin 29.3 Mean Corpuscular Hemoglobin Concent 33.1 Red Cell Distribution Width 13.0 Platelet Count 137 L Mean Platelet Volume 10.5 H Neutrophils % 91.0 H Band Neutrophils % 4.0 Lymphocytes % 3.0 L Monocytes % 1.0 Metamyelocytes % 1.0 H Neutrophils # 20.7 H Lymphocytes # 0.7 L Monocytes # 0.2 L Metamyelocytes # 0.2 Prothrombin Time 13.4 Prothrombin Time Ratio 1.0 INR International Normalized Ratio 1.02 Sodium Level 137 Potassium Level 3.4 L Chloride Level 95 L Carbon Dioxide Level 30 Anion Gap 15 Blood Urea Nitrogen 11 Creatinine 0.50 Glucose Level 129 Calcium Level 9.0 Phosphorus Level 3.1 Magnesium Level 1.6 L Total Bilirubin 0.4 Direct Bilirubin 0.00 Indirect Bilirubin 0.4 Aspartate Amino Transf (AST/SGOT) 208 H Alanine Aminotransferase (ALT/SGPT) 243 H Alkaline Phosphatase 96 Total Protein 6.5 Albumin 3.9 Globulin 2.60 Albumin/Globulin Ratio 1.50 Lipase 20 L Medications Medications Current Medications Guaifenesin/ Dextromethorphan (Robitussin Dm Liquid Cup) 10 ml Q4H PRN PO COUGH Last administered on 03/05/17 00:22; Admin Dose 10 ML; Start 02/26/17 at 03:30 Hydromorphone HCl (Dilaudid) 1 mg Q4H PRN IV PAIN Last administered on 17:58; Admin Dose 1 MG; Start 02/26/17 at 03:30 Ondansetron HCl (Zofran Inj) 4 mg Q4H PRN IV NAUSEA AND/OR VOMITING Last administered on 03/19/17 17:58; Admin Dose 4 MG; Start 02/26/17 at 03:30 Enoxaparin Sodium (Lovenox) 40 mg DAILY SC Last administered on 03/19/17 08:36 ; Admin Dose 40 MG; Start 02/26/17 at 09:00 Alprazolam (Xanax) 0.25 mg BID PO Last administered on 03/19/17 21:00; Admin Dose 0.25 MG; Start 02/26/17 at 20:00 IV Flush 10 ml 10 ml PRN PRN IV IV PROTOCOL Last administered on 03/19/17 04: 03; Admin Dose 10 ML; Start 03/09/17 at 13:00 Sodium Chloride (NS) 1,000 ml @ 75 mls/hr [id number] IV Last administered on 20:17; Admin Dose 75 MLS/HR; Start 03/16/17 at 20:00 Senna/Docusate Sodium (Senokot-S) 2 tab HS PO Last administered on 03/17/17 21: 21; Admin Dose 2 TAB; Start 03/12/17 at 21:00 Lactobacillus Acidophilus/ Rhamnosus (Culturelle) 1 cap BID PO Last administered on 03/19/17 08:35; Admin Dose 1 CAP; Start 03/12/17 at 21:00 Famotidine (Pepcid) 20 mg DAILY PO Last administered on 03/19/17 08:35; Admin Dose 20 MG; Start 03/13/17 at 09:00 Acetaminophen/ Hydrocodone Bitart ([place] (10/325)) 1 tab Q4H PRN PO PAIN; Start 03/12/17 at 19:30 Bisacodyl (Dulcolax) 10 mg DAILY PRN PO CONSTIPATION Last administered on 08:44; Admin Dose 10 MG; Start 03/14/17 at 14:30 Polyethylene Glycol (Miralax) 17 gm DAILY PO Last administered on 03/17/17 09: 16; Admin Dose 17 GM; Start 03/14/17 at 14:30 Ondansetron HCl (Zofran Tab) 4 mg Q4H PRN PO NAUSEA AND/OR VOMITING Last administered on 03/18/17 09:51; Admin Dose 4 MG; Start 03/16/17 at 08:00 JUSTINA AGUIRRE MD Mar 19, 2017 23:27
[2017-03-20] MEDS: HYDROmorphONE 1 MG/ML SYG IV PRN ×5 (01:31→21:48)
[2017-03-20] MEDS: SOD CHLORIDE 0.9% 1,000 ML IV SCH ×2 (04:00→16:28)
[2017-03-20 05:17] LABS: ADD SCAN DIFF NO
[2017-03-20 05:22] LABS: BASOPHILS % 0.1 % (0.0-2.0); EOSINOPHILS # 0.1 10^3/ul (0.0-0.5); EOSINOPHILS % 0.6 % (0.0-7.0); HEMATOCRIT 33.7 % (37.0-47.0); LYMPHOCYTES # 1.1 10^3/ul (0.8-2.9); LYMPHOCYTES % 5.3 % (15.0-51.0); MEAN CORPUSCULAR HGB CONC 32.6 g/dl (32.0-37.0); MEAN CORPUSCULAR VOLUME 88.9 fl (82.0-101.0); MONOCYTE # 0.1 10^3/ul (0.3-0.9); MONOCYTES % 0.6 % (0.0-11.0); NEUTROPHIL # 18.4 10^3/ul (1.6-7.5); NEUTROPHILS % 90.3 % (39.0-77.0); PLATELET COUNT 126 10^3/UL (140-415); RED BLOOD COUNT 3.79 10^6/ul (4.20-5.40); RED CELL DISTRIBUTION WIDTH 13.2 % (11.5-14.5); WHITE BLOOD COUNT 20.3 10^3/ul (4.8-10.8)
[2017-03-20 05:41] LABS: CREATININE 0.53 mg/dl (0.44-1.00); POTASSIUM 3.7 mmol/L (3.5-5.1)
[2017-03-20 08:19] VITALS: BP 111/67; RESP 19
[2017-03-20] MEDS: ONDANSETRON 4 MG INJ IV PRN ×4 (08:34→20:38)
[2017-03-20] MEDS: POLYETHYLENE GLYCOL 17 GM PACKET PO SCH (08:39)
[2017-03-20] MEDS: LACTOBACILLUS RHAMNOSUS CAP PO SCH ×2 (08:42→21:48)
[2017-03-20] MEDS: ALPRAZOLAM 0.25 MG TAB PO SCH ×2 (08:42→21:48)
[2017-03-20] MEDS: FAMOTIDINE 20 MG TAB PO SCH (08:42)
[2017-03-20] MEDS: ENOXAPARIN 40 MG/0.4 ML SYG SC SCH (08:46)
--- NOTE | 2017-03-20 10:03 | CONS ---
Date/Time of Note Date/Time of Note DATE: 03/20/17 TIME: 10:02 Assessment/Plan Assessment/Plan Chief Complaint/Hosp Course metastatic UTERINE LEIOMYOSARCOMA History of uterine cancer. PT UNDERWENT KIERAN FOR UTERINE LEIOMYOSARCOMA IN MAY 2016 AT [facility] SHE SAW DR LOZA 3 TIMES OUTPT PT SAW DR VILLAREAL , WITH PLAN FOR CHEMOTHERAPY, BUT NO AUTH HAS BEEN OBTAINED Diffuse bilateral pulmonary metastatic disease , WITH Prominent mediastinal and hilar lymph nodes Respiratory distress suspect secondary to neoplastic process CT ABD - 62 mm mass in the right purvi pelvis represents metastatic neoplasm until proven otherwise. Numerous large metastatic deposits again seen bilateral lung bases, with small pleural effusions. TUMOR MARKERS- CA 125 - 170, ELEVATED RECORD- reviewed POST LUNG BX- path c/w metastatic leiomyosarcoma PICC LINE PLAN CHEMO - TAXOTERE / GEMZAR-- DAY 05/31 SUPPORT WITH NEUPOGEN POST CHEMO History of bipolar/schizophrenia. No active issue noted at this time. Continue to monitor for now. Problems: Consultation Date/Type/Reason Admit Date/Time Feb 26, 2017 at 03:22 Initial Consult Date 02/27/17 [facility] Referring Provider: ANGELA MCNEIL 24 HR Interval Summary Free Text/Dictation ALL NOTED Exam/Review of Systems Vital Signs Vitals Vital Signs Date Time Temp Pulse Resp B/P Pulse Ox O2 Delivery O2 Flow Rate FiO2 03/20/17 08:19 97.5 79 19 111/67 99 03/19/17 20:10 Nasal Cannula 2.0 03/19/17 01:31 21 Intake and Output 03/19/17 03/19/17 03/20/17 15:00 23:00 07:00 Intake Total 420 ml Output Total 180 ml Balance 240 ml Exam Constitutional: alert Psych: no complaints Head: normocephalic ENMT: nl external ears & nose Neck: supple Respiratory: clear to auscultation, diminished breath sounds, normal air movement Cardiovascular: regular rate and rhythm Gastrointestinal: non-tender, soft Extremities: normal pulses Neurological: PROCESS CONTROLLER II-XII intact, nl mental status, nl speech, nl strength Skin: nl turgor Lymph: nl lymph nodes Results Result Diagram: 03/20/17 0433 03/20/17 0433 Results 24 hrs Laboratory Tests Test 03/20/17 04:33 White Blood Count 20.3 H Red Blood Count 3.79 L Hemoglobin 11.0 L Hematocrit 33.7 L Mean Corpuscular Volume 88.9 Mean Corpuscular Hemoglobin 29.0 Mean Corpuscular Hemoglobin Concent 32.6 Red Cell Distribution Width 13.2 Platelet Count 126 L Mean Platelet Volume 11.0 H Neutrophils % 90.3 H Lymphocytes % 5.3 L Monocytes % 0.6 Eosinophils % 0.6 Basophils % 0.1 Nucleated Red Blood Cells % 0.0 Neutrophils # 18.4 H Lymphocytes # 1.1 Monocytes # 0.1 L Eosinophils # 0.1 Basophils # 0.0 Nucleated Red Blood Cells # 0.0 Sodium Level 138 Potassium Level 3.7 Chloride Level 96 L Carbon Dioxide Level 31 Anion Gap 15 Blood Urea Nitrogen 10 Creatinine 0.53 Glucose Level 102 Calcium Level 9.0 Medications Medications Current Medications Guaifenesin/ Dextromethorphan (Robitussin Dm Liquid Cup) 10 ml Q4H PRN PO COUGH Last administered on 03/05/17 00:22; Admin Dose 10 ML; Start 02/26/17 at 03:30 Hydromorphone HCl (Dilaudid) 1 mg Q4H PRN IV PAIN Last administered on 08:38; Admin Dose 1 MG; Start 02/26/17 at 03:30 Ondansetron HCl (Zofran Inj) 4 mg Q4H PRN IV NAUSEA AND/OR VOMITING Last administered on 03/20/17 08:34; Admin Dose 4 MG; Start 02/26/17 at 03:30 Enoxaparin Sodium (Lovenox) 40 mg DAILY SC Last administered on 03/20/17 08:46 ; Admin Dose 40 MG; Start 02/26/17 at 09:00 Alprazolam (Xanax) 0.25 mg BID PO Last administered on 03/20/17 08:42; Admin Dose 0.25 MG; Start 02/26/17 at 20:00 IV Flush 10 ml 10 ml PRN PRN IV IV PROTOCOL Last administered on 03/20/17 04: 37; Admin Dose 10 ML; Start 03/09/17 at 13:00 Sodium Chloride (NS) 1,000 ml @ 75 mls/hr [id number] IV Last administered on 20:17; Admin Dose 75 MLS/HR; Start 03/16/17 at 20:00 Senna/Docusate Sodium (Senokot-S) 2 tab HS PO Last administered on 03/17/17 21: 21; Admin Dose 2 TAB; Start 03/12/17 at 21:00 Lactobacillus Acidophilus/ Rhamnosus (Culturelle) 1 cap BID PO Last administered on 03/20/17 08:42; Admin Dose 1 CAP; Start 03/12/17 at 21:00 Famotidine (Pepcid) 20 mg DAILY PO Last administered on 03/20/17 08:42; Admin Dose 20 MG; Start 03/13/17 at 09:00 Acetaminophen/ Hydrocodone Bitart ([place] (10/325)) 1 tab Q4H PRN PO PAIN; Start 03/12/17 at 19:30 Bisacodyl (Dulcolax) 10 mg DAILY PRN PO CONSTIPATION Last administered on 08:44; Admin Dose 10 MG; Start 03/14/17 at 14:30 Polyethylene Glycol (Miralax) 17 gm DAILY PO Last administered on 03/17/17 09: 16; Admin Dose 17 GM; Start 03/14/17 at 14:30 Ondansetron HCl (Zofran Tab) 4 mg Q4H PRN PO NAUSEA AND/OR VOMITING Last administered on 03/18/17 09:51; Admin Dose 4 MG; Start 03/16/17 at 08:00 JUSTINA AGUIRRE MD Mar 20, 2017 10:02
--- NOTE | 2017-03-20 12:54 | PN ---
Date/Time of Note Date/Time of Note DATE: 03/20/17 TIME: 12:53 Assessment/Plan VTE Prophylaxis VTE Prophylaxis Intervention: SCD's Lines/Catheters IV Catheter Type (from Nrs): PICC Line Central line still needed: Yes Urinary Cath still in place: No Assessment/Plan Chief Complaint/Hosp Course A/P 1. Metastatic leiomyosarcoma. Stable on chemo. Prognosis poor. Will need outpatient oncology follow-up/referral. ok to discharge from her standpoint. 2. Left lwr lobe pneumonia, stable finished antibiotics. Possible postobstructive in nature. 3. Ho KIERAN/BSO May 2016 at [place] 4. Chr asthma 5. Past tobacco 6. Chr bipolar 7. Chr fibromyalgia 8. Chr diabetes/metabolic syndrome 9. Chr rheumatoid arthritis? 10. Anemia 11. Adjustment disorder 12. Ftt/homelessness. May need placement. [place] [facility]? 13. Abd pain, abn LFTs, fever. Ultrasound lipase pending. Plan to discharge to long-term facility when bed is available Problems: Subjective 24 Hr Interval Summary Free Text/Dictation Patient denies any chest pain or shortness of breath Tolerating oral intake Denies any nausea vomiting Ambulating with moderate assist Exam/Review of Systems Vital Signs Vitals Vital Signs Date Time Temp Pulse Resp B/P Pulse Ox O2 Delivery O2 Flow Rate FiO2 03/20/17 08:19 97.5 79 19 111/67 99 03/19/17 20:10 Nasal Cannula 2.0 03/19/17 01:31 21 Intake and Output 03/19/17 03/19/17 03/20/17 15:00 23:00 07:00 Intake Total 420 ml Output Total 180 ml Balance 240 ml Exam General: The patient is well-developed, Not in acute distress. HEENT: Atraumatic, normocephalic. The pupils are equal and round . Neck: Supple Chest: Normal Lungs: Clear to auscultation bilaterally Heart: Normal S1-S2, Regular rhythm and rate. Abdomen: Soft , nontender, nondistended , bowel sounds are present. Extremities: Normal to inspection, no edema no cyanosis Neurologic: Normal mental status,The patient is awake, alert and oriented . Results Result Diagram: 03/20/17 0433 03/20/17 0433 Results 24 hrs Laboratory Tests Test 03/20/17 04:33 White Blood Count 20.3 H Red Blood Count 3.79 L Hemoglobin 11.0 L Hematocrit 33.7 L Mean Corpuscular Volume 88.9 Mean Corpuscular Hemoglobin 29.0 Mean Corpuscular Hemoglobin Concent 32.6 Red Cell Distribution Width 13.2 Platelet Count 126 L Mean Platelet Volume 11.0 H Neutrophils % 90.3 H Lymphocytes % 5.3 L Monocytes % 0.6 Eosinophils % 0.6 Basophils % 0.1 Nucleated Red Blood Cells % 0.0 Neutrophils # 18.4 H Lymphocytes # 1.1 Monocytes # 0.1 L Eosinophils # 0.1 Basophils # 0.0 Nucleated Red Blood Cells # 0.0 Sodium Level 138 Potassium Level 3.7 Chloride Level 96 L Carbon Dioxide Level 31 Anion Gap 15 Blood Urea Nitrogen 10 Creatinine 0.53 Glucose Level 102 Calcium Level 9.0 Medications Medications Current Medications Guaifenesin/ Dextromethorphan (Robitussin Dm Liquid Cup) 10 ml Q4H PRN PO COUGH Last administered on 03/05/17 00:22; Admin Dose 10 ML; Start 02/26/17 at 03:30 Hydromorphone HCl (Dilaudid) 1 mg Q4H PRN IV PAIN Last administered on 08:38; Admin Dose 1 MG; Start 02/26/17 at 03:30 Ondansetron HCl (Zofran Inj) 4 mg Q4H PRN IV NAUSEA AND/OR VOMITING Last administered on 03/20/17 08:34; Admin Dose 4 MG; Start 02/26/17 at 03:30 Enoxaparin Sodium (Lovenox) 40 mg DAILY SC Last administered on 03/20/17 08:46 ; Admin Dose 40 MG; Start 02/26/17 at 09:00 Alprazolam (Xanax) 0.25 mg BID PO Last administered on 03/20/17 08:42; Admin Dose 0.25 MG; Start 02/26/17 at 20:00 IV Flush 10 ml 10 ml PRN PRN IV IV PROTOCOL Last administered on 03/20/17 04: 37; Admin Dose 10 ML; Start 03/09/17 at 13:00 Sodium Chloride (NS) 1,000 ml @ 75 mls/hr [id number] IV Last administered on 20:17; Admin Dose 75 MLS/HR; Start 03/16/17 at 20:00 Senna/Docusate Sodium (Senokot-S) 2 tab HS PO Last administered on 03/17/17 21: 21; Admin Dose 2 TAB; Start 03/12/17 at 21:00 Lactobacillus Acidophilus/ Rhamnosus (Culturelle) 1 cap BID PO Last administered on 03/20/17 08:42; Admin Dose 1 CAP; Start 03/12/17 at 21:00 Famotidine (Pepcid) 20 mg DAILY PO Last administered on 03/20/17 08:42; Admin Dose 20 MG; Start 03/13/17 at 09:00 Acetaminophen/ Hydrocodone Bitart ([place] (10/325)) 1 tab Q4H PRN PO PAIN; Start 03/12/17 at 19:30 Bisacodyl (Dulcolax) 10 mg DAILY PRN PO CONSTIPATION Last administered on 08:44; Admin Dose 10 MG; Start 03/14/17 at 14:30 Polyethylene Glycol (Miralax) 17 gm DAILY PO Last administered on 03/17/17 09: 16; Admin Dose 17 GM; Start 03/14/17 at 14:30 Ondansetron HCl (Zofran Tab) 4 mg Q4H PRN PO NAUSEA AND/OR VOMITING Last administered on 03/18/17 09:51; Admin Dose 4 MG; Start 03/16/17 at 08:00 RAMESH HOLT MD Mar 20, 2017 12:54
[2017-03-20 20:11] VITALS: BP 127/66; RESP 20
[2017-03-20] MEDS: SENNA/DOCUSATE NA (8.6MG/50MG) TAB PO SCH (21:48)
[2017-03-21] MEDS: HYDROmorphONE 1 MG/ML SYG IV PRN ×2 (04:56→08:53)
[2017-03-21 05:34] LABS: ADD SCAN DIFF NO
[2017-03-21 05:38] LABS: ABNORMAL IP MESSAGE 1; BASOPHILS % 0.2 % (0.0-2.0); EOSINOPHILS # 0.3 10^3/ul (0.0-0.5); HEMATOCRIT 34.7 % (37.0-47.0); HEMOGLOBIN 11.1 g/dl (12.0-16.0); LYMPHOCYTES # 1.1 10^3/ul (0.8-2.9); LYMPHOCYTES % 13.3 % (15.0-51.0); MEAN CORPUSCULAR HEMOGLOBIN 28.6 pg (29.0-33.0); MEAN CORPUSCULAR VOLUME 89.4 fl (82.0-101.0); MEAN PLATELET VOLUME 10.9 fl (7.4-10.4); MONOCYTE # 0.1 10^3/ul (0.3-0.9); MONOCYTES % 1.3 % (0.0-11.0); NEUTROPHIL # 6.6 10^3/ul (1.6-7.5); NEUTROPHILS % 77.1 % (39.0-77.0); PLATELET COUNT 150 10^3/UL (140-415); RED BLOOD COUNT 3.88 10^6/ul (4.20-5.40); RED CELL DISTRIBUTION WIDTH 13.1 % (11.5-14.5); WHITE BLOOD COUNT 8.6 10^3/ul (4.8-10.8)
[2017-03-21 06:31] LABS: CALCIUM 9.2 mg/dl (8.4-10.2); CREATININE 0.52 mg/dl (0.44-1.00); POTASSIUM 3.8 mmol/L (3.5-5.1)
[2017-03-21] MEDS: SOD CHLORIDE 0.9% 1,000 ML IV SCH (06:40)
[2017-03-21 08:02] VITALS: BP 125/60; RESP 18
[2017-03-21] MEDS: LACTOBACILLUS RHAMNOSUS CAP PO SCH (08:16)
[2017-03-21] MEDS: FAMOTIDINE 20 MG TAB PO SCH (08:17)
[2017-03-21] MEDS: ALPRAZOLAM 0.25 MG TAB PO SCH ×2 (08:18→20:49)
[2017-03-21] MEDS: ONDANSETRON 4 MG INJ IV PRN ×3 (08:22→17:26)
[2017-03-21] MEDS: ENOXAPARIN 40 MG/0.4 ML SYG SC SCH (08:22)
[2017-03-21] MEDS: POLYETHYLENE GLYCOL 17 GM PACKET PO SCH (08:26)
[2017-03-21] MEDS: ALBUTEROL/IPRATROPIUM (NEB) 3 ML AMP HHN PRN ×2 (08:28→17:53)
[2017-03-21] MEDS: HYDROCODONE/APAP (10/325) TAB PO PRN ×2 (12:45→17:27)
--- NOTE | 2017-03-21 13:35 | CONS ---
Date/Time of Note Date/Time of Note DATE: 03/21/17 TIME: 13:34 Assessment/Plan Assessment/Plan Chief Complaint/Hosp Course metastatic UTERINE LEIOMYOSARCOMA History of uterine cancer. PT UNDERWENT KIERAN FOR UTERINE LEIOMYOSARCOMA IN MAY 2016 AT [facility] SHE SAW DR LOZA 3 TIMES OUTPT PT SAW DR VILLAREAL , WITH PLAN FOR CHEMOTHERAPY, BUT NO AUTH HAS BEEN OBTAINED Diffuse bilateral pulmonary metastatic disease , WITH Prominent mediastinal and hilar lymph nodes Respiratory distress suspect secondary to neoplastic process CT ABD - 62 mm mass in the right purvi pelvis represents metastatic neoplasm until proven otherwise. Numerous large metastatic deposits again seen bilateral lung bases, with small pleural effusions. TUMOR MARKERS- CA 125 - 170, ELEVATED RECORD- reviewed POST LUNG BX- path c/w metastatic leiomyosarcoma PICC LINE PLAN CHEMO - TAXOTERE / GEMZAR-- DAY 05/31 SUPPORT WITH NEUPOGEN POST CHEMO History of bipolar/schizophrenia. No active issue noted at this time. Continue to monitor for now. Problems: Consultation Date/Type/Reason Admit Date/Time Feb 26, 2017 at 03:22 Initial Consult Date 02/27/17 Type of Consultation: [facility] Referring Provider: ANGELA MCNEIL Exam/Review of Systems Vital Signs Vitals Vital Signs Date Time Temp Pulse Resp B/P Pulse Ox O2 Delivery O2 Flow Rate FiO2 03/21/17 08:31 96 18 92 21 03/21/17 08:02 98.3 125/60 03/21/17 08:00 Nasal Cannula 2.0 Intake and Output 03/20/17 03/20/17 03/21/17 15:00 23:00 07:00 Intake Total 530 ml 840 ml Output Total 700 ml Balance -170 ml 840 ml Results Result Diagram: 03/21/17 0455 03/21/17 0455 Results 24 hrs Laboratory Tests Test 03/21/17 04:55 White Blood Count 8.6 # Red Blood Count 3.88 L Hemoglobin 11.1 L Hematocrit 34.7 L Mean Corpuscular Volume 89.4 Mean Corpuscular Hemoglobin 28.6 L Mean Corpuscular Hemoglobin Concent 32.0 Red Cell Distribution Width 13.1 Platelet Count 150 Mean Platelet Volume 10.9 H Neutrophils % 77.1 H Lymphocytes % 13.3 L Monocytes % 1.3 Eosinophils % 3.0 Basophils % 0.2 Nucleated Red Blood Cells % 0.0 Neutrophils # 6.6 Lymphocytes # 1.1 Monocytes # 0.1 L Eosinophils # 0.3 Basophils # 0.0 Nucleated Red Blood Cells # 0.0 Sodium Level 130 L Potassium Level 3.8 Chloride Level 97 Carbon Dioxide Level 31 Anion Gap 6 #L Blood Urea Nitrogen 11 Creatinine 0.52 Glucose Level 100 Calcium Level 9.2 Medications Medications Current Medications Guaifenesin/ Dextromethorphan (Robitussin Dm Liquid Cup) 10 ml Q4H PRN PO COUGH Last administered on 03/05/17 00:22; Admin Dose 10 ML; Start 02/26/17 at 03:30 Hydromorphone HCl (Dilaudid) 1 mg Q4H PRN IV PAIN Last administered on 08:53; Admin Dose 1 MG; Start 02/26/17 at 03:30 Ondansetron HCl (Zofran Inj) 4 mg Q4H PRN IV NAUSEA AND/OR VOMITING Last administered on 03/21/17 12:45; Admin Dose 4 MG; Start 02/26/17 at 03:30 Enoxaparin Sodium (Lovenox) 40 mg DAILY SC Last administered on 03/21/17 08:22 ; Admin Dose 40 MG; Start 02/26/17 at 09:00 Alprazolam (Xanax) 0.25 mg BID PO Last administered on 03/21/17 08:18; Admin Dose 0.25 MG; Start 02/26/17 at 20:00 IV Flush 10 ml 10 ml PRN PRN IV IV PROTOCOL Last administered on 03/20/17 20: 44; Admin Dose 10 ML; Start 03/09/17 at 13:00 Sodium Chloride (NS) 1,000 ml @ 75 mls/hr [id number] IV Last administered on 20:17; Admin Dose 75 MLS/HR; Start 03/16/17 at 20:00 Senna/Docusate Sodium (Senokot-S) 2 tab HS PO Last administered on 03/20/17 21 :48; Admin Dose 2 TAB; Start 03/12/17 at 21:00 Lactobacillus Acidophilus/ Rhamnosus (Culturelle) 1 cap BID PO Last administered on 03/21/17 08:16; Admin Dose 1 CAP; Start 03/12/17 at 21:00 Famotidine (Pepcid) 20 mg DAILY PO Last administered on 03/21/17 08:17; Admin Dose 20 MG; Start 03/13/17 at 09:00 Acetaminophen/ Hydrocodone Bitart ([place] (10/325)) 1 tab Q4H PRN PO PAIN Last administered on 03/21/17 12:45; Admin Dose 1 TAB; Start 03/12/17 at 19:30 Bisacodyl (Dulcolax) 10 mg DAILY PRN PO CONSTIPATION Last administered on 08:44; Admin Dose 10 MG; Start 03/14/17 at 14:30 Polyethylene Glycol (Miralax) 17 gm DAILY PO Last administered on 03/17/17 09: 16; Admin Dose 17 GM; Start 03/14/17 at 14:30 Ondansetron HCl (Zofran Tab) 4 mg Q4H PRN PO NAUSEA AND/OR VOMITING Last administered on 03/18/17 09:51; Admin Dose 4 MG; Start 03/16/17 at 08:00 JUSTINA AGUIRRE MD Mar 21, 2017 13:34
--- NOTE | 2017-03-21 13:54 | DS ---
Date/Time of Note Date/Time of Note DATE: 03/21/17 TIME: 13:48 Discharge Summary Admission/Discharge Info Admit Date/Time Feb 26, 2017 at 03:22 Discharge Date/Time Discharge Diagnosis 1. Metastatic leiomyosarcoma. Stable on chemo. Prognosis poor. Will need outpatient oncology follow-up/referral. ok to discharge from her standpoint. 2. Left lwr lobe pneumonia, stable finished antibiotics. Possible postobstructive in nature. 3. Ho KIERAN/BSO May 2016 at [place] 4. Chr asthma 5. Past tobacco 6. Chr bipolar 7. Chr fibromyalgia 8. Chr diabetes/metabolic syndrome 9. Chr rheumatoid arthritis? 10. Anemia 11. Adjustment disorder 12. Ftt/homelessness. May need placement. [place] re[facility]? 13. Abd pain, abn LFTs, fever. Ultrasound lipase pending. Patient Condition: Fair Hx of Present Illness This is a 38-year-old female who presented to the [facility] for evaluation of cough productive of green sputum for the past several weeks associated with subjective fever and diffuse pain. [facility]. She also is complaining of shortness of breath. She was told that she may have metastatic disease to her lung. She was not receiving any chemotherapy. She had a history of uterine cancer in the past and did have a total abdominal hysterectomy. She has not received any radiation therapy. On my examination patient did appear in mild distress from pain. She also stated that she was short of breath. She was satting 88% on room air. Allergies: NKDA Medications: See [facility] Hospital Course Please see the discharge summary which was done by Dr. Atkinson No acute event since his discharge summary This is a 38-year-old female who presented to the [facility] for evaluation of cough productive of green sputum for the past several weeks associated with subjective fever and diffuse pain. She was subsequently transferred from [facility] to [facility]. She also is complaining of shortness of breath. She was told that she may have metastatic disease to her lung. She was not receiving any chemotherapy. Patient underwent KIERAN for uterine Leomyosarcoma in May 2016 at [facility]. She was seen by chain hoist operator oncologist as outpatient. Patient was planned to have chemotherapy as outpatient but no authorization was obtained as outpatient She had a history of uterine cancer in the past and did have a total abdominal hysterectomy. She has not received any radiation therapy. Patient was seen and evaluated by the chain hoist operator oncologist and has obtained a PICC line and has been started on chemotherapy which she will be set up for further chemotherapy as outpatient. She has been off oxygen at rest, Although upon ambulation patient continues to become hypoxic and has required oxygen which she will be set up as outpatient. Patient is asymptomatic without any chest pain , abdominal pain nausea vomiting diarrhea patient has been able to tolerate her oral intake without any difficulty. Home Meds Active Scripts Sennosides/Docusate Sodium (Senna Plus Tablet) 1 Each Tablet, 2 TAB PO HS for 3 Days, #10 TAB 1 Refill Prov:CASSIE HILARIO MD 03/13/17 Guaifenesin-Dextromethorphan* (Robitussin* DM) 100MG/10MG/5ML Syrup, 10 ML PO Q4H Y for COUGH for 1 Day, #1 otc Prov:CASSIE HILARIO MD 03/13/17 Levofloxacin* (Levaquin*) 750 Mg Tablet, 750 MG PO DAILY@06 for 5 Days, #5 TAB Prov:CASSIE HILARIO MD 03/13/17 Primary Care Provider Maximiliano Schneider MD Time spent on discharge: < 30 minutes Pending Labs Laboratory Tests Test 03/21/17 04:55 White Blood Count 8.610^3/ul (4.8-10.8) Red Blood Count 3.8810^6/ul (4.20-5.40) Hemoglobin 11.1g/dl (12.0-16.0) Hematocrit 34.7% (37.0-47.0) Mean Corpuscular Volume 89.4fl (82.0-101.0) Mean Corpuscular Hemoglobin 28.6pg (29.0-33.0) Mean Corpuscular Hemoglobin Concent 32.0g/dl (32.0-37.0) Red Cell Distribution Width 13.1% (11.5-14.5) Platelet Count 13122^3/UL (140-415) Mean Platelet Volume 10.9fl (7.4-10.4) Neutrophils % 77.1% (39.0-77.0) Lymphocytes % 13.3% (15.0-51.0) Monocytes % 1.3% (0.0-11.0) Eosinophils % 3.0% (0.0-7.0) Basophils % 0.2% (0.0-2.0) Nucleated Red Blood Cells % 0.0/100WBC (0.0-0.0) Neutrophils # 6.610^3/ul (1.6-7.5) Lymphocytes # 1.110^3/ul (0.8-2.9) Monocytes # 0.110^3/ul (0.3-0.9) Eosinophils # 0.310^3/ul (0.0-0.5) Basophils # 0.010^3/ul (0.0-0.1) Nucleated Red Blood Cells # 0.010^3/ul (0.0-0.0) Sodium Level 130mmol/L (135-144) Potassium Level 3.8mmol/L (3.5-5.1) Chloride Level 97mmol/L (97-110) Carbon Dioxide Level 31mmol/L (21-31) Anion Gap 6 (8-16) Blood Urea Nitrogen 11mg/dl (7-20) Creatinine 0.52mg/dl (0.44-1.00) Glucose Level 100mg/dl (70-220) Calcium Level 9.2mg/dl (8.4-10.2) RAMESH HOLT MD Mar 21, 2017 13:54
[2017-03-21 20:37] VITALS: BP 121/62; RESP 20
[2017-03-21] MEDS: ONDANSETRON 4 MG TAB PO PRN (20:50)
== END 2017-03-21 21:10 | disposition home health service (06) | DRG 180 ==
LOC: FTE 02:21 → MS4 03:22 → MS1 03-07 03:20
PROVIDERS: ADMIT Family Medicine; ATTEND Family Medicine
PROC: 02HV33Z Insertion of Infusion Device into Superior Vena Cava, Percutaneous Approach (ICD-10-PCS; principal; 2017-03-09)
PROC: 0BBG3ZX Excision of Left Upper Lung Lobe, Percutaneous Approach, Diagnostic (ICD-10-PCS; 2017-03-09)
PROC: 3E04305 Introduction of Other Antineoplastic into Central Vein, Percutaneous Approach (ICD-10-PCS; 2017-03-09)
DX: C78.02 Secondary malignant neoplasm of left lung (principal); J96.01 Acute respiratory failure with hypoxia; J18.9 Pneumonia, unspecified organism; R62.7 Adult failure to thrive; I10 Essential (primary) hypertension; D64.9 Anemia, unspecified; E11.9 Type 2 diabetes mellitus without complications; C78.01 Secondary malignant neoplasm of right lung; M06.9 Rheumatoid arthritis, unspecified; F31.9 Bipolar disorder, unspecified; M79.7 Fibromyalgia; J45.909 Unspecified asthma, uncomplicated; E88.9 Metabolic disorder, unspecified; F43.20 Adjustment disorder, unspecified; Z86.59 Personal history of other mental and behavioral disorders; Z85.42 Personal history of malignant neoplasm of other parts of uterus; Z87.891 Personal history of nicotine dependence; Z59.0 Homelessness
CPT/HCPCS: 36569; 71010; 71275; 74178; 76705; 76937; 77012; 80048; 80053; 80061; 82306; 82378; 83036; 83690; 83735; 84100; 84439; 84443; 85025; 85610; 85730; 86304; 87081; 88307; 88313; 88341; 88342; 94640; 94664; 96372; 96374; 96375; 96376; 97162; J9201; J1100; J1170; J1200; J1650; J1956; J2250; J2405; J3010; J7030; J7050; J9171; Q9967

== ENCOUNTER 2017-05-05 09:24 | Inpatient (IN) | payer OTHER ==
[~2017-05-05] VITALS: Ht 154.9 cm; Wt 81.0 kg
[~2017-05-05 09:24] MED LIST: LEVO750T25 PO; SENN-88 PO; UDROBDM PO
[2017-05-05] MEDS ORDERED: HYDROmorphONE 1 MG/ML SYG IV STA (09:52)
[2017-05-05] MEDS ORDERED: ONDANSETRON 4 MG INJ IV STA (09:52)
[2017-05-05 10:53] LABS: BASOPHIL # 0.1 10^3/ul (0.0-0.1); BASOPHILS % 0.4 % (0.0-2.0); EOSINOPHILS # 0.3 10^3/ul (0.0-0.5); EOSINOPHILS % 2.9 % (0.0-7.0); HEMOGLOBIN 12.6 g/dl (12.0-16.0); LYMPHOCYTES # 1.9 10^3/ul (0.8-2.9); LYMPHOCYTES % 16.5 % (15.0-51.0); MEAN CORPUSCULAR HEMOGLOBIN 28.6 pg (29.0-33.0); MEAN CORPUSCULAR HGB CONC 32.3 g/dl (32.0-37.0); MEAN CORPUSCULAR VOLUME 88.4 fl (82.0-101.0); MEAN PLATELET VOLUME 10.9 fl (7.4-10.4); MONOCYTE # 0.7 10^3/ul (0.3-0.9); MONOCYTES % 6.3 % (0.0-11.0); NEUTROPHILS % 73.6 % (39.0-77.0); PLATELET COUNT 272 10^3/UL (140-415); RED BLOOD COUNT 4.41 10^6/ul (4.20-5.40); RED CELL DISTRIBUTION WIDTH 14.5 % (11.5-14.5); WHITE BLOOD COUNT 11.3 10^3/ul (4.8-10.8)
[2017-05-05 11:22] LABS: INR 0.96; PROTIME 12.8 Sec (12.2-14.2)
[2017-05-05 11:23] LABS: PARTIAL THROMBOPLASTIN TIME 29.3 Sec (25.0-35.0)
[2017-05-05 11:25] LABS: ALANINE AMINOTRANSFERASE 59 IU/L (13-69); ALBUMIN/GLOBULIN RATIO 1.05; ALKALINE PHOSPHATASE 94 IU/L (42-121); ANION GAP 20 (8-16); ASPARTATE AMINO TRANSFERASE 56 IU/L (15-46); BILIRUBIN,INDIRECT 0.1 mg/dl (0-1.1); BILIRUBIN,TOTAL 0.1 mg/dl (0.2-1.3); BLOOD UREA NITROGEN 11 mg/dl (7-20); CALCIUM 9.8 mg/dl (8.4-10.2); CARBON DIOXIDE 30 mmol/L (21-31); CHLORIDE 99 mmol/L (97-110); CREATININE 0.66 mg/dl (0.44-1.00); GLUCOSE 116 mg/dl (70-220); SODIUM 145 mmol/L (135-144); TOTAL PROTEIN 7.8 g/dl (6.1-8.1)
[2017-05-05 11:40] LABS: TROPONIN-I < 0.012 ng/ml (0.00-0.12)
[2017-05-05] MEDS ORDERED: SOD CHLORIDE 0.9% 100 ML ONE (11:42)
[2017-05-05] MEDS ORDERED: IODIXANOL LOCM 100 ML BTL ONE (11:42)
--- NOTE | 2017-05-05 12:45 | RADRPT ---
AMENDMENT: 05/05/2017 1:39:09 PM Jorge Haynes M.D Please see report CT abdomen pelvis same date AMENDMENT: 05/05/2017 12:51:44 PM Jorge Haynes M.D Addendum: Report of CT chest, see report CT abdomen pelvis same date. PROCEDURE: CT abdomen and pelvis with intravenous contrast. CLINICAL INDICATION: Diabetes. Uterine cancer. Fibroid male shift. Respiratory distress. Lung mass. TECHNIQUE: CT scan of the chest, abdomen and pelvis with intravenous contrast was performed and is reconstructed at 2.5 mm contiguous axial intervals from the thoracic inlet to the inferior pubic ra mi.. The patient was scanned without intravenous contrast. Sagittal and coronal reformatted images were obtained from the axial source images. The calculated radiation dose measures 1015 mGy centime ters. The CTDI measures 15 mGy. COMPARISON: CT chest February 26. CT abdomen pelvis February 28. FINDINGS: Chest - there are innumerable solid and necrotic noncalcified lung nodules present, the largest of w hich is in the anterior basal segment of the right lower lobe measuring 9 cm in diameter. These are consistent with diffuse metastases. There has been slight decrease in size of several of these mas ses in the interim. No alveolar pneumonia is present. There is no effusion or pneumothorax. There is bilateral hilar adenopathy. No mediastinal adenopathy or masses seen. The osseous structures a re intact. No axillary, supraclavicular or internal mammary chain adenopathy is seen. Abdomen and pelvis - the liver is of normal size, contour and attenuation with no mass or ductal dil atation. No gallstones are seen. No splenic, adrenal or pancreatic abnormalities present. Kidneys enhance symmetrically. No hydronephrosis, calculus or solid renal mass is present. There is a 1 c m right renal cyst. Ureters are of normal course and caliber with no stone. No bladder masses ston e is present. There has been interval enlargement of a necrotic right pelvic shayne mass now measuri ng 8.5 by 6.7 cm. Uterus is been removed. No retroperitoneal adenopathy or mesenteric adenopathy i s seen. No bowel mass or obstruction is present. The appendix is normal. No phlegmon, ascites or pneumoperitoneum is present. No lytic or blastic lesions are identified. IMPRESSION: Slight decrease in size of several lung masses in patient with diffuse lung metastases. No alveolar infiltrate. Bilateral hilar adenopathy. Interval increase in size of necrotic right pelvic shayne mass. No evidence of urolithiasis, obstructive uropathy, diverticulitis or appendicitis. Right renal cyst . .Jorge Haynes MD, MD Date Time Electronically viewed and signed by .Jorge Haynes MD, MD on 05/05/2017 13:39 .A/
[2017-05-05] MEDS ORDERED: morphine 2 MG INJ IV ONE (13:00)
[2017-05-05 13:08] LABS: ADD UMIC NO; UR ASCORBIC ACID NEGATIVE (NEGATIVE); UR BILIRUBIN (Dip) NEGATIVE (NEGATIVE); UR BLOOD (Dip) NEGATIVE (NEGATIVE); UR CLARITY CLEAR (CLEAR); UR COLOR YELLOW (YELLOW); UR GLUCOSE (Dip) NEGATIVE (NEGATIVE); UR KETONES (Dip) NEGATIVE (NEGATIVE); UR LEUKOCYTE ESTERASE (Dip) NEGATIVE Leu/ul (NEGATIVE); UR NITRITE (Dip) NEGATIVE (NEGATIVE); UR TOTAL PROTEIN (Dip) NEGATIVE (NEGATIVE); UR UROBILINOGEN (Dip) NEGATIVE (NEGATIVE)
[2017-05-05] MEDS ORDERED: TEMA15CA PO (13:45)
[2017-05-05] MEDS ORDERED: ARIP5TAB7 PO (13:45)
[2017-05-05] MEDS ORDERED: VENL150C PO (13:45)
--- NOTE | 2017-05-05 13:54 | ERA ---
ER Documentation Chief Complaint Date/Time DATE: 05/05/17 TIME: 13:51 Chief Complaint SOB WITH CHEST PAIN SINCE 5 AM HPI 46-year-old female presents the emergency department with chest pain and shortness of breath. Patient states she was in her normal state of health until today at 5 AM at which time she began having severe onset of shortness of breath which was initiated by the severe onset of a nonspecific but mostly right-sided abdominal pain. Pain became severe and the shortness of breath became concerning and she came to the emergency department for evaluation. Patient reports no hemoptysis. ROS All systems reviewed and are negative except as per history of present illness. Medications Home Meds Reported Medications Temazepam* (Temazepam*) 15 Mg Capsule, 15 MG PO HS Y for INSOMNIA, CAP 05/05/17 Venlafaxine Hcl* (Effexor XR*) 150 Mg Cap.sr.24h, 150 MG PO DAILY, CAP 05/05/17 Aripiprazole* (Abilify*) 5 Mg Tab, 5 MG PO QHS, #30 TAB 05/05/17 Discontinued Scripts Sennosides/Docusate Sodium (Senna Plus Tablet) 1 Each Tablet, 2 TAB PO HS for 3 Days, #10 TAB 1 Refill Prov:CASSIE HILARIO MD 03/13/17 Guaifenesin-Dextromethorphan* (Robitussin* DM) 100MG/10MG/5ML Syrup, 10 ML PO Q4H Y for COUGH for 1 Day, #1 otc Prov:CASSIE HILARIO MD 03/13/17 Levofloxacin* (Levaquin*) 750 Mg Tablet, 750 MG PO DAILY@06 for 5 Days, #5 TAB Prov:CASSIE HILARIO MD 03/13/17 Allergies Allergies: Coded Allergies: No Known Allergies (Verified Allergy, Unknown, 05/05/17) PMhx/Soc History of Surgery: Yes ( X3 (85,91,92), hysterectomy 05/2016) Anesthesia Reaction: No Hx Neurological Disorder: Yes (MILD STROKE LAST YRS, GENERALIZED WEAKNESS) Hx Respiratory Disorders: No Hx Cardiac Disorders: No Hx Psychiatric Problems: Yes (DEPRESSION, ANXIETY, BIPOLAR, UTERINE CANCER WITH TOTAL HYSTERECTOMY 2015) Hx Miscellaneous Medical Probl: Yes (HTN, RA, fibromyalgia, DM, respiratory distress, lung mass) Hx Alcohol Use: Yes ("LONG TIME AGO, OCCASIONALLY") Hx Substance Use: No Hx Tobacco Use: Yes (1/2 PACKED CIGAREETEE/D, STOPPED 20 YRS) Smoking Status: Former smoker FmHx Noncontributory for chief complaint Physical Exam Vitals Vital Signs Date Time Temp Pulse Resp B/P Pulse Ox O2 Delivery O2 Flow Rate FiO2 05/05/17 09:25 98.0 136 28 137/89 91 Physical Exam GENERAL: The patient is well developed patient appears significantly uncomfortable HEENT: Pupils equal, round, and reactive to light. EOMI. There is no scleral icterus. NECK: C-spine is soft and supple, there is no meningismus. There is no cervical lymphadenopathy. LUNGS: Clear to auscultation bilaterally. There are no rales, wheezes or rhonchi. HEART: Regular rate and rhythm, no murmurs, clicks, rubs or gallops. ABDOMEN: Soft, non-tender, non-distended. There are bowel sounds in all four quadrants. No rebound or guarding. EXTREMITIES: There is no peripheral cyanosis or edema. No focal swelling or erythema. NEURO: The patient moves all four extremities with 5/5 strength. Cranial nerves II - XII are intact. Normal gait. Alert and oriented SKIN: There is no apparent rash or petechiae. HEME/LYMPHATIC: There is no evidence of excessive bruising or lymphedema. PSYCHIATRIC: The patient does not appear anxious or depressed. Result Diagram: 05/05/17 1005 05/05/17 1005 Results 24 hrs Laboratory Tests Test 05/05/17 10:05 05/05/17 12:40 White Blood Count 11.310^3/ul Red Blood Count 4.4110^6/ul Hemoglobin 12.6g/dl Hematocrit 39.0% Mean Corpuscular Volume 88.4fl Mean Corpuscular Hemoglobin 28.6pg Mean Corpuscular Hemoglobin Concent 32.3g/dl Red Cell Distribution Width 14.5% Platelet Count 97101^3/UL Mean Platelet Volume 10.9fl Neutrophils % 73.6% Lymphocytes % 16.5% Monocytes % 6.3% Eosinophils % 2.9% Basophils % 0.4% Nucleated Red Blood Cells % 0.0/100WBC Neutrophils # (Manual) 8.310^3/ul Lymphocytes # 1.910^3/ul Monocytes # 0.710^3/ul Eosinophils # 0.310^3/ul Basophils # 0.110^3/ul Nucleated Red Blood Cells # 0.010^3/ul Prothrombin Time 12.8Sec Prothrombin Time Ratio 1.0 INR International Normalized Ratio 0.96 Activated Partial Thromboplast Time 29.3Sec Sodium Level 145mmol/L Potassium Level 4.0mmol/L Chloride Level 99mmol/L Carbon Dioxide Level 30mmol/L Anion Gap 20 Blood Urea Nitrogen 11mg/dl Creatinine 0.66mg/dl Glucose Level 116mg/dl Calcium Level 9.8mg/dl Total Bilirubin 0.1mg/dl Direct Bilirubin 0.00mg/dl Indirect Bilirubin 0.1mg/dl Aspartate Amino Transf (AST/SGOT) 56IU/L Alanine Aminotransferase (ALT/SGPT) 59IU/L Alkaline Phosphatase 94IU/L Troponin I < 0.012ng/ml Total Protein 7.8g/dl Albumin 4.0g/dl Globulin 3.80g/dl Albumin/Globulin Ratio 1.05 Lipase 61U/L Urine Color YELLOW Urine Clarity CLEAR Urine pH 6.0 Urine Specific [place] 1.020 Urine Ketones NEGATIVEmg/dL Urine Nitrite NEGATIVEmg/dL Urine Bilirubin NEGATIVEmg/dL Urine Urobilinogen NEGATIVEmg/dL Urine Leukocyte Esterase NEGATIVELeu/ul Urine Hemoglobin NEGATIVEmg/dL Urine Glucose NEGATIVEmg/dL Urine Total Protein NEGATIVEmg/dl Current Medications Medications (Trade) Dose Ordered Sig/[place] Route PRN Reason Start Time Stop Time Status Last Admin Dose Admin Hydromorphone HCl (Dilaudid) 1 mg ONCE STAT IV 05/05/17 09:52 05/05/17 09:54 DC 05/05/17 09:52 Ondansetron HCl (Zofran Inj) 4 mg ONCE STAT IV 05/05/17 09:52 05/05/17 09:54 DC 05/05/17 09:52 IV Flush 10 ml 10 ml STK-MED ONCE .ROUTE 05/05/17 11:42 05/05/17 11:43 DC Sodium Chloride (NS) 100 ml @ ud STK-MED ONCE .ROUTE 05/05/17 11:42 05/05/17 11:43 DC Iodixanol (Visipaque Locm) 100 ml STK-MED ONCE .ROUTE 05/05/17 11:42 05/05/17 11:43 DC Morphine Sulfate (morphine) 2 mg ONCE ONCE IV 05/05/17 13:00 05/05/17 13:01 DC 05/05/17 13:36 Procedures/MDM Patient was taken to a room, seen and evaluated. Comfort measures were initiated. Diagnostic tests were ordered and reviewed. 3 LEAD RHYTHM STRIP: Sinus tachycardia EK lead EKG reviewed by myself: Sinus tachycardia [Normal [place] and intervals] Nonspecific ST and T-wave changes without ST elevation Impression: Nondiagnostic EKG RADIOLOGY: [reviewed with the radiologist] CONSULTATION: [hospitalist] was notified for admission REEVALUATION: Patient required ongoing pain management MEDICAL DECISION MAKIN-year-old female with an extensive cancer history presents with acute onset abdominal pain and shortness of breath with chest pain. Differential diagnosis entertained was broad and potential high acuity. Initial evaluation focused on possibility of pulmonary embolism causing the chest pain as well as other cardiac issues. Her CT scan does not demonstrate pulmonary embolism although she has extensive metastatic disease. Her abdominal CT scan demonstrated a necrotic mass consistent with her known history of malignancy. At this time it does not appear to be a secondary infection or abscess. Given the patient's ongoing need for pain control and palliative care as well as her lack of outpatient follow-up with oncology, based on my conversations with her and her daughter, patient will be admitted for further observation, management and coordination of care with oncology consultation expected. Departure Diagnosis: Primary Impression: Uterine cancer Condition: Trev WALKERRAFIQ May 05, 2017 13:54
--- NOTE | 2017-05-05 16:21 | HP ---
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 No evidence of bowel obstruction, bowel perf, or other abdominal pathology warranting urgent surgical intervention on imaging PLAN pain control onc consult possibly palliative consult pending onc results hospice broached but pt and family want to appropriately talk to onc before making any particular decisions general diet dvt prophx cont home psych meds HPI/ROS Admit Date/Time Admit Date/Time ROS CC abd pain x 1 day HPI 46 yo F with metastatic leiomyosarcoma admitted here from mid February to mid March presents with 1 day of abd pain. Last month pt had been transferred from OSH for SOB. Imaging revealed pulm lesions found on biopsy to be mets from her uterine leiomyosarcoma for which she had previously underwent KIERAN in May 2016. Pt seen by onc during last admission, had PICC placed and got 2 cycles of chemo with plan to continue outpatient chemo, however 2/2 insurance issues pt was referred to [facility] and first visit there was supposed to be later this week. Pt states that since last night abd pain has progressively been worsening to point where she is unable to stand. Also reports poor PO. PMH/Family/Social Past Medical History as per [facility] Social History Smoking Status: Former smoker Exam/Review of Systems Vital Signs Vitals Vital Signs Date Time Temp Pulse Resp B/P Pulse Ox O2 Delivery O2 Flow Rate FiO2 05/05/17 14:37 97.9 92 26 122/72 98 Nasal Cannula 2.0 Exam Exam nad, laying in bed MMM EOMI no mrg lungs clear abd soft no rashes no edema imaging results reviewed with patient and family. R pelvic shayne mass now larger and necrotic, pulm mets possibly smaller. ChemP OK, LFTs improved from last month Labs Result Diagram: 05/05/17 1005 05/05/17 1005 Medications Medications Current Medications Hydromorphone HCl (Dilaudid) 1 mg Q2H PRN IV PAIN LEVEL 7-10; Start 05/05/17 at 16:30 Aripiprazole (Abilify) 5 mg QHS PO ; Start 05/05/17 at 21:00; Status UNV Venlafaxine HCl (Effexor Xr) 150 mg DAILY PO ; Start 05/06/17 at 09:00; Status UNV Miscellaneous Information 15 mg HS PRN PO INSOMNIA; Start 05/05/17 at 16:30; Status UNV Acetaminophen (Tylenol Tab) 650 mg Q6H PRN PO PAIN LEVEL 1-3 OR FEVER; Start at 16:30; Status UNV Acetaminophen/ Hydrocodone Bitart ([place] (5/325)) 1 tab Q6H PRN PO MODERATE PAIN LEVEL 4-6; Start 05/05/17 at 16:30; Status UNV Docusate Sodium (Colace) 100 mg Q12H PRN PO CONSTIPATION; Start 05/05/17 at 16: 30; Status UNV Magnesium Hydroxide (Milk Of Mag) 30 ml DAILY PRN PO CONSTIPATION; Start at 16:30; Status UNV Bisacodyl (Dulcolax) 5 mg DAILY PRN PO CONSTIPATION; Start 05/05/17 at 16:30; Status UNV Bisacodyl (Dulcolax Supp) 10 mg DAILY PRN [place] CONSTIPATION; Start 05/05/17 at 16 :30; Status UNV Sodium Biphosphate/ Sodium Phosphate (Fleet Enema) 133 ml DAILY PRN [place] CONSTIPATION; Start 05/05/17 at 16:30; Status UNV Enoxaparin Sodium (Lovenox) 40 mg DAILY SC ; Start 05/06/17 at 09:00; Status UNV JASMYN ORTA MD May 05, 2017 16:21
[2017-05-05] MEDS ORDERED: ACETAMINOPHEN 325 MG TAB PO PRN (16:30)
[2017-05-05] MEDS ORDERED: NACL 0.9% 3 ML SYG IV SCH (16:30)
[2017-05-05] MEDS ORDERED: BISACODYL (EC) 5 MG TAB PO PRN (16:30)
[2017-05-05] MEDS ORDERED: MAGNESIUM HYDROXIDE 30ML CUP PO PRN (16:30)
[2017-05-05] MEDS ORDERED: NA PHOSPHATE/BIPHOS 133 ML ENEMA PR PRN (16:30)
[2017-05-05] MEDS ORDERED: HYDROCODONE/APAP (5/325) TAB PO PRN (16:30)
[2017-05-05] MEDS ORDERED: DOCUSATE SODIUM 100 MG CAP PO PRN (16:30)
[2017-05-05] MEDS ORDERED: BISACODYL 10 MG SUPP PR PRN (16:30)
[2017-05-05] MEDS ORDERED: ZOLPIDEM 5 MG TAB PO PRN (17:00)
[2017-05-05] MEDS: HYDROmorphONE 1 MG/ML SYG IV PRN (18:39)
[2017-05-05 18:46] VITALS: TEMP 98.5
--- NOTE | 2017-05-05 19:14 | RADRPT ---
PROCEDURE: Chest xray. CLINICAL INDICATION: PICC placement. History of leiomyosarcoma of the uterus. TECHNIQUE: A portable semiupright AP view of the chest was obtained. COMPARISON: 03/09/2017. FINDINGS: There is a right arm PICC with its tip projecting in the lower superior vena cava. There is redemonstration of innumerable masses of various sizes scattered throughout both lungs cons istent with metastases. The cardiomediastinal silhouette is stable. IMPRESSION: Right arm PICC tip projects in the lower superior vena cava. Redemonstration of numerous pulmonary metastases. RPTAT:PP .Beckie Tony MD, MD Date Time Electronically viewed and signed by .Beckie Tony MD, on 05/05/2017 19:13 .K/
[2017-05-05 19:58] VITALS: BP 130/60; PULSE 94; RESP 18; Ht 154.9 cm; Wt 81.0 kg
[2017-05-05] MEDS: ARIPIPRAZOLE 5 MG TAB PO SCH (21:20)
[2017-05-06] MEDS: HYDROmorphONE 1 MG/ML SYG IV PRN ×6 (01:18→20:43)
[2017-05-06 02:59] VITALS: BP 116/56; RESP 19
[2017-05-06 08:01] VITALS: BP 116/64; RESP 22
[2017-05-06] MEDS: VENLAFAXINE (XR) 75 MG CAP PO SCH (09:00)
[2017-05-06] MEDS: ENOXAPARIN 40 MG/0.4 ML SYG SC SCH (09:01)
[2017-05-06] MEDS: ALPRAZOLAM 0.5 MG TAB PO PRN ×2 (09:01→22:07)
--- NOTE | 2017-05-06 12:14 | PN ---
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 No evidence of bowel obstruction, bowel perf, or other abdominal pathology warranting urgent surgical intervention on imaging PLAN pain control onc consult possibly palliative consult pending onc results hospice broached but pt and family want to appropriately talk to onc before making any particular decisions general diet dvt prophx cont home psych meds check CBC and UA given ?hematuria? Subjective 24 Hr Interval Summary Free Text/Dictation Pain now controlled, thinks she might be having hematuria Exam/Review of Systems Vital Signs Vitals Vital Signs Date Time Temp Pulse Resp B/P Pulse Ox O2 Delivery O2 Flow Rate FiO2 05/06/17 08:11 Nasal Cannula 2.0 05/06/17 08:01 98.0 104 22 116/64 97 Intake and Output 05/05/17 05/05/17 05/06/17 14:59 22:59 06:59 Intake Total 700 ml Output Total 200 ml 900 ml Balance -200 ml -200 ml Exam nad no mrg lungs clear abd soft no rashes Results Result Diagram: 05/05/17 1005 05/05/17 1005 Results 24 hrs Laboratory Tests Test 05/05/17 12:40 Urine Color YELLOW Urine Clarity CLEAR Urine pH 6.0 Urine Specific [place] 1.020 Urine Ketones NEGATIVE Urine Nitrite NEGATIVE Urine Bilirubin NEGATIVE Urine Urobilinogen NEGATIVE Urine Leukocyte Esterase NEGATIVE Urine Hemoglobin NEGATIVE Urine Glucose NEGATIVE Urine Total Protein NEGATIVE Medications Medications Current Medications Hydromorphone HCl (Dilaudid) 1 mg Q2H PRN IV PAIN LEVEL 7-10 Last administered on 05/06/17t 10:50; Admin Dose 1 MG; Start 05/05/17 at 16:30 Aripiprazole (Abilify) 5 mg QHS PO ; Start 05/05/17 at 21:00 Venlafaxine HCl (Effexor Xr) 150 mg DAILY PO ; Start 05/06/17 at 09:00 Zolpidem Tartrate (Ambien) 5 mg HS PRN PO INSOMNIA; Start 05/05/17 at 17:00 Acetaminophen (Tylenol Tab) 650 mg Q6H PRN PO PAIN LEVEL 1-3 OR FEVER; Start at 16:30 Acetaminophen/ Hydrocodone Bitart ([place] (5/325)) 1 tab Q6H PRN PO MODERATE PAIN LEVEL 4-6; Start 05/05/17 at 16:30 Docusate Sodium (Colace) 100 mg Q12H PRN PO CONSTIPATION; Start 05/05/17 at 16: 30 Magnesium Hydroxide (Milk Of Mag) 30 ml DAILY PRN PO CONSTIPATION; Start at 16:30 Bisacodyl (Dulcolax) 5 mg DAILY PRN PO CONSTIPATION; Start 05/05/17 at 16:30 Bisacodyl (Dulcolax Supp) 10 mg DAILY PRN [place] CONSTIPATION; Start 05/05/17 at 16 :30 Sodium Biphosphate/ Sodium Phosphate (Fleet Enema) 133 ml DAILY PRN [place] CONSTIPATION; Start 05/05/17 at 16:30 Enoxaparin Sodium (Lovenox) 40 mg DAILY SC Last administered on 05/06/17 09:01 ; Admin Dose 40 MG; Start 05/06/17 at 09:00 Alprazolam (Xanax) 0.5 mg Q12H PRN PO ANXIETY Last administered on 05/06/17 09 :01; Admin Dose 0.5 MG; Start 05/05/17 at 20:30 JASMYN ORTA MD May 06, 2017 12:14
[2017-05-06 13:06] LABS: BASOPHIL # 0.1 10^3/ul (0.0-0.1); BASOPHILS % 0.6 % (0.0-2.0); EOSINOPHILS # 0.4 10^3/ul (0.0-0.5); EOSINOPHILS % 3.4 % (0.0-7.0); HEMATOCRIT 36.7 % (37.0-47.0); HEMOGLOBIN 11.5 g/dl (12.0-16.0); LYMPHOCYTES # 1.8 10^3/ul (0.8-2.9); LYMPHOCYTES % 17.6 % (15.0-51.0); MEAN CORPUSCULAR HEMOGLOBIN 28.1 pg (29.0-33.0); MEAN CORPUSCULAR HGB CONC 31.3 g/dl (32.0-37.0); MEAN CORPUSCULAR VOLUME 89.7 fl (82.0-101.0); MEAN PLATELET VOLUME 10.7 fl (7.4-10.4); MONOCYTE # 0.7 10^3/ul (0.3-0.9); MONOCYTES % 7.2 % (0.0-11.0); NEUTROPHILS % 70.9 % (39.0-77.0); PLATELET COUNT 272 10^3/UL (140-415); RED BLOOD COUNT 4.09 10^6/ul (4.20-5.40); RED CELL DISTRIBUTION WIDTH 14.5 % (11.5-14.5); WHITE BLOOD COUNT 10.2 10^3/ul (4.8-10.8)
[2017-05-06] MEDS: ONDANSETRON 4 MG INJ IV PRN ×2 (14:56→20:42)
[2017-05-06 15:31] VITALS: BP 117/56; RESP 22
[2017-05-06 19:15] VITALS: BP 110/67; RESP 20
[2017-05-06] MEDS: ARIPIPRAZOLE 5 MG TAB PO SCH (21:00)
[2017-05-07 02:23] VITALS: BP 110/60; RESP 20
[2017-05-07] MEDS: HYDROmorphONE 1 MG/ML SYG IV PRN ×5 (03:36→21:35)
[2017-05-07] MEDS: ONDANSETRON 4 MG INJ IV PRN ×2 (07:46→18:01)
[2017-05-07 08:06] VITALS: BP 114/57; RESP 19
[2017-05-07] MEDS: VENLAFAXINE (XR) 75 MG CAP PO SCH (09:00)
[2017-05-07] MEDS: ENOXAPARIN 40 MG/0.4 ML SYG SC SCH (09:00)
[2017-05-07 15:00] VITALS: BP 111/52; RESP 16
--- NOTE | 2017-05-07 17:35 | PN ---
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 No evidence of bowel obstruction, bowel perf, or other abdominal pathology warranting urgent surgical intervention on imaging PLAN pain control, will also consult pain management team onc consult-awaiting this from Dr. Braun or Magan possibly palliative consult pending onc results hospice broached but pt and family want to appropriately talk to onc before making any particular decisions general diet dvt prophx cont home psych meds We will also discontinue PICC line, was placed on prior admission back on March 09, 2017 Problems: Subjective 24 Hr Interval Summary Free Text/Dictation Still waiting to be seen by hematology oncology team. No acute events overnight otherwise. UA was negative for any abnormalities, including no signs of hemoglobin Exam/Review of Systems Vital Signs Vitals Vital Signs Date Time Temp Pulse Resp B/P Pulse Ox O2 Delivery O2 Flow Rate FiO2 05/07/17 15:00 98.4 87 16 111/52 97 05/07/17 08:00 Nasal Cannula 2.0 Intake and Output 05/06/17 05/06/17 05/07/17 15:00 23:00 07:00 Intake Total 360 ml 400 ml Output Total 780 ml Balance 360 ml -380 ml Exam nad, lying in bed, family at bed no mrg lungs clear abd soft no rashes Results Result Diagram: 05/06/17 1240 05/05/17 1005 Medications Medications Current Medications Hydromorphone HCl (Dilaudid) 1 mg Q2H PRN IV PAIN LEVEL 7-10 Last administered on 05/07/17t 12:29; Admin Dose 1 MG; Start 05/05/17 at 16:30 Aripiprazole (Abilify) 5 mg QHS PO ; Start 05/05/17 at 21:00 Venlafaxine HCl (Effexor Xr) 150 mg DAILY PO ; Start 05/06/17 at 09:00 Zolpidem Tartrate (Ambien) 5 mg HS PRN PO INSOMNIA; Start 05/05/17 at 17:00 Acetaminophen (Tylenol Tab) 650 mg Q6H PRN PO PAIN LEVEL 1-3 OR FEVER; Start at 16:30 Acetaminophen/ Hydrocodone Bitart ([place] (5/325)) 1 tab Q6H PRN PO MODERATE PAIN LEVEL 4-6; Start 05/05/17 at 16:30 Docusate Sodium (Colace) 100 mg Q12H PRN PO CONSTIPATION; Start 05/05/17 at 16: 30 Magnesium Hydroxide (Milk Of Mag) 30 ml DAILY PRN PO CONSTIPATION; Start at 16:30 Bisacodyl (Dulcolax) 5 mg DAILY PRN PO CONSTIPATION; Start 05/05/17 at 16:30 Bisacodyl (Dulcolax Supp) 10 mg DAILY PRN [place] CONSTIPATION; Start 05/05/17 at 16 :30 Sodium Biphosphate/ Sodium Phosphate (Fleet Enema) 133 ml DAILY PRN [place] CONSTIPATION; Start 05/05/17 at 16:30 Enoxaparin Sodium (Lovenox) 40 mg DAILY SC Last administered on 05/06/17 09:01 ; Admin Dose 40 MG; Start 05/06/17 at 09:00 Alprazolam (Xanax) 0.5 mg Q12H PRN PO ANXIETY Last administered on 05/06/17 22 :07; Admin Dose 0.5 MG; Start 05/05/17 at 20:30 Ondansetron HCl (Zofran Inj) 4 mg Q6H PRN IV NAUSEA AND/OR VOMITING Last administered on 05/07/17 07:46; Admin Dose 4 MG; Start 05/06/17 at 15:00 MARIALUISA CARVAJAL May 07, 2017 17:35
[2017-05-07 19:25] VITALS: BP 128/77; RESP 20
[2017-05-07] MEDS: ARIPIPRAZOLE 5 MG TAB PO SCH (20:22)
[2017-05-07] MEDS: ALPRAZOLAM 0.5 MG TAB PO PRN (21:34)
[2017-05-08] MEDS: HYDROmorphONE 1 MG/ML SYG IV PRN ×7 (00:01→22:42)
[2017-05-08] MEDS: ONDANSETRON 4 MG INJ IV PRN ×2 (08:24→14:40)
[2017-05-08] MEDS: ENOXAPARIN 40 MG/0.4 ML SYG SC SCH (08:31)
[2017-05-08] MEDS: VENLAFAXINE (XR) 75 MG CAP PO SCH (08:49)
[2017-05-08] MEDS: ALPRAZOLAM 0.5 MG TAB PO PRN ×2 (08:55→20:52)
[2017-05-08 08:59] VITALS: BP 130/82; PULSE 91; RESP 16
--- NOTE | 2017-05-08 10:13 | CONS ---
Date/Time of Note Date/Time of Note DATE: 05/08/17 TIME: 10:04 Assessment/Plan Assessment/Plan Additional Assessment/Plan Adjust her current pain control medications Wait for recommendations from oncology Supportive care Consultation Date/Type/Reason Admit Date/Time Type of Consultation: Palliative pain management Hx of Present Illness 46-year-old female represents to [facility] with abdominal discomfort and increase in severity 1 week prior to this rehospitalization. Patient has a history of leiomyosarcoma with documented pulmonary metastases. She has been given at least one round of chemotherapy at [facility] and had total abdominal hysterectomy. Patient has been trying to set up an appointment to be seen by another oncologist but has had difficulty with insurance coverage. Abdominal pain is just gated left lower quadrant, associated with nausea vomiting without other systemic symptoms. She has had weight loss associated with this also she describes her pain as a gnawing type of discomfort not relieved with current pain medications as an outpatient including Ultram and [place]. With current pain control medication patient gets minimal improvement in her pain she still has severe discomfort great and over 10 at rest. No radiations does affect her physical function family relationships as well as her relationship sleeping and overall function denies constipation mental cloudiness itching sweats she is bandar to opioids. As far as palliative care patient has not been seen by oncology consultation here at [facility] it is pending, patient has fired her prior oncologist. I will not address goals of care until seen by oncologist Social History Smoking Status: Former smoker Exam/Review of Systems Vital Signs Vitals Vital Signs Date Time Temp Pulse Resp B/P Pulse Ox O2 Delivery O2 Flow Rate FiO2 05/08/17 08:59 98.5 91 16 130/82 98 Nasal Cannula 2.0 Intake and Output 05/07/17 05/07/17 05/08/17 15:00 23:00 07:00 Intake Total 980 ml 400 ml Balance 980 ml 400 ml Exam Constitutional: alert, oriented, well developed Psych: anxiety Head: atraumatic, normocephalic, No hematomas, No lacerations, No other Neurological: BULK PIGMENT REDUCER II-XII intact, nl mental status, nl speech, nl strength, No DTR's symmetric, No confused, No focal weakness, No lethargic, No numbness , No other, No reflexes, No unresponsive Results Result Diagram: 05/06/17 1240 05/05/17 1005 Medications Medications Current Medications Hydromorphone HCl (Dilaudid) 1 mg Q2H PRN IV PAIN LEVEL 7-10 Last administered on 05/08/17 08:24; Admin Dose 1 MG; Start 05/05/17 at 16:30 Aripiprazole (Abilify) 5 mg QHS PO ; Start 05/05/17 at 21:00 Venlafaxine HCl (Effexor Xr) 150 mg DAILY PO ; Start 05/06/17 at 09:00 Zolpidem Tartrate (Ambien) 5 mg HS PRN PO INSOMNIA; Start 05/05/17 at 17:00 Acetaminophen (Tylenol Tab) 650 mg Q6H PRN PO PAIN LEVEL 1-3 OR FEVER; Start at 16:30 Acetaminophen/ Hydrocodone Bitart ([place] (5/325)) 1 tab Q6H PRN PO MODERATE PAIN LEVEL 4-6; Start 05/05/17 at 16:30 Docusate Sodium (Colace) 100 mg Q12H PRN PO CONSTIPATION; Start 05/05/17 at 16: 30 Magnesium Hydroxide (Milk Of Mag) 30 ml DAILY PRN PO CONSTIPATION; Start at 16:30 Bisacodyl (Dulcolax) 5 mg DAILY PRN PO CONSTIPATION; Start 05/05/17 at 16:30 Bisacodyl (Dulcolax Supp) 10 mg DAILY PRN [place] CONSTIPATION; Start 05/05/17 at 16 :30 Sodium Biphosphate/ Sodium Phosphate (Fleet Enema) 133 ml DAILY PRN [place] CONSTIPATION; Start 05/05/17 at 16:30 Enoxaparin Sodium (Lovenox) 40 mg DAILY SC Last administered on 05/08/17 08:31 ; Admin Dose 40 MG; Start 05/06/17 at 09:00 Alprazolam (Xanax) 0.5 mg Q12H PRN PO ANXIETY Last administered on 05/08/17 08 :55; Admin Dose 0.5 MG; Start 05/05/17 at 20:30 Ondansetron HCl (Zofran Inj) 4 mg Q6H PRN IV NAUSEA AND/OR VOMITING Last administered on 05/08/17 08:24; Admin Dose 4 MG; Start 05/06/17 at 15:00 JANICE STEEL May 08, 2017 10:13
[2017-05-08 13:22] VITALS: BP 110/80; RESP 16
--- NOTE | 2017-05-08 14:15 | PN ---
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 PLAN pain control, appreciate pain management consult onc consult-awaiting this hospice broached but pt and family want to appropriately talk to onc before making any particular decisions general diet dvt prophx cont home psych meds Problems: Subjective 24 Hr Interval Summary Free Text/Dictation Patient still having some pain symptoms, seen by palliative care team yesterday. Still awaiting oncology evaluation. PICC line removed yesterday. Exam/Review of Systems Vital Signs Vitals Vital Signs Date Time Temp Pulse Resp B/P Pulse Ox O2 Delivery O2 Flow Rate FiO2 05/08/17 13:22 98.0 99 16 110/80 96 05/08/17 08:59 Nasal Cannula 2.0 Intake and Output 05/07/17 05/07/17 05/08/17 15:00 23:00 07:00 Intake Total 980 ml 400 ml Balance 980 ml 400 ml Exam nad, lying in bed, no mrg lungs clear abd soft no rashes Results Result Diagram: 05/06/17 1240 05/05/17 1005 Medications Medications Current Medications Hydromorphone HCl (Dilaudid) 1 mg Q2H PRN IV PAIN LEVEL 7-10 Last administered on 05/08/17t 12:32; Admin Dose 1 MG; Start 05/05/17 at 16:30 Aripiprazole (Abilify) 5 mg QHS PO ; Start 05/05/17 at 21:00 Venlafaxine HCl (Effexor Xr) 150 mg DAILY PO ; Start 05/06/17 at 09:00 Zolpidem Tartrate (Ambien) 5 mg HS PRN PO INSOMNIA; Start 05/05/17 at 17:00 Acetaminophen (Tylenol Tab) 650 mg Q6H PRN PO PAIN LEVEL 1-3 OR FEVER; Start at 16:30 Docusate Sodium (Colace) 100 mg Q12H PRN PO CONSTIPATION; Start 05/05/17 at 16: 30 Magnesium Hydroxide (Milk Of Mag) 30 ml DAILY PRN PO CONSTIPATION; Start at 16:30 Bisacodyl (Dulcolax) 5 mg DAILY PRN PO CONSTIPATION; Start 05/05/17 at 16:30 Bisacodyl (Dulcolax Supp) 10 mg DAILY PRN [place] CONSTIPATION; Start 05/05/17 at 16 :30 Sodium Biphosphate/ Sodium Phosphate (Fleet Enema) 133 ml DAILY PRN [place] CONSTIPATION; Start 05/05/17 at 16:30 Enoxaparin Sodium (Lovenox) 40 mg DAILY SC Last administered on 05/08/17 08:31 ; Admin Dose 40 MG; Start 05/06/17 at 09:00 Alprazolam (Xanax) 0.5 mg Q12H PRN PO ANXIETY Last administered on 05/08/17 08 :55; Admin Dose 0.5 MG; Start 05/05/17 at 20:30 Ondansetron HCl (Zofran Inj) 4 mg Q6H PRN IV NAUSEA AND/OR VOMITING Last administered on 05/08/17 08:24; Admin Dose 4 MG; Start 05/06/17 at 15:00 Oxycodone HCl (Oxycontin) 15 mg BID PO ; Start 05/08/17 at 21:00 MARIALUISA CARVAJAL May 08, 2017 14:15
[2017-05-08] MEDS: oxyCODONE (CR) 10 MG TAB [oxyCONTIN] PO SCH (18:22)
[2017-05-08 19:20] VITALS: BP 138/70; RESP 20
[2017-05-08] MEDS: ARIPIPRAZOLE 5 MG TAB PO SCH (20:45)
[2017-05-08] MEDS ORDERED: oxyCODONE (CR) 15 MG TAB [oxyCONTIN] PO SCH (21:00)
--- NOTE | 2017-05-08 21:43 | EN ---
Date/Time of Note Date/Time of Note DATE: 05/08/17 TIME: 21:37 Event Note Medicine Medicine Event Note Oncology consultation dictated-- . 46 y/o female with metastatic leiomyosarcoma of uterus. Had KIERAN/BSO 05/2016 at [facility]. Not a actual staqging procedure. Pt now has pulmonary metastases and a necrotic pelvic mass. Did receive one cycle of chemotherapy previously. Received gemcitabine on 03/09 and 03/17 and docetaxel on 03/17. Repeat CT done on admit of 05/05 suggest poss decrease in size of pulmonary mets but increase in size of necrotic pelvic mass. SYEDA SHERIFF MD May 08, 2017 21:43
--- NOTE | 2017-05-08 22:25 | CONS ---
DATE OF ADMISSION: 05/08/2017 DATE OF CONSULTATION: 05/08/2017 REQUESTING PHYSICIAN: Dr. Aury Dorantes. REASON FOR CONSULTATION: Metastatic leiomyosarcoma of the uterus. HISTORY OF PRESENT ILLNESS: Dear Dr. Dorantes: Thank you very much for asking us to see this very pleasant patient in oncologic consultation. As you know, Ms. Esquivel is a 46-year-old female, who was diagnosed as having a leiomyosarcoma of the uterus when she underwent a hysterectomy in May 2016. This was performed at [facility]. The patient at that time, had been experiencing menorrhagia for several months. As mentioned, the patient at that time, was found to have uterine leiomyosarcoma. It is unclear exactly what stage the patient was at the time of presentation. She was seen later by Dr. Bruce Alston in consultation. He did recommend a PET-CT scan which apparently was done in September of this year. It is unclear whether that did in fact show evidence of pulmonary metastases. The patient unfortunately did not have any type of followup therapy. She was actually seen by Dr. Campbell as an outpatient, but apparently therapy could not be arranged because of insurance difficulties. The patient was hospitalized here for approximately a month until mid-March when she came in with abdominal pain and shortness of breath. During that time, the patient did have a CT scan of the chest, abdomen and pelvis and was found to have a pelvic mass as well as evidence of pulmonary metastases. The patient during the hospitalization, did receive chemotherapy. She was seen during the hospitalization by Dr. Jacobs. She received gemcitabine on 03/09 and again on 03/17. Taxotere was administered on 03/17. The patient did not receive any further therapy after 03/17. Apparently, there has been further difficulty with follow up. During that hospitalization, the patient did have a biopsy of a pulmonary nodule which did show a tumor which was felt to be consistent with the with metastatic leiomyosarcoma, although the amount of tissue was "scant." The patient is now admitted to [facility] again with abdominal pain and increasing shortness of breath. The abdominal pain apparently has, however, improved since hospitalization. The patient did have a CT scan of the chest, abdomen and pelvis at the time of admission. This did demonstrate a possible decrease in the size of pulmonary metastases, although there were still diffuse lung metastases as well as bilateral hilar adenopathy. There is also an increase in the size of necrotic right shayne mass. The patient does state that on admission she once again began to experience vaginal bleeding. On admission, the patient's white count is 11,300, hemoglobin 12.6, hematocrit 39, and platelet count 272,000. Protime is 12.2 seconds with an INR of 0.96 and PTT is 29.3 seconds. A comprehensive metabolic panel was normal except for sodium 145, AST of 56, ALT of 59. Alkaline phosphatase 94, albumin 4, globulin 3.8. PAST MEDICAL HISTORY: The patient's past history includes a history of hypertension and diabetes, which the patient states has become controlled after she had lost 50 pounds in the past year. PAST SURGICAL HISTORY: Patient's only previous surgeries have included section. PAST MEDICAL PROBLEMS: Past medical problems have included a history of schizophrenia and bipolar personality disorder. Also patient states she has had fibromyalgia. MEDICATION: At home have included: 1. Alprazolam. 2. The patient also states she was taking tramadol for pain control, also "[place]." 3. Apparently was to have been taking Effexor as well as Abilify, but she has discontinued those. ALLERGIES: SHE HAS NO KNOWN ALLERGIES. PHYSICAL EXAMINATION: Physical examination at this time reveals a well-developed, well-nourished female who is in no acute distress. VITAL SIGNS: Temperature 98, pulse 99, respirations 16, blood pressure 110/80, and pulse oximetry is 96 percent on 2 L of oxygen by nasal cannula. SKIN: No ecchymosis. No petechiae or rashes. The patient does have multiple tattoos. HEENT: Normocephalic. No evidence of trauma. Pupils equal, round, react to light and accommodation. Sclerae nonicteric. Oral mucosa is moist without lesions. Tongue is well papillated. No gingival hyperplasia. No hypertrophy of Waldeyer's ring. NECK: Supple. No jugular distention, or thyroid enlargement. No carotid bruits. CHEST: Clear to auscultation and percussion. No rhonchi, wheezes, rales, or rubs. NODES: No palpable lymphadenopathy in any lymph node bearing area. ABDOMEN: Soft. No masses. No ascites. Bowel sounds are active. No rebound tenderness. EXTREMITIES: Good range of motion. No clubbing. No edema or cyanosis. No palpable cords or Homans sign. NEUROLOGIC: Normal. DISCUSSION: This patient has documented metastatic leiomyosarcoma of the uterus. The patient has evidence of pelvic recurrent disease, as well as bilateral pulmonary metastases. There is no evidence of other visceral metastases as there is no evidence of hepatic metastases. There is no retroperitoneal adenopathy or mesenteric adenopathy seen either. I have had a discussion with the patient and her daughter. I have told them that this patient does require systemic chemotherapy and that she has actually received only one course of chemotherapy and this certainly is not adequate to determine whether or not there has been a response. There is mention that perhaps there has been a decrease in the pulmonary metastases, but an increase in the size of the pelvic mass. It may be necessary to consider some type of surgical intervention or radiation to try to control the pelvic lesion. I will, however, further review the patient's previous records including the histology from the original pathology from [facility] to determine what therapy may be most appropriate. Apparently, there has been difficulty with insurance coverage in the past. Hopefully, this has been corrected by this time. Once again, thank you very much for the opportunity of participating in the medical care of this very pleasant patient. I will be happy to follow this patient with you and assist in her oncologic evaluation and follow up as necessary. Dictated By: Willy Braun MD /irineo/jim /Document#: [id number]
[2017-05-09] MEDS: oxyCODONE (CR) 10 MG TAB [oxyCONTIN] PO SCH ×3 (00:10→21:40)
[2017-05-09 02:05] VITALS: BP 94/51; RESP 18
[2017-05-09] MEDS: HYDROmorphONE 1 MG/ML SYG IV PRN ×5 (05:52→20:25)
[2017-05-09 05:59] LABS: CREATININE 0.62 mg/dl (0.44-1.00)
[2017-05-09 08:22] VITALS: BP 130/85; RESP 18
[2017-05-09] MEDS: VENLAFAXINE (XR) 75 MG CAP PO SCH (08:54)
[2017-05-09] MEDS: ENOXAPARIN 40 MG/0.4 ML SYG SC SCH (09:03)
[2017-05-09] MEDS: ALPRAZOLAM 0.5 MG TAB PO PRN ×3 (11:06→22:39)
[2017-05-09] MEDS: ONDANSETRON 4 MG INJ IV PRN (12:53)
--- NOTE | 2017-05-09 14:20 | PN ---
Date/Time of Note Date/Time of Note DATE: 05/09/17 TIME: 14:18 Assessment/Plan VTE Prophylaxis VTE Prophylaxis Intervention: LMWH Lines/Catheters IV Catheter Type (from Nrsg): Saline Lock Urinary Cath still in place: No Assessment/Plan Chief Complaint/Hosp Course Assessment/Plan: 46 yo F with known stage 4 leiomyosarcoma with lung and pelvic LN mets here with abd pain in setting of increased size of metastatic pelvic LN. PLAN -2 new current pain control, appreciate pain management consult -Appreciate hematology oncology consult, the recommendation they are going to review her records, as it may be necessary to consider some type of surgical -intervention or radiation to try to control the pelvic lesion. -hospice broached but pt and family want to appropriately talk to onc before making any particular decisions -Continue general diet -dvt prophx with low molecular weight heparin -cont home psych meds Problems: Subjective 24 Hr Interval Summary Free Text/Dictation Seen by hematology oncology team yesterday. Less pain symptoms in the last 24 hours. Eating well and ambulating to the bathroom. No acute events overnight. Exam/Review of Systems Vital Signs Vitals Vital Signs Date Time Temp Pulse Resp B/P Pulse Ox O2 Delivery O2 Flow Rate FiO2 05/09/17 08:22 98.2 113 18 130/85 94 05/09/17 07:54 Nasal Cannula 05/08/17 20:00 2.0 Intake and Output 05/08/17 05/08/17 05/09/17 15:00 23:00 07:00 Intake Total 880 ml 500 ml Balance 880 ml 500 ml Exam nad, lying in bed, no mrg lungs clear abd soft no rashes Results Result Diagram: 05/06/17 1240 05/09/17 0505 Results 24 hrs Laboratory Tests Test 05/09/17 05:05 Blood Urea Nitrogen 10 Creatinine 0.62 Medications Medications Current Medications Hydromorphone HCl (Dilaudid) 1 mg Q2H PRN IV PAIN LEVEL 7-10 Last administered on 05/09/17t 12:54; Admin Dose 1 MG; Start 05/05/17 at 16:30 Aripiprazole (Abilify) 5 mg QHS PO ; Start 05/05/17 at 21:00 Venlafaxine HCl (Effexor Xr) 150 mg DAILY PO ; Start 05/06/17 at 09:00 Zolpidem Tartrate (Ambien) 5 mg HS PRN PO INSOMNIA; Start 05/05/17 at 17:00 Acetaminophen (Tylenol Tab) 650 mg Q6H PRN PO PAIN LEVEL 1-3 OR FEVER; Start at 16:30 Docusate Sodium (Colace) 100 mg Q12H PRN PO CONSTIPATION; Start 05/05/17 at 16: 30 Magnesium Hydroxide (Milk Of Mag) 30 ml DAILY PRN PO CONSTIPATION; Start at 16:30 Bisacodyl (Dulcolax) 5 mg DAILY PRN PO CONSTIPATION; Start 05/05/17 at 16:30 Bisacodyl (Dulcolax Supp) 10 mg DAILY PRN [place] CONSTIPATION; Start 05/05/17 at 16 :30 Sodium Biphosphate/ Sodium Phosphate (Fleet Enema) 133 ml DAILY PRN [place] CONSTIPATION; Start 05/05/17 at 16:30 Enoxaparin Sodium (Lovenox) 40 mg DAILY SC Last administered on 05/09/17 09:03 ; Admin Dose 40 MG; Start 05/06/17 at 09:00 Alprazolam (Xanax) 0.5 mg Q12H PRN PO ANXIETY Last administered on 05/09/17 11 :06; Admin Dose 0.5 MG; Start 05/05/17 at 20:30 Ondansetron HCl (Zofran Inj) 4 mg Q6H PRN IV NAUSEA AND/OR VOMITING Last administered on 05/09/17 12:53; Admin Dose 4 MG; Start 05/06/17 at 15:00 Oxycodone HCl (Oxycontin) 15 mg BID PO Last administered on 05/09/17 08:55; Admin Dose 15 MG; Start 05/08/17 at 18:00 MARIALUISA CARVAJAL May 09, 2017 14:20
[2017-05-09 14:44] VITALS: BP 105/59; RESP 18
--- NOTE | 2017-05-09 16:58 | CONS ---
Date/Time of Note Date/Time of Note DATE: 05/09/17 TIME: 16:54 Assessment/Plan Assessment/Plan Chief Complaint/Hosp Course 46-year-old female represents to [facility] with abdominal discomfort and increase in severity 1 week prior to this rehospitalization. Patient has a history of leiomyosarcoma with documented pulmonary metastases. She has been given at least one round of chemotherapy at [facility] and had total abdominal hysterectomy. Patient has been trying to set up an appointment to be seen by another oncologist but has had difficulty with insurance coverage. Abdominal pain is just gated left lower quadrant, associated with nausea vomiting without other systemic symptoms. She has had weight loss associated with this also she describes her pain as a gnawing type of discomfort not relieved with current pain medications as an outpatient including Ultram and [place]. With current pain control medication patient gets minimal improvement in her pain she still has severe discomfort great and over 10 at rest. No radiations does affect her physical function family relationships as well as her relationship sleeping and overall function denies constipation mental cloudiness itching sweats she is bandar to opioids. As far as palliative care patient has not been seen by oncology consultation here at [facility] it is pending, patient has fired her prior oncologist. I will not address goals of care until seen by oncologist Problems: Additional Assessment/Plan Pain is better controlled today rated 2/10, mood is better, denies nausea vomiting dizziness diplopia disorientation, excessive drowsy pruritus. She does complain of constipation without abdominal pain. Her mood is better sleeping pattern is better overall function has improved. 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 SERVICES REPRESENTATIVE II-XII intact, nl mental status, nl speech, nl strength, No DTR's symmetric, No confused, No focal weakness, No lethargic, No numbness , No other, No reflexes, No unresponsive Results Result Diagram: 05/06/17 1240 05/09/17 0505 Results 24 hrs Laboratory Tests Test 05/09/17 05:05 Blood Urea Nitrogen 10 Creatinine 0.62 Medications Medications Current Medications Hydromorphone HCl (Dilaudid) 1 mg Q2H PRN IV PAIN LEVEL 7-10 Last administered on 05/09/17 16:02; Admin Dose 1 MG; Start 05/05/17 at 16:30 Aripiprazole (Abilify) 5 mg QHS PO ; Start 05/05/17 at 21:00 Venlafaxine HCl (Effexor Xr) 150 mg DAILY PO ; Start 05/06/17 at 09:00 Zolpidem Tartrate (Ambien) 5 mg HS PRN PO INSOMNIA; Start 05/05/17 at 17:00 Acetaminophen (Tylenol Tab) 650 mg Q6H PRN PO PAIN LEVEL 1-3 OR FEVER; Start at 16:30 Docusate Sodium (Colace) 100 mg Q12H PRN PO CONSTIPATION; Start 05/05/17 at 16: 30 Magnesium Hydroxide (Milk Of Mag) 30 ml DAILY PRN PO CONSTIPATION; Start at 16:30 Bisacodyl (Dulcolax) 5 mg DAILY PRN PO CONSTIPATION; Start 05/05/17 at 16:30 Bisacodyl (Dulcolax Supp) 10 mg DAILY PRN [place] CONSTIPATION; Start 05/05/17 at 16 :30 Sodium Biphosphate/ Sodium Phosphate (Fleet Enema) 133 ml DAILY PRN [place] CONSTIPATION; Start 05/05/17 at 16:30 Enoxaparin Sodium (Lovenox) 40 mg DAILY SC Last administered on 05/09/17 09:03 ; Admin Dose 40 MG; Start 05/06/17 at 09:00 Alprazolam (Xanax) 0.5 mg Q12H PRN PO ANXIETY Last administered on 05/09/17 11 :06; Admin Dose 0.5 MG; Start 05/05/17 at 20:30 Ondansetron HCl (Zofran Inj) 4 mg Q6H PRN IV NAUSEA AND/OR VOMITING Last administered on 05/09/17 12:53; Admin Dose 4 MG; Start 05/06/17 at 15:00 Oxycodone HCl (Oxycontin) 15 mg BID PO Last administered on 05/09/17 08:55; Admin Dose 15 MG; Start 05/08/17 at 18:00 JANICE STEEL May 09, 2017 16:58
--- NOTE | 2017-05-09 19:22 | PN ---
DATE: 05/09/2017 SUBJECTIVE: The patient is feeling well at this time. She has no specific complaints. She has not complained of chest pain or shortness of breath. OBJECTIVE DATA: GENERAL: The patient is a well-developed, mildly obese female, who is in no acute distress. VITAL SIGNS: Temperature 98.3, pulse 97 per minute and regular, respirations 18, blood pressure 105/59, and pulse oximetry 96 percent. SKIN: No ecchymosis, no petechiae or rashes. There are multiple tattoos. HEENT: Alopecia, but normocephalic no evidence of trauma. Pupils equal, round, react to light and accommodation. There is no scleral icterus. Oral mucosa is moist without lesions. NECK: Neck is supple. No jugular distention, or thyroid enlargement. CHEST: Decreased breath sounds but no rhonchi, wheezes, rales or rubs. No pain on percussion of spine, sternum, clavicles or ribs. LYMPHATIC: No palpable lymphadenopathy in the lymph node bearing area. HEART: Regular sinus rhythm. No S3, S4, murmurs, no rubs. ABDOMEN: Soft. No masses. No ascites. Bowel sounds are active. EXTREMITIES: Good range of motion. No clubbing. No edema or cyanosis. No palpable cords or Homans sign. NEUROLOGIC: Neurologic is normal. ASSESSMENT: Metastatic leiomyosarcoma of the uterus, with pulmonary metastases and pelvic mass. DISCUSSION: I have discussed the situation with the patient and her daughter. I have explained that the therapy she has received is actually the optimum therapy for this disease. I feel that the patient has not had an adequate trial of therapy and I have recommended proceeding with chemotherapy. The patient will receive gemcitabine on day 1 and 8 and docetaxel on day 8. The patient previously had a PICC line in place which was removed. I do feel the patient would require venous access for further chemotherapy. Would recommend placement of a Port-A- Cath. The patient has been receiving Lovenox. She receives Lovenox every morning, she received 40 mg. Will request that the Port-A- Cath to be placed tomorrow and therefore tomorrow morning dose of enoxaparin should be held. We will repeat a CBC and chemistries in the morning. If possible we will then start chemotherapy on Sunday in the a.m. on 05/11/2017. Dictated By: Willy Braun MD /irineo/doni /Document#: [id number]
[2017-05-09] MEDS: ARIPIPRAZOLE 5 MG TAB PO SCH (20:27)
[2017-05-09 20:28] VITALS: BP 105/59; RESP 18
[2017-05-10 05:47] LABS: BASOPHIL # 0.1 10^3/ul (0.0-0.1); BASOPHILS % 0.6 % (0.0-2.0); EOSINOPHILS # 0.3 10^3/ul (0.0-0.5); EOSINOPHILS % 3.2 % (0.0-7.0); HEMATOCRIT 35.5 % (37.0-47.0); HEMOGLOBIN 11.1 g/dl (12.0-16.0); LYMPHOCYTES # 1.9 10^3/ul (0.8-2.9); LYMPHOCYTES % 21.5 % (15.0-51.0); MEAN CORPUSCULAR HGB CONC 31.3 g/dl (32.0-37.0); MEAN CORPUSCULAR VOLUME 89.6 fl (82.0-101.0); MEAN PLATELET VOLUME 10.7 fl (7.4-10.4); MONOCYTE # 0.7 10^3/ul (0.3-0.9); MONOCYTES % 7.4 % (0.0-11.0); NEUTROPHILS % 67.1 % (39.0-77.0); PLATELET COUNT 280 10^3/UL (140-415); RED BLOOD COUNT 3.96 10^6/ul (4.20-5.40); RED CELL DISTRIBUTION WIDTH 14.2 % (11.5-14.5)
[2017-05-10 06:05] LABS: MAGNESIUM 1.6 mg/dl (1.7-2.5); PHOSPHORUS 4.7 mg/dl (2.5-4.9)
[2017-05-10 06:13] LABS: CREATININE 0.59 mg/dl (0.44-1.00); POTASSIUM 4.1 mmol/L (3.5-5.1)
[2017-05-10] MEDS: HYDROmorphONE 1 MG/ML SYG IV PRN ×4 (06:21→20:42)
[2017-05-10] MEDS: VENLAFAXINE (XR) 75 MG CAP PO SCH (09:00)
[2017-05-10] MEDS: POLYETHYLENE GLYCOL 17 GM PACKET PO SCH (09:00)
[2017-05-10] MEDS: oxyCODONE (CR) 10 MG TAB [oxyCONTIN] PO SCH ×2 (09:12→21:44)
[2017-05-10] MEDS: ALPRAZOLAM 0.5 MG TAB PO PRN ×2 (10:16→22:49)
[2017-05-10] MEDS ORDERED: LIDOCAINE 2%/EPI 30 ML INJ ONE (11:22)
[2017-05-10] MEDS ORDERED: SOD CHLORIDE 0.9% 500 ML ONE (11:22)
[2017-05-10] MEDS ORDERED: HEPARIN 1000 UNITS/ML 10 ML INJ ONE (11:22)
[2017-05-10] MEDS ORDERED: POLYMYXIN/BACITRACIN 1L IRRIG IRR ONE (12:00)
[2017-05-10] MEDS ORDERED: MIDAZOLAM 1 MG/ML 2 ML INJ ONE (12:05)
[2017-05-10] MEDS ORDERED: CEFAZOLIN 1 GM/50 ML (PMX) 50 ML IVPB ONE (12:05)
[2017-05-10] MEDS ORDERED: FENTAnyl 50 MCG/ML VIAL ONE (12:05)
[2017-05-10] MEDS ORDERED: MAGNESIUM SULFATE 2 GM/50 ML 50 ML IVPB ONE (13:30)
--- NOTE | 2017-05-10 13:48 | RADRPT ---
PROCEDURE: FLUOROSCOPIC AND ULTRASONOGRAPHIC-GUIDED PLACEMENT OF RIGHT CHEST PORT. CLINICAL INDICATION: History of uterine cancer. Venous access for chemotherapy. TECHNIQUE: INTRAPROCEDURE MEDICATIONS: PB antibiotic solution 40 cc applied topically. 1 gram Ancef intravenous ly, intra-op. IV Versed and Fentanyl per protocol. Informed consent was obtained. The procedure, risks, benefits, complications and alternatives were explained to the patient. Risks including bleeding, infection, and pneumothorax were explained. The patient understood and was willing to proceed. A procedural pause was performed. The patient's name , date of , and procedure to be performed were verified. The central line was inserted with al l elements of maximal sterile barrier technique. All of the following were used: head covering, faci al mask, sterile gown, sterile gloves, a large sterile sheet, hand hygiene, and 2% chlorhexidine fo r cutaneous antisepsis. The right neck and anterior/superior chest wall were prepped and draped in usual sterile fashion. Limited sonography of the right neck was then performed. Noted is a patent right internal jugular ve in. Following the local injection of 1% lidocaine, the right internal jugular vein was punctured under s onographic guidance with a 20-gauge needle through which a 0.018 inch floppy tip guidewire was advan thony into the superior vena cava with fluoroscopic guidance. The tract was dilated to 5 Moldovan and the wire was then replaced with a 0.035 in Amplatz guidewire. Serial dilatation was then performed and a 7 Moldovan peel away sheath was introduced. A site just inferior to the clavicle in the superior anterior right chest wall was localized. One pe rcent lidocaine was used as local anesthesia. A transverse 2.5 cm incision was made utilizing a 15 b lade scalpel. Utilizing blunt dissection a subcutaneous pocket was created inferior to the incision. The cavity was flushed with approximately 40 cc of PB antibiotic solution. The catheter was tunneled underneath the skin from the newly created pocket to the puncture site in the neck. The central line catheter was pulled through the tract. The catheter was then advanced thr ough the sheath until the tip was positioned in the right atrium. The peel-away sheath was removed. The catheter was flushed and clamped. The 6.6 Moldovan catheter was then connected to the Angiodynamics power port. The port was then placed into the pocket. Prior to closing the instrument and sponge count was verified and was correct. The subcutaneous tissue was closed with 3-0 Vicryl interrupted suture. The skin at the site of the pock et and in the neck was closed with 4-0 Vicryl suture in a running subcuticular technique. The port w as flushed with 1500 units of heparin in 1.5 cc utilizing a Sheets needle. The needle was removed. A dressing was applied. The patient tolerated procedure well. COMPARISON: None. FINDINGS: Ultrasound images were recorded and stored in the patient's medical record. Final radiographic images demonstrate the tip of the catheter in the upper right atrium. A total of 0.1 minutes of fluoroscopy time was used. 7 images of the chest were obtained with the [employer]. The ultrasound images demonstrate the needle entering the internal jugular vein. IMPRESSION: 1. Successful ultrasonographic and fluoroscopic guided placement of right chest power port. RPTAT: QQ .Maurisio Gutierrez MD, Date Time Electronically viewed and signed by .Maurisio Gutierrez MD, on 05/10/2017 13:47 .R/
--- NOTE | 2017-05-10 14:09 | PN ---
Date/Time of Note Date/Time of Note DATE: 05/10/17 TIME: 14:07 Assessment/Plan VTE Prophylaxis VTE Prophylaxis Intervention: LMWH Lines/Catheters IV Catheter Type (from Nrs): Saline Lock Urinary Cath still in place: No Assessment/Plan Assessment/Plan Portacath placed successfully. Anticipate that chemotherapy can be planned for tomorrow if there is no bleeding overnight. Subjective 24 Hr Interval Summary Free Text/Dictation Pt just returned from having the Portacath placed and is hungry. Exam/Review of Systems Vital Signs Vitals Vital Signs Date Time Temp Pulse Resp B/P Pulse Ox O2 Delivery O2 Flow Rate FiO2 05/09/17 20:30 Nasal Cannula 2.0 05/09/17 20:28 99.2 102 18 105/59 96 Intake and Output 05/09/17 05/09/17 05/10/17 15:00 23:00 07:00 Intake Total 1480 ml 720 ml Output Total 700 ml Balance 1480 ml 20 ml Exam Pt is comfortable. The dressing over the Port is dry and white. No evidence of bleeding. Results Result Diagram: 05/10/17 0453 05/10/17 0453 Results 24 hrs Laboratory Tests Test 05/10/17 04:53 White Blood Count 9.0 Red Blood Count 3.96 L Hemoglobin 11.1 L Hematocrit 35.5 L Mean Corpuscular Volume 89.6 Mean Corpuscular Hemoglobin 28.0 L Mean Corpuscular Hemoglobin Concent 31.3 L Red Cell Distribution Width 14.2 Platelet Count 280 Mean Platelet Volume 10.7 H Neutrophils % 67.1 Lymphocytes % 21.5 Monocytes % 7.4 Eosinophils % 3.2 Basophils % 0.6 Nucleated Red Blood Cells % 0.0 Neutrophils # (Manual) 6.0 Lymphocytes # 1.9 Monocytes # 0.7 Eosinophils # 0.3 Basophils # 0.1 Nucleated Red Blood Cells # 0.0 Sodium Level 143 Potassium Level 4.1 Chloride Level 99 Carbon Dioxide Level 32 H Anion Gap 16 Blood Urea Nitrogen 12 Creatinine 0.59 Glucose Level 95 Calcium Level 9.0 Phosphorus Level 4.7 Magnesium Level 1.6 L Medications Medications Current Medications Hydromorphone HCl (Dilaudid) 1 mg Q2H PRN IV PAIN LEVEL 7-10 Last administered on 05/10/17t 06:21; Admin Dose 1 MG; Start 05/05/17 at 16:30 Aripiprazole (Abilify) 5 mg QHS PO ; Start 05/05/17 at 21:00 Venlafaxine HCl (Effexor Xr) 150 mg DAILY PO ; Start 05/06/17 at 09:00 Zolpidem Tartrate (Ambien) 5 mg HS PRN PO INSOMNIA; Start 05/05/17 at 17:00 Acetaminophen (Tylenol Tab) 650 mg Q6H PRN PO PAIN LEVEL 1-3 OR FEVER; Start at 16:30 Docusate Sodium (Colace) 100 mg Q12H PRN PO CONSTIPATION Last administered on 20:25; Admin Dose 100 MG; Start 05/05/17 at 16:30 Magnesium Hydroxide (Milk Of Mag) 30 ml DAILY PRN PO CONSTIPATION; Start at 16:30 Bisacodyl (Dulcolax) 5 mg DAILY PRN PO CONSTIPATION Last administered on 20:25; Admin Dose 5 MG; Start 05/05/17 at 16:30 Bisacodyl (Dulcolax Supp) 10 mg DAILY PRN [place] CONSTIPATION; Start 05/05/17 at 16 :30 Sodium Biphosphate/ Sodium Phosphate (Fleet Enema) 133 ml DAILY PRN [place] CONSTIPATION; Start 05/05/17 at 16:30 Enoxaparin Sodium (Lovenox) 40 mg DAILY SC Last administered on 05/09/17 09:03 ; Admin Dose 40 MG; Start 05/06/17 at 09:00; Status Future hold Alprazolam (Xanax) 0.5 mg Q12H PRN PO ANXIETY Last administered on 05/10/17 10 :16; Admin Dose 0.5 MG; Start 05/05/17 at 20:30 Ondansetron HCl (Zofran Inj) 4 mg Q6H PRN IV NAUSEA AND/OR VOMITING Last administered on 05/09/17 12:53; Admin Dose 4 MG; Start 05/06/17 at 15:00 Oxycodone HCl (Oxycontin) 15 mg BID PO Last administered on 05/10/17 09:12; Admin Dose 15 MG; Start 05/08/17 at 18:00 Polyethylene Glycol 17 gm 17 gm DAILY PO ; Start 05/10/17 at 09:00 Magnesium Sulfate (Magnesium Sulfate 2 Gm/50 ml) 50 ml @ 25 mls/hr ONCE ONCE IVPB ; Start 05/10/17 at 13:30; Stop 05/10/17 at 15:29 NADEEM BLEDSOE MD May 10, 2017 14:09
--- NOTE | 2017-05-10 14:24 | PN ---
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 PLAN -Continue current pain control, appreciate pain management consult -Appreciate hematology oncology consult, patient has received Port-A-Cath, to begin chemotherapy tomorrow while in-house. -hospice broached but pt and family want to appropriately talk to onc before making any particular decisions -Continue general diet -dvt prophx with low molecular weight heparin -cont home psych meds Problems: Subjective 24 Hr Interval Summary Free Text/Dictation Patient received Port-A-Cath placement earlier today. Presently has no complaints. Exam/Review of Systems Vital Signs Vitals Vital Signs Date Time Temp Pulse Resp B/P Pulse Ox O2 Delivery O2 Flow Rate FiO2 05/09/17 20:30 Nasal Cannula 2.0 05/09/17 20:28 99.2 102 18 105/59 96 Intake and Output 05/09/17 05/09/17 05/10/17 15:00 23:00 07:00 Intake Total 1480 ml 720 ml Output Total 700 ml Balance 1480 ml 20 ml Exam nad, lying in bed, eating yogurt no mrg lungs clear abd soft no rashes Results Result Diagram: 05/10/17 0453 05/10/17 0453 Results 24 hrs Laboratory Tests Test 05/10/17 04:53 White Blood Count 9.0 Red Blood Count 3.96 L Hemoglobin 11.1 L Hematocrit 35.5 L Mean Corpuscular Volume 89.6 Mean Corpuscular Hemoglobin 28.0 L Mean Corpuscular Hemoglobin Concent 31.3 L Red Cell Distribution Width 14.2 Platelet Count 280 Mean Platelet Volume 10.7 H Neutrophils % 67.1 Lymphocytes % 21.5 Monocytes % 7.4 Eosinophils % 3.2 Basophils % 0.6 Nucleated Red Blood Cells % 0.0 Neutrophils # (Manual) 6.0 Lymphocytes # 1.9 Monocytes # 0.7 Eosinophils # 0.3 Basophils # 0.1 Nucleated Red Blood Cells # 0.0 Sodium Level 143 Potassium Level 4.1 Chloride Level 99 Carbon Dioxide Level 32 H Anion Gap 16 Blood Urea Nitrogen 12 Creatinine 0.59 Glucose Level 95 Calcium Level 9.0 Phosphorus Level 4.7 Magnesium Level 1.6 L Medications Medications Current Medications Hydromorphone HCl (Dilaudid) 1 mg Q2H PRN IV PAIN LEVEL 7-10 Last administered on 05/10/17 06:21; Admin Dose 1 MG; Start 05/05/17 at 16:30 Aripiprazole (Abilify) 5 mg QHS PO ; Start 05/05/17 at 21:00 Venlafaxine HCl (Effexor Xr) 150 mg DAILY PO ; Start 05/06/17 at 09:00 Zolpidem Tartrate (Ambien) 5 mg HS PRN PO INSOMNIA; Start 05/05/17 at 17:00 Acetaminophen (Tylenol Tab) 650 mg Q6H PRN PO PAIN LEVEL 1-3 OR FEVER; Start at 16:30 Docusate Sodium (Colace) 100 mg Q12H PRN PO CONSTIPATION Last administered on 20:25; Admin Dose 100 MG; Start 05/05/17 at 16:30 Magnesium Hydroxide (Milk Of Mag) 30 ml DAILY PRN PO CONSTIPATION; Start at 16:30 Bisacodyl (Dulcolax) 5 mg DAILY PRN PO CONSTIPATION Last administered on 20:25; Admin Dose 5 MG; Start 05/05/17 at 16:30 Bisacodyl (Dulcolax Supp) 10 mg DAILY PRN [place] CONSTIPATION; Start 05/05/17 at 16 :30 Sodium Biphosphate/ Sodium Phosphate (Fleet Enema) 133 ml DAILY PRN [place] CONSTIPATION; Start 05/05/17 at 16:30 Enoxaparin Sodium (Lovenox) 40 mg DAILY SC Last administered on 05/09/17 09:03 ; Admin Dose 40 MG; Start 05/06/17 at 09:00; Status Future hold Alprazolam (Xanax) 0.5 mg Q12H PRN PO ANXIETY Last administered on 05/10/17 10 :16; Admin Dose 0.5 MG; Start 05/05/17 at 20:30 Ondansetron HCl (Zofran Inj) 4 mg Q6H PRN IV NAUSEA AND/OR VOMITING Last administered on 05/09/17 12:53; Admin Dose 4 MG; Start 05/06/17 at 15:00 Oxycodone HCl (Oxycontin) 15 mg BID PO Last administered on 05/10/17 09:12; Admin Dose 15 MG; Start 05/08/17 at 18:00 Polyethylene Glycol 17 gm 17 gm DAILY PO ; Start 05/10/17 at 09:00 Magnesium Sulfate (Magnesium Sulfate 2 Gm/50 ml) 50 ml @ 25 mls/hr ONCE ONCE IVPB ; Start 05/10/17 at 13:30; Stop 05/10/17 at 15:29 MARIALUISA CARVAJAL May 10, 2017 14:24
--- NOTE | 2017-05-10 15:24 | RADRPT ---
PROCEDURE: Ultrasound guidance for placement of needle in right internal jugular vein. CLINICAL INDICATION: Venous access. TECHNIQUE: Prior to the procedure, informed consent was obtained. Risks including bleeding, infection, and pneu mothorax were explained to the patient. The patient understood and was willing to proceed. A procedu ral pause was performed. The patient's name, date of , and procedure to be performed were verif ied. The central line was inserted with all elements of maximal sterile barrier technique. All of th e following were used: head covering, facial mask, sterile gown, sterile gloves, a large sterile she et, hand hygiene, and 2% chlorhexidine for cutaneous antisepsis. The right neck and anterior/super ior chest wall was prepped and draped in usual sterile fashion. Limited sonography of the right neck was then performed. Noted is a patent right internal jugular ve in. Ultrasound images were recorded and stored in the patient's medical record. Following the local injection of Xylocaine, the right internal jugular vein was punctured under sono graphic guidance with a 20-gauge needle through which a 0.018 inch floppy tip guidewire was advanced into the superior vena cava. The patient tolerated the procedure well. The remainder of the proce dure was performed and dictated under separate cover. COMPARISON: None. FINDINGS: The ultrasound images demonstrate a patent right internal jugular vein. The subsequent images demon strate the needle entering the right internal jugular vein. IMPRESSION: 1. Ultrasound guidance for a needle placement in right internal jugular vein. RPTAT: QQ .Maurisio Gutierrez MD, Date Time Electronically viewed and signed by .Maurisio Gutierrez MD, MD on 05/10/2017 15:24 .R/
--- NOTE | 2017-05-10 16:14 | CONS ---
Date/Time of Note Date/Time of Note DATE: 05/10/17 TIME: 16:13 Assessment/Plan Assessment/Plan Chief Complaint/Hosp Course 46-year-old female represents to [facility] with abdominal discomfort and increase in severity 1 week prior to this rehospitalization. Patient has a history of leiomyosarcoma with documented pulmonary metastases. She has been given at least one round of chemotherapy at [facility] and had total abdominal hysterectomy. Patient has been trying to set up an appointment to be seen by another oncologist but has had difficulty with insurance coverage. Abdominal pain is just gated left lower quadrant, associated with nausea vomiting without other systemic symptoms. She has had weight loss associated with this also she describes her pain as a gnawing type of discomfort not relieved with current pain medications as an outpatient including Ultram and [place]. With current pain control medication patient gets minimal improvement in her pain she still has severe discomfort great and over 10 at rest. No radiations does affect her physical function family relationships as well as her relationship sleeping and overall function denies constipation mental cloudiness itching sweats she is bandar to opioids. As far as palliative care patient has not been seen by oncology consultation here at [facility] it is pending, patient has fired her prior oncologist. I will not address goals of care until seen by oncologist Problems: Additional Assessment/Plan Doing well pain controlled, no systemic symptoms. Consultation Date/Type/Reason Admit Date/Time May 08, 2017 at 09:37 Type of Consultation: pain management Exam/Review of Systems Vital Signs Vitals Vital Signs Date Time Temp Pulse Resp B/P Pulse Ox O2 Delivery O2 Flow Rate FiO2 05/09/17 20:30 Nasal Cannula 2.0 05/09/17 20:28 99.2 102 18 105/59 96 Intake and Output 05/09/17 05/09/17 05/10/17 15:00 23:00 07:00 Intake Total 1480 ml 720 ml Output Total 700 ml Balance 1480 ml 20 ml Results Result Diagram: 05/10/17 0453 05/10/17 0453 Results 24 hrs Laboratory Tests Test 05/10/17 04:53 White Blood Count 9.0 Red Blood Count 3.96 L Hemoglobin 11.1 L Hematocrit 35.5 L Mean Corpuscular Volume 89.6 Mean Corpuscular Hemoglobin 28.0 L Mean Corpuscular Hemoglobin Concent 31.3 L Red Cell Distribution Width 14.2 Platelet Count 280 Mean Platelet Volume 10.7 H Neutrophils % 67.1 Lymphocytes % 21.5 Monocytes % 7.4 Eosinophils % 3.2 Basophils % 0.6 Nucleated Red Blood Cells % 0.0 Neutrophils # (Manual) 6.0 Lymphocytes # 1.9 Monocytes # 0.7 Eosinophils # 0.3 Basophils # 0.1 Nucleated Red Blood Cells # 0.0 Sodium Level 143 Potassium Level 4.1 Chloride Level 99 Carbon Dioxide Level 32 H Anion Gap 16 Blood Urea Nitrogen 12 Creatinine 0.59 Glucose Level 95 Calcium Level 9.0 Phosphorus Level 4.7 Magnesium Level 1.6 L Medications Medications Current Medications Hydromorphone HCl (Dilaudid) 1 mg Q2H PRN IV PAIN LEVEL 7-10 Last administered on 05/10/17 15:02; Admin Dose 1 MG; Start 05/05/17 at 16:30 Aripiprazole (Abilify) 5 mg QHS PO ; Start 05/05/17 at 21:00 Venlafaxine HCl (Effexor Xr) 150 mg DAILY PO ; Start 05/06/17 at 09:00 Zolpidem Tartrate (Ambien) 5 mg HS PRN PO INSOMNIA; Start 05/05/17 at 17:00 Acetaminophen (Tylenol Tab) 650 mg Q6H PRN PO PAIN LEVEL 1-3 OR FEVER; Start at 16:30 Docusate Sodium (Colace) 100 mg Q12H PRN PO CONSTIPATION Last administered on 20:25; Admin Dose 100 MG; Start 05/05/17 at 16:30 Magnesium Hydroxide (Milk Of Mag) 30 ml DAILY PRN PO CONSTIPATION; Start at 16:30 Bisacodyl (Dulcolax) 5 mg DAILY PRN PO CONSTIPATION Last administered on 20:25; Admin Dose 5 MG; Start 05/05/17 at 16:30 Bisacodyl (Dulcolax Supp) 10 mg DAILY PRN [place] CONSTIPATION; Start 05/05/17 at 16 :30 Sodium Biphosphate/ Sodium Phosphate (Fleet Enema) 133 ml DAILY PRN [place] CONSTIPATION; Start 05/05/17 at 16:30 Enoxaparin Sodium (Lovenox) 40 mg DAILY SC Last administered on 05/09/17 09:03 ; Admin Dose 40 MG; Start 05/06/17 at 09:00; Status Future hold Alprazolam (Xanax) 0.5 mg Q12H PRN PO ANXIETY Last administered on 05/10/17 10 :16; Admin Dose 0.5 MG; Start 05/05/17 at 20:30 Ondansetron HCl (Zofran Inj) 4 mg Q6H PRN IV NAUSEA AND/OR VOMITING Last administered on 05/09/17 12:53; Admin Dose 4 MG; Start 05/06/17 at 15:00 Oxycodone HCl (Oxycontin) 15 mg BID PO Last administered on 05/10/17 09:12; Admin Dose 15 MG; Start 05/08/17 at 18:00 Polyethylene Glycol (Miralax) 17 gm DAILY PO ; Start 05/10/17 at 09:00 JANICE STEEL May 10, 2017 16:14
[2017-05-10] MEDS: ARIPIPRAZOLE 5 MG TAB PO SCH (21:00)
[2017-05-10 21:18] VITALS: BP 123/66; RESP 20
[2017-05-11] MEDS: HYDROmorphONE 1 MG/ML SYG IV PRN ×7 (02:14→23:48)
[2017-05-11 03:53] VITALS: BP 117/74; RESP 20
[2017-05-11 06:11] LABS: MAGNESIUM 1.8 mg/dl (1.7-2.5); PHOSPHORUS 4.4 mg/dl (2.5-4.9)
[2017-05-11 07:53] VITALS: BP 122/65; RESP 18
[2017-05-11] MEDS: ALPRAZOLAM 0.5 MG TAB PO PRN ×2 (08:43→21:42)
[2017-05-11] MEDS: oxyCODONE (CR) 10 MG TAB [oxyCONTIN] PO SCH ×2 (08:46→21:08)
[2017-05-11] MEDS: POLYETHYLENE GLYCOL 17 GM PACKET PO SCH (08:58)
[2017-05-11] MEDS: VENLAFAXINE (XR) 75 MG CAP PO SCH (08:58)
--- NOTE | 2017-05-11 11:43 | PN ---
DATE: 05/11/2017 SUBJECTIVE: Patient states she is feeling well. She denies any chest pain. No abdominal pain, nausea or vomiting. The patient states that she still is having some mild vaginal spotting, but is not complaining of pelvic pain or cramping. OBJECTIVE: GENERAL: Patient is a well-developed, mildly obese female, who is in no acute distress. VITAL SIGNS: Temperature 98.2, pulse 102 per minute and regular, respirations 18, blood pressure 122/64, and pulse oximetry is 94 percent on room air. SKIN: No ecchymosis, no petechiae or rashes. HEENT: Normocephalic, but alopecia. The pupils are equal, round, react to light and accommodation. Extraocular movements are intact. There is no scleral icterus. Oral mucosa is moist without lesions. Tongue is well papillated. There is no gingival hyperplasia. No hypertrophy of Waldeyer's ring. No mucosal telangiectasias. NECK: Supple. There is no jugular distention or thyroid enlargement. CHEST: Clear to auscultation and percussion. No rhonchi, wheezes, rales or rubs. There is a surgical dressing over the right anterior chest wall in the subclavicular area where a port has been placed. There was no evidence of infection. HEART: Sinus tachycardia. No S3, S4, or murmurs. NODES: No palpable lymphadenopathy in lymph node bearing area. ABDOMEN: Slightly distended but no masses or ascites. Bowel sounds are active. EXTREMITIES: Good range of motion. No clubbing, edema, or cyanosis. No palpable cords or Sandra's sign. NEUROLOGIC: Normal. LABORATORY AND DIAGNOSTIC DATA: White count 9000, hemoglobin 11.1, hematocrit is 35.5, and platelet count 280,000. Sodium 143, potassium 4.1, BUN 12, and creatinine 0.51. Prothrombin time 12.8 seconds. INR of 0.96, PTT 29.3 seconds. ASSESSMENT AND PLAN: 1. Metastatic leiomyosarcoma of the uterus. Discussion: Patient has had a Port-A-Cath placed for administration of chemotherapy. 2. Chemotherapy will start today. The patient is to receive gemcitabine 900 mg/m2 on days 1 and 8, with each dose to be infused over 90 minutes. The patient's body surface area is 1.9 m2 and therefore this calculates to 1710 mg per dose. The patient is also to receive docetaxel on day 8. Dose is 75 mg/m2 and this calculates to 142 mg per dose. 3. The patient will be given cortical steroids daily starting on day 7 and continue on day 8 and 9, to help decrease the risk of fluid retention due to docetaxel. As noted, the therapy will be administered via the Port-A-Cath. Dictated By: Willy Braun MD /irineo/austin /Document#: [id number]
[2017-05-11] MEDS: ENOXAPARIN 40 MG/0.4 ML SYG SC SCH (14:40)
[2017-05-11 14:46] VITALS: BP 113/58; RESP 18
[2017-05-11] MEDS ORDERED: GUAIFENESIN 20 MG/ML 5ML CUP PO PRN (15:00)
[2017-05-11] MEDS ORDERED: CEPASTAT LOZENGE MT PRN (15:00)
--- NOTE | 2017-05-11 15:02 | PN ---
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 PLAN -Continue current pain control, appreciate pain management consult -Appreciate hematology oncology consult, patient has received Port-A-Cath, to begin chemotherapy tonight, follow-up hematology oncology recommendations and labs every morning -hospice broached but pt and family want to appropriately talk to onc before making any particular decisions -Continue general diet -dvt prophx with low molecular weight heparin -cont home psych meds Problems: Subjective 24 Hr Interval Summary Free Text/Dictation No acute events overnight. Awaiting start of chemotherapy for later today. Exam/Review of Systems Vital Signs Vitals Vital Signs Date Time Temp Pulse Resp B/P Pulse Ox O2 Delivery O2 Flow Rate FiO2 05/11/17 14:46 98.1 99 18 113/58 96 05/10/17 21:29 Nasal Cannula 2.0 Intake and Output 05/10/17 05/10/17 05/11/17 15:00 23:00 07:00 Intake Total 150 ml 700 ml 400 ml Balance 150 ml 700 ml 400 ml Exam nad, lying in bed, eating yogurt no mrg lungs clear abd soft no rashes Results Result Diagram: 05/10/17 0453 05/10/17 0453 Results 24 hrs Laboratory Tests Test 05/11/17 04:36 Phosphorus Level 4.4 Magnesium Level 1.8 Medications Medications Current Medications Hydromorphone HCl (Dilaudid) 1 mg Q2H PRN IV PAIN LEVEL 7-10 Last administered on 05/11/17t 14:29; Admin Dose 1 MG; Start 05/05/17 at 16:30 Aripiprazole (Abilify) 5 mg QHS PO ; Start 05/05/17 at 21:00 Venlafaxine HCl (Effexor Xr) 150 mg DAILY PO ; Start 05/06/17 at 09:00 Zolpidem Tartrate (Ambien) 5 mg HS PRN PO INSOMNIA; Start 05/05/17 at 17:00 Acetaminophen (Tylenol Tab) 650 mg Q6H PRN PO PAIN LEVEL 1-3 OR FEVER; Start at 16:30 Docusate Sodium (Colace) 100 mg Q12H PRN PO CONSTIPATION Last administered on 20:25; Admin Dose 100 MG; Start 05/05/17 at 16:30 Magnesium Hydroxide (Milk Of Mag) 30 ml DAILY PRN PO CONSTIPATION; Start at 16:30 Bisacodyl (Dulcolax) 5 mg DAILY PRN PO CONSTIPATION Last administered on 20:25; Admin Dose 5 MG; Start 05/05/17 at 16:30 Bisacodyl (Dulcolax Supp) 10 mg DAILY PRN [place] CONSTIPATION Last administered on 05/10/17 20:42; Admin Dose 10 MG; Start 05/05/17 at 16:30 Sodium Biphosphate/ Sodium Phosphate (Fleet Enema) 133 ml DAILY PRN [place] CONSTIPATION; Start 05/05/17 at 16:30 Enoxaparin Sodium (Lovenox) 40 mg DAILY SC Last administered on 05/11/17 14:40 ; Admin Dose 40 MG; Start 05/06/17 at 09:00; Status Future hold Alprazolam (Xanax) 0.5 mg Q12H PRN PO ANXIETY Last administered on 05/11/17 08: 43; Admin Dose 0.5 MG; Start 05/05/17 at 20:30 Ondansetron HCl (Zofran Inj) 4 mg Q6H PRN IV NAUSEA AND/OR VOMITING Last administered on 05/09/17 12:53; Admin Dose 4 MG; Start 05/06/17 at 15:00 Oxycodone HCl (Oxycontin) 15 mg BID PO Last administered on 05/11/17 08:46; Admin Dose 15 MG; Start 05/08/17 at 18:00 Polyethylene Glycol (Miralax) 17 gm DAILY PO ; Start 05/10/17 at 09:00 Phenol (Cepastat Lozenge) 1 lozenge Q1H PRN [place] COUGH; Start 05/11/17 at 15:00; Status UNV Guaifenesin (Robitussin Liquid Cup) 200 mg Q4H PRN PO COUGH; Start 05/11/17 at 15:00; Status UNV MARIALUISA CARVAJAL May 11, 2017 15:02
[2017-05-11 20:22] VITALS: BP 117/68; RESP 20
[2017-05-11] MEDS: ARIPIPRAZOLE 5 MG TAB PO SCH (21:00)
[2017-05-11] MEDS ORDERED: ONDANSETRON 4 MG TAB PO PRN (21:30)
[2017-05-11] MEDS ORDERED: ONDANSETRON INJ 16 MG, DEXAMETHASONE 4 MG/ML 20 MG in SOD CHLORIDE 0.9% 50 ML IVPB SCH (22:00)
[2017-05-11] MEDS ORDERED: GEMCITABINE IV SCH (23:00)
[2017-05-11] MEDS ORDERED: SOD CHLORIDE 0.9% IV SCH (23:00)
[2017-05-12] VITALS (11 sets, daily range): BP systolic 108–155; BP diastolic 60–82; RESP 18–20
[2017-05-12] MEDS: HYDROmorphONE 1 MG/ML SYG IV PRN ×8 (02:05→19:56)
[2017-05-12 05:24] LABS: ABNORMAL IP MESSAGE 1; BASOPHILS % 0.3 % (0.0-2.0); EOSINOPHILS % 0.3 % (0.0-7.0); HEMATOCRIT 34.9 % (37.0-47.0); LYMPHOCYTES # 0.5 10^3/ul (0.8-2.9); LYMPHOCYTES % 7.1 % (15.0-51.0); MEAN CORPUSCULAR HEMOGLOBIN 28.7 pg (29.0-33.0); MEAN CORPUSCULAR HGB CONC 31.5 g/dl (32.0-37.0); MEAN CORPUSCULAR VOLUME 91.1 fl (82.0-101.0); MONOCYTE # 0.1 10^3/ul (0.3-0.9); MONOCYTES % 0.9 % (0.0-11.0); PLATELET COUNT 236 10^3/UL (140-415); RED BLOOD COUNT 3.83 10^6/ul (4.20-5.40); RED CELL DISTRIBUTION WIDTH 14.1 % (11.5-14.5)
[2017-05-12 05:43] LABS: POSITIVE DIFF @See below
[2017-05-12 06:11] LABS: CALCIUM 8.7 mg/dl (8.4-10.2); CREATININE 0.56 mg/dl (0.44-1.00)
[2017-05-12] MEDS: VENLAFAXINE (XR) 75 MG CAP PO SCH (09:00)
[2017-05-12] MEDS: POLYETHYLENE GLYCOL 17 GM PACKET PO SCH (09:00)
[2017-05-12] MEDS: ENOXAPARIN 40 MG/0.4 ML SYG SC SCH (09:00)
[2017-05-12] MEDS: oxyCODONE (CR) 10 MG TAB [oxyCONTIN] PO SCH ×2 (09:19→21:09)
[2017-05-12] MEDS: ALPRAZOLAM 0.5 MG TAB PO PRN ×2 (09:19→21:59)
--- NOTE | 2017-05-12 14:20 | PN ---
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 PLAN -Continue current pain control, appreciate pain management and hematology oncology consults -Patient has Port-A-Cath, continue chemotherapy per hematology oncology recommendation, follow-up labs every morning -hospice broached but pt and family want to appropriately talk to onc before making any particular decisions -Continue general diet -dvt prophx with low molecular weight heparin -cont home psych meds Problems: Subjective 24 Hr Interval Summary Free Text/Dictation Patient had chemotherapy session, first 1, last night. No acute events overnight otherwise. Exam/Review of Systems Vital Signs Vitals Vital Signs Date Time Temp Pulse Resp B/P Pulse Ox O2 Delivery O2 Flow Rate FiO2 05/12/17 07:00 98.0 96 18 108/61 94 05/12/17 04:00 Nasal Cannula 2.0 Intake and Output 05/11/17 05/11/17 05/12/17 14:59 22:59 06:59 Intake Total 1020 ml 913 ml Balance 1020 ml 913 ml Exam nad, lying in bed, no acute distress no mrg lungs clear abd soft no rashes Results Result Diagram: 05/12/17 0448 05/12/17 0448 Results 24 hrs Laboratory Tests Test 05/12/17 04:48 White Blood Count 7.0 # Red Blood Count 3.83 L Hemoglobin 11.0 L Hematocrit 34.9 L Mean Corpuscular Volume 91.1 Mean Corpuscular Hemoglobin 28.7 L Mean Corpuscular Hemoglobin Concent 31.5 L Red Cell Distribution Width 14.1 Platelet Count 236 Mean Platelet Volume 11.0 H Neutrophils % 91.0 H Lymphocytes % 7.1 L Monocytes % 0.9 Eosinophils % 0.3 Basophils % 0.3 Nucleated Red Blood Cells % 0.0 Neutrophils # (Manual) 6.4 Lymphocytes # 0.5 L Monocytes # 0.1 L Eosinophils # 0.0 Basophils # 0.0 Nucleated Red Blood Cells # 0.0 Sodium Level 142 Potassium Level 4.0 Chloride Level 104 Carbon Dioxide Level 30 Anion Gap 12 Blood Urea Nitrogen 10 Creatinine 0.56 Glucose Level 152 Calcium Level 8.7 Medications Medications Current Medications Hydromorphone HCl (Dilaudid) 1 mg Q2H PRN IV PAIN LEVEL 7-10 Last administered on 05/12/17 12:28; Admin Dose 1 MG; Start 05/05/17 at 16:30 Aripiprazole (Abilify) 5 mg QHS PO ; Start 05/05/17 at 21:00 Venlafaxine HCl (Effexor Xr) 150 mg DAILY PO ; Start 05/06/17 at 09:00 Zolpidem Tartrate (Ambien) 5 mg HS PRN PO INSOMNIA; Start 05/05/17 at 17:00 Acetaminophen (Tylenol Tab) 650 mg Q6H PRN PO PAIN LEVEL 1-3 OR FEVER; Start at 16:30 Docusate Sodium (Colace) 100 mg Q12H PRN PO CONSTIPATION Last administered on 20:25; Admin Dose 100 MG; Start 05/05/17 at 16:30 Magnesium Hydroxide (Milk Of Mag) 30 ml DAILY PRN PO CONSTIPATION; Start at 16:30 Bisacodyl (Dulcolax) 5 mg DAILY PRN PO CONSTIPATION Last administered on 20:25; Admin Dose 5 MG; Start 05/05/17 at 16:30 Bisacodyl (Dulcolax Supp) 10 mg DAILY PRN [place] CONSTIPATION Last administered on 05/10/17 20:42; Admin Dose 10 MG; Start 05/05/17 at 16:30 Sodium Biphosphate/ Sodium Phosphate (Fleet Enema) 133 ml DAILY PRN [place] CONSTIPATION; Start 05/05/17 at 16:30 Enoxaparin Sodium (Lovenox) 40 mg DAILY SC Last administered on 05/11/17 14:40 ; Admin Dose 40 MG; Start 05/06/17 at 09:00; Status Future hold Alprazolam (Xanax) 0.5 mg Q12H PRN PO ANXIETY Last administered on 05/12/17 09: 19; Admin Dose 0.5 MG; Start 05/05/17 at 20:30 Ondansetron HCl (Zofran Inj) 4 mg Q6H PRN IV NAUSEA AND/OR VOMITING Last administered on 05/09/17 12:53; Admin Dose 4 MG; Start 05/06/17 at 15:00 Oxycodone HCl (Oxycontin) 15 mg BID PO Last administered on 05/12/17 09:19; Admin Dose 15 MG; Start 05/08/17 at 18:00 Polyethylene Glycol (Miralax) 17 gm DAILY PO ; Start 05/10/17 at 09:00 Phenol (Cepastat Lozenge) 1 lozenge Q1H PRN MT COUGH; Start 05/11/17 at 15:00 Guaifenesin (Robitussin Liquid Cup) 200 mg Q4H PRN PO COUGH; Start 05/11/17 at 15:00 Ondansetron HCl (Zofran Tab) 4 mg Q4H PRN PO NAUSEA AND/OR VOMITING; Start 05/11 at 21:30 Dexamethasone 4 mg 4 mg BID PO ; Start 05/17/17 at 09:00; Stop 05/19/17 at 21:01 Ondansetron HCl 16 mg/ Dexamethasone 20 mg/Sodium Chloride 63 ml @ 126 mls/hr Q7D IVPB Last administered on 05/12/17 00:12; Admin Dose 126 MLS/HR; Start 05/11 at 22:00; Stop 05/18/17 at 22:29 Gemcitabine HCl 1.71 gm/Sodium Chloride 250 ml @ 167 mls/hr Q7D IV Last administered on 05/12/17 01:34; Admin Dose 167 MLS/HR; Start 05/11/17 at 23:00; Stop 05/19/17 at 00:30 Docetaxel/ Docetaxel/N/A/ Sodium Chloride (taxoTERE/ taxoTERE/Evac Container/NS ) 250 ml @ 250 mls/hr 01 IV ; Start 05/19/17 at 01:00; Stop 05/19/17 at 01:59 MARIALUISA CARVAJAL May 12, 2017 14:20
--- NOTE | 2017-05-12 18:38 | PN ---
Date/Time of Note Date/Time of Note DATE: 05/12/17 TIME: 18:35 Assessment/Plan VTE Prophylaxis VTE Prophylaxis Intervention: LMWH Lines/Catheters IV Catheter Type (from Nrs): PORTACATH Urinary Cath still in place: No Assessment/Plan Chief Complaint/Hosp Course 1. Metastatic leiomyosarcoma of the uterus. Day 1 Gemzar was given, so far tolerating it well. Next dose due 1 week later. 2. Pain control, adequate for now. Plan: Continue other treatments. Goal for pain control and increase time OOB. Problems: Subjective 24 Hr Interval Summary Free Text/Dictation She tolerated Gemzar chemo well. Has pain, but well managed with pain meds. Eating ok. Having regular BMs. Exam/Review of Systems Vital Signs Vitals Vital Signs Date Time Temp Pulse Resp B/P Pulse Ox O2 Delivery O2 Flow Rate FiO2 05/12/17 14:00 98.7 106 18 119/71 99 05/12/17 04:00 Nasal Cannula 2.0 Intake and Output 05/11/17 05/11/17 05/12/17 15:00 23:00 07:00 Intake Total 1020 ml 913 ml Balance 1020 ml 913 ml Exam NAD Mild discomfort from pain. Clear ganga heat regular Abd distended but soft. No edema. Results Result Diagram: 05/12/178 05/12/178 Results 24 hrs Laboratory Tests Test 05/12/17 04:48 White Blood Count 7.0 # Red Blood Count 3.83 L Hemoglobin 11.0 L Hematocrit 34.9 L Mean Corpuscular Volume 91.1 Mean Corpuscular Hemoglobin 28.7 L Mean Corpuscular Hemoglobin Concent 31.5 L Red Cell Distribution Width 14.1 Platelet Count 236 Mean Platelet Volume 11.0 H Neutrophils % 91.0 H Lymphocytes % 7.1 L Monocytes % 0.9 Eosinophils % 0.3 Basophils % 0.3 Nucleated Red Blood Cells % 0.0 Neutrophils # (Manual) 6.4 Lymphocytes # 0.5 L Monocytes # 0.1 L Eosinophils # 0.0 Basophils # 0.0 Nucleated Red Blood Cells # 0.0 Sodium Level 142 Potassium Level 4.0 Chloride Level 104 Carbon Dioxide Level 30 Anion Gap 12 Blood Urea Nitrogen 10 Creatinine 0.56 Glucose Level 152 Calcium Level 8.7 Medications Medications Current Medications Hydromorphone HCl (Dilaudid) 1 mg Q2H PRN IV PAIN LEVEL 7-10 Last administered on 05/12/17 17:56; Admin Dose 1 MG; Start 05/05/17 at 16:30 Aripiprazole (Abilify) 5 mg QHS PO ; Start 05/05/17 at 21:00 Venlafaxine HCl (Effexor Xr) 150 mg DAILY PO ; Start 05/06/17 at 09:00 Zolpidem Tartrate (Ambien) 5 mg HS PRN PO INSOMNIA; Start 05/05/17 at 17:00 Acetaminophen (Tylenol Tab) 650 mg Q6H PRN PO PAIN LEVEL 1-3 OR FEVER; Start at 16:30 Docusate Sodium (Colace) 100 mg Q12H PRN PO CONSTIPATION Last administered on 20:25; Admin Dose 100 MG; Start 05/05/17 at 16:30 Magnesium Hydroxide (Milk Of Mag) 30 ml DAILY PRN PO CONSTIPATION; Start at 16:30 Bisacodyl (Dulcolax) 5 mg DAILY PRN PO CONSTIPATION Last administered on 20:25; Admin Dose 5 MG; Start 05/05/17 at 16:30 Bisacodyl (Dulcolax Supp) 10 mg DAILY PRN [place] CONSTIPATION Last administered on 05/10/17 20:42; Admin Dose 10 MG; Start 05/05/17 at 16:30 Sodium Biphosphate/ Sodium Phosphate (Fleet Enema) 133 ml DAILY PRN [place] CONSTIPATION; Start 05/05/17 at 16:30 Enoxaparin Sodium (Lovenox) 40 mg DAILY SC Last administered on 05/11/17 14:40 ; Admin Dose 40 MG; Start 05/06/17 at 09:00; Status Future hold Alprazolam (Xanax) 0.5 mg Q12H PRN PO ANXIETY Last administered on 05/12/17 09: 19; Admin Dose 0.5 MG; Start 05/05/17 at 20:30 Ondansetron HCl (Zofran Inj) 4 mg Q6H PRN IV NAUSEA AND/OR VOMITING Last administered on 05/09/17 12:53; Admin Dose 4 MG; Start 05/06/17 at 15:00 Oxycodone HCl (Oxycontin) 15 mg BID PO Last administered on 05/12/17 09:19; Admin Dose 15 MG; Start 05/08/17 at 18:00 Polyethylene Glycol (Miralax) 17 gm DAILY PO ; Start 05/10/17 at 09:00 Phenol (Cepastat Lozenge) 1 lozenge Q1H PRN [place] COUGH; Start 05/11/17 at 15:00 Guaifenesin (Robitussin Liquid Cup) 200 mg Q4H PRN PO COUGH; Start 05/11/17 at 15:00 Ondansetron HCl (Zofran Tab) 4 mg Q4H PRN PO NAUSEA AND/OR VOMITING; Start 05/11 at 21:30 Dexamethasone 4 mg 4 mg BID PO ; Start 05/17/17 at 09:00; Stop 05/19/17 at 21:01 Ondansetron HCl 16 mg/ Dexamethasone 20 mg/Sodium Chloride 63 ml @ 126 mls/hr Q7D IVPB Last administered on 05/12/17 00:12; Admin Dose 126 MLS/HR; Start 05/11 at 22:00; Stop 05/18/17 at 22:29 Gemcitabine HCl 1.71 gm/Sodium Chloride 250 ml @ 167 mls/hr Q7D IV Last administered on 05/12/17 01:34; Admin Dose 167 MLS/HR; Start 05/11/17 at 23:00; Stop 05/19/17 at 00:30 Docetaxel/ Docetaxel/N/A/ Sodium Chloride (taxoTERE/ taxoTERE/Evac Container/NS ) 250 ml @ 250 mls/hr 01 IV ; Start 05/19/17 at 01:00; Stop 05/19/17 at 01:59 LEW DAVISON MD May 12, 2017 18:38
[2017-05-12] MEDS: ARIPIPRAZOLE 5 MG TAB PO SCH (21:00)
[2017-05-13] MEDS: HYDROmorphONE 1 MG/ML SYG IV PRN ×9 (00:07→22:42)
[2017-05-13 02:00] VITALS: BP 106/67; RESP 19
[2017-05-13 05:35] LABS: BASOPHILS % 0.2 % (0.0-2.0); EOSINOPHILS % 0.2 % (0.0-7.0); HEMATOCRIT 32.8 % (37.0-47.0); HEMOGLOBIN 10.5 g/dl (12.0-16.0); LYMPHOCYTES # 1.4 10^3/ul (0.8-2.9); LYMPHOCYTES % 11.6 % (15.0-51.0); MEAN CORPUSCULAR HEMOGLOBIN 28.8 pg (29.0-33.0); MEAN CORPUSCULAR VOLUME 90.1 fl (82.0-101.0); MONOCYTE # 0.8 10^3/ul (0.3-0.9); MONOCYTES % 6.8 % (0.0-11.0); NEUTROPHILS % 80.9 % (39.0-77.0); PLATELET COUNT 263 10^3/UL (140-415); RED BLOOD COUNT 3.64 10^6/ul (4.20-5.40); RED CELL DISTRIBUTION WIDTH 14.4 % (11.5-14.5); WHITE BLOOD COUNT 12.1 10^3/ul (4.8-10.8)
[2017-05-13 05:56] LABS: CALCIUM 9.1 mg/dl (8.4-10.2); CREATININE 0.5 mg/dl (0.44-1.00); POTASSIUM 4.4 mmol/L (3.5-5.1)
[2017-05-13 08:11] VITALS: BP 118/58; RESP 20
[2017-05-13] MEDS: POLYETHYLENE GLYCOL 17 GM PACKET PO SCH (08:21)
[2017-05-13] MEDS: VENLAFAXINE (XR) 75 MG CAP PO SCH (08:21)
[2017-05-13] MEDS: ENOXAPARIN 40 MG/0.4 ML SYG SC SCH (08:23)
[2017-05-13] MEDS: oxyCODONE (CR) 10 MG TAB [oxyCONTIN] PO SCH ×2 (08:27→20:14)
[2017-05-13] MEDS: ALPRAZOLAM 0.5 MG TAB PO PRN ×2 (10:01→21:45)
--- NOTE | 2017-05-13 12:39 | PN ---
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 PLAN -Continue current pain control, appreciate pain management and hematology oncology consults -Patient has Port-A-Cath, continue chemotherapy per hematology oncology recommendation (received first dose 2 days ago, next dose scheduled in 5 days), follow-up labs every morning -hospice broached but pt and family want to appropriately talk to onc before making any particular decisions -Continue general diet -dvt prophx with low molecular weight heparin -cont home psych meds Problems: Subjective 24 Hr Interval Summary Free Text/Dictation No acute events overnight, seen by oncology team yesterday. Exam/Review of Systems Vital Signs Vitals Vital Signs Date Time Temp Pulse Resp B/P Pulse Ox O2 Delivery O2 Flow Rate FiO2 05/13/17 09:15 Nasal Cannula 2.0 05/13/17 08:11 98.4 63 20 118/58 97 Intake and Output 05/12/17 05/12/17 05/13/17 15:00 23:00 07:00 Intake Total 1680 ml 600 ml Output Total 1500 ml Balance 180 ml 600 ml Exam nad, lying in bed, no acute distress no mrg lungs clear abd soft no rashes Results Result Diagram: 05/13/17 0504 05/13/17 0504 Results 24 hrs Laboratory Tests Test 05/13/17 05:04 White Blood Count 12.1 #H Red Blood Count 3.64 L Hemoglobin 10.5 L Hematocrit 32.8 L Mean Corpuscular Volume 90.1 Mean Corpuscular Hemoglobin 28.8 L Mean Corpuscular Hemoglobin Concent 32.0 Red Cell Distribution Width 14.4 Platelet Count 263 Mean Platelet Volume 11.0 H Neutrophils % 80.9 H Lymphocytes % 11.6 L Monocytes % 6.8 Eosinophils % 0.2 Basophils % 0.2 Nucleated Red Blood Cells % 0.0 Neutrophils # (Manual) 9.8 H Lymphocytes # 1.4 Monocytes # 0.8 Eosinophils # 0.0 Basophils # 0.0 Nucleated Red Blood Cells # 0.0 Sodium Level 137 Potassium Level 4.4 Chloride Level 100 Carbon Dioxide Level 32 H Anion Gap 9 Blood Urea Nitrogen 15 Creatinine 0.50 Glucose Level 130 Calcium Level 9.1 Medications Medications Current Medications Hydromorphone HCl (Dilaudid) 1 mg Q2H PRN IV PAIN LEVEL 7-10 Last administered on 05/13/17 11:11; Admin Dose 1 MG; Start 05/05/17 at 16:30 Aripiprazole (Abilify) 5 mg QHS PO ; Start 05/05/17 at 21:00 Venlafaxine HCl (Effexor Xr) 150 mg DAILY PO ; Start 05/06/17 at 09:00 Zolpidem Tartrate (Ambien) 5 mg HS PRN PO INSOMNIA; Start 05/05/17 at 17:00 Acetaminophen (Tylenol Tab) 650 mg Q6H PRN PO PAIN LEVEL 1-3 OR FEVER; Start at 16:30 Docusate Sodium (Colace) 100 mg Q12H PRN PO CONSTIPATION Last administered on 20:25; Admin Dose 100 MG; Start 05/05/17 at 16:30 Magnesium Hydroxide (Milk Of Mag) 30 ml DAILY PRN PO CONSTIPATION; Start at 16:30 Bisacodyl (Dulcolax) 5 mg DAILY PRN PO CONSTIPATION Last administered on 20:25; Admin Dose 5 MG; Start 05/05/17 at 16:30 Bisacodyl (Dulcolax Supp) 10 mg DAILY PRN [place] CONSTIPATION Last administered on 05/10/17 20:42; Admin Dose 10 MG; Start 05/05/17 at 16:30 Sodium Biphosphate/ Sodium Phosphate (Fleet Enema) 133 ml DAILY PRN [place] CONSTIPATION; Start 05/05/17 at 16:30 Enoxaparin Sodium (Lovenox) 40 mg DAILY SC Last administered on 05/13/17 08:23 ; Admin Dose 40 MG; Start 05/06/17 at 09:00; Status Future hold Alprazolam (Xanax) 0.5 mg Q12H PRN PO ANXIETY Last administered on 05/13/17 10: 01; Admin Dose 0.5 MG; Start 05/05/17 at 20:30 Ondansetron HCl (Zofran Inj) 4 mg Q6H PRN IV NAUSEA AND/OR VOMITING Last administered on 05/09/17 12:53; Admin Dose 4 MG; Start 05/06/17 at 15:00 Oxycodone HCl (Oxycontin) 15 mg BID PO Last administered on 05/13/17 08:27; Admin Dose 15 MG; Start 05/08/17 at 18:00 Polyethylene Glycol (Miralax) 17 gm DAILY PO ; Start 05/10/17 at 09:00 Phenol (Cepastat Lozenge) 1 lozenge Q1H PRN MT COUGH; Start 05/11/17 at 15:00 Guaifenesin (Robitussin Liquid Cup) 200 mg Q4H PRN PO COUGH; Start 05/11/17 at 15:00 Ondansetron HCl (Zofran Tab) 4 mg Q4H PRN PO NAUSEA AND/OR VOMITING; Start 05/11 at 21:30 Dexamethasone 4 mg 4 mg BID PO ; Start 05/17/17 at 09:00; Stop 05/19/17 at 21:01 Ondansetron HCl 16 mg/ Dexamethasone 20 mg/Sodium Chloride 63 ml @ 126 mls/hr Q7D IVPB Last administered on 05/12/17 00:12; Admin Dose 126 MLS/HR; Start 05/11 at 22:00; Stop 05/18/17 at 22:29 Gemcitabine HCl 1.71 gm/Sodium Chloride 250 ml @ 167 mls/hr Q7D IV Last administered on 05/12/17 01:34; Admin Dose 167 MLS/HR; Start 05/11/17 at 23:00; Stop 05/19/17 at 00:30 Docetaxel/ Docetaxel/N/A/ Sodium Chloride (taxoTERE/ taxoTERE/Evac Container/NS ) 250 ml @ 250 mls/hr 01 IV ; Start 05/19/17 at 01:00; Stop 05/19/17 at 01:59 MARIALUISA CARVAJAL May 13, 2017 12:39
[2017-05-13 15:27] VITALS: BP 119/72; RESP 20
--- NOTE | 2017-05-13 16:22 | PN ---
Date/Time of Note Date/Time of Note DATE: 05/13/17 TIME: 16:20 Assessment/Plan VTE Prophylaxis VTE Prophylaxis Intervention: LMWH Lines/Catheters IV Catheter Type (from Nrsg): port a cath Central line still needed: Yes Urinary Cath still in place: No Assessment/Plan Chief Complaint/Hosp Course 1. Metastatic leiomyosarcoma of the uterus. Day 1 Gemzar was given on 05/11, so far tolerating it well. Next dose due 1 week later. 2. Pain control, adequate for now. 3. Pain at port site, likely related to post surgery. Monitor for infiltration. Plan: No new recommendations. Continue other treatments. Goal for pain control and increase time OOB. Problems: Subjective 24 Hr Interval Summary Free Text/Dictation She c/o pain in the chest, mainly at the port site. Port is accessed but no fluids going in. No other c/o. Eating ok, walking at times. Exam/Review of Systems Vital Signs Vitals Vital Signs Date Time Temp Pulse Resp B/P Pulse Ox O2 Delivery O2 Flow Rate FiO2 05/13/17 15:27 98.2 87 20 119/72 99 05/13/17 09:15 Nasal Cannula 2.0 Intake and Output 05/12/17 05/12/17 05/13/17 15:00 23:00 07:00 Intake Total 1680 ml 600 ml Output Total 1500 ml Balance 180 ml 600 ml Exam NAD VSS Decreased bs RRR Abd soft, NTTP Ext no edema Chest - port in place, tender at port only. No chest wall erythema. Results Result Diagram: 05/13/17 0504 05/13/17 0504 Results 24 hrs Laboratory Tests Test 05/13/17 05:04 White Blood Count 12.1 #H Red Blood Count 3.64 L Hemoglobin 10.5 L Hematocrit 32.8 L Mean Corpuscular Volume 90.1 Mean Corpuscular Hemoglobin 28.8 L Mean Corpuscular Hemoglobin Concent 32.0 Red Cell Distribution Width 14.4 Platelet Count 263 Mean Platelet Volume 11.0 H Neutrophils % 80.9 H Lymphocytes % 11.6 L Monocytes % 6.8 Eosinophils % 0.2 Basophils % 0.2 Nucleated Red Blood Cells % 0.0 Neutrophils # (Manual) 9.8 H Lymphocytes # 1.4 Monocytes # 0.8 Eosinophils # 0.0 Basophils # 0.0 Nucleated Red Blood Cells # 0.0 Sodium Level 137 Potassium Level 4.4 Chloride Level 100 Carbon Dioxide Level 32 H Anion Gap 9 Blood Urea Nitrogen 15 Creatinine 0.50 Glucose Level 130 Calcium Level 9.1 Medications Medications Current Medications Hydromorphone HCl (Dilaudid) 1 mg Q2H PRN IV PAIN LEVEL 7-10 Last administered on 05/13/17 14:08; Admin Dose 1 MG; Start 05/05/17 at 16:30 Aripiprazole (Abilify) 5 mg QHS PO ; Start 05/05/17 at 21:00 Venlafaxine HCl (Effexor Xr) 150 mg DAILY PO ; Start 05/06/17 at 09:00 Zolpidem Tartrate (Ambien) 5 mg HS PRN PO INSOMNIA; Start 05/05/17 at 17:00 Acetaminophen (Tylenol Tab) 650 mg Q6H PRN PO PAIN LEVEL 1-3 OR FEVER; Start at 16:30 Docusate Sodium (Colace) 100 mg Q12H PRN PO CONSTIPATION Last administered on 20:25; Admin Dose 100 MG; Start 05/05/17 at 16:30 Magnesium Hydroxide (Milk Of Mag) 30 ml DAILY PRN PO CONSTIPATION; Start at 16:30 Bisacodyl (Dulcolax) 5 mg DAILY PRN PO CONSTIPATION Last administered on 20:25; Admin Dose 5 MG; Start 05/05/17 at 16:30 Bisacodyl (Dulcolax Supp) 10 mg DAILY PRN [place] CONSTIPATION Last administered on 05/10/17 20:42; Admin Dose 10 MG; Start 05/05/17 at 16:30 Sodium Biphosphate/ Sodium Phosphate (Fleet Enema) 133 ml DAILY PRN [place] CONSTIPATION; Start 05/05/17 at 16:30 Enoxaparin Sodium (Lovenox) 40 mg DAILY SC Last administered on 05/13/17 08:23 ; Admin Dose 40 MG; Start 05/06/17 at 09:00; Status Future hold Alprazolam (Xanax) 0.5 mg Q12H PRN PO ANXIETY Last administered on 05/13/17 10: 01; Admin Dose 0.5 MG; Start 05/05/17 at 20:30 Ondansetron HCl (Zofran Inj) 4 mg Q6H PRN IV NAUSEA AND/OR VOMITING Last administered on 05/09/17 12:53; Admin Dose 4 MG; Start 05/06/17 at 15:00 Oxycodone HCl (Oxycontin) 15 mg BID PO Last administered on 05/13/17 08:27; Admin Dose 15 MG; Start 05/08/17 at 18:00 Polyethylene Glycol (Miralax) 17 gm DAILY PO ; Start 05/10/17 at 09:00 Phenol (Cepastat Lozenge) 1 lozenge Q1H PRN MT COUGH; Start 05/11/17 at 15:00 Guaifenesin (Robitussin Liquid Cup) 200 mg Q4H PRN PO COUGH; Start 05/11/17 at 15:00 Ondansetron HCl (Zofran Tab) 4 mg Q4H PRN PO NAUSEA AND/OR VOMITING; Start 05/11 at 21:30 Dexamethasone 4 mg 4 mg BID PO ; Start 05/17/17 at 09:00; Stop 05/19/17 at 21:01 Ondansetron HCl 16 mg/ Dexamethasone 20 mg/Sodium Chloride 63 ml @ 126 mls/hr Q7D IVPB Last administered on 05/12/17 00:12; Admin Dose 126 MLS/HR; Start 05/11 at 22:00; Stop 05/18/17 at 22:29 Gemcitabine HCl 1.71 gm/Sodium Chloride 250 ml @ 167 mls/hr Q7D IV Last administered on 05/12/17 01:34; Admin Dose 167 MLS/HR; Start 05/11/17 at 23:00; Stop 05/19/17 at 00:30 Docetaxel/ Docetaxel/N/A/ Sodium Chloride (taxoTERE/ taxoTERE/Evac Container/NS ) 250 ml @ 250 mls/hr 01 IV ; Start 05/19/17 at 01:00; Stop 05/19/17 at 01:59 LEW DAVISON MD May 13, 2017 16:22
[2017-05-13 19:40] VITALS: BP 111/54; RESP 16
[2017-05-13] MEDS: ARIPIPRAZOLE 5 MG TAB PO SCH (20:14)
[2017-05-14] MEDS: HYDROmorphONE 1 MG/ML SYG IV PRN (00:57)
[2017-05-14] MEDS: oxyCODONE (CR) 10 MG TAB [oxyCONTIN] PO SCH ×4 (01:37→20:32)
[2017-05-14 02:07] VITALS: BP 101/55; RESP 16
[2017-05-14] MEDS: HYDROmorphONE 2 MG/ML SYG IV PRN ×5 (03:50→21:30)
[2017-05-14 05:11] LABS: BASOPHIL # 0.1 10^3/ul (0.0-0.1); BASOPHILS % 0.6 % (0.0-2.0); EOSINOPHILS # 0.2 10^3/ul (0.0-0.5); EOSINOPHILS % 2.3 % (0.0-7.0); HEMATOCRIT 34.1 % (37.0-47.0); HEMOGLOBIN 10.6 g/dl (12.0-16.0); LYMPHOCYTES # 2.1 10^3/ul (0.8-2.9); LYMPHOCYTES % 23.2 % (15.0-51.0); MEAN CORPUSCULAR HEMOGLOBIN 28.3 pg (29.0-33.0); MEAN CORPUSCULAR HGB CONC 31.1 g/dl (32.0-37.0); MEAN CORPUSCULAR VOLUME 90.9 fl (82.0-101.0); MEAN PLATELET VOLUME 10.6 fl (7.4-10.4); MONOCYTE # 0.2 10^3/ul (0.3-0.9); MONOCYTES % 1.8 % (0.0-11.0); NEUTROPHILS % 71.9 % (39.0-77.0); PLATELET COUNT 223 10^3/UL (140-415); RED BLOOD COUNT 3.75 10^6/ul (4.20-5.40); RED CELL DISTRIBUTION WIDTH 14.4 % (11.5-14.5)
[2017-05-14 05:38] LABS: CALCIUM 8.8 mg/dl (8.4-10.2); CREATININE 0.57 mg/dl (0.44-1.00); POTASSIUM 4.1 mmol/L (3.5-5.1)
[2017-05-14 07:56] VITALS: BP 106/57; RESP 19
[2017-05-14] MEDS: VENLAFAXINE (XR) 75 MG CAP PO SCH (08:20)
[2017-05-14] MEDS: POLYETHYLENE GLYCOL 17 GM PACKET PO SCH (08:20)
[2017-05-14] MEDS: ENOXAPARIN 40 MG/0.4 ML SYG SC SCH (08:25)
--- NOTE | 2017-05-14 11:43 | RADRPT ---
PROCEDURE: Right upper extremity venous ultrasound CLINICAL INDICATION: Right arm pain and swelling, deep venous thrombosis TECHNIQUE: Chowdhury scale, color doppler, spectral doppler ultrasound imaging of the venous system of the right upper extremity. Augmentation maneuvers were utilized. COMPARISON: No prior studies are available for comparison. FINDINGS: RIGHT: Internal jugular vein: Patent. Subclavian vein: Patent. Axillary vein: Patent. Brachial vein: Patent. Basilic vein: Patent. Cephalic vein: Patent. Radial vein: Patent. Ulnar vein: Patent. IMPRESSION: No evidence of a deep vein thrombosis involving the right upper extremity. RPTAT: AADD .Tyson Gross MD, MD Date Time Electronically viewed and signed by .Tyson Gross MD, on 05/14/2017 11:43 .B/
[2017-05-14] MEDS: ALPRAZOLAM 0.5 MG TAB PO PRN (14:17)
--- NOTE | 2017-05-14 15:29 | PN ---
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 No evidence of bowel obstruction, bowel perf, or other abdominal pathology warranting urgent surgical intervention on imaging PLAN pain control onc following, on chemo check LUE US given ?swelling general diet dvt prophx cont home psych meds discharge when advised by onc Subjective 24 Hr Interval Summary Free Text/Dictation Comfortable with onc care plan, notes L arm a little swollen Exam/Review of Systems Vital Signs Vitals Vital Signs Date Time Temp Pulse Resp B/P Pulse Ox O2 Delivery O2 Flow Rate FiO2 05/14/17 14:34 Nasal Cannula 3.0 05/14/17 07:56 98.0 105 19 106/57 98 Intake and Output 05/13/17 05/13/17 05/14/17 14:59 22:59 06:59 Intake Total 1040 ml 1000 ml Balance 1040 ml 1000 ml Exam +small knot in LUE no mrg port site c/d/i abd soft no rashes Results Result Diagram: 05/14/1744905/14/17449 Results 24 hrs Laboratory Tests Test 05/14/17 04:50 White Blood Count 9.0 # Red Blood Count 3.75 L Hemoglobin 10.6 L Hematocrit 34.1 L Mean Corpuscular Volume 90.9 Mean Corpuscular Hemoglobin 28.3 L Mean Corpuscular Hemoglobin Concent 31.1 L Red Cell Distribution Width 14.4 Platelet Count 223 Mean Platelet Volume 10.6 H Neutrophils % 71.9 Lymphocytes % 23.2 Monocytes % 1.8 Eosinophils % 2.3 Basophils % 0.6 Nucleated Red Blood Cells % 0.0 Neutrophils # (Manual) 6.5 Lymphocytes # 2.1 Monocytes # 0.2 L Eosinophils # 0.2 Basophils # 0.1 Nucleated Red Blood Cells # 0.0 Sodium Level 138 Potassium Level 4.1 Chloride Level 100 Carbon Dioxide Level 32 H Anion Gap 10 Blood Urea Nitrogen 18 Creatinine 0.57 Glucose Level 96 Calcium Level 8.8 Medications Medications Current Medications Aripiprazole (Abilify) 5 mg QHS PO ; Start 05/05/17 at 21:00 Venlafaxine HCl (Effexor Xr) 150 mg DAILY PO ; Start 05/06/17 at 09:00 Zolpidem Tartrate (Ambien) 5 mg HS PRN PO INSOMNIA; Start 05/05/17 at 17:00 Acetaminophen (Tylenol Tab) 650 mg Q6H PRN PO PAIN LEVEL 1-3 OR FEVER; Start at 16:30 Docusate Sodium (Colace) 100 mg Q12H PRN PO CONSTIPATION Last administered on 20:25; Admin Dose 100 MG; Start 05/05/17 at 16:30 Magnesium Hydroxide (Milk Of Mag) 30 ml DAILY PRN PO CONSTIPATION; Start at 16:30 Bisacodyl (Dulcolax) 5 mg DAILY PRN PO CONSTIPATION Last administered on 20:25; Admin Dose 5 MG; Start 05/05/17 at 16:30 Bisacodyl (Dulcolax Supp) 10 mg DAILY PRN [place] CONSTIPATION Last administered on 05/10/17 20:42; Admin Dose 10 MG; Start 05/05/17 at 16:30 Sodium Biphosphate/ Sodium Phosphate (Fleet Enema) 133 ml DAILY PRN [place] CONSTIPATION; Start 05/05/17 at 16:30 Enoxaparin Sodium (Lovenox) 40 mg DAILY SC Last administered on 05/14/17 08:25 ; Admin Dose 40 MG; Start 05/06/17 at 09:00; Status Future hold Alprazolam (Xanax) 0.5 mg Q12H PRN PO ANXIETY Last administered on 05/14/17 14: 17; Admin Dose 0.5 MG; Start 05/05/17 at 20:30 Ondansetron HCl (Zofran Inj) 4 mg Q6H PRN IV NAUSEA AND/OR VOMITING Last administered on 05/09/17 12:53; Admin Dose 4 MG; Start 05/06/17 at 15:00 Polyethylene Glycol (Miralax) 17 gm DAILY PO ; Start 05/10/17 at 09:00 Phenol (Cepastat Lozenge) 1 lozenge Q1H PRN MT COUGH; Start 05/11/17 at 15:00 Guaifenesin (Robitussin Liquid Cup) 200 mg Q4H PRN PO COUGH; Start 05/11/17 at 15:00 Ondansetron HCl (Zofran Tab) 4 mg Q4H PRN PO NAUSEA AND/OR VOMITING; Start 05/11 at 21:30 Dexamethasone 4 mg 4 mg BID PO ; Start 05/17/17 at 09:00; Stop 05/19/17 at 21:01 Ondansetron HCl 16 mg/ Dexamethasone 20 mg/Sodium Chloride 63 ml @ 126 mls/hr Q7D IVPB Last administered on 05/12/17 00:12; Admin Dose 126 MLS/HR; Start 05/11 at 22:00; Stop 05/18/17 at 22:29 Gemcitabine HCl 1.71 gm/Sodium Chloride 250 ml @ 167 mls/hr Q7D IV Last administered on 05/12/17 01:34; Admin Dose 167 MLS/HR; Start 05/11/17 at 23:00; Stop 05/19/17 at 00:30 Docetaxel/ Docetaxel/N/A/ Sodium Chloride (taxoTERE/ taxoTERE/Evac Container/NS ) 250 ml @ 250 mls/hr 01 IV ; Start 05/19/17 at 01:00; Stop 05/19/17 at 01:59 Oxycodone HCl (Oxycontin) 30 mg Q8 PO Last administered on 05/14/17 07:20; Admin Dose 30 MG; Start 05/14/17 at 01:35 Hydromorphone HCl (Dilaudid) 2 mg Q3 PRN IV PAIN Last administered on 05/14/17 14:22; Admin Dose 2 MG; Start 05/14/17 at 01:30 JASMYN ORTA MD May 14, 2017 15:29
--- NOTE | 2017-05-14 16:07 | PN ---
Date/Time of Note Date/Time of Note DATE: 05/14/17 TIME: 16:04 Assessment/Plan VTE Prophylaxis VTE Prophylaxis Intervention: other Lines/Catheters [facility] Urinary Cath still in place: No Assessment/Plan Chief Complaint/Hosp Course 1. Metastatic leiomyosarcoma of the uterus. Day 1 Gemzar was given on 05/11, so far tolerating it well. Next dose due 1 week later. 2. Pain control, adequate for now. 3. Right chest wall pain - improved. 4. Left arm pain. (u/s of right arm is negative). Will order u/s of left arm as well. Plan: Left arm u/s rule out DVT pain managed. Encourage POs OOB. Problems: Subjective 24 Hr Interval Summary Free Text/Dictation She still reports multiple pains. Right chest wall pain at port is better. now c/o more pain in the left arm and chest - wants an u/s on that side. Exam/Review of Systems Vital Signs Vitals Vital Signs Date Time Temp Pulse Resp B/P Pulse Ox O2 Delivery O2 Flow Rate FiO2 05/14/17 14:34 Nasal Cannula 3.0 05/14/17 07:56 98.0 105 19 106/57 98 Intake and Output 05/13/17 05/13/17 05/14/17 15:00 23:00 07:00 Intake Total 1040 ml 1000 ml Balance 1040 ml 1000 ml Exam NAD Right and Left arm - no swelling. Right ant chest - port accessed, mild tender. Ext - 1 plus edema. Results Result Diagram: 05/14/17 0450 05/14/17 0450 Results 24 hrs Laboratory Tests Test 05/14/17 04:50 White Blood Count 9.0 # Red Blood Count 3.75 L Hemoglobin 10.6 L Hematocrit 34.1 L Mean Corpuscular Volume 90.9 Mean Corpuscular Hemoglobin 28.3 L Mean Corpuscular Hemoglobin Concent 31.1 L Red Cell Distribution Width 14.4 Platelet Count 223 Mean Platelet Volume 10.6 H Neutrophils % 71.9 Lymphocytes % 23.2 Monocytes % 1.8 Eosinophils % 2.3 Basophils % 0.6 Nucleated Red Blood Cells % 0.0 Neutrophils # (Manual) 6.5 Lymphocytes # 2.1 Monocytes # 0.2 L Eosinophils # 0.2 Basophils # 0.1 Nucleated Red Blood Cells # 0.0 Sodium Level 138 Potassium Level 4.1 Chloride Level 100 Carbon Dioxide Level 32 H Anion Gap 10 Blood Urea Nitrogen 18 Creatinine 0.57 Glucose Level 96 Calcium Level 8.8 Medications Medications Current Medications Aripiprazole (Abilify) 5 mg QHS PO ; Start 05/05/17 at 21:00 Venlafaxine HCl (Effexor Xr) 150 mg DAILY PO ; Start 05/06/17 at 09:00 Zolpidem Tartrate (Ambien) 5 mg HS PRN PO INSOMNIA; Start 05/05/17 at 17:00 Acetaminophen (Tylenol Tab) 650 mg Q6H PRN PO PAIN LEVEL 1-3 OR FEVER; Start at 16:30 Docusate Sodium (Colace) 100 mg Q12H PRN PO CONSTIPATION Last administered on 20:25; Admin Dose 100 MG; Start 05/05/17 at 16:30 Magnesium Hydroxide (Milk Of Mag) 30 ml DAILY PRN PO CONSTIPATION; Start at 16:30 Bisacodyl (Dulcolax) 5 mg DAILY PRN PO CONSTIPATION Last administered on 20:25; Admin Dose 5 MG; Start 05/05/17 at 16:30 Bisacodyl (Dulcolax Supp) 10 mg DAILY PRN [place] CONSTIPATION Last administered on 05/10/17 20:42; Admin Dose 10 MG; Start 05/05/17 at 16:30 Sodium Biphosphate/ Sodium Phosphate (Fleet Enema) 133 ml DAILY PRN [place] CONSTIPATION; Start 05/05/17 at 16:30 Enoxaparin Sodium (Lovenox) 40 mg DAILY SC Last administered on 05/14/17 08:25 ; Admin Dose 40 MG; Start 05/06/17 at 09:00; Status Future hold Alprazolam (Xanax) 0.5 mg Q12H PRN PO ANXIETY Last administered on 05/14/17 14: 17; Admin Dose 0.5 MG; Start 05/05/17 at 20:30 Ondansetron HCl (Zofran Inj) 4 mg Q6H PRN IV NAUSEA AND/OR VOMITING Last administered on 05/09/17 12:53; Admin Dose 4 MG; Start 05/06/17 at 15:00 Polyethylene Glycol (Miralax) 17 gm DAILY PO ; Start 05/10/17 at 09:00 Phenol (Cepastat Lozenge) 1 lozenge Q1H PRN MT COUGH; Start 05/11/17 at 15:00 Guaifenesin (Robitussin Liquid Cup) 200 mg Q4H PRN PO COUGH; Start 05/11/17 at 15:00 Ondansetron HCl (Zofran Tab) 4 mg Q4H PRN PO NAUSEA AND/OR VOMITING; Start 05/11 at 21:30 Dexamethasone 4 mg 4 mg BID PO ; Start 05/17/17 at 09:00; Stop 05/19/17 at 21:01 Ondansetron HCl 16 mg/ Dexamethasone 20 mg/Sodium Chloride 63 ml @ 126 mls/hr Q7D IVPB Last administered on 05/12/17 00:12; Admin Dose 126 MLS/HR; Start 05/11 at 22:00; Stop 05/18/17 at 22:29 Gemcitabine HCl 1.71 gm/Sodium Chloride 250 ml @ 167 mls/hr Q7D IV Last administered on 05/12/17 01:34; Admin Dose 167 MLS/HR; Start 05/11/17 at 23:00; Stop 05/19/17 at 00:30 Docetaxel/ Docetaxel/N/A/ Sodium Chloride (taxoTERE/ taxoTERE/Evac Container/NS ) 250 ml @ 250 mls/hr 01 IV ; Start 05/19/17 at 01:00; Stop 05/19/17 at 01:59 Oxycodone HCl (Oxycontin) 30 mg Q8 PO Last administered on 05/14/17 07:20; Admin Dose 30 MG; Start 05/14/17 at 01:35 Hydromorphone HCl (Dilaudid) 2 mg Q3 PRN IV PAIN Last administered on 05/14/17 14:22; Admin Dose 2 MG; Start 05/14/17 at 01:30 LEW DAVISON MD May 14, 2017 16:07
--- NOTE | 2017-05-14 17:34 | CONS ---
Date/Time of Note Date/Time of Note DATE: 05/14/17 TIME: 17:32 Assessment/Plan Assessment/Plan Chief Complaint/Hosp Course 46-year-old female represents to [facility] with abdominal discomfort and increase in severity 1 week prior to this rehospitalization. Patient has a history of leiomyosarcoma with documented pulmonary metastases. She has been given at least one round of chemotherapy at [facility] and had total abdominal hysterectomy. Patient has been trying to set up an appointment to be seen by another oncologist but has had difficulty with insurance coverage. Abdominal pain is just gated left lower quadrant, associated with nausea vomiting without other systemic symptoms. She has had weight loss associated with this also she describes her pain as a gnawing type of discomfort not relieved with current pain medications as an outpatient including Ultram and [place]. With current pain control medication patient gets minimal improvement in her pain she still has severe discomfort great and over 10 at rest. No radiations does affect her physical function family relationships as well as her relationship sleeping and overall function denies constipation mental cloudiness itching sweats she is bnadar to opioids. As far as palliative care patient has not been seen by oncology consultation here at [facility] it is pending, patient has fired her prior oncologist. I will not address goals of care until seen by oncologist Problems: Additional Assessment/Plan Had a bad night and required higher dose of oxy... today she feels oversedated but much more comfortable . Denies side effects.. Will adjust current pain meds and switch to po only.. have discussed this with her in detail Consultation Date/Type/Reason Admit Date/Time May 08, 2017 at 09:37 Type of Consultation: pain management Exam/Review of Systems Vital Signs Vitals Vital Signs Date Time Temp Pulse Resp B/P Pulse Ox O2 Delivery O2 Flow Rate FiO2 05/14/17 14:34 Nasal Cannula 3.0 05/14/17 07:56 98.0 105 19 106/57 98 Intake and Output 05/13/17 05/13/17 05/14/17 15:00 23:00 07:00 Intake Total 1040 ml 1000 ml Balance 1040 ml 1000 ml Exam Constitutional: alert, oriented, well developed Psych: anxiety, nl mood/affect, no complaints Neurological: [employer] II-XII intact, nl mental status, nl speech, nl strength, No DTR's symmetric, No confused, No focal weakness, No lethargic, No numbness , No other, No reflexes, No unresponsive Results Result Diagram: 05/14/1744905/14/17449 Results 24 hrs Laboratory Tests Test 05/14/17 04:50 White Blood Count 9.0 # Red Blood Count 3.75 L Hemoglobin 10.6 L Hematocrit 34.1 L Mean Corpuscular Volume 90.9 Mean Corpuscular Hemoglobin 28.3 L Mean Corpuscular Hemoglobin Concent 31.1 L Red Cell Distribution Width 14.4 Platelet Count 223 Mean Platelet Volume 10.6 H Neutrophils % 71.9 Lymphocytes % 23.2 Monocytes % 1.8 Eosinophils % 2.3 Basophils % 0.6 Nucleated Red Blood Cells % 0.0 Neutrophils # (Manual) 6.5 Lymphocytes # 2.1 Monocytes # 0.2 L Eosinophils # 0.2 Basophils # 0.1 Nucleated Red Blood Cells # 0.0 Sodium Level 138 Potassium Level 4.1 Chloride Level 100 Carbon Dioxide Level 32 H Anion Gap 10 Blood Urea Nitrogen 18 Creatinine 0.57 Glucose Level 96 Calcium Level 8.8 Medications Medications Current Medications Aripiprazole (Abilify) 5 mg QHS PO ; Start 05/05/17 at 21:00 Venlafaxine HCl (Effexor Xr) 150 mg DAILY PO ; Start 05/06/17 at 09:00 Zolpidem Tartrate (Ambien) 5 mg HS PRN PO INSOMNIA; Start 05/05/17 at 17:00 Acetaminophen (Tylenol Tab) 650 mg Q6H PRN PO PAIN LEVEL 1-3 OR FEVER; Start at 16:30 Docusate Sodium (Colace) 100 mg Q12H PRN PO CONSTIPATION Last administered on 20:25; Admin Dose 100 MG; Start 05/05/17 at 16:30 Magnesium Hydroxide (Milk Of Mag) 30 ml DAILY PRN PO CONSTIPATION; Start at 16:30 Bisacodyl (Dulcolax) 5 mg DAILY PRN PO CONSTIPATION Last administered on 20:25; Admin Dose 5 MG; Start 05/05/17 at 16:30 Bisacodyl (Dulcolax Supp) 10 mg DAILY PRN [place] CONSTIPATION Last administered on 05/10/17 20:42; Admin Dose 10 MG; Start 05/05/17 at 16:30 Sodium Biphosphate/ Sodium Phosphate (Fleet Enema) 133 ml DAILY PRN ND CONSTIPATION; Start 05/05/17 at 16:30 Enoxaparin Sodium (Lovenox) 40 mg DAILY SC Last administered on 05/14/17 08:25 ; Admin Dose 40 MG; Start 05/06/17 at 09:00; Status Future hold Alprazolam (Xanax) 0.5 mg Q12H PRN PO ANXIETY Last administered on 05/14/17 14: 17; Admin Dose 0.5 MG; Start 05/05/17 at 20:30 Ondansetron HCl (Zofran Inj) 4 mg Q6H PRN IV NAUSEA AND/OR VOMITING Last administered on 05/09/17 12:53; Admin Dose 4 MG; Start 05/06/17 at 15:00 Polyethylene Glycol (Miralax) 17 gm DAILY PO ; Start 05/10/17 at 09:00 Phenol (Cepastat Lozenge) 1 lozenge Q1H PRN MT COUGH; Start 05/11/17 at 15:00 Guaifenesin (Robitussin Liquid Cup) 200 mg Q4H PRN PO COUGH; Start 05/11/17 at 15:00 Ondansetron HCl (Zofran Tab) 4 mg Q4H PRN PO NAUSEA AND/OR VOMITING; Start 05/11 at 21:30 Dexamethasone 4 mg 4 mg BID PO ; Start 05/17/17 at 09:00; Stop 05/19/17 at 21:01 Ondansetron HCl 16 mg/ Dexamethasone 20 mg/Sodium Chloride 63 ml @ 126 mls/hr Q7D IVPB Last administered on 05/12/17 00:12; Admin Dose 126 MLS/HR; Start 05/11 at 22:00; Stop 05/18/17 at 22:29 Gemcitabine HCl 1.71 gm/Sodium Chloride 250 ml @ 167 mls/hr Q7D IV Last administered on 05/12/17 01:34; Admin Dose 167 MLS/HR; Start 05/11/17 at 23:00; Stop 05/19/17 at 00:30 Docetaxel/ Docetaxel/N/A/ Sodium Chloride (taxoTERE/ taxoTERE/Evac Container/NS ) 250 ml @ 250 mls/hr 01 IV ; Start 05/19/17 at 01:00; Stop 05/19/17 at 01:59 Hydromorphone HCl (Dilaudid) 2 mg Q3 PRN IV PAIN Last administered on 05/14/17t 17:25; Admin Dose 2 MG; Start 05/14/17 at 01:30 Oxycodone HCl (Oxycontin) 15 mg AM PO ; Start 05/15/17 at 09:00; Status UNV JANICE STEEL May 14, 2017 17:34
[2017-05-14] MEDS: ARIPIPRAZOLE 5 MG TAB PO SCH (20:11)
[2017-05-14 20:19] VITALS: BP 113/59; RESP 16
[2017-05-15] MEDS: HYDROmorphONE 2 MG/ML SYG IV PRN ×2 (01:31→05:23)
[2017-05-15 02:09] VITALS: BP 109/53; RESP 16
[2017-05-15 05:41] LABS: BASOPHILS % 0.2 % (0.0-2.0); EOSINOPHILS # 0.2 10^3/ul (0.0-0.5); EOSINOPHILS % 2.5 % (0.0-7.0); HEMATOCRIT 32.1 % (37.0-47.0); HEMOGLOBIN 10.6 g/dl (12.0-16.0); LYMPHOCYTES # 1.8 10^3/ul (0.8-2.9); MEAN CORPUSCULAR HEMOGLOBIN 29.5 pg (29.0-33.0); MEAN CORPUSCULAR VOLUME 89.4 fl (82.0-101.0); MEAN PLATELET VOLUME 10.9 fl (7.4-10.4); MONOCYTE # 0.1 10^3/ul (0.3-0.9); MONOCYTES % 1.2 % (0.0-11.0); NEUTROPHILS % 76.8 % (39.0-77.0); PLATELET COUNT 198 10^3/UL (140-415); RED BLOOD COUNT 3.59 10^6/ul (4.20-5.40); WHITE BLOOD COUNT 9.5 10^3/ul (4.8-10.8)
[2017-05-15 05:55] LABS: CALCIUM 8.9 mg/dl (8.4-10.2); CREATININE 0.47 mg/dl (0.44-1.00); POTASSIUM 4.2 mmol/L (3.5-5.1)
--- NOTE | 2017-05-15 07:36 | RADRPT ---
PROCEDURE: Ultrasound of the left upper extremity venous system. CLINICAL INDICATION: Left upper extremity pain. Evaluate for deep venous thrombosis.. TECHNIQUE: Chowdhury scale with and without compression, color doppler, spectral doppler of the venous system of the left upper extremity was performed. Venous augmentation maneuvers were utilized. COMPARISON: No prior studies are available for comparison. FINDINGS: Left: Jugular vein: Patent and compressible. Subclavian vein: Patent and compressible. Axillary vein: Patent and compressible. Brachial vein: Patent and compressible. Basilic vein: Patent and compressible. Cephalic vein: Patent and compressible. Soft tissues:There is a 1.9 x 1.0 x 1.2 cm homogeneous slightly hyper vascular mass in the subcuta neous tissue in the left upper arm. IMPRESSION: 1. No evidence of left upper extremity deep vein thrombosis. 2. 1.9 x 1.0 x 1.2 cm solid, and mildly hypervascular subcutaneous mass in the left upper arm. RPTAT: [facility] Physician Geri Date Time Electronically viewed and signed by Physician Geri on 05/15/2017 07:36 /
[2017-05-15 08:03] VITALS: BP 121/62; RESP 18
--- NOTE | 2017-05-15 08:14 | PN ---
DATE: 05/15/2017 SUBJECTIVE DATA: Some pain in the left and right shoulders. The patient continues to have cough. Some mild nausea after gemcitabine given on 05/11. No complaints of mouth soreness. There is no diarrhea. OBJECTIVE DATA: GENERAL: The patient is a well-developed female who is in no acute distress. VITAL SIGNS: Temperature 98.8, pulse 96 per minute, respirations 16, blood pressure 109/53, and pulse oximetry 98 percent on 3 L of oxygen. SKIN: No ecchymosis, no petechiae or rashes. There are tattoos present. HEENT: Alopecia. No mucosal lesions. No scleral icterus. NECK: Supple. No jugular distention, or thyroid enlargement. CHEST: Decreased breath sounds but no rhonchi, wheezes, rales or rubs. There is a 3 cm mass overlying the right scapula, which is nontender but mobile. NODES: No palpable lymphadenopathy. HEART: Regular sinus rhythm. No S3, S4 or murmurs. No rubs. ABDOMEN: No masses or ascites. Bowel sounds are active. EXTREMITIES: Good range of motion. No clubbing. No edema or cyanosis. There is a 2 cm subcutaneous nodule overlying the medial aspect of the left biceps. NEUROLOGIC: Normal. LABORATORY AND DIAGNOSTIC DATA: White count 9500, hemoglobin 10.6, hematocrit 32.1, and platelet count is 198,000. Sodium 138, potassium 4.2, BUN 9, creatinine 0.47. Venous ultrasound of the left upper extremity shows no evidence of deep vein thrombosis. There is a 1.9 x 1.0 x 1.2 cm solid mild hypervascular subcutaneous mass on the left arm. Ultrasound venous study of the right upper extremity does not show any deep vein thrombosis. ASSESSMENT: Metastatic leiomyosarcoma of the uterus. PLAN: The patient is to receive chemotherapy again on May 18. On that day, she is to receive docetaxel and gemcitabine. The patient states that the mass overlying the right scapula has been present for many years, but has grown. The mass overlying the left biceps is new. We will obtain MRIs of both these areas. Likely both could represent metastatic disease given the patient's known hematogenous spread of leiomyosarcoma. Dictated By: Willy Braun MD /irineo/varun /Document#: [id number]
[2017-05-15] MEDS: VENLAFAXINE (XR) 75 MG CAP PO SCH (09:00)
[2017-05-15] MEDS: oxyCODONE (CR) 15 MG TAB [oxyCONTIN] PO SCH (09:48)
[2017-05-15] MEDS: ENOXAPARIN 40 MG/0.4 ML SYG SC SCH (09:55)
[2017-05-15] MEDS: POLYETHYLENE GLYCOL 17 GM PACKET PO SCH (09:56)
[2017-05-15] MEDS: ONDANSETRON 4 MG INJ IV PRN ×3 (09:56→21:13)
[2017-05-15] MEDS: ALPRAZOLAM 0.5 MG TAB PO PRN (11:41)
[2017-05-15] MEDS ORDERED: HYDROmorphONE 2 MG TAB PO PRN (12:00)
[2017-05-15] MEDS: HYDROmorphONE 2 MG TAB PO PRN ×2 (14:07→16:33)
--- NOTE | 2017-05-15 15:49 | PN ---
Date/Time of Note Date/Time of Note DATE: 05/15/17 TIME: 15:47 Assessment/Plan VTE Prophylaxis VTE Prophylaxis Intervention: SCD's Lines/Catheters IV Catheter Type (from Nrsg): Central Line Central line still needed: Yes Urinary Cath still in place: No Assessment/Plan Assessment/Plan 46 yo F with known stage 4 leiomyosarcoma with lung and pelvic LN mets here with abd pain in setting of increased size of metastatic pelvic LN. No evidence of bowel obstruction, bowel perf, or other abdominal pathology warranting urgent surgical intervention on imaging. Also with LUE lesion PLAN pain control-->inc pain meds onc following, on chemo MRI ordered by onc to f/u on LUE lesion general diet dvt prophx cont home psych meds discharge when advised by onc Subjective 24 Hr Interval Summary Free Text/Dictation c/o bl shoulder pain. requesting inc in pain meds Exam/Review of Systems Vital Signs Vitals Vital Signs Date Time Temp Pulse Resp B/P Pulse Ox O2 Delivery O2 Flow Rate FiO2 05/15/17 09:10 Nasal Cannula 2.0 05/15/17 08:03 98.1 96 18 121/62 96 Intake and Output 05/14/17 05/14/17 05/15/17 15:00 23:00 07:00 Intake Total 1080 ml 480 ml Balance 1080 ml 480 ml Exam nad no mrg lungs clear abd soft no rashes UE US results reviewed and dw pt, +hypervascular lesion in LUE Results Result Diagram: 05/15/174 05/15/174 Results 24 hrs Laboratory Tests Test 05/15/17 04:44 White Blood Count 9.5 Red Blood Count 3.59 L Hemoglobin 10.6 L Hematocrit 32.1 L Mean Corpuscular Volume 89.4 Mean Corpuscular Hemoglobin 29.5 Mean Corpuscular Hemoglobin Concent 33.0 Red Cell Distribution Width 14.0 Platelet Count 198 Mean Platelet Volume 10.9 H Neutrophils % 76.8 Lymphocytes % 19.0 Monocytes % 1.2 Eosinophils % 2.5 Basophils % 0.2 Nucleated Red Blood Cells % 0.0 Neutrophils # (Manual) 7.3 Lymphocytes # 1.8 Monocytes # 0.1 L Eosinophils # 0.2 Basophils # 0.0 Nucleated Red Blood Cells # 0.0 Sodium Level 138 Potassium Level 4.2 Chloride Level 100 Carbon Dioxide Level 33 H Anion Gap 9 Blood Urea Nitrogen 9 # Creatinine 0.47 Glucose Level 105 Calcium Level 8.9 Medications Medications Current Medications Aripiprazole (Abilify) 5 mg QHS PO ; Start 05/05/17 at 21:00 Venlafaxine HCl (Effexor Xr) 150 mg DAILY PO ; Start 05/06/17 at 09:00 Zolpidem Tartrate (Ambien) 5 mg HS PRN PO INSOMNIA; Start 05/05/17 at 17:00 Acetaminophen (Tylenol Tab) 650 mg Q6H PRN PO PAIN LEVEL 1-3 OR FEVER; Start at 16:30 Docusate Sodium (Colace) 100 mg Q12H PRN PO CONSTIPATION Last administered on 20:25; Admin Dose 100 MG; Start 05/05/17 at 16:30 Magnesium Hydroxide (Milk Of Mag) 30 ml DAILY PRN PO CONSTIPATION; Start at 16:30 Bisacodyl (Dulcolax) 5 mg DAILY PRN PO CONSTIPATION Last administered on 20:25; Admin Dose 5 MG; Start 05/05/17 at 16:30 Bisacodyl (Dulcolax Supp) 10 mg DAILY PRN [place] CONSTIPATION Last administered on 05/10/17 20:42; Admin Dose 10 MG; Start 05/05/17 at 16:30 Sodium Biphosphate/ Sodium Phosphate (Fleet Enema) 133 ml DAILY PRN [place] CONSTIPATION; Start 05/05/17 at 16:30 Enoxaparin Sodium (Lovenox) 40 mg DAILY SC Last administered on 05/15/17 09:55 ; Admin Dose 40 MG; Start 05/06/17 at 09:00; Status Future hold Alprazolam (Xanax) 0.5 mg Q12H PRN PO ANXIETY Last administered on 05/15/17 11: 41; Admin Dose 0.5 MG; Start 05/05/17 at 20:30 Ondansetron HCl (Zofran Inj) 4 mg Q6H PRN IV NAUSEA AND/OR VOMITING Last administered on 05/15/17 09:56; Admin Dose 4 MG; Start 05/06/17 at 15:00 Polyethylene Glycol (Miralax) 17 gm DAILY PO Last administered on 05/15/17 09: 56; Admin Dose 17 GM; Start 05/10/17 at 09:00 Phenol (Cepastat Lozenge) 1 lozenge Q1H PRN MT COUGH; Start 05/11/17 at 15:00 Guaifenesin (Robitussin Liquid Cup) 200 mg Q4H PRN PO COUGH; Start 05/11/17 at 15:00 Ondansetron HCl (Zofran Tab) 4 mg Q4H PRN PO NAUSEA AND/OR VOMITING; Start 05/11 at 21:30 Dexamethasone 4 mg 4 mg BID PO ; Start 05/17/17 at 09:00; Stop 05/19/17 at 21:01 Ondansetron HCl 16 mg/ Dexamethasone 20 mg/Sodium Chloride 63 ml @ 126 mls/hr Q7D IVPB Last administered on 05/12/17 00:12; Admin Dose 126 MLS/HR; Start 05/11 at 22:00; Stop 05/18/17 at 22:29 Gemcitabine HCl 1.71 gm/Sodium Chloride 250 ml @ 167 mls/hr Q7D IV Last administered on 05/12/17 01:34; Admin Dose 167 MLS/HR; Start 05/11/17 at 23:00; Stop 05/19/17 at 00:30 Docetaxel/ Docetaxel/N/A/ Sodium Chloride (taxoTERE/ taxoTERE/Evac Container/NS ) 250 ml @ 250 mls/hr 01 IV ; Start 05/19/17 at 01:00; Stop 05/19/17 at 01:59 Oxycodone HCl (Oxycontin) 15 mg AM PO Last administered on 05/15/17 09:48; Admin Dose 15 MG; Start 05/15/17 at 09:00 Hydromorphone HCl (Dilaudid) 2 mg Q2H PRN PO PAIN Last administered on 14:07; Admin Dose 2 MG; Start 05/15/17 at 14:00 JASMYN ORTA MD May 15, 2017 15:49
[2017-05-15] MEDS: oxyCODONE (CR) 10 MG TAB [oxyCONTIN] PO SCH ×2 (17:25→20:46)
[2017-05-15 19:50] VITALS: BP 105/54; RESP 20
--- NOTE | 2017-05-15 20:17 | RADRPT ---
AMENDMENT: 05/15/2017 8:19:31 PM Monik Velasquez M.D PROCEDURE: MRI OF THE LEFT ARM WITH AND WITHOUT CONTRAST CLINICAL INDICATION: History of metastatic leiomyosarcoma. Evaluate soft tissue mass. TECHNIQUE: Multiple MRI images were obtained utilizing multiple pulse sequences and all three plane s. Pre and postcontrast images were obtained in which postcontrast images were obtained after the un eventful administration of 10 ml of Magnevist intravenous contrast. Images were interpreted on a [employer] h-resolution PACS system. COMPARISON: Ultrasound of the left upper extremity venous system from 05/14/2017 FINDINGS: As seen on the prior ultrasound, there is a well-circumscribed ovoid mass within the deep subcutaneo us soft tissues anterior and adjacent to the biceps muscle within the mid anterior arm measuring up to 3.0 cm cranial-caudal by 1.6 cm transverse by 1.0 cm AP. This demonstrates dark T1 signal and kenneth ght T2 signal with slight heterogeneous enhancement. There is minimal surrounding soft tissue strand ing. There is no significant edema within the biceps muscle. No significant muscle infiltration is p resent. The remaining muscles around the humerus are unremarkable without edema, denervation, or atrophy. There is no acute fracture, bone marrow edema, cortical destruction, or periosteal reaction within t he humerus. No aggressive appearing bone lesion is visualized. There is mild tendinosis of the visualized subscapularis tendon. There are multiple scattered masses throughout the visualized left lung in keeping with metastases - please see MRI chest for additional details of the chest. No lymphadenopathy is visualized within t he axilla. RPTAT: ZZ IMPRESSION: 1. Well-circumscribed ovoid mass within the deep subcutaneous soft tissues anterior and adjacent to the biceps muscle within the mid anterior arm measuring up to 3.0 x 1.6 x 1.0 cm likely correspondin g with a metastatic lesion given history. 2. No acute fracture, bony destructive changes, or a bone lesion within the humerus. .Monik Velasquez MD, MD Date Time Electronically viewed and signed by .Monik Velasquez MD, MD on 05/15/2017 20:20 .T/
[2017-05-15] MEDS: ARIPIPRAZOLE 5 MG TAB PO SCH (20:40)
[2017-05-15] MEDS ORDERED: ONDANSETRON 4 MG INJ ONE (21:11)
[2017-05-16] MEDS: ALPRAZOLAM 0.5 MG TAB PO PRN ×2 (01:04→20:52)
[2017-05-16 02:17] VITALS: BP 101/56; RESP 18
--- NOTE | 2017-05-16 03:46 | RADRPT ---
PROCEDURE: MRI of the chest without and with contrast CLINICAL INDICATION: Soft tissue mass of the right back. Metastatic leiomyosarcoma. TECHNIQUE: Multiplanar T1 and T2-weighted images with without fat saturation before contrast. Mult iplanar fat saturated T1-weighted images after injection of 10 cc of intravenous Magnevist. COMPARISON: CT studies from 02/26/2017 and 05/05/2017 FINDINGS: Again seen is a lobulated ovoid mass in the subcutaneous soft tissues posterior to the right scapula . The mass measures 3.3 x 1.9 by 3 cm. The lesion is low in signal on precontrast T1-weighted images and high in signal on T2-weighted images. There is no precontrast fat saturated T1-weighted images but the signal intensity of the lesion differs from that of the multiple pulmonary metastatic lesion s which are much less high in signal on T2-weighted images. There is not clear enhancement of the le karina. The lesion also deferred in density on CT, measuring [address] compared with 35 HU of the pulmonary metastatic foci. The multiple pulmonary metastatic foci are again seen with hil ar and mediastinal enlarged lymph nodes again noted. IMPRESSION: Lesion of the subcutaneous soft tissues of the right back which is more likely a sebaceous cyst and less likely to represent a metastatic focus given signal characteristics. Physician Rashaun Date Time Electronically viewed and signed by Physician Rashaun on 05/16/2017 03:45 LE/
[2017-05-16 05:34] LABS: BASOPHILS % 0.6 % (0.0-2.0); EOSINOPHILS # 0.3 10^3/ul (0.0-0.5); EOSINOPHILS % 4.7 % (0.0-7.0); HEMATOCRIT 31.4 % (37.0-47.0); LYMPHOCYTES # 1.3 10^3/ul (0.8-2.9); LYMPHOCYTES % 18.9 % (15.0-51.0); MEAN CORPUSCULAR HEMOGLOBIN 29.2 pg (29.0-33.0); MEAN CORPUSCULAR HGB CONC 31.8 g/dl (32.0-37.0); MEAN CORPUSCULAR VOLUME 91.5 fl (82.0-101.0); MEAN PLATELET VOLUME 10.9 fl (7.4-10.4); MONOCYTE # 0.1 10^3/ul (0.3-0.9); MONOCYTES % 0.7 % (0.0-11.0); NEUTROPHILS % 74.8 % (39.0-77.0); NUCLEATED RED BLOOD CELLS% 0.3 /100WBC (0.0-0.0); PLATELET COUNT 186 10^3/UL (140-415); RED BLOOD COUNT 3.43 10^6/ul (4.20-5.40); WHITE BLOOD COUNT 7.1 10^3/ul (4.8-10.8)
[2017-05-16 06:11] LABS: CALCIUM 8.1 mg/dl (8.4-10.2); CREATININE 0.52 mg/dl (0.44-1.00); POTASSIUM 3.6 mmol/L (3.5-5.1)
[2017-05-16 08:06] VITALS: BP 118/73; RESP 20
[2017-05-16] MEDS: POLYETHYLENE GLYCOL 17 GM PACKET PO SCH (08:15)
[2017-05-16] MEDS: ONDANSETRON 4 MG INJ IV PRN ×3 (08:15→23:36)
--- NOTE | 2017-05-16 08:15 | PN ---
DATE: 05/16/2017 SUBJECTIVE DATA: Patient states he does have some nausea. This is not necessarily precipitated by food intake. The patient does have 1 episode of emesis reported this morning on I's and O's. The patient continues to complain of pain in the shoulder areas. OBJECTIVE DATA: GENERAL: The patient is a well-developed, mildly obese female, who appears to be in some discomfort. VITAL SIGNS: Temperature 98.1, pulse 100 per minute and regular, respirations 18, blood pressure 101/56, and pulse oximetry is 98 percent on 2 L of oxygen. SKIN: No ecchymosis, no petechiae or rashes. There are tattoos present. HEENT: Normocephalic. No evidence of trauma. Pupils equal, round, react to light and accommodation. No scleral icterus. No mucosal lesions. There is alopecia. NECK: Supple. No jugular distention, or thyroid enlargement. CHEST: Decreased breath sounds throughout, but no rhonchi, wheezes, rales or rubs. There is a previously noted soft tissue mass overlying the right scapula. NODES: No palpable lymphadenopathy. HEART: Sinus tachycardia. No S3, S4, or murmurs. ABDOMEN: Soft. No masses. No ascites. EXTREMITIES: No clubbing, edema, or cyanosis. There is also a 2 cm soft subcutaneous lesion in the area of the left biceps. LABORATORY AND DIAGNOSTIC DATA: White count 7600, with an absolute neutrophil count of 5300, hemoglobin 10, hematocrit 31.4, and platelet count 186,000. Sodium 141, potassium 3.6, creatinine 0.52, BUN 13. ASSESSMENT: 1. Metastatic leiomyosarcoma. 2. Nausea related to chemotherapy. DISCUSSION: The patient has had MRIs of the soft-tissue nodules overlying the right scapula and the left biceps. The scapular lesion is felt to be a sebaceous cyst while the lesion on the left bicipital area suggests more likely a metastatic lesion. PLAN: We will request an ultrasound-guided needle biopsy of this lesion in order to determine if it is in fact metastatic. If it does prove to be malignant, it can be used as a parameter of response. The patient is due for chemotherapy again on 05/19. At that time, she will receive both gemcitabine and docetaxel. We will start the premedication with dexamethasone on the day prior. The patient is also complaining of increased sedation, related to her analgesia. We will change her medication so that she is receiving OxyContin 10 mg twice a day, that being in the morning and again prior to the evening meal and then 30 mg at hour of sleep. Dictated By: Willy Braun MD /irineo/varun /Document#: [id number]
[2017-05-16] MEDS: HYDROmorphONE 1 MG/ML SYG IV PRN ×3 (08:16→23:36)
[2017-05-16] MEDS: VENLAFAXINE (XR) 75 MG CAP PO SCH (08:17)
[2017-05-16] MEDS: ENOXAPARIN 40 MG/0.4 ML SYG SC SCH (08:19)
[2017-05-16] MEDS: oxyCODONE (CR) 15 MG TAB [oxyCONTIN] PO SCH ×4 (08:23→22:05)
[2017-05-16 14:35] VITALS: BP 119/74; RESP 18
--- NOTE | 2017-05-16 14:39 | PN ---
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 No evidence of bowel obstruction, bowel perf, or other abdominal pathology warranting urgent surgical intervention on imaging. Also with LUE lesion concerning for metastasis PLAN pain control-->cont current pain meds onc following, on chemo LUE biopsy ordered by onc general diet dvt prophx cont home psych meds discharge when advised by onc, likely after chemo on . Subjective 24 Hr Interval Summary Free Text/Dictation Pain control adequate Exam/Review of Systems Vital Signs Vitals Vital Signs Date Time Temp Pulse Resp B/P Pulse Ox O2 Delivery O2 Flow Rate FiO2 05/16/17 14:35 98.4 122 18 119/74 95 05/15/17 20:00 Nasal Cannula 2.0 Intake and Output 05/15/17 05/15/17 05/16/17 15:00 23:00 07:00 Intake Total 940 ml 800 ml Output Total 100 ml Balance 840 ml 800 ml Exam nad sitting up in bed no mrg lungs clear abd soft MRI arm reviewed, concern for metastasis in LUE Results Result Diagram: 05/16/17 0435 05/16/17 0435 Results 24 hrs Laboratory Tests Test 05/16/17 04:35 White Blood Count 7.1 # Red Blood Count 3.43 L Hemoglobin 10.0 L Hematocrit 31.4 L Mean Corpuscular Volume 91.5 Mean Corpuscular Hemoglobin 29.2 Mean Corpuscular Hemoglobin Concent 31.8 L Red Cell Distribution Width 14.0 Platelet Count 186 Mean Platelet Volume 10.9 H Neutrophils % 74.8 Lymphocytes % 18.9 Monocytes % 0.7 Eosinophils % 4.7 Basophils % 0.6 Nucleated Red Blood Cells % 0.3 H Neutrophils # (Manual) 5.3 Lymphocytes # 1.3 Monocytes # 0.1 L Eosinophils # 0.3 Basophils # 0.0 Nucleated Red Blood Cells # 0.0 Sodium Level 141 Potassium Level 3.6 Chloride Level 103 Carbon Dioxide Level 32 H Anion Gap 10 Blood Urea Nitrogen 13 Creatinine 0.52 Glucose Level 112 Calcium Level 8.1 L Medications Medications Current Medications Aripiprazole (Abilify) 5 mg QHS PO ; Start 05/05/17 at 21:00 Venlafaxine HCl (Effexor Xr) 150 mg DAILY PO ; Start 05/06/17 at 09:00 Zolpidem Tartrate (Ambien) 5 mg HS PRN PO INSOMNIA; Start 05/05/17 at 17:00 Acetaminophen (Tylenol Tab) 650 mg Q6H PRN PO PAIN LEVEL 1-3 OR FEVER; Start at 16:30 Docusate Sodium (Colace) 100 mg Q12H PRN PO CONSTIPATION Last administered on 20:25; Admin Dose 100 MG; Start 05/05/17 at 16:30 Magnesium Hydroxide (Milk Of Mag) 30 ml DAILY PRN PO CONSTIPATION; Start at 16:30 Bisacodyl (Dulcolax) 5 mg DAILY PRN PO CONSTIPATION Last administered on 20:25; Admin Dose 5 MG; Start 05/05/17 at 16:30 Bisacodyl (Dulcolax Supp) 10 mg DAILY PRN [place] CONSTIPATION Last administered on 05/10/17 20:42; Admin Dose 10 MG; Start 05/05/17 at 16:30 Sodium Biphosphate/ Sodium Phosphate (Fleet Enema) 133 ml DAILY PRN [place] CONSTIPATION; Start 05/05/17 at 16:30 Enoxaparin Sodium (Lovenox) 40 mg DAILY SC Last administered on 05/16/17 08:19 ; Admin Dose 40 MG; Start 05/06/17 at 09:00; Status Future hold Alprazolam (Xanax) 0.5 mg Q12H PRN PO ANXIETY Last administered on 05/16/17 01: 04; Admin Dose 0.5 MG; Start 05/05/17 at 20:30 Polyethylene Glycol (Miralax) 17 gm DAILY PO Last administered on 05/16/17 08: 15; Admin Dose 17 GM; Start 05/10/17 at 09:00 Phenol (Cepastat Lozenge) 1 lozenge Q1H PRN MT COUGH; Start 05/11/17 at 15:00 Guaifenesin (Robitussin Liquid Cup) 200 mg Q4H PRN PO COUGH; Start 05/11/17 at 15:00 Ondansetron HCl (Zofran Tab) 4 mg Q4H PRN PO NAUSEA AND/OR VOMITING; Start 05/11 at 21:30 Dexamethasone 4 mg 4 mg BID PO ; Start 05/17/17 at 09:00; Stop 05/19/17 at 21:01 Ondansetron HCl 16 mg/ Dexamethasone 20 mg/Sodium Chloride 63 ml @ 126 mls/hr Q7D IVPB Last administered on 05/12/17 00:12; Admin Dose 126 MLS/HR; Start 05/11 at 22:00; Stop 05/18/17 at 22:29 Gemcitabine HCl 1.71 gm/Sodium Chloride 250 ml @ 167 mls/hr Q7D IV Last administered on 05/12/17 01:34; Admin Dose 167 MLS/HR; Start 05/11/17 at 23:00; Stop 05/19/17 at 00:30 Docetaxel/ Docetaxel/N/A/ Sodium Chloride (taxoTERE/ taxoTERE/Evac Container/NS ) 250 ml @ 250 mls/hr 01 IV ; Start 05/19/17 at 01:00; Stop 05/19/17 at 01:59 Hydromorphone HCl (Dilaudid) 2 mg Q2H PRN PO PAIN Last administered on 16:33; Admin Dose 2 MG; Start 05/15/17 at 14:00 Ondansetron HCl (Zofran Inj) 4 mg Q4 PRN IV NAUSEA AND/OR VOMITING Last administered on 05/16/17 14:35; Admin Dose 4 MG; Start 05/15/17 at 21:00 Oxycodone HCl (Oxycontin) 15 mg 09,18 PO Last administered on 05/16/17 09:18; Admin Dose 15 MG; Start 05/16/17 at 09:00 Oxycodone HCl (Oxycontin) 30 mg HS PO ; Start 05/16/17 at 21:00 Hydromorphone HCl (Dilaudid) 1 mg Q4H PRN IV PAIN Last administered on 14:35; Admin Dose 1 MG; Start 05/16/17 at 08:00 JASMYN ORTA MD May 16, 2017 14:39
[2017-05-16 18:58] LABS: INR 1.01; PROTIME 13.3 Sec (12.2-14.2)
[2017-05-16] MEDS: ARIPIPRAZOLE 5 MG TAB PO SCH (20:51)
[2017-05-16] MEDS ORDERED: oxyCODONE (CR) 10 MG TAB [oxyCONTIN] PO SCH (21:00)
[2017-05-16 21:02] VITALS: BP 105/59; RESP 18
[2017-05-17 02:00] VITALS: BP 130/58; RESP 18
[2017-05-17] MEDS: HYDROmorphONE 1 MG/ML SYG IV PRN ×4 (04:17→17:35)
[2017-05-17 08:01] VITALS: BP 125/56; RESP 18
[2017-05-17] MEDS: VENLAFAXINE (XR) 75 MG CAP PO SCH (09:00)
[2017-05-17] MEDS: ENOXAPARIN 40 MG/0.4 ML SYG SC SCH (09:00)
[2017-05-17] MEDS: ONDANSETRON 4 MG INJ IV PRN (09:03)
[2017-05-17] MEDS: ALPRAZOLAM 0.5 MG TAB PO PRN ×2 (09:10→20:46)
[2017-05-17] MEDS: oxyCODONE (CR) 15 MG TAB [oxyCONTIN] PO SCH ×3 (09:50→22:20)
[2017-05-17] MEDS: DEXAMETHASONE 4 MG TAB PO SCH ×2 (09:50→20:47)
[2017-05-17] MEDS: POLYETHYLENE GLYCOL 17 GM PACKET PO SCH (09:50)
--- NOTE | 2017-05-17 12:39 | PN ---
Date/Time of Note Date/Time of Note DATE: 05/17/17 TIME: 12:36 Assessment/Plan VTE Prophylaxis VTE Prophylaxis Intervention: LMWH Lines/Catheters IV Catheter Type (from Nrsg): Port-a-cath Urinary Cath still in place: No Assessment/Plan Assessment/Plan Counts are alright. Premed for chemotherapy to start tomorrow and the chemotherapy to be given 05/19. Continue as planned. Subjective 24 Hr Interval Summary Free Text/Dictation Pt has no new issues. Pain controlled by present analgesics. Exam/Review of Systems Vital Signs Vitals Vital Signs Date Time Temp Pulse Resp B/P Pulse Ox O2 Delivery O2 Flow Rate FiO2 05/17/17 08:01 98.0 86 18 125/56 97 05/15/17 20:00 Nasal Cannula 2.0 Intake and Output 05/16/17 05/16/17 05/17/17 14:59 22:59 06:59 Intake Total 920 ml 600 ml Balance 920 ml 600 ml Exam Constitutional: alert, oriented, well developed Head: normocephalic, other (alopecia) Eyes: nl conjunctiva ENMT: nl external ears & nose Neck: supple Respiratory: clear to auscultation Cardiovascular: regular rate and rhythm Gastrointestinal: non-tender, soft Extremities: other (2 cm SQ lesion at left biceps area) Neurological: nl mental status, nl speech Lymph: nl lymph nodes Results Result Diagram: 05/16/175 05/16/17 0435 Results 24 hrs Laboratory Tests Test 05/16/17 18:05 Prothrombin Time 13.3 Prothrombin Time Ratio 1.0 INR International Normalized Ratio 1.01 Medications Medications Current Medications Aripiprazole (Abilify) 5 mg QHS PO ; Start 05/05/17 at 21:00 Venlafaxine HCl (Effexor Xr) 150 mg DAILY PO ; Start 05/06/17 at 09:00 Zolpidem Tartrate (Ambien) 5 mg HS PRN PO INSOMNIA; Start 05/05/17 at 17:00 Acetaminophen (Tylenol Tab) 650 mg Q6H PRN PO PAIN LEVEL 1-3 OR FEVER; Start at 16:30 Docusate Sodium (Colace) 100 mg Q12H PRN PO CONSTIPATION Last administered on t 20:25; Admin Dose 100 MG; Start 05/05/17 at 16:30 Magnesium Hydroxide (Milk Of Mag) 30 ml DAILY PRN PO CONSTIPATION; Start at 16:30 Bisacodyl (Dulcolax) 5 mg DAILY PRN PO CONSTIPATION Last administered on 20:25; Admin Dose 5 MG; Start 05/05/17 at 16:30 Bisacodyl (Dulcolax Supp) 10 mg DAILY PRN [place] CONSTIPATION Last administered on 05/10/17 20:42; Admin Dose 10 MG; Start 05/05/17 at 16:30 Sodium Biphosphate/ Sodium Phosphate (Fleet Enema) 133 ml DAILY PRN [place] CONSTIPATION; Start 05/05/17 at 16:30 Enoxaparin Sodium (Lovenox) 40 mg DAILY SC Last administered on 05/16/17 08:19 ; Admin Dose 40 MG; Start 05/06/17 at 09:00; Status Future hold Alprazolam (Xanax) 0.5 mg Q12H PRN PO ANXIETY Last administered on 05/17/17 09: 10; Admin Dose 0.5 MG; Start 05/05/17 at 20:30 Polyethylene Glycol (Miralax) 17 gm DAILY PO Last administered on 05/17/17 09: 50; Admin Dose 17 GM; Start 05/10/17 at 09:00 Phenol (Cepastat Lozenge) 1 lozenge Q1H PRN MT COUGH; Start 05/11/17 at 15:00 Guaifenesin (Robitussin Liquid Cup) 200 mg Q4H PRN PO COUGH; Start 05/11/17 at 15:00 Ondansetron HCl (Zofran Tab) 4 mg Q4H PRN PO NAUSEA AND/OR VOMITING; Start 05/11 at 21:30 Dexamethasone 4 mg 4 mg BID PO Last administered on 05/17/17 09:50; Admin Dose 4 MG; Start 05/17/17 at 09:00; Stop 05/19/17 at 21:01 Ondansetron HCl 16 mg/ Dexamethasone 20 mg/Sodium Chloride 63 ml @ 126 mls/hr Q7D IVPB Last administered on 05/12/17 00:12; Admin Dose 126 MLS/HR; Start 05/11 at 22:00; Stop 05/18/17 at 22:29 Gemcitabine HCl 1.71 gm/Sodium Chloride 250 ml @ 167 mls/hr Q7D IV Last administered on 05/12/17 01:34; Admin Dose 167 MLS/HR; Start 05/11/17 at 23:00; Stop 05/19/17 at 00:30 Docetaxel/ Docetaxel/N/A/ Sodium Chloride (taxoTERE/ taxoTERE/Evac Container/NS ) 250 ml @ 250 mls/hr 01 IV ; Start 05/19/17 at 01:00; Stop 05/19/17 at 01:59 Hydromorphone HCl (Dilaudid) 2 mg Q2H PRN PO PAIN Last administered on 16:33; Admin Dose 2 MG; Start 05/15/17 at 14:00 Ondansetron HCl (Zofran Inj) 4 mg Q4 PRN IV NAUSEA AND/OR VOMITING Last administered on 05/17/17 09:03; Admin Dose 4 MG; Start 05/15/17 at 21:00 Oxycodone HCl (Oxycontin) 15 mg 09,18 PO Last administered on 05/17/17 09:50; Admin Dose 15 MG; Start 05/16/17 at 09:00 Oxycodone HCl (Oxycontin) 30 mg HS PO Last administered on 05/16/17 22:05; Admin Dose 30 MG; Start 05/16/17 at 21:00 Hydromorphone HCl (Dilaudid) 1 mg Q4H PRN IV PAIN Last administered on 09:04; Admin Dose 1 MG; Start 05/16/17 at 08:00 NADEEM BLEDSOE MD May 17, 2017 12:39
--- NOTE | 2017-05-17 12:49 | PN ---
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 Also with LUE lesion concerning for metastasis PLAN pain control-->cont current pain meds onc following, on chemo-->next dose 9. LUE biopsy ordered by onc general diet dvt prophx cont home psych meds discharge when advised by onc, likely after chemo on 9.9 Subjective 24 Hr Interval Summary Free Text/Dictation Pt sleeping this morning Exam/Review of Systems Vital Signs Vitals Vital Signs Date Time Temp Pulse Resp B/P Pulse Ox O2 Delivery O2 Flow Rate FiO2 05/17/17 08:01 98.0 86 18 125/56 97 05/15/17 20:00 Nasal Cannula 2.0 Intake and Output 05/16/17 05/16/17 05/17/17 15:00 23:00 07:00 Intake Total 920 ml 600 ml Balance 920 ml 600 ml Exam NAD resp nonlabored abd nondistended no rashes port in R chest Results Result Diagram: 05/16/17 0435 05/16/17 0435 Results 24 hrs Laboratory Tests Test 05/16/17 18:05 Prothrombin Time 13.3 Prothrombin Time Ratio 1.0 INR International Normalized Ratio 1.01 Medications Medications Current Medications Aripiprazole (Abilify) 5 mg QHS PO ; Start 05/05/17 at 21:00 Venlafaxine HCl (Effexor Xr) 150 mg DAILY PO ; Start 05/06/17 at 09:00 Zolpidem Tartrate (Ambien) 5 mg HS PRN PO INSOMNIA; Start 05/05/17 at 17:00 Acetaminophen (Tylenol Tab) 650 mg Q6H PRN PO PAIN LEVEL 1-3 OR FEVER; Start at 16:30 Docusate Sodium (Colace) 100 mg Q12H PRN PO CONSTIPATION Last administered on t 20:25; Admin Dose 100 MG; Start 05/05/17 at 16:30 Magnesium Hydroxide (Milk Of Mag) 30 ml DAILY PRN PO CONSTIPATION; Start at 16:30 Bisacodyl (Dulcolax) 5 mg DAILY PRN PO CONSTIPATION Last administered on 20:25; Admin Dose 5 MG; Start 05/05/17 at 16:30 Bisacodyl (Dulcolax Supp) 10 mg DAILY PRN [place] CONSTIPATION Last administered on 05/10/17 20:42; Admin Dose 10 MG; Start 05/05/17 at 16:30 Sodium Biphosphate/ Sodium Phosphate (Fleet Enema) 133 ml DAILY PRN [place] CONSTIPATION; Start 05/05/17 at 16:30 Enoxaparin Sodium (Lovenox) 40 mg DAILY SC Last administered on 05/16/17 08:19 ; Admin Dose 40 MG; Start 05/06/17 at 09:00; Status Future hold Alprazolam (Xanax) 0.5 mg Q12H PRN PO ANXIETY Last administered on 05/17/17 09: 10; Admin Dose 0.5 MG; Start 05/05/17 at 20:30 Polyethylene Glycol (Miralax) 17 gm DAILY PO Last administered on 05/17/17 09: 50; Admin Dose 17 GM; Start 05/10/17 at 09:00 Phenol (Cepastat Lozenge) 1 lozenge Q1H PRN MT COUGH; Start 05/11/17 at 15:00 Guaifenesin (Robitussin Liquid Cup) 200 mg Q4H PRN PO COUGH; Start 05/11/17 at 15:00 Ondansetron HCl (Zofran Tab) 4 mg Q4H PRN PO NAUSEA AND/OR VOMITING; Start 05/11 at 21:30 Dexamethasone 4 mg 4 mg BID PO Last administered on 05/17/17 09:50; Admin Dose 4 MG; Start 05/17/17 at 09:00; Stop 05/19/17 at 21:01 Ondansetron HCl 16 mg/ Dexamethasone 20 mg/Sodium Chloride 63 ml @ 126 mls/hr Q7D IVPB Last administered on 05/12/17 00:12; Admin Dose 126 MLS/HR; Start 05/11 at 22:00; Stop 05/18/17 at 22:29 Gemcitabine HCl 1.71 gm/Sodium Chloride 250 ml @ 167 mls/hr Q7D IV Last administered on 05/12/17 01:34; Admin Dose 167 MLS/HR; Start 05/11/17 at 23:00; Stop 05/19/17 at 00:30 Docetaxel/ Docetaxel/N/A/ Sodium Chloride (taxoTERE/ taxoTERE/Evac Container/NS ) 250 ml @ 250 mls/hr 01 IV ; Start 05/19/17 at 01:00; Stop 05/19/17 at 01:59 Hydromorphone HCl (Dilaudid) 2 mg Q2H PRN PO PAIN Last administered on 16:33; Admin Dose 2 MG; Start 05/15/17 at 14:00 Ondansetron HCl (Zofran Inj) 4 mg Q4 PRN IV NAUSEA AND/OR VOMITING Last administered on 05/17/17 09:03; Admin Dose 4 MG; Start 05/15/17 at 21:00 Oxycodone HCl (Oxycontin) 15 mg 09,18 PO Last administered on 05/17/17 09:50; Admin Dose 15 MG; Start 05/16/17 at 09:00 Oxycodone HCl (Oxycontin) 30 mg HS PO Last administered on 05/16/17 22:05; Admin Dose 30 MG; Start 05/16/17 at 21:00 Hydromorphone HCl (Dilaudid) 1 mg Q4H PRN IV PAIN Last administered on 09:04; Admin Dose 1 MG; Start 05/16/17 at 08:00 JASMYN ORTA MD May 17, 2017 12:48
[2017-05-17 14:49] VITALS: BP 118/63; RESP 18
[2017-05-17] MEDS ORDERED: LIDOCAINE 1% (MDV) 20 ML INJ ONE (15:28)
[2017-05-17 17:02] VITALS: BP 122/84; RESP 16
[2017-05-17 19:25] VITALS: BP 132/76; RESP 18
[2017-05-17] MEDS: ARIPIPRAZOLE 5 MG TAB PO SCH (20:45)
[2017-05-18] MEDS: ONDANSETRON 4 MG INJ IV PRN (01:08)
[2017-05-18] MEDS: HYDROmorphONE 1 MG/ML SYG IV PRN ×5 (01:11→20:02)
[2017-05-18 02:15] VITALS: BP 132/84; RESP 18
[2017-05-18 08:13] VITALS: BP 140/85; RESP 18
[2017-05-18] MEDS: DEXAMETHASONE 4 MG TAB PO SCH ×2 (08:27→21:03)
[2017-05-18] MEDS: oxyCODONE (CR) 15 MG TAB [oxyCONTIN] PO SCH ×3 (08:28→21:04)
[2017-05-18] MEDS: VENLAFAXINE (XR) 75 MG CAP PO SCH (08:28)
[2017-05-18] MEDS: POLYETHYLENE GLYCOL 17 GM PACKET PO SCH (08:28)
[2017-05-18] MEDS: ALPRAZOLAM 0.5 MG TAB PO PRN ×2 (08:30→21:03)
[2017-05-18] MEDS: ENOXAPARIN 40 MG/0.4 ML SYG SC SCH (08:38)
--- NOTE | 2017-05-18 10:10 | RADRPT ---
PROCEDURE: Ultrasound guided biopsy of a mass in the left upper extremity CLINICAL INDICATION: Mass on the left biceps muscle COMPARISON: MRI of the left upper extremity from 05/15/2017 TECHNIQUE: Multiple sonographic images of the left upper extremity were obtained utilizing a tyron karla and color-flow. The images were reviewed on a high-resolution PACS workstation. Ultrasound examination demonstrated a 2.0 x 0.9 x 1.5 cm hypoechoic teardrop shaped lesion along the superficial aspect of the left biceps muscle . Versed and Fentanyl were administered by the nurse who monitored the patient. Following distended prep, and to under ultrasound guidance, an 18 gauge needle was advanced into the lesion. 3 core biopsies were obtained and submitted to a pathologist where preliminary analysis de emed the specimens to be adequate. Postprocedure scans showed no evidence of bleeding. A sterile dr essing was applied. The patient tolerated the procedure well. FINDINGS: As above. IMPRESSION: Uncomplicated ultrasound-guided core biopsy of a 2 cm mass along the superficial aspect of the left biceps muscle, as above. RPTAT: EE Physician Cole Date Time Electronically viewed and signed by Physician Cole on 05/18/2017 10:10 /
--- NOTE | 2017-05-18 10:55 | PN ---
Date/Time of Note Date/Time of Note DATE: 05/18/17 TIME: 10:53 Assessment/Plan VTE Prophylaxis VTE Prophylaxis Intervention: ambulation Lines/Catheters IV Catheter Type (from Nrs): PORTACATH Urinary Cath still in place: No Assessment/Plan Assessment/Plan Premedication for chemotherapy is being given. Chemotherapy to be given in the morning. Subjective 24 Hr Interval Summary Free Text/Dictation Pt walking in the room. Waiting for chemotherapy. Exam/Review of Systems Vital Signs Vitals Vital Signs Date Time Temp Pulse Resp B/P Pulse Ox O2 Delivery O2 Flow Rate FiO2 05/18/17 09:00 Nasal Cannula 2.0 05/18/17 08:13 97.6 84 18 140/85 97 Intake and Output 05/17/17 05/17/17 05/18/17 15:00 23:00 07:00 Intake Total 1360 ml 520 ml Balance 1360 ml 520 ml Exam Constitutional: alert, oriented Head: normocephalic Eyes: nl conjunctiva ENMT: nl external ears & nose Neck: supple Respiratory: clear to auscultation Cardiovascular: regular rate and rhythm Gastrointestinal: non-tender, soft Results Result Diagram: 05/16/1743405/16/17434 Medications Medications Current Medications Aripiprazole (Abilify) 5 mg QHS PO ; Start 05/05/17 at 21:00 Venlafaxine HCl (Effexor Xr) 150 mg DAILY PO ; Start 05/06/17 at 09:00 Zolpidem Tartrate (Ambien) 5 mg HS PRN PO INSOMNIA; Start 05/05/17 at 17:00 Acetaminophen (Tylenol Tab) 650 mg Q6H PRN PO PAIN LEVEL 1-3 OR FEVER; Start at 16:30 Docusate Sodium (Colace) 100 mg Q12H PRN PO CONSTIPATION Last administered on 20:25; Admin Dose 100 MG; Start 05/05/17 at 16:30 Magnesium Hydroxide (Milk Of Mag) 30 ml DAILY PRN PO CONSTIPATION; Start at 16:30 Bisacodyl (Dulcolax) 5 mg DAILY PRN PO CONSTIPATION Last administered on 20:25; Admin Dose 5 MG; Start 05/05/17 at 16:30 Bisacodyl (Dulcolax Supp) 10 mg DAILY PRN [place] CONSTIPATION Last administered on 05/10/17 20:42; Admin Dose 10 MG; Start 05/05/17 at 16:30 Sodium Biphosphate/ Sodium Phosphate (Fleet Enema) 133 ml DAILY PRN [place] CONSTIPATION; Start 05/05/17 at 16:30 Enoxaparin Sodium (Lovenox) 40 mg DAILY SC Last administered on 05/18/17 08:38 ; Admin Dose 40 MG; Start 05/06/17 at 09:00; Status Future hold Alprazolam (Xanax) 0.5 mg Q12H PRN PO ANXIETY Last administered on 05/18/17 08: 30; Admin Dose 0.5 MG; Start 05/05/17 at 20:30 Polyethylene Glycol (Miralax) 17 gm DAILY PO Last administered on 05/18/17 08: 28; Admin Dose 17 GM; Start 05/10/17 at 09:00 Phenol (Cepastat Lozenge) 1 lozenge Q1H PRN [place] COUGH; Start 05/11/17 at 15:00 Guaifenesin (Robitussin Liquid Cup) 200 mg Q4H PRN PO COUGH; Start 05/11/17 at 15:00 Ondansetron HCl (Zofran Tab) 4 mg Q4H PRN PO NAUSEA AND/OR VOMITING; Start 05/11 at 21:30 Dexamethasone (Decadron) 4 mg BID PO Last administered on 05/18/17 08:27; Admin Dose 4 MG; Start 05/17/17 at 09:00; Stop 05/19/17 at 21:01 Hydromorphone HCl (Dilaudid) 2 mg Q2H PRN PO PAIN Last administered on 16:33; Admin Dose 2 MG; Start 05/15/17 at 14:00 Ondansetron HCl (Zofran Inj) 4 mg Q4 PRN IV NAUSEA AND/OR VOMITING Last administered on 05/18/17 01:08; Admin Dose 4 MG; Start 05/15/17 at 21:00 Oxycodone HCl (Oxycontin) 15 mg 09,18 PO Last administered on 05/18/17 08:28; Admin Dose 15 MG; Start 05/16/17 at 09:00 Oxycodone HCl (Oxycontin) 30 mg HS PO Last administered on 05/17/17 22:20; Admin Dose 30 MG; Start 05/16/17 at 21:00 Hydromorphone HCl 1 mg 1 mg Q4H PRN IV PAIN Last administered on 05/18/17 08:01 ; Admin Dose 1 MG; Start 05/16/17 at 08:00 Gemcitabine HCl 1.71 gm/Sodium Chloride 250 ml @ 167 mls/hr 11 IV ; Start at 11:00; Stop 05/19/17 at 12:30 Docetaxel 80 mg/ Docetaxel 62 mg/N/ A 1 bottle/Sodium Chloride 250 ml @ 250 mls /hr 14 IV ; Start 05/19/17 at 14:00; Stop 05/19/17 at 14:59 Ondansetron HCl/ Dexamethasone/ Sodium Chloride (Zofran Inj/ Decadron/NS) 63 ml @ 126 mls/hr 10 IVPB ; Start 05/19/17 at 10:00; Stop 05/19/17 at 10:29 NADEEM BLEDSOE MD May 18, 2017 10:55
--- NOTE | 2017-05-18 15:01 | PN ---
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 Also with LUE lesion concerning for metastasis, sp biopsy yesterday. PLAN pain control-->cont current pain meds onc following, on chemo-->next dose 05.19 LUE biopsy ordered by onc general diet dvt prophx cont home psych meds discharge when advised by onc, likely after chemo on 05.19 Exam/Review of Systems Vital Signs Vitals Vital Signs Date Time Temp Pulse Resp B/P Pulse Ox O2 Delivery O2 Flow Rate FiO2 05/18/17 13:43 Nasal Cannula 2.0 05/18/17 08:13 97.6 84 18 140/85 97 Intake and Output 05/17/17 05/17/17 05/18/17 15:00 23:00 07:00 Intake Total 1360 ml 520 ml Balance 1360 ml 520 ml Results Result Diagram: 05/16/17 0435 05/16/17 0435 Medications Medications Current Medications Aripiprazole (Abilify) 5 mg QHS PO ; Start 05/05/17 at 21:00 Venlafaxine HCl (Effexor Xr) 150 mg DAILY PO ; Start 05/06/17 at 09:00 Zolpidem Tartrate (Ambien) 5 mg HS PRN PO INSOMNIA; Start 05/05/17 at 17:00 Acetaminophen (Tylenol Tab) 650 mg Q6H PRN PO PAIN LEVEL 1-3 OR FEVER; Start at 16:30 Docusate Sodium (Colace) 100 mg Q12H PRN PO CONSTIPATION Last administered on 20:25; Admin Dose 100 MG; Start 05/05/17 at 16:30 Magnesium Hydroxide (Milk Of Mag) 30 ml DAILY PRN PO CONSTIPATION; Start at 16:30 Bisacodyl (Dulcolax) 5 mg DAILY PRN PO CONSTIPATION Last administered on 20:25; Admin Dose 5 MG; Start 05/05/17 at 16:30 Bisacodyl (Dulcolax Supp) 10 mg DAILY PRN [place] CONSTIPATION Last administered on 05/10/17 20:42; Admin Dose 10 MG; Start 05/05/17 at 16:30 Sodium Biphosphate/ Sodium Phosphate (Fleet Enema) 133 ml DAILY PRN [place] CONSTIPATION; Start 05/05/17 at 16:30 Enoxaparin Sodium (Lovenox) 40 mg DAILY SC Last administered on 05/18/17 08:38 ; Admin Dose 40 MG; Start 05/06/17 at 09:00; Status Future hold Alprazolam (Xanax) 0.5 mg Q12H PRN PO ANXIETY Last administered on 05/18/17 08: 30; Admin Dose 0.5 MG; Start 05/05/17 at 20:30 Polyethylene Glycol (Miralax) 17 gm DAILY PO Last administered on 05/18/17 08: 28; Admin Dose 17 GM; Start 05/10/17 at 09:00 Phenol (Cepastat Lozenge) 1 lozenge Q1H PRN [place] COUGH; Start 05/11/17 at 15:00 Guaifenesin (Robitussin Liquid Cup) 200 mg Q4H PRN PO COUGH; Start 05/11/17 at 15:00 Ondansetron HCl (Zofran Tab) 4 mg Q4H PRN PO NAUSEA AND/OR VOMITING; Start 05/11 at 21:30 Dexamethasone (Decadron) 4 mg BID PO Last administered on 05/18/17 08:27; Admin Dose 4 MG; Start 05/17/17 at 09:00; Stop 05/19/17 at 21:01 Hydromorphone HCl (Dilaudid) 2 mg Q2H PRN PO PAIN Last administered on 16:33; Admin Dose 2 MG; Start 05/15/17 at 14:00 Ondansetron HCl (Zofran Inj) 4 mg Q4 PRN IV NAUSEA AND/OR VOMITING Last administered on 05/18/17 01:08; Admin Dose 4 MG; Start 05/15/17 at 21:00 Oxycodone HCl (Oxycontin) 15 mg 09,18 PO Last administered on 05/18/17 08:28; Admin Dose 15 MG; Start 05/16/17 at 09:00 Oxycodone HCl (Oxycontin) 30 mg HS PO Last administered on 05/17/17 22:20; Admin Dose 30 MG; Start 05/16/17 at 21:00 Hydromorphone HCl 1 mg 1 mg Q4H PRN IV PAIN Last administered on 05/18/17 11:55 ; Admin Dose 1 MG; Start 05/16/17 at 08:00 Gemcitabine HCl 1.71 gm/Sodium Chloride 250 ml @ 167 mls/hr 11 IV ; Start at 11:00; Stop 05/19/17 at 12:30 Docetaxel 80 mg/ Docetaxel 62 mg/N/ A 1 bottle/Sodium Chloride 250 ml @ 250 mls /hr 14 IV ; Start 05/19/17 at 14:00; Stop 05/19/17 at 14:59 Ondansetron HCl/ Dexamethasone/ Sodium Chloride (Zofran Inj/ Decadron/NS) 63 ml @ 126 mls/hr 10 IVPB ; Start 05/19/17 at 10:00; Stop 05/19/17 at 10:29 JASMYN ORTA MD May 18, 2017 15:01
[2017-05-18 15:24] VITALS: BP 126/58; RESP 18
[2017-05-18 19:40] VITALS: BP 110/59; RESP 18
[2017-05-18] MEDS: ARIPIPRAZOLE 5 MG TAB PO SCH (21:00)
[2017-05-19] VITALS (14 sets, daily range): BP systolic 112–131; BP diastolic 56–89; PULSE 65–84; RESP 17–18
[2017-05-19] MEDS: HYDROmorphONE 1 MG/ML SYG IV PRN ×6 (00:05→22:36)
[2017-05-19] MEDS ORDERED: DOCETAXEL IV SCH ×2 (01:00→14:00)
[2017-05-19] MEDS ORDERED: SOD CHLORIDE IV SCH ×2 (01:00→14:00)
[2017-05-19] MEDS ORDERED: EVAC CONTAINER IV SCH ×2 (01:00→14:00)
[2017-05-19] MEDS: oxyCODONE (CR) 15 MG TAB [oxyCONTIN] PO SCH ×3 (08:48→20:28)
[2017-05-19] MEDS: VENLAFAXINE (XR) 75 MG CAP PO SCH ×2 (08:48→09:00)
[2017-05-19] MEDS: ALPRAZOLAM 0.5 MG TAB PO PRN ×2 (08:49→20:28)
[2017-05-19] MEDS: DEXAMETHASONE 4 MG TAB PO SCH ×2 (08:49→20:28)
[2017-05-19] MEDS: POLYETHYLENE GLYCOL 17 GM PACKET PO SCH ×2 (08:50→09:00)
[2017-05-19] MEDS: ENOXAPARIN 40 MG/0.4 ML SYG SC SCH (08:59)
[2017-05-19] MEDS ORDERED: ONDANSETRON INJ 16 MG, DEXAMETHASONE 4 MG/ML 20 MG in SOD CHLORIDE 0.9% 50 ML IVPB SCH (10:00)
[2017-05-19 10:28] LABS: BASOPHILS % 0.1 % (0.0-2.0); HEMOGLOBIN 10.6 g/dl (12.0-16.0); LYMPHOCYTES # 1.3 10^3/ul (0.8-2.9); LYMPHOCYTES % 14.9 % (15.0-51.0); MEAN CORPUSCULAR HEMOGLOBIN 28.2 pg (29.0-33.0); MEAN CORPUSCULAR HGB CONC 31.2 g/dl (32.0-37.0); MEAN CORPUSCULAR VOLUME 90.4 fl (82.0-101.0); MEAN PLATELET VOLUME 10.5 fl (7.4-10.4); MONOCYTE # 0.4 10^3/ul (0.3-0.9); MONOCYTES % 4.7 % (0.0-11.0); NEUTROPHILS % 77.7 % (39.0-77.0); PLATELET COUNT 164 10^3/UL (140-415); RED BLOOD COUNT 3.76 10^6/ul (4.20-5.40); RED CELL DISTRIBUTION WIDTH 13.9 % (11.5-14.5)
[2017-05-19 10:47] LABS: ALBUMIN 3.8 g/dl (3.3-4.9); ALBUMIN/GLOBULIN RATIO 1.15; CALCIUM 9.2 mg/dl (8.4-10.2); CREATININE 0.56 mg/dl (0.44-1.00); TOTAL PROTEIN 7.1 g/dl (6.1-8.1)
[2017-05-19] MEDS ORDERED: GEMCITABINE IV SCH (11:00)
[2017-05-19] MEDS ORDERED: SOD CHLORIDE 0.9% IV SCH (11:00)
--- NOTE | 2017-05-19 14:31 | PN ---
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 Also with LUE lesion concerning for metastasis, sp biopsy 9., path with met from uterine ca. PLAN pain control-->cont current pain meds onc following, on chemo-->today . LUE lesion with met from uterine ca general diet dvt prophx cont home psych meds discharge when advised by onc, likely after chemo on 05.19 Subjective 24 Hr Interval Summary Free Text/Dictation Pt feeling well. Will get chemo today Exam/Review of Systems Vital Signs Vitals Vital Signs Date Time Temp Pulse Resp B/P Pulse Ox O2 Delivery O2 Flow Rate FiO2 05/19/17 08:05 97.8 71 18 125/68 97 05/19/17 08:00 Nasal Cannula 2.0 Intake and Output 05/18/17 05/18/17 05/19/17 15:00 23:00 07:00 Intake Total 960 ml 600 ml Balance 960 ml 600 ml Exam nad no mrg lungs clear abd soft no rashes Results Result Diagram: 05/19/17 0957 05/19/17 0957 Results 24 hrs Laboratory Tests Test 05/19/17 09:57 White Blood Count 9.0 # Red Blood Count 3.76 L Hemoglobin 10.6 L Hematocrit 34.0 L Mean Corpuscular Volume 90.4 Mean Corpuscular Hemoglobin 28.2 L Mean Corpuscular Hemoglobin Concent 31.2 L Red Cell Distribution Width 13.9 Platelet Count 164 Mean Platelet Volume 10.5 H Neutrophils % 77.7 H Lymphocytes % 14.9 L Monocytes % 4.7 Eosinophils % 0.0 Basophils % 0.1 Nucleated Red Blood Cells % 0.0 Neutrophils # (Manual) 7.0 Lymphocytes # 1.3 Monocytes # 0.4 Eosinophils # 0.0 Basophils # 0.0 Nucleated Red Blood Cells # 0.0 Sodium Level 143 Potassium Level 4.0 Chloride Level 103 Carbon Dioxide Level 32 H Anion Gap 12 Blood Urea Nitrogen 15 Creatinine 0.56 Glucose Level 195 Calcium Level 9.2 Total Bilirubin 0.0 L Direct Bilirubin 0.00 Indirect Bilirubin 0.0 Aspartate Amino Transf (AST/SGOT) 56 H Alanine Aminotransferase (ALT/SGPT) 76 H Alkaline Phosphatase 90 Total Protein 7.1 Albumin 3.8 Globulin 3.30 H Albumin/Globulin Ratio 1.15 Medications Medications Current Medications Aripiprazole (Abilify) 5 mg QHS PO ; Start 05/05/17 at 21:00 Venlafaxine HCl (Effexor Xr) 150 mg DAILY PO ; Start 05/06/17 at 09:00 Zolpidem Tartrate (Ambien) 5 mg HS PRN PO INSOMNIA; Start 05/05/17 at 17:00 Acetaminophen (Tylenol Tab) 650 mg Q6H PRN PO PAIN LEVEL 1-3 OR FEVER; Start at 16:30 Docusate Sodium (Colace) 100 mg Q12H PRN PO CONSTIPATION Last administered on 20:25; Admin Dose 100 MG; Start 05/05/17 at 16:30 Magnesium Hydroxide (Milk Of Mag) 30 ml DAILY PRN PO CONSTIPATION; Start at 16:30 Bisacodyl (Dulcolax) 5 mg DAILY PRN PO CONSTIPATION Last administered on 20:25; Admin Dose 5 MG; Start 05/05/17 at 16:30 Bisacodyl (Dulcolax Supp) 10 mg DAILY PRN [place] CONSTIPATION Last administered on 05/10/17 20:42; Admin Dose 10 MG; Start 05/05/17 at 16:30 Sodium Biphosphate/ Sodium Phosphate (Fleet Enema) 133 ml DAILY PRN [place] CONSTIPATION; Start 05/05/17 at 16:30 Enoxaparin Sodium (Lovenox) 40 mg DAILY SC Last administered on 05/19/17 08:59 ; Admin Dose 40 MG; Start 05/06/17 at 09:00; Status Future hold Alprazolam (Xanax) 0.5 mg Q12H PRN PO ANXIETY Last administered on 05/19/17 08: 49; Admin Dose 0.5 MG; Start 05/05/17 at 20:30 Polyethylene Glycol (Miralax) 17 gm DAILY PO Last administered on 05/18/17 08: 28; Admin Dose 17 GM; Start 05/10/17 at 09:00 Phenol (Cepastat Lozenge) 1 lozenge Q1H PRN MT COUGH; Start 05/11/17 at 15:00 Guaifenesin (Robitussin Liquid Cup) 200 mg Q4H PRN PO COUGH; Start 05/11/17 at 15:00 Ondansetron HCl (Zofran Tab) 4 mg Q4H PRN PO NAUSEA AND/OR VOMITING; Start 05/11 at 21:30 Dexamethasone (Decadron) 4 mg BID PO Last administered on 05/19/17 08:49; Admin Dose 4 MG; Start 05/17/17 at 09:00; Stop 05/19/17 at 21:01 Hydromorphone HCl (Dilaudid) 2 mg Q2H PRN PO PAIN Last administered on 16:33; Admin Dose 2 MG; Start 05/15/17 at 14:00 Ondansetron HCl (Zofran Inj) 4 mg Q4 PRN IV NAUSEA AND/OR VOMITING Last administered on 05/18/17 01:08; Admin Dose 4 MG; Start 05/15/17 at 21:00 Oxycodone HCl (Oxycontin) 15 mg 09,18 PO Last administered on 05/19/17 08:48; Admin Dose 15 MG; Start 05/16/17 at 09:00 Oxycodone HCl (Oxycontin) 30 mg HS PO Last administered on 05/18/17 21:04; Admin Dose 30 MG; Start 05/16/17 at 21:00 Hydromorphone HCl 1 mg 1 mg Q4H PRN IV PAIN Last administered on 05/19/17 12:48 ; Admin Dose 1 MG; Start 05/16/17 at 08:00 Docetaxel/ Docetaxel/N/A/ Sodium Chloride (taxoTERE/ taxoTERE/Evac Container/NS ) 250 ml @ 250 mls/hr 14 IV ; Start 05/19/17 at 14:00; Stop 05/19/17 at 14:59 JASMYN ORTA MD May 19, 2017 14:31
--- NOTE | 2017-05-19 17:54 | PN ---
Date/Time of Note Date/Time of Note DATE: 05/19/17 TIME: 17:49 Assessment/Plan VTE Prophylaxis VTE Prophylaxis Intervention: anti-embolic stocking Lines/Catheters IV Catheter Type (from Nrs): PORT A CATH Urinary Cath still in place: No Assessment/Plan Assessment/Plan 1. Metastatic leiomyosarcoma of the uterus. Day 8 Gemzar was given on 05/19, so far tolerating it well. Next dose due 2-3 weeks. 2. Pain control, adequate for now. 3. Right chest wall pain - improved. 4. Left arm pain. (u/s of right arm is negative). Continue supportive care Subjective 24 Hr Interval Summary Free Text/Dictation Patient somnolent. Tolerated chemotherapy today without event. Exam/Review of Systems Vital Signs Vitals Vital Signs Date Time Temp Pulse Resp B/P Pulse Ox O2 Delivery O2 Flow Rate FiO2 05/19/17 16:00 98.3 69 17 118/56 98 Nasal Cannula 2.0 Intake and Output 05/18/17 05/18/17 05/19/17 15:00 23:00 07:00 Intake Total 960 ml 600 ml Balance 960 ml 600 ml Exam Constitutional: alert, oriented, well developed Psych: nl mood/affect, no complaints Head: atraumatic, normocephalic Eyes: EOMI, nl conjunctiva Neck: non-tender, supple Respiratory: clear to auscultation, normal air movement Cardiovascular: nl pulses, regular rate and rhythm Gastrointestinal: non-tender, soft Extremities: edema, normal pulses Neurological: [employer] SERVIC[employer] II-XII intact, nl mental status Results Result Diagram: 05/19/17 0957 05/19/17 0957 Results 24 hrs Laboratory Tests Test 05/19/17 09:57 White Blood Count 9.0 # Red Blood Count 3.76 L Hemoglobin 10.6 L Hematocrit 34.0 L Mean Corpuscular Volume 90.4 Mean Corpuscular Hemoglobin 28.2 L Mean Corpuscular Hemoglobin Concent 31.2 L Red Cell Distribution Width 13.9 Platelet Count 164 Mean Platelet Volume 10.5 H Neutrophils % 77.7 H Lymphocytes % 14.9 L Monocytes % 4.7 Eosinophils % 0.0 Basophils % 0.1 Nucleated Red Blood Cells % 0.0 Neutrophils # (Manual) 7.0 Lymphocytes # 1.3 Monocytes # 0.4 Eosinophils # 0.0 Basophils # 0.0 Nucleated Red Blood Cells # 0.0 Sodium Level 143 Potassium Level 4.0 Chloride Level 103 Carbon Dioxide Level 32 H Anion Gap 12 Blood Urea Nitrogen 15 Creatinine 0.56 Glucose Level 195 Calcium Level 9.2 Total Bilirubin 0.0 L Direct Bilirubin 0.00 Indirect Bilirubin 0.0 Aspartate Amino Transf (AST/SGOT) 56 H Alanine Aminotransferase (ALT/SGPT) 76 H Alkaline Phosphatase 90 Total Protein 7.1 Albumin 3.8 Globulin 3.30 H Albumin/Globulin Ratio 1.15 Medications Medications Current Medications Aripiprazole (Abilify) 5 mg QHS PO ; Start 05/05/17 at 21:00 Venlafaxine HCl (Effexor Xr) 150 mg DAILY PO ; Start 05/06/17 at 09:00 Zolpidem Tartrate (Ambien) 5 mg HS PRN PO INSOMNIA; Start 05/05/17 at 17:00 Acetaminophen (Tylenol Tab) 650 mg Q6H PRN PO PAIN LEVEL 1-3 OR FEVER; Start at 16:30 Docusate Sodium (Colace) 100 mg Q12H PRN PO CONSTIPATION Last administered on 20:25; Admin Dose 100 MG; Start 05/05/17 at 16:30 Magnesium Hydroxide (Milk Of Mag) 30 ml DAILY PRN PO CONSTIPATION; Start at 16:30 Bisacodyl (Dulcolax) 5 mg DAILY PRN PO CONSTIPATION Last administered on 20:25; Admin Dose 5 MG; Start 05/05/17 at 16:30 Bisacodyl (Dulcolax Supp) 10 mg DAILY PRN [place] CONSTIPATION Last administered on 05/10/17 20:42; Admin Dose 10 MG; Start 05/05/17 at 16:30 Sodium Biphosphate/ Sodium Phosphate (Fleet Enema) 133 ml DAILY PRN [place] CONSTIPATION; Start 05/05/17 at 16:30 Enoxaparin Sodium (Lovenox) 40 mg DAILY SC Last administered on 05/19/17 08:59 ; Admin Dose 40 MG; Start 05/06/17 at 09:00; Status Future hold Alprazolam (Xanax) 0.5 mg Q12H PRN PO ANXIETY Last administered on 05/19/17 08: 49; Admin Dose 0.5 MG; Start 05/05/17 at 20:30 Polyethylene Glycol (Miralax) 17 gm DAILY PO Last administered on 05/18/17 08: 28; Admin Dose 17 GM; Start 05/10/17 at 09:00 Phenol (Cepastat Lozenge) 1 lozenge Q1H PRN [place] COUGH; Start 05/11/17 at 15:00 Guaifenesin (Robitussin Liquid Cup) 200 mg Q4H PRN PO COUGH; Start 05/11/17 at 15:00 Ondansetron HCl (Zofran Tab) 4 mg Q4H PRN PO NAUSEA AND/OR VOMITING; Start 05/11 at 21:30 Dexamethasone (Decadron) 4 mg BID PO Last administered on 05/19/17 08:49; Admin Dose 4 MG; Start 05/17/17 at 09:00; Stop 05/19/17 at 21:01 Hydromorphone HCl (Dilaudid) 2 mg Q2H PRN PO PAIN Last administered on 16:33; Admin Dose 2 MG; Start 05/15/17 at 14:00 Ondansetron HCl (Zofran Inj) 4 mg Q4 PRN IV NAUSEA AND/OR VOMITING Last administered on 05/18/17 01:08; Admin Dose 4 MG; Start 05/15/17 at 21:00 Oxycodone HCl (Oxycontin) 15 mg 09,18 PO Last administered on 05/19/17 08:48; Admin Dose 15 MG; Start 05/16/17 at 09:00 Oxycodone HCl (Oxycontin) 30 mg HS PO Last administered on 05/18/17 21:04; Admin Dose 30 MG; Start 05/16/17 at 21:00 Hydromorphone HCl (Dilaudid) 1 mg Q4H PRN IV PAIN Last administered on 16:50; Admin Dose 1 MG; Start 05/16/17 at 08:00 DOUGLAS BEACH MD May 19, 2017 17:54
[2017-05-19] MEDS: ARIPIPRAZOLE 5 MG TAB PO SCH (20:31)
[2017-05-20 02:00] VITALS: BP 114/59; RESP 18
[2017-05-20] MEDS: HYDROmorphONE 1 MG/ML SYG IV PRN ×5 (03:23→20:55)
[2017-05-20 08:13] VITALS: BP 128/65; RESP 20
[2017-05-20] MEDS: POLYETHYLENE GLYCOL 17 GM PACKET PO SCH (08:21)
[2017-05-20] MEDS: ONDANSETRON 4 MG INJ IV PRN (08:22)
[2017-05-20] MEDS: oxyCODONE (CR) 15 MG TAB [oxyCONTIN] PO SCH ×3 (08:22→21:56)
[2017-05-20] MEDS: VENLAFAXINE (XR) 75 MG CAP PO SCH (08:23)
[2017-05-20] MEDS: ENOXAPARIN 40 MG/0.4 ML SYG SC SCH (08:30)
[2017-05-20] MEDS: ALPRAZOLAM 0.5 MG TAB PO PRN ×2 (09:52→21:56)
[2017-05-20 14:06] VITALS: BP 121/61; RESP 20
--- NOTE | 2017-05-20 14:53 | PN ---
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 Also with LUE lesion concerning for metastasis, sp biopsy ., path with met from uterine ca. Current chemo cycle completed 05.19. PLAN pain control-->cont current pain meds LUE lesion with met from uterine ca general diet dvt prophx cont home psych meds discharge tomorrow if pt amenable. will need rx for pain meds and details for onc f/u Subjective 24 Hr Interval Summary Free Text/Dictation doesn't want to go home just yet Exam/Review of Systems Vital Signs Vitals Vital Signs Date Time Temp Pulse Resp B/P Pulse Ox O2 Delivery O2 Flow Rate FiO2 05/20/17 08:13 97.8 69 20 128/65 94 05/19/17 20:00 Nasal Cannula 2.0 Intake and Output 05/19/17 05/19/17 05/20/17 15:00 23:00 07:00 Intake Total 313 ml 1170 ml 750 ml Balance 313 ml 1170 ml 750 ml Exam nad no mrg lungs clear abd soft no rashes Results Result Diagram: 05/19/1795605/19/17956 Medications Medications Current Medications Aripiprazole (Abilify) 5 mg QHS PO ; Start 05/05/17 at 21:00 Venlafaxine HCl (Effexor Xr) 150 mg DAILY PO ; Start 05/06/17 at 09:00 Zolpidem Tartrate (Ambien) 5 mg HS PRN PO INSOMNIA; Start 05/05/17 at 17:00 Acetaminophen (Tylenol Tab) 650 mg Q6H PRN PO PAIN LEVEL 1-3 OR FEVER; Start at 16:30 Docusate Sodium (Colace) 100 mg Q12H PRN PO CONSTIPATION Last administered on t 20:25; Admin Dose 100 MG; Start 05/05/17 at 16:30 Magnesium Hydroxide (Milk Of Mag) 30 ml DAILY PRN PO CONSTIPATION; Start at 16:30 Bisacodyl (Dulcolax) 5 mg DAILY PRN PO CONSTIPATION Last administered on 20:25; Admin Dose 5 MG; Start 05/05/17 at 16:30 Bisacodyl (Dulcolax Supp) 10 mg DAILY PRN [place] CONSTIPATION Last administered on 05/10/17 20:42; Admin Dose 10 MG; Start 05/05/17 at 16:30 Sodium Biphosphate/ Sodium Phosphate (Fleet Enema) 133 ml DAILY PRN [place] CONSTIPATION; Start 05/05/17 at 16:30 Enoxaparin Sodium (Lovenox) 40 mg DAILY SC Last administered on 05/20/17 08:30 ; Admin Dose 40 MG; Start 05/06/17 at 09:00; Status Future hold Alprazolam (Xanax) 0.5 mg Q12H PRN PO ANXIETY Last administered on 05/20/17 09 :52; Admin Dose 0.5 MG; Start 05/05/17 at 20:30 Polyethylene Glycol (Miralax) 17 gm DAILY PO Last administered on 05/20/17 08: 21; Admin Dose 17 GM; Start 05/10/17 at 09:00 Phenol (Cepastat Lozenge) 1 lozenge Q1H PRN [place] COUGH; Start 05/11/17 at 15:00 Guaifenesin (Robitussin Liquid Cup) 200 mg Q4H PRN PO COUGH; Start 05/11/17 at 15:00 Ondansetron HCl (Zofran Tab) 4 mg Q4H PRN PO NAUSEA AND/OR VOMITING; Start 05/11 at 21:30 Hydromorphone HCl (Dilaudid) 2 mg Q2H PRN PO PAIN Last administered on 16:33; Admin Dose 2 MG; Start 05/15/17 at 14:00 Ondansetron HCl (Zofran Inj) 4 mg Q4 PRN IV NAUSEA AND/OR VOMITING Last administered on 05/20/17 08:22; Admin Dose 4 MG; Start 05/15/17 at 21:00 Oxycodone HCl (Oxycontin) 15 mg 09,18 PO Last administered on 05/20/17 08:22; Admin Dose 15 MG; Start 05/16/17 at 09:00 Oxycodone HCl (Oxycontin) 30 mg HS PO Last administered on 05/19/17 20:28; Admin Dose 30 MG; Start 05/16/17 at 21:00 Hydromorphone HCl (Dilaudid) 1 mg Q4H PRN IV PAIN Last administered on 12:32; Admin Dose 1 MG; Start 05/16/17 at 08:00 JASMYN ORTA MD May 20, 2017 14:53
--- NOTE | 2017-05-20 15:58 | PN ---
Date/Time of Note Date/Time of Note DATE: 05/20/17 TIME: 15:56 Assessment/Plan VTE Prophylaxis VTE Prophylaxis Intervention: SCD's Lines/Catheters IV Catheter Type (from Nrs): PAC Urinary Cath still in place: No Assessment/Plan Assessment/Plan Assessment/Plan 1. Metastatic leiomyosarcoma of the uterus. Day 8 Gemzar was given on 05/19, so far tolerating it well. Next dose due 2-3 weeks. 2. Pain control, adequate for now Continue to monitor. 3. Right chest wall pain - improved. 4. Left arm pain. (u/s of right arm is negative). Continue supportive care Subjective 24 Hr Interval Summary Free Text/Dictation Patient somnolent but arousable. Notes fatigue and shortness of breath Constitutional: no complaints ENT: bleeding, pain, No congestion, No discharge, No dysphagia, No no complaints, No other, No sore throat Exam/Review of Systems Vital Signs Vitals Vital Signs Date Time Temp Pulse Resp B/P Pulse Ox O2 Delivery O2 Flow Rate FiO2 05/20/17 08:13 97.8 69 20 128/65 94 05/19/17 20:00 Nasal Cannula 2.0 Intake and Output 05/19/17 05/19/17 05/20/17 15:00 23:00 07:00 Intake Total 313 ml 1170 ml 750 ml Balance 313 ml 1170 ml 750 ml Exam Constitutional: alert, oriented Psych: anxiety, nl mood/affect Head: atraumatic Eyes: EOMI, nl lids ENMT: nl lips & teeth Neck: non-tender, supple Respiratory: clear to auscultation, normal air movement Cardiovascular: nl pulses, regular rate and rhythm Gastrointestinal: non-tender, soft Musculoskeletal: nl extremities to inspection, nl gait and stance Extremities: normal pulses Results Result Diagram: 05/19/1795605/19/17956 Medications Medications Current Medications Aripiprazole (Abilify) 5 mg QHS PO ; Start 05/05/17 at 21:00 Venlafaxine HCl (Effexor Xr) 150 mg DAILY PO ; Start 05/06/17 at 09:00 Zolpidem Tartrate (Ambien) 5 mg HS PRN PO INSOMNIA; Start 05/05/17 at 17:00 Acetaminophen (Tylenol Tab) 650 mg Q6H PRN PO PAIN LEVEL 1-3 OR FEVER; Start at 16:30 Docusate Sodium (Colace) 100 mg Q12H PRN PO CONSTIPATION Last administered on 20:25; Admin Dose 100 MG; Start 05/05/17 at 16:30 Magnesium Hydroxide (Milk Of Mag) 30 ml DAILY PRN PO CONSTIPATION; Start at 16:30 Bisacodyl (Dulcolax) 5 mg DAILY PRN PO CONSTIPATION Last administered on 20:25; Admin Dose 5 MG; Start 05/05/17 at 16:30 Bisacodyl (Dulcolax Supp) 10 mg DAILY PRN [place] CONSTIPATION Last administered on 05/10/17 20:42; Admin Dose 10 MG; Start 05/05/17 at 16:30 Sodium Biphosphate/ Sodium Phosphate (Fleet Enema) 133 ml DAILY PRN [place] CONSTIPATION; Start 05/05/17 at 16:30 Enoxaparin Sodium (Lovenox) 40 mg DAILY SC Last administered on 05/20/17 08:30 ; Admin Dose 40 MG; Start 05/06/17 at 09:00; Status Future hold Alprazolam (Xanax) 0.5 mg Q12H PRN PO ANXIETY Last administered on 05/20/17 09 :52; Admin Dose 0.5 MG; Start 05/05/17 at 20:30 Polyethylene Glycol (Miralax) 17 gm DAILY PO Last administered on 05/20/17 08: 21; Admin Dose 17 GM; Start 05/10/17 at 09:00 Phenol (Cepastat Lozenge) 1 lozenge Q1H PRN [place] COUGH; Start 05/11/17 at 15:00 Guaifenesin (Robitussin Liquid Cup) 200 mg Q4H PRN PO COUGH; Start 05/11/17 at 15:00 Ondansetron HCl (Zofran Tab) 4 mg Q4H PRN PO NAUSEA AND/OR VOMITING; Start 05/11 at 21:30 Hydromorphone HCl (Dilaudid) 2 mg Q2H PRN PO PAIN Last administered on 16:33; Admin Dose 2 MG; Start 05/15/17 at 14:00 Ondansetron HCl (Zofran Inj) 4 mg Q4 PRN IV NAUSEA AND/OR VOMITING Last administered on 05/20/17 08:22; Admin Dose 4 MG; Start 05/15/17 at 21:00 Oxycodone HCl (Oxycontin) 15 mg 09,18 PO Last administered on 05/20/17 08:22; Admin Dose 15 MG; Start 05/16/17 at 09:00 Oxycodone HCl (Oxycontin) 30 mg HS PO Last administered on 05/19/17 20:28; Admin Dose 30 MG; Start 05/16/17 at 21:00 Hydromorphone HCl (Dilaudid) 1 mg Q4H PRN IV PAIN Last administered on 12:32; Admin Dose 1 MG; Start 05/16/17 at 08:00 DOUGLAS BEACH MD May 20, 2017 15:58
[2017-05-20 19:53] VITALS: BP 134/70; RESP 16
[2017-05-20] MEDS: ARIPIPRAZOLE 5 MG TAB PO SCH (20:01)
[2017-05-21] MEDS: HYDROmorphONE 1 MG/ML SYG IV PRN ×6 (01:16→22:01)
[2017-05-21 02:02] VITALS: BP 117/59; RESP 16
[2017-05-21 05:56] LABS: BASOPHILS % 0.2 % (0.0-2.0); EOSINOPHILS % 0.2 % (0.0-7.0); HEMATOCRIT 36.7 % (37.0-47.0); HEMOGLOBIN 11.7 g/dl (12.0-16.0); LYMPHOCYTES # 1.3 10^3/ul (0.8-2.9); LYMPHOCYTES % 24.5 % (15.0-51.0); MEAN CORPUSCULAR HEMOGLOBIN 28.5 pg (29.0-33.0); MEAN CORPUSCULAR HGB CONC 31.9 g/dl (32.0-37.0); MEAN CORPUSCULAR VOLUME 89.5 fl (82.0-101.0); MEAN PLATELET VOLUME 10.8 fl (7.4-10.4); MONOCYTE # 0.2 10^3/ul (0.3-0.9); MONOCYTES % 2.8 % (0.0-11.0); NEUTROPHILS % 71.7 % (39.0-77.0); PLATELET COUNT 125 10^3/UL (140-415); RED CELL DISTRIBUTION WIDTH 13.7 % (11.5-14.5); WHITE BLOOD COUNT 5.3 10^3/ul (4.8-10.8)
[2017-05-21 06:48] LABS: CALCIUM 8.3 mg/dl (8.4-10.2); CREATININE 0.56 mg/dl (0.44-1.00); POTASSIUM 3.8 mmol/L (3.5-5.1)
[2017-05-21 07:46] VITALS: BP 141/71; RESP 18
[2017-05-21] MEDS: VENLAFAXINE (XR) 75 MG CAP PO SCH (09:00)
[2017-05-21] MEDS: ONDANSETRON 4 MG INJ IV PRN (09:01)
[2017-05-21] MEDS: POLYETHYLENE GLYCOL 17 GM PACKET PO SCH (09:01)
[2017-05-21] MEDS: ENOXAPARIN 40 MG/0.4 ML SYG SC SCH (09:04)
[2017-05-21] MEDS: oxyCODONE (CR) 15 MG TAB [oxyCONTIN] PO SCH ×3 (09:55→20:55)
[2017-05-21] MEDS: ALPRAZOLAM 0.5 MG TAB PO PRN ×2 (09:55→22:01)
[2017-05-21 14:30] VITALS: BP 134/71; RESP 18
--- NOTE | 2017-05-21 15:23 | PN ---
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 Also with LUE lesion concerning for metastasis, sp biopsy 05.17, path with met from uterine ca. Current chemo cycle completed 05.19. PLAN pain control-->cont current pain meds LUE lesion with met from uterine ca -again status post chemotherapy 2 cycles this admission, per hematology oncology no yesterday, next chemotherapy likely in the next 2-3 weeks general diet dvt prophx cont home psych meds Plan for possible discharge tomorrow if pt amenable and after hematology oncology has seen patient. will need rx for pain meds and details for onc f/u Problems: Subjective 24 Hr Interval Summary Free Text/Dictation Patient still feeling weak overall, received chemotherapy 2 days ago, otherwise no acute events overnight. Exam/Review of Systems Vital Signs Vitals Vital Signs Date Time Temp Pulse Resp B/P Pulse Ox O2 Delivery O2 Flow Rate FiO2 05/21/17 09:49 Nasal Cannula 2.0 05/21/17 07:46 98.2 68 18 141/71 97 Intake and Output 05/20/17 05/20/17 05/21/17 15:00 23:00 07:00 Intake Total 360 ml 880 ml Balance 360 ml 880 ml Exam Lying in bed, slightly lethargic, but Nad Pupils equal round reactive to light, extraocular muscles intact no mrg lungs clear abd soft no rashes Results Result Diagram: 05/21/1752305/21/17523 Results 24 hrs Laboratory Tests Test 05/21/17 05:24 White Blood Count 5.3 # Red Blood Count 4.10 L Hemoglobin 11.7 L Hematocrit 36.7 L Mean Corpuscular Volume 89.5 Mean Corpuscular Hemoglobin 28.5 L Mean Corpuscular Hemoglobin Concent 31.9 L Red Cell Distribution Width 13.7 Platelet Count 125 #L Mean Platelet Volume 10.8 H Neutrophils % 71.7 Lymphocytes % 24.5 Monocytes % 2.8 Eosinophils % 0.2 Basophils % 0.2 Nucleated Red Blood Cells % 0.0 Neutrophils # (Manual) 3.8 Lymphocytes # 1.3 Monocytes # 0.2 L Eosinophils # 0.0 Basophils # 0.0 Nucleated Red Blood Cells # 0.0 Sodium Level 140 Potassium Level 3.8 Chloride Level 102 Carbon Dioxide Level 31 Anion Gap 11 Blood Urea Nitrogen 15 Creatinine 0.56 Glucose Level 83 # Calcium Level 8.3 L Medications Medications Current Medications Aripiprazole (Abilify) 5 mg QHS PO ; Start 05/05/17 at 21:00 Venlafaxine HCl (Effexor Xr) 150 mg DAILY PO ; Start 05/06/17 at 09:00 Zolpidem Tartrate (Ambien) 5 mg HS PRN PO INSOMNIA; Start 05/05/17 at 17:00 Acetaminophen (Tylenol Tab) 650 mg Q6H PRN PO PAIN LEVEL 1-3 OR FEVER; Start at 16:30 Docusate Sodium (Colace) 100 mg Q12H PRN PO CONSTIPATION Last administered on 20:25; Admin Dose 100 MG; Start 05/05/17 at 16:30 Magnesium Hydroxide (Milk Of Mag) 30 ml DAILY PRN PO CONSTIPATION; Start at 16:30 Bisacodyl (Dulcolax) 5 mg DAILY PRN PO CONSTIPATION Last administered on 20:25; Admin Dose 5 MG; Start 05/05/17 at 16:30 Bisacodyl (Dulcolax Supp) 10 mg DAILY PRN [place] CONSTIPATION Last administered on 05/10/17 20:42; Admin Dose 10 MG; Start 05/05/17 at 16:30 Sodium Biphosphate/ Sodium Phosphate (Fleet Enema) 133 ml DAILY PRN [place] CONSTIPATION; Start 05/05/17 at 16:30 Enoxaparin Sodium (Lovenox) 40 mg DAILY SC Last administered on 05/21/17 09:04 ; Admin Dose 40 MG; Start 05/06/17 at 09:00; Status Future hold Alprazolam (Xanax) 0.5 mg Q12H PRN PO ANXIETY Last administered on 05/21/17 09 :55; Admin Dose 0.5 MG; Start 05/05/17 at 20:30 Polyethylene Glycol (Miralax) 17 gm DAILY PO Last administered on 05/21/17 09: 01; Admin Dose 17 GM; Start 05/10/17 at 09:00 Phenol (Cepastat Lozenge) 1 lozenge Q1H PRN [place] COUGH; Start 05/11/17 at 15:00 Guaifenesin (Robitussin Liquid Cup) 200 mg Q4H PRN PO COUGH; Start 05/11/17 at 15:00 Ondansetron HCl (Zofran Tab) 4 mg Q4H PRN PO NAUSEA AND/OR VOMITING; Start 05/11 at 21:30 Hydromorphone HCl (Dilaudid) 2 mg Q2H PRN PO PAIN Last administered on 16:33; Admin Dose 2 MG; Start 05/15/17 at 14:00 Ondansetron HCl (Zofran Inj) 4 mg Q4 PRN IV NAUSEA AND/OR VOMITING Last administered on 05/21/17 09:01; Admin Dose 4 MG; Start 05/15/17 at 21:00 Oxycodone HCl (Oxycontin) 15 mg 09,18 PO Last administered on 05/21/17 09:55; Admin Dose 15 MG; Start 05/16/17 at 09:00 Oxycodone HCl (Oxycontin) 30 mg HS PO Last administered on 05/20/17 21:56; Admin Dose 30 MG; Start 05/16/17 at 21:00 Hydromorphone HCl (Dilaudid) 1 mg Q4H PRN IV PAIN Last administered on 13:52; Admin Dose 1 MG; Start 05/16/17 at 08:00 MARIALUISA CARVAJAL May 21, 2017 15:22
[2017-05-21 20:48] VITALS: BP 116/66; RESP 20
[2017-05-21] MEDS: ARIPIPRAZOLE 5 MG TAB PO SCH (20:55)
[2017-05-22 02:20] VITALS: BP 111/63; RESP 18
[2017-05-22] MEDS: HYDROmorphONE 1 MG/ML SYG IV PRN ×5 (03:00→20:25)
[2017-05-22 08:03] VITALS: BP 100/58; RESP 20
--- NOTE | 2017-05-22 08:41 | PN ---
DATE: 05/22/2017 SUBJECTIVE DATA: The patient states she is feeling well now, she did have some nausea after receiving chemotherapy last week. The patient received docetaxel and gemcitabine on 05/19/2017. As mentioned, the patient did have some nausea, but this has resolved. She does not complain of any mouth discomfort. No diarrhea. States her cough is somewhat improved. OBJECTIVE DATA: GENERAL: The patient is a well-developed, well-nourished female who is in no acute distress. VITAL SIGNS: Temperature 98.6, pulse 96 per minute and regular, respirations 18, blood pressure 111/63. Pulse oximetry is 95 percent on 2 liters of oxygen. SKIN: Scattered ecchymoses. No petechiae or rashes. There are tattoos. HEENT: Normocephalic, no evidence of trauma. There is alopecia. There is no scleral icterus. Oral mucosa is moist without lesions. Tongue is well papillated. No gingival hyperplasia. No hypertrophy or Waldeyer's ring. NECK: Neck is supple. No jugular distention, or thyroid enlargement. CHEST: Chest is clear to auscultation and percussion. There are no rhonchi, no wheezes, rales or rubs. Although there are there are decreased breath sounds throughout. There is the soft tissue mass overlying the right scapula. NODES: No palpable lymphadenopathy. HEART: No S3, S4, murmurs, no rubs. Abdomen soft. No masses. No ascites. EXTREMITIES: No clubbing, edema, or cyanosis. No palpable cords or Homans sign. There is ecchymotic area overlying the previously noted subcutaneous lesion in the left biceps. LABORATORY AND DIAGNOSTIC DATA: The white count 5300, with an absolute neutrophil count of 3800, hemoglobin 11.7, hematocrit 36.7, and platelet count 125,000. The biopsy of the mass, soft tissue mass overlying the left biceps was performed on 05/17/2017. 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 ASSESSMENT: 1. Metastatic leiomyosarcoma. 2. Nausea related to chemotherapy. PLAN: The patient has now completed her course of chemotherapy. Will not be due for her next course of chemotherapy until on 05/31/2017. The patient's pain is under control. She seems relatively comfortable. Prior to discharging the patient I would like to make sure however that discharge plans have been made including home health follow up so that the patient is not lost to follow-up, as she was previously. Will check CBC and chemistry panel tomorrow, as well as repeat chest x-ray. Dictated By: Willy Braun MD /irineo/doni /Document#: [id number]
[2017-05-22] MEDS: VENLAFAXINE (XR) 75 MG CAP PO SCH (09:00)
[2017-05-22 09:58] LABS: BASOPHILS % 0.1 % (0.0-2.0); EOSINOPHILS # 0.1 10^3/ul (0.0-0.5); EOSINOPHILS % 1.2 % (0.0-7.0); HEMATOCRIT 34.2 % (37.0-47.0); HEMOGLOBIN 11.3 g/dl (12.0-16.0); LYMPHOCYTES # 1.1 10^3/ul (0.8-2.9); LYMPHOCYTES % 11.7 % (15.0-51.0); MEAN CORPUSCULAR HEMOGLOBIN 29.2 pg (29.0-33.0); MEAN CORPUSCULAR VOLUME 88.4 fl (82.0-101.0); MONOCYTE # 0.1 10^3/ul (0.3-0.9); MONOCYTES % 0.9 % (0.0-11.0); NEUTROPHILS % 85.7 % (39.0-77.0); PLATELET COUNT 116 10^3/UL (140-415); RED BLOOD COUNT 3.87 10^6/ul (4.20-5.40); WHITE BLOOD COUNT 9.3 10^3/ul (4.8-10.8)
[2017-05-22 10:05] LABS: ALBUMIN 3.1 g/dl (3.3-4.9); ALBUMIN/GLOBULIN RATIO 1.1; BILIRUBIN,INDIRECT 0.3 mg/dl (0-1.1); BILIRUBIN,TOTAL 0.3 mg/dl (0.2-1.3); CALCIUM 8.6 mg/dl (8.4-10.2); CREATININE 0.47 mg/dl (0.44-1.00); POTASSIUM 4.3 mmol/L (3.5-5.1); TOTAL PROTEIN 5.9 g/dl (6.1-8.1)
[2017-05-22] MEDS: POLYETHYLENE GLYCOL 17 GM PACKET PO SCH (11:00)
[2017-05-22] MEDS: oxyCODONE (CR) 15 MG TAB [oxyCONTIN] PO SCH ×3 (11:00→21:48)
[2017-05-22] MEDS: ALPRAZOLAM 0.5 MG TAB PO PRN ×2 (11:03→23:21)
[2017-05-22] MEDS: ENOXAPARIN 40 MG/0.4 ML SYG SC SCH (11:09)
--- NOTE | 2017-05-22 11:42 | RADRPT ---
PROCEDURE: XR Chest. CLINICAL INDICATION: Shortness of breath. Metastatic uterine cancer. TECHNIQUE: Single portable view of the chest was obtained. COMPARISON: 05/10/2017 and 05/05/2017 FINDINGS: Right port with tip over the right atrium. Stable cardiomediastinal silhouette. Similar appearance o f multiple bilateral pulmonary masses. No pleural effusion or pneumothorax. IMPRESSION: 1. Right port tip over the right atrium. 2. Similar appearance of multiple bilateral pulmonary masses consistent with lung metastasis. RPTAT:AAJJ Physician Valorie Date Time Electronically viewed and signed by Physician Valorie on 05/22/2017 11:42 /
[2017-05-22] MEDS: ONDANSETRON 4 MG INJ IV PRN (11:49)
[2017-05-22 14:45] VITALS: BP 116/69; RESP 20
--- NOTE | 2017-05-22 16:43 | PN ---
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 Also with LUE lesion concerning for metastasis, sp biopsy 05.17, path with met from uterine ca. Current chemo cycle completed 05.19. PLAN pain control-->cont current pain meds LUE lesion with met from uterine ca -again status post chemotherapy 2 cycles this admission, per hematology oncology no yesterday, next chemotherapy likely On May 31, 2017. Hematology oncology wants to do CBC and BMP in the morning, then likely DC home in 24 hours if no abnormalities on labs and pain is under good control still. general diet dvt prophx cont home psych meds Again, plan for possible discharge tomorrow - will need rx for pain meds and details for onc f/u Problems: Subjective 24 Hr Interval Summary Free Text/Dictation Patient seen by hematology oncology team this morning. No acute events overnight. Exam/Review of Systems Vital Signs Vitals Vital Signs Date Time Temp Pulse Resp B/P Pulse Ox O2 Delivery O2 Flow Rate FiO2 05/22/17 14:45 98.5 106 20 116/69 99 05/22/17 08:00 Nasal Cannula 2.0 Intake and Output 05/21/17 05/21/17 05/22/17 15:00 23:00 07:00 Intake Total 940 ml 600 ml Balance 940 ml 600 ml Exam Lying in bed, slightly lethargic, but Nad Pupils equal round reactive to light, extraocular muscles intact no mrg lungs clear abd soft no rashes Results Result Diagram: 05/22/1792405/22/1725 Results 24 hrs Laboratory Tests Test 05/22/17 09:25 White Blood Count 9.3 # Red Blood Count 3.87 L Hemoglobin 11.3 L Hematocrit 34.2 L Mean Corpuscular Volume 88.4 Mean Corpuscular Hemoglobin 29.2 Mean Corpuscular Hemoglobin Concent 33.0 Red Cell Distribution Width 14.0 Platelet Count 116 L Mean Platelet Volume 11.0 H Neutrophils % 85.7 H Lymphocytes % 11.7 L Monocytes % 0.9 Eosinophils % 1.2 Basophils % 0.1 Nucleated Red Blood Cells % 0.0 Neutrophils # (Manual) 8.0 H Lymphocytes # 1.1 Monocytes # 0.1 L Eosinophils # 0.1 Basophils # 0.0 Nucleated Red Blood Cells # 0.0 Sodium Level 134 L Potassium Level 4.3 Chloride Level 98 Carbon Dioxide Level 32 H Anion Gap 8 Blood Urea Nitrogen 12 Creatinine 0.47 Glucose Level 176 Calcium Level 8.6 Total Bilirubin 0.3 Direct Bilirubin 0.00 Indirect Bilirubin 0.3 Aspartate Amino Transf (AST/SGOT) 49 H Alanine Aminotransferase (ALT/SGPT) 68 Alkaline Phosphatase 75 Total Protein 5.9 L Albumin 3.1 L Globulin 2.80 Albumin/Globulin Ratio 1.10 Medications Medications Current Medications Aripiprazole (Abilify) 5 mg QHS PO ; Start 05/05/17 at 21:00 Venlafaxine HCl (Effexor Xr) 150 mg DAILY PO ; Start 05/06/17 at 09:00 Zolpidem Tartrate (Ambien) 5 mg HS PRN PO INSOMNIA; Start 05/05/17 at 17:00 Acetaminophen (Tylenol Tab) 650 mg Q6H PRN PO PAIN LEVEL 1-3 OR FEVER; Start at 16:30 Docusate Sodium (Colace) 100 mg Q12H PRN PO CONSTIPATION Last administered on 20:25; Admin Dose 100 MG; Start 05/05/17 at 16:30 Magnesium Hydroxide (Milk Of Mag) 30 ml DAILY PRN PO CONSTIPATION; Start at 16:30 Bisacodyl (Dulcolax) 5 mg DAILY PRN PO CONSTIPATION Last administered on 20:25; Admin Dose 5 MG; Start 05/05/17 at 16:30 Bisacodyl (Dulcolax Supp) 10 mg DAILY PRN [place] CONSTIPATION Last administered on 05/10/17 20:42; Admin Dose 10 MG; Start 05/05/17 at 16:30 Sodium Biphosphate/ Sodium Phosphate (Fleet Enema) 133 ml DAILY PRN [place] CONSTIPATION; Start 05/05/17 at 16:30 Enoxaparin Sodium (Lovenox) 40 mg DAILY SC Last administered on 05/22/17 11:09 ; Admin Dose 40 MG; Start 05/06/17 at 09:00; Status Future hold Alprazolam (Xanax) 0.5 mg Q12H PRN PO ANXIETY Last administered on 05/22/17 11 :03; Admin Dose 0.5 MG; Start 05/05/17 at 20:30 Polyethylene Glycol (Miralax) 17 gm DAILY PO Last administered on 05/22/17 11: 00; Admin Dose 17 GM; Start 05/10/17 at 09:00 Phenol (Cepastat Lozenge) 1 lozenge Q1H PRN [place] COUGH; Start 05/11/17 at 15:00 Guaifenesin (Robitussin Liquid Cup) 200 mg Q4H PRN PO COUGH; Start 05/11/17 at 15:00 Ondansetron HCl (Zofran Tab) 4 mg Q4H PRN PO NAUSEA AND/OR VOMITING; Start 05/11 at 21:30 Hydromorphone HCl (Dilaudid) 2 mg Q2H PRN PO PAIN Last administered on 16:33; Admin Dose 2 MG; Start 05/15/17 at 14:00 Ondansetron HCl (Zofran Inj) 4 mg Q4 PRN IV NAUSEA AND/OR VOMITING Last administered on 05/22/17 11:49; Admin Dose 4 MG; Start 05/15/17 at 21:00 Oxycodone HCl (Oxycontin) 15 mg ,18 PO Last administered on 05/22/17 11:00; Admin Dose 15 MG; Start 05/16/17 at 09:00 Oxycodone HCl (Oxycontin) 30 mg HS PO Last administered on 05/21/17 20:55; Admin Dose 30 MG; Start 05/16/17 at 21:00 Hydromorphone HCl (Dilaudid) 1 mg Q4H PRN IV PAIN Last administered on 16:11; Admin Dose 1 MG; Start 05/16/17 at 08:00 MARIALUISA CARVAJAL May 22, 2017 16:43
[2017-05-22 20:27] VITALS: BP 109/65; RESP 20
[2017-05-22] MEDS: ARIPIPRAZOLE 5 MG TAB PO SCH (21:00)
[2017-05-23] MEDS: HYDROmorphONE 1 MG/ML SYG IV PRN ×4 (00:55→15:18)
[2017-05-23 02:31] VITALS: BP 108/60; RESP 18
[2017-05-23 08:00] VITALS: BP 114/63; RESP 19
[2017-05-23] MEDS: VENLAFAXINE (XR) 75 MG CAP PO SCH (09:00)
[2017-05-23] MEDS: POLYETHYLENE GLYCOL 17 GM PACKET PO SCH (09:11)
[2017-05-23] MEDS: ENOXAPARIN 40 MG/0.4 ML SYG SC SCH (09:12)
[2017-05-23] MEDS: oxyCODONE (CR) 15 MG TAB [oxyCONTIN] PO SCH ×2 (09:15→18:00)
[2017-05-23] MEDS: ONDANSETRON 4 MG INJ IV PRN (11:15)
[2017-05-23] MEDS: ALPRAZOLAM 0.5 MG TAB PO PRN (11:15)
--- NOTE | 2017-05-23 12:05 | PDOCDIS ---
Discharge Instructions CONDITION Patient Condition: Stable HOME CARE INSTRUCTIONS: Special Diet: REGULAR ACTIVITY: Activity Restrictions: Slowly Increase Activity FOLLOW UP/APPOINTMENTS Follow-up Plan Please take your medications as prescribed, please follow-up with your hematology oncology doctor in the clinic in the next few days. MARIALUISA CARVAJAL May 23, 2017 12:04
[2017-05-23] MEDS ORDERED: POLY17PO6 PO (12:08)
[2017-05-23] MEDS ORDERED: OXYC-536 PO ×2 (12:08)
[2017-05-23] MEDS ORDERED: BENZ1LOZ4 MT (12:08)
[2017-05-23] MEDS ORDERED: GUAI-637 PO (12:08)
[2017-05-23] MEDS ORDERED: HYDR2TAB36 PO (12:08)
--- NOTE | 2017-05-23 12:47 | DS ---
DATE OF ADMISSION: 05/08/2017 DATE OF DISCHARGE: 05/23/2017 HISTORY OF PRESENT ILLNESS: This is a 46-year-old female originally admitted on May 05, 2017, being discharged home on May [id number]. The patient initially came in with history of stage IV leiomyosarcoma with lung and pelvic lymph node metastasis, complaining of abdominal pain for 1-2 days prior to admission. She was admitted and seen by Hematology Oncology team during this hospital stay, also by Pain Management team as well. There was also a left upper extremity lesion concerning for metastasis and patient had a biopsy performed on May 17 with the preliminary diagnosis showing malignant spindle cell neoplasm compatible with metastatic leiomyosarcoma. In any event, again patient was seen by Hematology Oncology team and started chemotherapy while here in the hospital. She received 2 cycles of chemotherapy while she was here. Her labs were monitored very carefully. HOSPITAL COURSE: Over the course of her hospital stay, she continue pain medications for better pain control. She was able to work with physical therapy and ambulate and tolerate a p.o. diet. Her vital signs remained stable as well. Her abdominal pain symptoms improved overall. After getting clearance from the Hematology Oncology she will be discharged home today in fair condition. Her next chemotherapy will be as an outpatient on May 31, 2017. DISCHARGE MEDICATIONS: She will be discharged home today with the following medications: 1. Cepastat lozenges q.2 hours p.r.n. 2. Guaifenesin 200 mg q.4 hours p.r.n. 3. Dilaudid 2 mg p.o. q.2 hours p.r.n 4. OxyContin 15 mg p.o. q.12 hours p.r.n. 5. OxyContin 30 mg p.o. q.h.s. p.r.n. 6. MiraLAX 17 g p.o. daily. 7. Abilify 5 mg q.h.s.. 8. Benazepril 50 mg q.h.s. p.r.n. 9. Effexor XR 150 mg daily. She will need to follow up again with the doctors mentioned above. FINAL DIAGNOSES: 1. Abdominal pain secondary to stage IV leiomyosarcoma, status post chemotherapy x2 cycles this admission, now continuing outpatient chemotherapy as well. 2. History of anxiety and depression. 3. History of bipolar disorder. 4. Mild stroke many years ago. 5. Former smoker. Time spent with patient, 45 minutes. Dictated By: Mangus Nguyen MD /irineo/jim /Document#: [id number]
[2017-05-23 14:00] VITALS: BP 116/61; RESP 18
[2017-05-23] MEDS ORDERED: HEPARIN (100 UNITS/ML) 5 ML SYG CATHETER ONE (18:30)
--- NOTE | 2017-05-23 19:37 | PN ---
DATE: 05/23/2017 SUBJECTIVE: Patient is feeling well. She complains of some minimal discomfort in the right shoulder. The patient does not have any increased shortness of breath, some cough. She still is experiencing some vaginal bleeding, but no pelvic pain or cramping. OBJECTIVE: GENERAL: Patient is a well-developed, well-nourished female, in no acute distress. VITAL SIGNS: Temperature 98.7, pulse 108, respirations 18, blood pressure 116/61, and pulse oximetry 97 percent on 2 liters of oxygen by nasal cannula. SKIN: No ecchymosis. No petechiae or rashes. There are tattoos. The only ecchymosis is over the patient's medial aspect of the left biceps. HEENT: Normocephalic, no evidence of trauma. There is alopecia. Pupils equal, round, reactive and accommodation. There is no scleral icterus. Oral mucosa is moist without lesion. Tongue is well-papillated. No gingival hyperplasia. No hypertrophy. No Waldeyer's ring NECK: Neck is supple. No jugular distention, or thyroid enlargement. No carotid bruits. CHEST: Decreased breath sounds throughout, but no rhonchi, wheezes, rales or rubs. HEART: Sinus tachycardia. No S3, S4, murmurs, no rubs. NODES: No palpable lymphadenopathy in the lymph node bearing area. ABDOMEN: Soft. No masses. No ascites. Bowel sounds are active. EXTREMITIES: No clubbing, no edema or cyanosis. No palpable cords or Homans sign. There is a small 2 cm subcutaneous nodule on the medial aspect of the left biceps. The area is ecchymotic. NEUROLOGIC: No focal neurologic abnormalities. IMAGING: A chest x-ray done on 05/22/2017 demonstrates a similar appearance with bilateral pulmonary masses. No other changes at this time. IMPRESSION: 1. Metastatic leiomyosarcoma little light metastatic leiomyosarcoma of the uterus. 2. Nausea secondary to chemotherapy. PLAN: The patient is to be discharged today. Will have the patient return in 1 week to have her counts checked. Chemotherapy would actually be due at the end of next week. We will likely postpone until 2 weeks from today. My concern is that the patient will not follow up as directed. The patient will continue to receive the combination of gemcitabine and docetaxel. She received gemcitabine on day 1 and 8 and Docetaxel on days 8. If after another course of chemotherapy there was no evidence of improvement we will consider changing therapy to a combination of doxorubicin and olaratumab (LARTRUVO). The patient has been given prescriptions for OxyContin. The patient is to take 30 mg at hours of sleep. Also will take 15 mg at 9 o'clock and at 6 o'clock. The patient has also been given a prescription for hydromorphone to be used for breakthrough pain. Dictated By: Willy Braun MD /irineo/doni /Document#: [id number]
== END 2017-05-23 19:15 | disposition home health service (06) | DRG 824 ==
LOC: E/R 09:24 → MS1 13:51 → OBSVTOIN 05-08 09:37
PROVIDERS: ADMIT Internal Medicine; ATTEND Internal Medicine
PROC: 0JH60XZ Insertion of Tunneled Vascular Access Device into Chest Subcutaneous Tissue and Fascia, Open Approach (ICD-10-PCS; 2017-05-10)
PROC: 02H633Z Insertion of Infusion Device into Right Atrium, Percutaneous Approach (ICD-10-PCS; 2017-05-10)
PROC: 3E04305 Introduction of Other Antineoplastic into Central Vein, Percutaneous Approach (ICD-10-PCS; principal; 2017-05-17)
PROC: 0KB Muscles, Excision (ICD-10-PCS; 2017-05-17)
DX: C77.5 Secondary and unspecified malignant neoplasm of intrapelvic lymph nodes (principal); C78.02 Secondary malignant neoplasm of left lung; C78.01 Secondary malignant neoplasm of right lung; C79.89 Secondary malignant neoplasm of other specified sites; L72.3 Sebaceous cyst; Z87.891 Personal history of nicotine dependence; Z51.5 Encounter for palliative care; N93.9 Abnormal uterine and vaginal bleeding, unspecified; F20.9 Schizophrenia, unspecified; F31.9 Bipolar disorder, unspecified; R06.02 Shortness of breath; E66.9 Obesity, unspecified; Z68.33 Body mass index [BMI] 33.0-33.9, adult; Z85.42 Personal history of malignant neoplasm of other parts of uterus; R11.2 Nausea with vomiting, unspecified; T45.1X5A Adverse effect of antineoplastic and immunosuppressive drugs, initial encounter; Y92.239 Unspecified place in hospital as the place of occurrence of the external cause; M79.602 Pain in left arm
CPT/HCPCS: 36415; 36561; 71010; 71260; 71552; 73220; 74177; 76942; 80048; 80053; 81003; 82565; 83690; 83735; 84100; 84484; 84520; 85025; 85610; 85730; 88305; 88313; 93005; 93971; 96374; 96375; 96376; 97162; 97530; J9201; C1788; G0378; J0690; J1100; J1170; J1642; J1644; J1650; J2250; J2270; J2405; J3010; J3475; J7040; J7050; J9171; Q9967